=== PATIENT | female | born 1985 | race Caucasian/White ===

== ENCOUNTER 2023-03-18 22:31 | Outpatient (REF) | payer BC, SELFPAY ==
[2023-03-22 05:07] LABS: Age Gdln ACOG Testing Note (.); HPV Aptima Negative (Negative); IGP, Aptima HPV, rfx 16/18,45 Note (.)
== END 2023-03-18 22:32 | disposition home or self-care (01) ==
LOC: LAB 22:31
PROVIDERS: Visit Provider Obstetrics & Gynecology
DX: Z01.419 Encounter for gynecological examination (general) (routine) without abnormal findings (principal)
CPT/HCPCS: 87624; G0145

== ENCOUNTER 2024-09-22 19:37 | Outpatient (REF) | payer BC, SELFPAY ==
--- OUTSIDE RECORDS SUMMARY | 2024-09-22 14:30 | XMS_ITS | Encounter Summary ---
Author Organization [facility] Address [address] [place] [address] Care Team Providers Care Engraver Lettering Name Role Phone Unavailable Primary Care Provider Unavailabl e Reason for Visit * Reason Comments Well Women Visit Encounter Details Date Type Department Care Team (Late st Contact Info) Description 09/22/2024 2:30 PM EDT Office Visit [facility] [address] [place] [address] Mario Orantes [facility] [address] Well woman exam with routine gynecological exam Social History Tobacco Use Types Packs/Day Years Used Date Smoking Tobacco: Never Assessed Comments Unknown Sex and Gender Information Value Date Recorded Sex Assigned at Female 11/07/2022 3:20 PM EDT Legal Sex Female 7:21 PM EDT Gender Identity Female 11/07/2022 3:20 PM EDT Sexual Orientation Not on file documented as of this encounter Last Filed Vital Signs Vital Sign Reading Time Taken Comments Blood Pressure 120/70 09/22/2024 2:33 PM EDT Pulse - - Temperature - - Respiratory Rate - - Oxygen Saturation - - Inhaled Oxygen Concentration - - Weight 98.3 kg (216 lb 12.8 oz) 09/22/2024 2:33 PM EDT Height - - Body Mass Index 34.99 03/07/2022 12:00 PM EST documented in this encounter Plan of Treatment Upcoming Encounters Date Type Department Care Team (Late st Contact Info) Description 09/28/2025 10:00 AM EDT Procedure Visit [facility] [address] [place] [address] Mario Orantes, [address] [place] [address] Scheduled Orders Name Type Priority Associated Diagnoses Orde r Schedule Pap Smear Pathology and Cytology Routine Well woman exam with routine gynecological exam Ordered: 09/22/2024 HPV DNA probe, amplified Microbiology Routine Well woman exam with routine gynecological exam Ordered: 09/22/2024 documented as of this encounter Visit Diagnoses Diagnosis Well woman exam with routine gynecological exam Routine gynecological examination documented in this encounter
--- OUTSIDE RECORDS SUMMARY | 2024-09-22 19:41 | XMS_ITS | Encounter Summary ---
Author Organization [facility] Address [address] [place] [address] Phone Care Team Providers Care System Dispatcher Name Role Phone Michele Carrillo Primary Care Pr ovider Carleen Kennedy Unavailable [phone] [phone] Christen Garner RN Unavailable Unavailable Encounter Details Date Type Department Care Team (Late st Contact Info) Description 04/14/2023 Patient Risk Score ACO Care Management [address] [place] [address] Social History Tobacco Use Types Packs/Day Years Used Date Smoking Tobacco: Never Assessed Comments Unknown Sex and Gender Information Value Date Recorded Sex Assigned at Not on file Legal Sex Female 10:10 AM EST Gender Identity Female 05/28/2023 2:12 PM EDT Sexual Orientation Straight 05/28/2023 2: 12 PM EDT COVID-19 Exposure Response Date Recorded In the last 10 days, have yo u been in contact with someone who was confirmed or suspected to have Coronavirus/COVID-19? No / Unsure 03/25/2023 10:30 AM EST documented as of this encounter Plan of Treatment Not on file documented as of this encounter Visit Diagnoses Not on filedocumented in this encounter Care Teams System Dispatcher Relationship Specialty Start Date End Date Michele Carrillo APRN-CNP [address] [place] [phone] PCP - General 1/1/19 Carleen Kennedy, PUBLIC INFORMATION RELATIONS MANAGER-POLICE OFFICER BOOKING [address] [place] [address] PCP - Jd JOHNSONO PCP 04/11/22 Christen Garner, RN Registered Nurse Reproductive Endocrinology and Infertility 06/04/23 documented as of this encounter
--- OUTSIDE RECORDS SUMMARY | 2024-09-22 19:41 | XMS_ITS | Encounter Summary ---
Author Organization [facility] Address [address] [facility] [place] [address] Care Team Providers Care Vacuum Drum Drier Operator Name Role Phone Unavailable Primary Care Provider Unavailabl e Encounter Details Date Type Department Care Team (Latest Contact Info) Description 09/21/2024 Travel Social History Tobacco Use Types Packs/Day Years Used Date Smoking Tobacco: Never Assessed Comments Unknown Sex and Gender Information Value Date Recorded Sex Assigned at Female 11/07/2022 3:20 PM EDT Legal Sex Female 7:21 PM EDT Gender Identity Female 11/07/2022 3:20 PM EDT Sexual Orientation Not on file documented as of this encounter Plan of Treatment Upcoming Encounters Date Type Department Care Team (Late st Contact Info) Description 09/28/2025 10:00 AM EDT Procedure Visit [facility] [address] [place] [address] Mario Orantes, DO [address] [facility] [address] [place], [place] [id number] documented as of this encounter Visit Diagnoses Not on filedocumented in this encounter
--- OUTSIDE RECORDS SUMMARY | 2024-09-22 19:41 | XMS_ITS | Clinical Summary ---
Author Organization [facility] Address [id number] [address] [place] [address] Care Team Providers Care Search Consultant Name Role Phone GerardoSannagordy Shipman POURED WALL FOREMAN-HIGH SCHOOL SOCIAL STUDIES TEACHER Primary Care Provide r Allergies Active Allergy Reactions Criticality Noted Date Comments Dimethyl Fumarate pain High 11/07/2020 Severe Stomach Pain Medications omeprazole (PriLOSEC) 40 mg capsule Take 1 capsule (40 mg total) by mouth in the morning. 12/01/2021 Active famotidine (PEPCID) 20 mg tablet Take 1 tablet (20 mg total) by mouth in the morning and 1 tablet (20 mg total) before bedtime. 12/01/2021 Active montelukast (SINGULAIR) 10 mg tablet Take 1 tablet (10 mg total) by mouth nightly. 12/01/2021 Active levonorgestreL- ethinyl estrad (SEASONALE) 0.15 mg-30 mcg (91) per tablet Take 1 tablet by mouth in the morning. 12/01/2021 Active VUMERITY 231 mg capsule,delayed release(DR/EC) Take 231 mg by mouth in the morning and 231 mg before bedtime. 01/06/2022 Active cetirizine (ZyrTEC) 10 mg tablet Take 1 tablet (10 mg total) by mouth in the morning and 1 tablet (10 mg total) before bedtime. Active cholecalciferol , vitamin D3, (VITAMIN D3 ORAL) Take by mouth daily. Active fluticasone furoate-vilante roL (BREO ELLIPTA) 200-25 mcg/dose blister with device Inhale 1 puff in the morning. 12/01/2021 Active Active Problems No known active problems Family History Medical History Relation Name Comments Hypertension Father Pancreatic cancer Father 2 014 Breast cancer Maternal Grandmother Hypertension Mother Kidney cancer Mother partial kidney removal Relation Name Status Comments Father Maternal Grandmother Mother Alive Social History Tobacco Use Types Packs/Day Years Used Date Smoking Tobacco: Former Cigarettes 0.3 10 2 008 2017 Smokeless Tobacco: Never Tobacco Cessation:Counseling Given: Not Answered Alcohol Use Standard Drinks/Week Comments Not Currently 0 (1 standard drink = 0.6 oz pur e alcohol) Comments Unknown Sex and Gender Information Value Date Recorded Sex Assigned at Not on file Legal Sex Female 1:54 PM EDT Gender Identity Not on file Sexual Orientation Not on file Last Filed Vital Signs Vital Sign Reading Time Taken Comments Blood Pressure 106/82 01/17/2022 10:41 AM EST Pulse - - Temperature 36.6 C (97.8 F) 01/17/2022 10:41 AM EST Respiratory Rate - - Oxygen Saturation - - Inhaled Oxygen Concentration - - Weight 93.7 kg (206 lb 9.6 oz) 01/17/2022 10:41 AM EST Height 167.6 cm (5' 6 ) 01/17/2022 10:41 AM EST Body Mass Index 33.35 01/17/2022 10:41 AM EST Plan of Treatment Health Maintenance Due Date Last Done Comments Depression Screening 1998 Tobacco Screening 1998 DTaP,Tdap and Td Vaccines (1 - Tdap) 2005 Pap Smear 06/03/2007 Adult BMI Screening 01/17/2023 01/17/2022 Influenza Vaccine 11/09/2024 12/17/2019, , 12/29/2015 Medical Devices Not on file [place] [place] [address] Care Teams Search Consultant Relationship Specialty Start Date End Date Michele Carrillo APRN-HARIKA [address] [place] [address] PCP - General Family Medicine 01/17/22
--- OUTSIDE RECORDS SUMMARY | 2024-09-22 19:41 | XMS_ITS | Encounter Summary ---
Author Organization [facility] Address [address] [place] [address] Phone Care Team Providers Care Ocularist Name Role Phone Michele Carrillo HEAD START TEACHER-DIRECTOR OF RADIOLOGY Primary Care Pr ovider Carleen Kennedy HEAD START TEACHER-DIRECTOR OF RADIOLOGY Unavailable [phone] Christen Garner RN Unavailable Unavailable Encounter Details Date Type Department Care Team (Late st Contact Info) Description 10/13/2023 Patient Risk Score ACO Care Management [address] [place] [address] Social History Tobacco Use Types Packs/Day Years Used Date Smoking Tobacco: Former Cigarettes Passive Smoke Exposure: Past Smokeless Tobacco: Never Alcohol Use Standard Drinks/Week Comments Yes 0 (1 standard drink = 0.6 oz pur e alcohol) once a month PHQ-2 Answer Date Recorded Patient Health Questionnaire-2 Score 0 10/09/2023 Comments No Sex and Gender Information Value Date Recorded Sex Assigned at Not on file Legal Sex Female 10:10 AM EST Gender Identity Female 05/28/2023 2:12 PM EDT Sexual Orientation Straight 05/28/2023 2: 12 PM EDT COVID-19 Exposure Response Date Recorded In the last 10 days, have yo u been in contact with someone who was confirmed or suspected to have Coronavirus/COVID-19? Unable to assess 10/09/2023 6:47 AM EDT documented as of this encounter Plan of Treatment Not on file documented as of this encounter Visit Diagnoses Not on filedocumented in this encounter Additional Health Concerns Assessment Noted Time A fall risk assessment has been complete d for the patient 10/09/2023 8:04 AM EDT documented as of this encounter Care Teams Ocularist Relationship Specialty Start Date End Date Michele Carrillo APRN-CNP [address] [place] [address] PCP - General 03/11/18 Carleen Kennedy APRN-CNP [address] [place] [address] PCP - Jd BERG PCP 04/11/22 Christen Garner, RN Registered Nurse Reproductive Endocrinology and Infertility 06/04/23 documented as of this encounter
--- OUTSIDE RECORDS SUMMARY | 2024-09-22 19:41 | XMS_ITS | Encounter Summary ---
Author Organization [facility] Address [address] [place] [address] Phone Care Team Providers Care Support Technician Name Role Phone Michele Carrillo Primary Care Pr ovider Carleen Kennedy Unavailable [phone] Christen Garner RN Unavailable Unavailable Encounter Details Date Type Department Care Team (Late st Contact Info) Description 08/11/2024 Patient Risk Score ACO Care Management [address] [place] [address] Social History Tobacco Use Types Packs/Day Years Used Date Smoking Tobacco: Former Cigarettes Passive Smoke Exposure: Past Smokeless Tobacco: Never Alcohol Use Standard Drinks/Week Comments Yes 0 (1 standard drink = 0.6 oz pur e alcohol) once a month PHQ-2 Answer Date Recorded Patient Health Questionnaire-2 Score 0 03/24/2024 Comments No Sex and Gender Information Value Date Recorded Sex Assigned at Not on file Legal Sex Female 10:10 AM EST Gender Identity Female 05/28/2023 2:12 PM EDT Sexual Orientation Straight 05/28/2023 2: 12 PM EDT documented as of this encounter Plan of Treatment Not on file documented as of this encounter Visit Diagnoses Not on filedocumented in this encounter Additional Health Concerns Assessment Noted Time A fall risk assessment has been complete d for the patient 03/24/2024 8:46 AM EST documented as of this encounter Care Teams Support Technician Relationship Specialty Start Date End Date Michele Carrillo APRN-CNP [address] [place] [address] PCP - General 03/11/18 Carleen Kennedy APRN-STREET ENGINEER [address] [place] [address] PCP - Jd JOHNSONO PCP 04/11/22 Christen Garner, RN Registered Nurse Reproductive Endocrinology and Infertility 06/04/23 documented as of this encounter
--- OUTSIDE RECORDS SUMMARY | 2024-09-22 19:41 | XMS_ITS | Encounter Summary ---
Author Organization [facility] Address [address] [place] [address] Phone Care Team Providers Care Char Conveyor Tender Cellar Name Role Phone Michele Carrillo Primary Care Pr ovider Carleen Kennedy Unavailable [phone] Christen Garner RN Unavailable Unavailable Encounter Details Date Type Department Care Team (Late st Contact Info) Description 03/13/2023 Patient Risk Score AC Care Management [address] [place] [address] Social History Tobacco Use Types [...] on filedocumented in this encounter Care Teams Char Conveyor Tender Cellar Relationship Specialty Start Date End Date Michele Carrillo APRN-CNP [address] [place] [address] PCP - General 03/11/18 Carleen Kennedy APRN-CNP [address] Department of Neurology [place], [place] [id number] PCP - Jd JOHNSONO PCP 04/11/22 Christen Garner, RN Registered Nurse Reproductive Endocrinology and Infertility 06/04/23 documented as of this encounter
--- OUTSIDE RECORDS SUMMARY | 2024-09-22 19:41 | XMS_ITS | Encounter Summary ---
Author Organization [facility] Address [address] [place] [address] Phone Care Team Providers Care Grain Elevator Worker Name Role Phone Michele Carrillo Primary Care Pr ovider Carleen Kennedy Unavailable [phone] [phone] Christen Garner RN Unavailable Unavailable Encounter Details Date Type Department Care Team (Late st Contact Info) Description 05/13/2023 Patient Risk Score AC Care Management [address] [place] [address] Social History Tobacco Use Types [...] on filedocumented in this encounter Care Teams Grain Elevator Worker Relationship Specialty Start Date End Date Michele Carrillo APRN-CNP [address] [place] [address] PCP - General 03/11/18 Carleen Kennedy APRN-CNP [address] Department of Neurology [place], [place] [id number] PCP - Jd JOHNSONO PCP 04/11/22 Christen Garner, RN Registered Nurse Reproductive Endocrinology and Infertility 06/04/23 documented as of this encounter
--- OUTSIDE RECORDS SUMMARY | 2024-09-22 19:41 | XMS_ITS | Clinical Summary ---
Author Organization [facility] Address [address] [place] [address] Phone Care Team Providers Care Oxygen Therapy Teacher Name Role Phone Gerardo Michele Arambula WEB GRAPHIC DESIGNER-METALLURGICAL TECHNICIAN Primary Care Pr ovider Carleen Kennedy WEB GRAPHIC DESIGNER-METALLURGICAL TECHNICIAN Unavailable [phone] Christen Garner RN Unavailable Unavailable Allergies No known active allergies Medications Vumerity 231 mg capsule,delayed release(DR/EC)In dications:Multip le sclerosis (Multi) TAKE 2 CAPSULES BY MOUTH 2 TIMES A DAY. 120 capsule 5 4 Active Additional Information Patient not taking.Reported on 03/24/2024 cetirizine (ZyrTEC) 5 mg chewable tablet Chew 1 tablet (5 mg) once daily. Active omeprazole (PriLOSEC) [address] capsule Take 1 capsule (20 mg) by mouth. Do not crush or chew. Active famotidine (Pepcid) 10 mg tablet Take 1 tablet (10 mg) by mouth once daily at bedtime. Active montelukast (Singulair) 10 mg tablet Take 1 tablet (10 mg) by mouth once daily at bedtime. Active chorionic gonadotropin (Pregnyl) 10,000 unit injectionIndicat ions:Female infertility Reconstitute according to instructions and inject 10,000 units (1 mL) under the skin as a one time dose, as directed per provider for trigger. 1 each 4 Active choriogonadotrop in odalys (Ovidrel) 250 mcg/0.5 mL injectionIndicat ions:Female infertility Inject 250 mcg (1 syringe) under the skin as a one time dose, as directed per provider for trigger. 1 each 08/30/2023 5:28 PM EDT Active progesterone (Prometrium) 100 mg capsuleIndicatio ns:Female infertility Insert 1 capsule (100 mg) into the vagina 2 times a day. Starting 3 days after IUI 60 capsule 4 025 Active Additional Information Patient not taking.Reported on 03/24/2024 choriogonadotrop in odalys (Ovidrel) 250 mcg/0.5 mL injectionIndicat ions:Female infertility Inject 250 mcg (1 syringe) under the skin as a one time dose, as directed per provider for trigger. 1 each Active medroxyPROGESTER one (Provera) 10 mg tabletIndication s:Female infertility Take 1 tablet (10 mg) by mouth once daily. 10 tablet 4 025 Active Additional Information Patient not taking.Reported on 03/24/2024 Active Problems No known active problems Encounters Date Type Department Care Team Description 09/11/2024 Patient Risk Score ACO Care Management [address] [facility] [address] [place] [address] 08/11/2024 Patient Risk Score ACO Care Management [address] [facility] [address] [place] [address] 07/12/2024 Patient Risk Score ACO Care Management [address] [facility] [address] [place] [address] from Last 3 Months Family History Medical History Relation Name Comments Pancreatic cancer Father Colon cancer Maternal Grandmother Kidney cancer Mother non hodgkins Paternal Grandfather Colon cancer Paternal Grandmother Relation Name Status Comments Father Maternal Grandmother Mother Paternal Grandfather Paternal Grandmother Social History Tobacco Use Types Packs/Day Years Used Date Smoking Tobacco: Former Cigarettes Passive Smoke Exposure: Past Smokeless Tobacco: Never Tobacco Cessation:Counseling Given: Not Answered Alcohol Use Standard Drinks/Week Comments Yes 0 [...] Orientation Straight 05/28/2023 2: 12 PM EDT Last Filed Vital Signs Vital Sign Reading Time Taken Comments Blood Pressure 112/78 08/15/2023 3:18 PM EDT Pulse 85 08/15/2023 3:18 PM EDT Temperature 36.8 C (98.3 F) 06/04/2023 1:56 PM EDT Respiratory Rate 18 08/15/2023 3:18 PM EDT Oxygen Saturation - - Inhaled Oxygen Concentration - - Weight 95.3 kg (210 lb) 03/24/2024 8:44 AM EST Height 167.6 cm (5' 6 ) 03/24/2024 8:44 AM EST Body Mass Index 33.89 03/24/2024 8:44 AM EST Plan of Treatment Health Maintenance Due Date Last Done Comments Lipid Panel 1986 MMR Vaccines (1 of 1 - Standard series) 06/03/1987 Varicella Vaccines (1 of 2 - 13+ 2-dose series) 06/03/1999 Hepatitis B Vaccines (1 of 3 - 19+ 3-dose series) 2005 HPV/Cotest 06/03/2007 DTaP/Tdap/Td Vaccines (1 - Tdap) 2008 Pneumococcal Vaccine: Pediatrics and At-Risk Adult Patients (2 of 2 - PCV) 01/20/2020 01/19/2019 COVID-19 Vaccine (1 - season) 2023 Yearly Adult Physical 03/19/2024 03/18/2023 , 03/07/2022, 11/06/2021, Additional history exists Influenza Vaccine (#1) 2024 , 01/19/2019, 12/29/2015 Cervical Cancer Screening 03/18/2026 Pap Smear 03/18/2026 03/18/2023, 02/09, 03/02/2021 Zoster Vaccines (1 of 2) 2036 HIV Screening Completed 06/04/2023 Hepatitis C Screening Completed 06/04/2023 HIB Vaccines Aged Out No longer eligi ble based on patient's age to complete this topic HPV Vaccines (No Doses Required) Completed Hepatitis A Vaccines Aged Out No long er eligible based on patient's age to complete this topic IPV Vaccines Aged Out No longer eligi ble based on patient's age to complete this topic Meningococcal Vaccine Aged Out No mark kita eligible based on patient's age to complete this topic Rotavirus Vaccines Aged Out No longer eligible based on patient's age to complete this topic Procedures Procedure Name Priority Date/Time Associated Diagnosis Comments HEPATITIS C ANTIBODY Routine 06/04/2023 2:47 PM EDT Screening for STDs (sexually transmitted diseases) HIV 1/2 ANTIGEN/ANTIBODY SCREEN WI REFLEX TO CONFIRMATION Routine 06/04/2023 2:47 PM EDT Screening for STDs (sexually transmitted diseases) from Last 3 Months or Most Recently Relevant to Health Maintenance Results * Hepatitis C Antibody (06/04/2023 2:47 PM EDT) Hepatitis C AB Nonreactive Nonreactive LAB IMMUNOASSAY METHOD 06/04/2023 9:22 PM EDT [facility] Comment:Results from patient s taking biotin supplements or receiving high-dose biotin therapy should be interpreted with caution due to possible interference with this test. Providers may contact their local laboratory for further information. Blood Venous blood specimen / Unknown Venipuncture / Unknown 06/04/2023 2:47 PM EDT 06/04/2023 2:47 PM EDT Lashawn Drummond WEB GRAPHIC DESIGNER-METALLURGICAL TECHNICIAN LAB BLOOD ORDERABLES Micheline aguayo Result [facility] [id number] [place], [place] [id number] * HIV 1/2 Antigen/Antibody Screen with Reflex to Confirmation (06/04/2023 2:47 PM EDT) HIV 1/2 Antigen/Antibo dy Screen with Reflex to Confirmation Nonreactive Nonreactive LAB IMMUNOASSAY METHOD 06/04/2023 9:35 PM EDT [facility] Blood Venous blood specimen / Unknown Venipuncture / Unknown 06/04/2023 2:47 PM EDT 06/04/2023 2:47 PM EDT Narrative [facility] - 06/04/2023 9:35 PM EDT HIV Ag/Ab screen is performed using the Siemens Curate.Usllica HIV Ag/Ab Combo assay which detects the presence of HIV p24 antigen as well as antibodies to HIV-1 (Group M and O) and HIV-2. No laboratory evidence of HIV infection. If acute HIV infection is suspected, consider testing for HIV RNA by PCR (viral load). us Lashawn Drummond WEB GRAPHIC DESIGNER-METALLURGICAL TECHNICIAN LAB BLOOD ORDERABLES Micheline aguayo Result [facility] [address] [place] [address] from Last 3 Months or Most Recently Relevant to Health Maintenance Insurance [facility] [employer]ENTAL on file [facility] Member Subscriber Plan / Payer (Ef fective 2023-Present) Name:Amy Garcia Relation to Subscriber:Self Name:Amy Garcia Payer ID:[id number] (NAIC) Type:Not on file Address: [facility] [id number] [phone] PROGYNY Care Teams Oxygen Therapy Teacher Relationship Specialty Start Date End Date Michele Carrillo APRN-METALLURGICAL TECHNICIAN [address] [place] [phone] PCP - General 03/11/18 Carleen Kennedy APRN-METALLURGICAL TECHNICIAN [address] [place] [address] PCP - [place] ACO PCP 04/11/22 Christen Garner, RN Registered Nurse Reproductive Endocrinology and Infertility 06/04/23
--- OUTSIDE RECORDS SUMMARY | 2024-09-22 19:41 | XMS_ITS | Encounter Summary ---
Author Organization [facility] Address [address] [place] [address] Phone Care Team Providers Care Dairy Bar Manager Name Role Phone Michele Carrillo Primary Care Pr ovider Carleen Kennedy Unavailable [phone] Christen Garner RN Unavailable Unavailable Encounter Details Date Type Department Care Team (Late st Contact Info) Description 09/10/2022 Patient Risk Score AC Care Management [address] [place] [address] Social History Tobacco Use Types [...] on filedocumented in this encounter Care Teams Dairy Bar Manager Relationship Specialty Start Date End Date Michele Carrillo APRN-CNP [address] [place] [phone] PCP - General 03/11/18 Carleen Kennedy APRN-CNP [address] Department of Neurology [place], [place] [phone] PCP - Jd JOHNSONO PCP 04/11/22 Christen Garner, RN Registered Nurse Reproductive Endocrinology and Infertility 06/04/23 documented as of this encounter
--- OUTSIDE RECORDS SUMMARY | 2024-09-22 19:41 | XMS_ITS | Encounter Summary ---
Author Organization [facility] Address [address] [place] [address] Phone Care Team Providers Care Newspaper Library Manager Name Role Phone Michele Carrillo Primary Care Pr ovider Carleen Kennedy Unavailable [phone] [phone] Christen Garner RN Unavailable Unavailable Encounter Details Date Type Department Care Team (Late st Contact Info) Description 10/11/2022 Patient Risk Score AC Care Management [address] [place] [address] Social History Tobacco Use Types [...] on filedocumented in this encounter Care Teams Newspaper Library Manager Relationship Specialty Start Date End Date Michele Carrillo APRN-CNP [address] [place] [address] PCP - General 03/11/18 Carleen Kennedy APRN-CNP [address] Department of Neurology [place], [place] [phone] PCP - Jd JOHNSONO PCP 04/11/22 Christen Garner, RN Registered Nurse Reproductive Endocrinology and Infertility 06/04/23 documented as of this encounter
--- OUTSIDE RECORDS SUMMARY | 2024-09-22 19:41 | XMS_ITS | Encounter Summary ---
Author Organization [facility] Address [address] [place] [address] Care Team Providers Care Driver/Guide Name Role Phone Unavailable Primary Care Provider Unavailabl e Encounter Details Date Type Department Care Team (Late st Contact Info) Description 09/22/2024 Bamboo flowsheet [facility] [address] [place] [address] Mairo Orantes DO [facility] [address] [place], [place] [address] Social History Tobacco Use Types Packs/Day Years [...] 09/28/2025 10:00 AM EDT Procedure Visit [facility] [address] [place] [address] Mario Orantes DO [address] [place], [place] [id number] documented as of this encounter Visit Diagnoses Not on filedocumented in this encounter
--- OUTSIDE RECORDS SUMMARY | 2024-09-22 19:41 | XMS_ITS | Encounter Summary ---
Author Organization [facility] Address [address] [place] [address] Phone Care Team Providers Care Director Of Industrial Relations Name Role Phone Michele Carrillo Primary Care Pr ovider Carleen Kennedy Unavailable +1- [phone] Christen Garner RN Unavailable Unavailable Encounter Details Date Type Department Care Team (Late st Contact Info) Description 03/14/2024 Patient Risk Score ACO Care Management [address] [place] [address] Social History Tobacco Use Types [...] documented as of this encounter Care Teams Director Of Industrial Relations Relationship Specialty Start Date End Date Michele Carrillo APRN-CNP [address] [place] [address] PCP - General 03/11/18 Carleen Kennedy APRN-GROUND WATER PUMP INSTALLER [address] [place] [address] PCP - Jd JOHNSONO PCP 04/11/22 Christen Garner, RN Registered Nurse Reproductive Endocrinology and Infertility 06/04/23 documented as of this encounter
--- OUTSIDE RECORDS SUMMARY | 2024-09-22 19:41 | XMS_ITS | Encounter Summary ---
Author Organization [facility] Address [address] [place] [address] Phone Care Team Providers Care Loom Control Chain Builder Name Role Phone Michele Carrillo Primary Care Pr ovider Carleen Kennedy Unavailable +1 [phone] Christen Garner RN Unavailable Unavailable Encounter Details Date Type Department Care Team (Late st Contact Info) Description 01/11/2023 Patient Risk Score AC Care Management [address] [place] [address] Social History Tobacco Use Types [...] on filedocumented in this encounter Care Teams Loom Control Chain Builder Relationship Specialty Start Date End Date Michele Carrillo APRN-CNP [address] [place] [address] PCP - General 03/11/18 Carleen Kennedy APRN-CNP [address] Department of Neurology [place], [place] [address] PCP - Jd JOHNSONO PCP 04/11/22 Christen Garner, RN Registered Nurse Reproductive Endocrinology and Infertility 06/04/23 documented as of this encounter
--- OUTSIDE RECORDS SUMMARY | 2024-09-22 19:41 | XMS_ITS | Encounter Summary ---
Author Organization [facility] Address [address] [place] [address] Phone Care Team Providers Care Tractor Operator Name Role Phone Michele Carrillo Primary Care Pr ovider Carleen Kennedy Unavailable +1- [phone] Christen Garner RN Unavailable Unavailable Encounter Details Date Type Department Care Team (Late st Contact Info) Description 06/12/2024 Patient Risk Score ACO Care Management [address] [place] [address] Social History Tobacco Use Types [...] documented as of this encounter Care Teams Tractor Operator Relationship Specialty Start Date End Date Michele Carrillo APRN-CNP [address] [place] [address] PCP - General 03/11/18 Carleen Kennedy APRN-DOCUMENT COORDINATOR [address] Department [place] [address] PCP - Jd JOHNSONO PCP 04/11/22 Christen Garner, RN Registered Nurse Reproductive Endocrinology and Infertility 06/04/23 documented as of this encounter
--- OUTSIDE RECORDS SUMMARY | 2024-09-22 19:41 | XMS_ITS | Encounter Summary ---
Author Organization [facility] Address [address] [place] [address] Phone Care Team Providers Care Race Car Driver Name Role Phone Michele Carrillo COMMUNICATIONS MAINTAINER-EQUAL OPPORTUNITY SPECIALIST Primary Care Pr ovider Carleen Kennedy COMMUNICATIONS MAINTAINER-EQUAL OPPORTUNITY SPECIALIST Unavailable +1- [phone] Christen Garner RN Unavailable Unavailable Encounter Details Date Type Department Care Team (Late st Contact Info) Description 04/14/2024 Patient Risk Score ACO Care Management [address] [place] [address] Social History Tobacco Use Types [...] suspected to have Coronavirus/COVID-19? Unable to assess 03/24/2024 7:00 AM EST documented as of this encounter Plan of Treatment Not on file documented as of this encounter Visit Diagnoses Not on filedocumented in this encounter Additional Health Concerns Assessment Noted Time A fall risk assessment has been complete d for the patient 03/24/2024 8:46 AM EST documented as of this encounter Care Teams Race Car Driver Relationship Specialty Start Date End Date Michele Carrillo APRN-CNP [address] [place] [address] PCP - General 03/11/18 Carleen Kennedy APRN-CNP [address] Department of Neurology [place] [id number] PCP - Jd JOHNSONO PCP 04/11/22 Christen Garner, RN Registered Nurse Reproductive Endocrinology and Infertility 06/04/23 documented as of this encounter
--- OUTSIDE RECORDS SUMMARY | 2024-09-22 19:41 | XMS_ITS | Encounter Summary ---
Author Organization [facility] Address [address] [place] [address] Phone Care Team Providers Care Cherry Dipper Name Role Phone Michele Carrillo DIRECTOR SALES TRAINING-PLATFORM MILL SUPERVISOR Primary Care Pr ovider Carleen Kennedy DIRECTOR SALES TRAINING-PLATFORM MILL SUPERVISOR Unavailable [phone]- [phone] Christen Garner RN Unavailable Unavailable Encounter Details Date Type Department Care Team (Late st Contact Info) Description 11/12/2023 Patient Risk Score ACO Care Management [address] [place] [address] Social History Tobacco Use Types [...] suspected to have Coronavirus/COVID-19? No / Unsure 11/06/2023 6:34 AM EDT documented as of this encounter Plan of Treatment Not on file documented as of this encounter Visit Diagnoses Not on filedocumented in this encounter Additional Health Concerns Assessment Noted Time A fall risk assessment has been complete d for the patient 10/09/2023 8:04 AM EDT documented as of this encounter Care Teams Cherry Dipper Relationship Specialty Start Date End Date Michele Carrillo APRN-CNP [address] [place] [address] PCP - General 03/11/18 Carleen Kennedy APRN-CNP [address] [place] [address] PCP - Jd BERG PCP 04/11/22 Christen Garner, RN Registered Nurse Reproductive Endocrinology and Infertility 06/04/23 documented as of this encounter
--- OUTSIDE RECORDS SUMMARY | 2024-09-22 19:41 | XMS_ITS | Encounter Summary ---
Author Organization [facility] Address [address] [place] [address] Phone Care Team Providers Care Sheet Rock Finisher Name Role Phone Michele Carrillo Primary Care Pr ovider Carleen Kennedy Unavailable [phone]- [phone] Christen Garner RN Unavailable Unavailable Encounter Details Date Type Department Care Team (Late st Contact Info) Description 12/13/2023 Patient Risk Score ACO Care Management [address] [place] [address] Social History Tobacco Use Types [...] documented as of this encounter Care Teams Sheet Rock Finisher Relationship Specialty Start Date End Date Michele Carrillo APRN-CNP [address] [place] [address] PCP - General 03/11/18 Carleen Kennedy APRN-SILVER MINER [address] [place] [address] PCP - Jd JOHNSONO PCP 04/11/22 Christen Garner, RN Registered Nurse Reproductive Endocrinology and Infertility 06/04/23 documented as of this encounter
--- OUTSIDE RECORDS SUMMARY | 2024-09-22 19:41 | XMS_ITS | Encounter Summary ---
Author Organization [facility] Address [address] [place] [address] Phone Care Team Providers Care Windows And Doors Installer Name Role Phone Michele Carrillo LABORATORY PHLEBOTOMIST-DISTRICT TRAFFIC CHIEF Primary Care Pr ovider Carleen Kennedy LABORATORY PHLEBOTOMIST-DISTRICT TRAFFIC CHIEF Unavailable +1- [phone] Christen Garner RN Unavailable Unavailable Encounter Details Date Type Department Care Team (Late st Contact Info) Description 08/13/2023 Patient Risk Score ACO Care Management [address] [place] [address] Social History Tobacco Use Types Packs/Day Years Used Date Smoking Tobacco: Former Cigarettes Passive Smoke Exposure: Past Smokeless Tobacco: Never Alcohol Use Standard Drinks/Week Comments Yes 0 (1 standard drink = 0.6 oz pur e alcohol) once a month PHQ-2 Answer Date Recorded Patient Health Questionnaire-2 Score 0 06/04/2023 Comments No Sex and Gender Information Value [...] suspected to have Coronavirus/COVID-19? No / Unsure 08/06/2023 6:51 AM EDT documented as of this encounter Plan of Treatment Not on file documented as of this encounter Visit Diagnoses Not on filedocumented in this encounter Additional Health Concerns Assessment Noted Time A fall risk assessment has been complete d for the patient 06/04/2023 1:56 PM EDT documented as of this encounter Care Teams Windows And Doors Installer Relationship Specialty Start Date End Date Michele Carrillo APRN-CNP [address] [place] [address] PCP - General 03/11/18 Carleen Kennedy APRN-CNP [address] [place] [address] PCP - Jd BERG PCP 04/11/22 Christen Garner, RN Registered Nurse Reproductive Endocrinology and Infertility 06/04/23 documented as of this encounter
--- OUTSIDE RECORDS SUMMARY | 2024-09-22 19:41 | XMS_ITS | Encounter Summary ---
Author Organization [facility] Address [address] [place] [address] Phone Care Team Providers Care Area Relief Pilot Name Role Phone Michele Carrillo Primary Care Pr ovider Carleen Kennedy Unavailable [phone]- [phone] Christen Garner RN Unavailable Unavailable Encounter Details Date Type Department Care Team (Late st Contact Info) Description 09/11/2024 Patient Risk Score ACO Care Management [address] [place] [address] Social History Tobacco Use Types [...] documented as of this encounter Care Teams Area Relief Pilot Relationship Specialty Start Date End Date Michele Carrillo APRN-CNP [address] [place] [address] PCP - General 03/11/18 Carleen Kennedy APRN-STEWARD RACETRACK [address] [place] [address] PCP - Jd JOHNSONO PCP 04/11/22 Christen Garner, RN Registered Nurse Reproductive Endocrinology and Infertility 06/04/23 documented as of this encounter
--- OUTSIDE RECORDS SUMMARY | 2024-09-22 19:41 | XMS_ITS | Encounter Summary ---
Author Organization [facility] Address [address] [place] [address] Phone Care Team Providers Care Rn Immunology Name Role Phone Michele Carrillo Primary Care Pr ovider Carleen Kennedy Unavailable [phone]- [phone] Christen Garner RN Unavailable Unavailable Encounter Details Date Type Department Care Team (Late st Contact Info) Description 02/12/2024 Patient Risk Score ACO Care Management [address] [place] [address] Social History Tobacco Use Types [...] documented as of this encounter Care Teams Rn Immunology Relationship Specialty Start Date End Date Michele Carrillo APRN-CNP [address] [place] [address] PCP - General 03/11/18 Carleen Kennedy APRN-MFT [address] Department [place] [address] PCP - Jd JOHNSONO PCP 04/11/22 Christen Garner, RN Registered Nurse Reproductive Endocrinology and Infertility 06/04/23 documented as of this encounter
--- OUTSIDE RECORDS SUMMARY | 2024-09-22 19:41 | XMS_ITS | Clinical Summary ---
Author Organization [facility] Address [address] [place] [address] Care Team Providers Care Die Mounter Name Role Phone Unavailable Primary Care Provider Unavailabl e Allergies Active Allergy Reactions Criticality Noted Date Comments Dimethyl Fumarate Other High 11/07/2020 Severe Stomach Pain Medications Vumerity 231 MG capsule delayed-release 4 Active famotidine (Pepcid) 20 MG tablet Take 1 tablet by mouth in the morning and 1 tablet before bedtime. 3 Active omeprazole (PriLOSEC) [address] capsule TAKE 1 CAPSULE BY MOUTH EVERY DAY IN THE MORNING BEFORE BREAKFAST 3 Active montelukast (Singulair) 10 MG tablet Take 1 tablet by mouth at bedtime 4 Active Cholecalciferol (Vitamin D) 125 MCG (5000 UT) capsule Active LEVONORG-ETH ESTRAD TRIPHASIC PO Take 1 tablet by mouth in the morning. Active levonorgestrel-eth inyl estradiol (Seasonale) 0.15-0.03 MG tabletIndications: Encounter for other general counseling and advice on contraception TAKE 1 TABLET BY MOUTH EVERY DAY IN THE MORNING 91 tablet 5 Active Active Problems Problem Noted Date Diagnosed Date Mass on back 03/18/2023 Well woman exam with routine gynecological exam 03/18/2023 Encounters Date Type Department Care Team Description 09/22/2024 2:30 PM EDT Office Visit [facility] [address] [facility] [place] [address] Mario Orantes, DO Well woman exam with routine gynecological exam 09/22/2024 Bamboo flowsheet [facility] [address] [place] [address] Mario Orantes DO 09/21/2024 Travel 07/09/2024 Refill [facility] [address] [place], [place] [address] [address] Mario Orantes DO Encounter for other general counseling and advice on contraception from Last 3 Months Family History Medical History Relation Name Comments Cancer Father Diabetes Maternal Grandmother Cancer Mother Heart disease Paternal Grandmother Relation Name Status Comments Father Maternal Grandmother Mother Paternal Grandmother Social History Tobacco Use Types Packs/Day Years Used Date Smoking Tobacco: Never Assessed Comments Unknown Sex and Gender Information Value Date Recorded Sex Assigned at Female 11/07/2022 3:20 PM EDT Legal Sex Female 7:21 PM EDT Gender Identity Female 11/07/2022 3:20 PM EDT Sexual Orientation Not on file Last Filed Vital Signs Vital Sign Reading Time Taken Comments Blood Pressure 120/70 09/22/2024 2:33 PM EDT Pulse - - Temperature - - Respiratory Rate - - Oxygen Saturation - - Inhaled Oxygen Concentration - - Weight 98.3 kg (216 lb 12.8 oz) 09/22/2024 2:33 PM EDT Height 167.6 cm (5' 6 ) 03/07/2022 12:0 0 PM EST Body Mass Index 34.99 03/07/2022 12:00 PM EST Plan of Treatment Upcoming Encounters Date Type Department Care Team (Late st Contact Info) Description 09/28/2025 10:00 AM EDT Procedure Visit [facility] [place] [phone] Mario Orantes, [address] [place], [place] [id number] Insurance [facility]
--- OUTSIDE RECORDS SUMMARY | 2024-09-22 19:41 | XMS_ITS | Encounter Summary ---
Author Organization [facility] Address [address] [place] [address] Phone Care Team Providers Care Infrastructure Software Engineer Name Role Phone Michele Carrillo Primary Care Pr ovider Carleen Kennedy Unavailable [phone] [phone] Christen Garner RN Unavailable Unavailable Encounter Details Date Type Department Care Team (Late st Contact Info) Description 11/11/2022 Patient Risk Score AC Care Management [address] [place] [address] Social History Tobacco Use Types [...] on filedocumented in this encounter Care Teams Infrastructure Software Engineer Relationship Specialty Start Date End Date Michele Carrillo APRN-CNP [address] [place] [address] PCP - General 03/11/18 Carleen Kennedy APRN-CNP [address] Department of Neurology [place], [place] [address] PCP - Jd JOHNSONO PCP 04/11/22 Christen Garner, RN Registered Nurse Reproductive Endocrinology and Infertility 06/04/23 documented as of this encounter
--- OUTSIDE RECORDS SUMMARY | 2024-09-22 19:41 | XMS_ITS | Encounter Summary ---
Author Organization [facility] Address [address] [place] [address] Phone Care Team Providers Care Belly Packer Name Role Phone Michele Carrillo LUNCHROOM MOTHER-SALESPERSON TERRAZZO TILES Primary Care Pr ovider Carleen Kennedy LUNCHROOM MOTHER-SALESPERSON TERRAZZO TILES Unavailable [phone]- [phone] Christen Garner RN Unavailable Unavailable Encounter Details Date Type Department Care Team (Late st Contact Info) Description 06/13/2023 Patient Risk Score ACO Care Management [address] [place] [address] Social History Tobacco Use Types [...] suspected to have Coronavirus/COVID-19? No / Unsure 06/04/2023 1:20 PM EDT documented as of this encounter Plan of Treatment Not on file documented as of this encounter Visit Diagnoses Not on filedocumented in this encounter Additional Health Concerns Assessment Noted Time A fall risk assessment has been complete d for the patient 06/04/2023 1:56 PM EDT documented as of this encounter Care Teams Belly Packer Relationship Specialty Start Date End Date Michele Carrillo APRN-CNP [address] [place] [address] PCP - General 03/11/18 Carleen Kennedy APRN-CNP [address] [place] [address] PCP - Jd BERG PCP 04/11/22 Christen Garner, RN Registered Nurse Reproductive Endocrinology and Infertility 06/04/23 documented as of this encounter
--- OUTSIDE RECORDS SUMMARY | 2024-09-22 19:41 | XMS_ITS | Encounter Summary ---
Author Organization [facility] Address [address] [place] [address] Phone Care Team Providers Care Wind Field Service Manager Name Role Phone Michele Carrillo Primary Care Pr ovider Carleen Kennedy Unavailable +1 [phone] Christen Garner RN Unavailable Unavailable Encounter Details Date Type Department Care Team (Late st Contact Info) Description 07/12/2024 Patient Risk Score ACO Care Management [address] [place] [address] Social History Tobacco Use Types [...] documented as of this encounter Care Teams Wind Field Service Manager Relationship Specialty Start Date End Date Michele Carrillo APRN-CNP [address] [place] [address] PCP - General 03/11/18 Carleen Kennedy APRN-CAPACITY PLANNING ANALYST [address] Department [place] [address] PCP - Jd JOHNSONO PCP 04/11/22 Christen Garner, RN Registered Nurse Reproductive Endocrinology and Infertility 06/04/23 documented as of this encounter
--- OUTSIDE RECORDS SUMMARY | 2024-09-22 19:41 | XMS_ITS | Encounter Summary ---
Author Organization [facility] Address [address] [place] [address] Phone Care Team Providers Care Reference Data Expert Name Role Phone Michele Carrillo Primary Care Pr ovider Carleen Kennedy Unavailable [phone]- [phone] Christen Garner RN Unavailable Unavailable Encounter Details Date Type Department Care Team (Late st Contact Info) Description 02/10/2023 Patient Risk Score ACO Care Management [address] [place] [address] Social History Tobacco Use Types [...] suspected to have Coronavirus/COVID-19? No / Unsure 02/07/2023 10:06 AM EST documented as of this encounter Plan of Treatment Not on file documented as of this encounter Visit Diagnoses Not on filedocumented in this encounter Care Teams Reference Data Expert Relationship Specialty Start Date End Date Michele Carrillo APRN-CNP [address] [place] [address] PCP - General 1/1/19 Carleen Kennedy, FISHING ROD ASSEMBLER-SEGMENTAL PAVING SUPERVISOR [address] Department [place] [address] PCP - Jd JOHNSONO PCP 04/11/22 Christen Garner, RN Registered Nurse Reproductive Endocrinology and Infertility 06/04/23 documented as of this encounter
--- OUTSIDE RECORDS SUMMARY | 2024-09-22 19:41 | XMS_ITS | Encounter Summary ---
Author Organization [facility] Address [address] [place] [address] Phone Care Team Providers Care Material Handling Warehouse Supervisor Name Role Phone Michele Carrillo Primary Care Pr ovider Carleen Kennedy Unavailable [phone] [phone] Christen Garner RN Unavailable Unavailable Encounter Details Date Type Department Care Team (Late st Contact Info) Description 05/12/2024 Patient Risk Score ACO Care Management [address] [place] [address] Social History Tobacco Use Types [...] documented as of this encounter Care Teams Material Handling Warehouse Supervisor Relationship Specialty Start Date End Date Michele Carrillo APRN-CNP [address] [place] [address] PCP - General 03/11/18 Carleen Kennedy APRN-FORGE HELPER [address] [place] [address] PCP - Jd JOHNSONO PCP 04/11/22 Christen Garner, RN Registered Nurse Reproductive Endocrinology and Infertility 06/04/23 documented as of this encounter
--- OUTSIDE RECORDS SUMMARY | 2024-09-22 19:41 | XMS_ITS | Encounter Summary ---
Author Organization [facility] Address [address] [place] [address] Phone Care Team Providers Care School Program Director Name Role Phone ChristianobennysatishMichele Ralf LINE DANCER-RN ONCOLOGY CLINICAL Primary Care Pr ovider Carleen Kennedy LINE DANCER-RN ONCOLOGY CLINICAL Unavailable [phone]- [phone] Christen Garner RN Unavailable Unavailable Encounter Details Date Type Department Care Team (Late st Contact Info) Description 09/24/2023 Scanned Document Servin [facility] [address] [place] [address] [phone] Alesia Hernandez [place] Social History Tobacco Use Types Packs/Day Years [...] suspected to have Coronavirus/COVID-19? No / Unsure 09/05/2023 7:46 AM EDT documented as of this encounter Plan of Treatment Not on file documented as of this encounter Visit Diagnoses Not on filedocumented in this encounter Additional Health Concerns Assessment Noted Time A fall risk assessment has been complete d for the patient 08/15/2023 3:22 PM EDT documented as of this encounter Care Teams School Program Director Relationship Specialty Start Date End Date Michele Carrillo APRN-CNP [address] [place] [address] PCP - General 03/11/18 Carleen Kennedy APRN-CNP [address] Department [place] [address] PCP - Jd BERG PCP 04/11/22 Christen Garner, RN Registered Nurse Reproductive Endocrinology and Infertility 06/04/23 documented as of this encounter
--- OUTSIDE RECORDS SUMMARY | 2024-09-22 19:41 | XMS_ITS | Encounter Summary ---
Author Organization [facility] Address [address] [place] [address] Care Team Providers Care Wave Guide Assembler Name Role Phone Michele Carrillo DNP Primary Care Provider [phone] [phone] Reason for Visit * Reason Comments Medication Refill Encounter Details Date Type Department Care Team (Late st Contact Info) Description 10/15/2019 Refill [facility] [address] [place] [address] Michele Carrillo DNP [address] [place] [address] Medication Refill Social History Tobacco Use Types Packs/Day Years Used Date Smoking Tobacco: Former Cigarettes 0.3 6 2 - 2016 Smokeless Tobacco: Never Alcohol Use Standard Drinks/Week Comments Never 0 (1 standard drink = 0.6 oz pur e alcohol) AUDIT-C Answer Date Recorded Frequency of Alcohol Consumption Never 07/04/2018 Average Number of Drinks Not on file 019 Frequency of Binge Drinking Not on file 06/10 PHQ-2 Answer Date Recorded PHQ-2 Score 0 07/04/2018 Comments No Sex and Gender Information Value Date Recorded Sex Assigned at Female 05/08/2024 12:07 PM EST Legal Sex Female 7:42 PM EST Gender Identity Not on file Sexual Orientation Not on file documented as of this encounter Plan of Treatment Not on file documented as of this encounter Visit Diagnoses Not on filedocumented in this encounter Additional Health Concerns Infection Onset Date Last Indicated Resolved Time COVID-19 (Rule Out) 11/07/2020 11/07/2020 11/08/19 21 4:31 PM EDT documented as of this encounter Care Teams Wave Guide Assembler Relationship Specialty Start Date End Date Michele Carrillo DNP [address] [place] [address] PCP - General Family Nurse Practitioner 07/04/18 documented as of this encounter
--- OUTSIDE RECORDS SUMMARY | 2024-09-22 19:41 | XMS_ITS | Encounter Summary ---
Author Organization [facility] Address [address] [place] [address] Care Team Providers Care Casket Trimmer Name Role Phone Michele Carrillo DNP Primary Care Provider [phone] Reason for Visit * Reason Comments Medication Refill Encounter Details Date Type Department Care Team (Late st Contact Info) Description 12/09/2019 [place] [facility] [address] [place] [address] Michele Carrillo DNP [address] [place] [address] Medication Refill Social History Tobacco [...] documented as of this encounter Care Teams Casket Trimmer Relationship Specialty Start Date End Date Michele Carrillo DNP [address] [place] [address] PCP - General Family Nurse Practitioner 07/04/18 documented as of this encounter
--- OUTSIDE RECORDS SUMMARY | 2024-09-22 19:42 | XMS_ITS | Encounter Summary ---
Author Organization [facility] Address [address] [place] [address] Phone Care Team Providers Care Security Rover Name Role Phone ChristianoMichele osman WOODYARD CRANE OPERATOR-BUNDLE HELPER Primary Care Pr ovider Carleen Kennedy WOODYARD CRANE OPERATOR-BUNDLE HELPER Unavailable [phone] Christen Garner RN Unavailable Unavailable Encounter Details Date Type Department Care Team (Late st Contact Info) Description 06/18/2023 Scanned Document [facility] [address] [place] [address] Lashawn Drummond, WOODYARD CRANE OPERATOR-BUNDLE HELPER [address] [facility], Simran Mora Marlon, [address] [address] Social History Tobacco Use Types Packs/Day Years [...] on file documented as of this encounter Procedures Procedure Name Priority Date/Time Associated Diagnosis Comments MYRIAD - FORESIGHT CARRIER S CREEN - 2BP RESULTED 06/18/2023 documented in this encounter Results * MYRIAD - FORESIGHT CARRIER SCREEN - 2BP RESULTED (06/18/2023) Lashawn Ros Bhanu ALANIS-BUNDLE HELPER LAB CYTOGENETICS ORDERABL ES Final Result documented in this encounter Visit Diagnoses Not on filedocumented in this encounter Additional Health Concerns Assessment Noted Time A fall risk assessment has been complete d for the patient 06/04/2023 1:56 PM EDT documented as of this encounter Care Teams Security Rover Relationship Specialty Start Date End Date Michele Carrillo APRN-BUNDLE HELPER [address] [place] [address] PCP - General 03/11/18 Carleen Kennedy APRN-BUNDLE HELPER [address] Department [place] [address] PCP - Jd JOHNSONO PCP 04/11/22 Christen Garner, RN Registered Nurse Reproductive Endocrinology and Infertility 06/04/23 documented as of this encounter
--- OUTSIDE RECORDS SUMMARY | 2024-09-22 19:42 | XMS_ITS | Encounter Summary ---
Author Organization [facility] Address [address] [place] [address] Phone Care Team Providers Care Shelter Monitor Name Role Phone Michele Carrilol TRUST CLERK-FARMWORKER [employer] Primary Care Pr ovider Carleen Kennedy TRUST CLERK-FARMWORKER [employer] Unavailable [phone] Christen Garner RN Unavailable Unavailable Encounter Details Date Type Department Care Team (Late st Contact Info) Description 07/12/2023 Patient Risk Score ACO Care Management [address] [place] [address] Social History Tobacco Use Types [...] suspected to have Coronavirus/COVID-19? No / Unsure 07/10/2023 12:41 PM EDT documented as of this encounter Plan of Treatment Not on file documented as of this encounter Visit Diagnoses Not on filedocumented in this encounter Additional Health Concerns Assessment Noted Time A fall risk assessment has been complete d for the patient 06/04/2023 1:56 PM EDT documented as of this encounter Care Teams Shelter Monitor Relationship Specialty Start Date End Date Michele Carrillo APRN-CNP [address] [place] [address] PCP - General 03/11/18 Carleen Kennedy APRN-CNP [address] Department [place] [address] PCP - Jd BERG PCP 04/11/22 Christen Garner, RN Registered Nurse Reproductive Endocrinology and Infertility 06/04/23 documented as of this encounter
--- OUTSIDE RECORDS SUMMARY | 2024-09-22 19:42 | XMS_ITS | Encounter Summary ---
Author Organization [facility] Address [address] [place] [address] Phone Care Team Providers Care Labeling Specialist Name Role Phone ChristianobennysatishMichele Ralf MOBILE HEAVY EQUIPMENT OPERATOR-LOADING SUPERVISOR Primary Care Pr ovider Carleen Kennedy MOBILE HEAVY EQUIPMENT OPERATOR-LOADING SUPERVISOR Unavailable [phone] Christen Garner RN Unavailable Unavailable Encounter Details Date Type Department Care Team (Late st Contact Info) Description 08/30/2023 Scanned Document [facility] [address] [place] [address] [id number] Alesia Hernandez [place] Social History Tobacco Use [...] documented as of this encounter Care Teams Labeling Specialist Relationship Specialty Start Date End Date Michele Carrillo APRN-CNP [address] [place] [address] PCP - General 03/11/18 Carleen Kennedy APRN-CNP [address] [place] [address] PCP - Jd BERG PCP 04/11/22 Christen Garner, RN Registered Nurse Reproductive Endocrinology and Infertility 06/04/23 documented as of this encounter
--- OUTSIDE RECORDS SUMMARY | 2024-09-22 19:42 | XMS_ITS | Clinical Summary ---
Author Organization [facility] Address [address] [place] [address] Care Team Providers Care Trade Manager Name Role Phone Michele Carrillo DNP Primary Care Provider [phone] Allergies Active Allergy Reactions Criticality Noted Date Comments Dimethyl Fumarate 11/07/2020 Medications levonorgestrel- ethinyl estradiol (SEASONALE) 0.15-0.03 MG per tablet Take 1 tablet by mouth 04/25/19 19 Active cetirizine (ZYRTEC) 10 MG tablet Take 1 tablet by mouth daily Active VUMERITY 231 MG CPDR 2 capsules every am and 2 pills every pm 11/04/19 21 Active albuterol sulfate HFA (PROVENTIL;VENT MERA;PROAIR) 108 (90 Base) MCG/ACT inhalerIndicati ons:Moderate persistent asthma, unspecified whether complicated Inhale 2 puffs into the lungs 4 times daily 18 each 1 10/22/19 24 Active famotidine (PEPCID) 20 MG tablet TAKE 1 TABLET BY MOUTH TWICE A DAY 180 tablet 1 04/06/19 25 Active omeprazole (PRILOSEC) 40 MG delayed release capsule TAKE 1 CAPSULE BY MOUTH EVERY DAY IN THE MORNING BEFORE BREAKFAST 90 capsule 1 04/06/19 25 Active BREO ELLIPTA 200-25 MCG/ACT AEPB inhaler TAKE 1 PUFF BY MOUTH EVERY DAY 60 each 5 06/17/19 25 Active montelukast (SINGULAIR) 10 MG tablet TAKE 1 TABLET BY MOUTH EVERY DAY AT NIGHT 90 tablet 1 06/23/20 25 Active montelukast (SINGULAIR) 10 MG tablet TAKE 1 TABLET BY MOUTH EVERY DAY AT NIGHT 90 tablet 1 02/19/20 24 025 Discontinued Active Problems Problem Noted Date Diagnosed Date Gastroesophageal reflux disease 11/06/2021 Vitamin D deficiency 11/06/2021 Multiple sclerosis 11/24/2020 Overview (11/06/2021): Comment on above: Areas of abnormal signal in R and L hemispheric WM in brain and C-spine as well as Gd-enhancing lesions in brain by MRI 05/17/2017.; 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 Family history of malignant neoplasm of breast 1 Family history of malignant neoplasm of digestiv e organs 03/09/2020 Family history of other henrique gnant neoplasms of lymphoid, hematopoietic and related tissues 03/09/2020 Family history of malignant neoplasm of kidney 1 Atypical squamous cells of u ndetermined significance on cytologic smear of cervix (ASC-US) 03/01/2020 Encounters Date Type Department Care Team Description 08/30/2024 Refill [facility] [address] [place] [address] Michele Carrillo DNP Medication Refill from Last 3 Months Immunizations Immunization Administration Dates Next Due Influenza, FLUARIX, FLULAVAL , FLUZONE (age 6 mo+) and AFLURIA, (age 3 y+), Quadv PF, 0.5mL 12/17/2019,01/19/2019 Pneumococcal, PPSV23, PNEUMO VAX 23, (age 2y+), SC/IM, 0.5mL 01/19/2019 Family History Medical History Relation Name Comments Cancer Father Magnus pancreatic Cancer Mother Sruthi kidney Relation Name Status Comments Father Magnus Mother Sruthi Alive Social History Tobacco Use Types Packs/Day Years Used Date Smoking Tobacco: Former Cigarettes 0.3 6 0 03/11/2010 - 2016 Smokeless Tobacco: Never Alcohol Use Standard Drinks/Week Comments Never 0 (1 standard drink = 0.6 oz pur e alcohol) AUDIT-C Answer Date Recorded Frequency of Alcohol Consumption Never 07/04/2018 Average Number of Drinks Not on file 019 Frequency of Binge Drinking Not on file 06/10 Overall Financial Resource Strain (CARDIA) Answe r Date Recorded How hard is it for you to pa y for the very basics like food, housing, medical care, and heating? Not hard at all 11/06/2021 PHQ-2 Answer Date Recorded PHQ-9 Total Score 0 10/21/2023 Hunger Vital Sign Answer Date Recorded Within the past 12 months, y ou worried that your food would run out before you got the money to buy more. Never true 11/07/19 22 Within the past 12 months, t he food you bought just didn't last and you didn't have money to get more. Never true 11/06/2021 PRAPARE - Transportation Answer Date Re corded In the past 12 months, has l ack of transportation kept you from medical appointments or from getting medications? No 10/2019 In the past 12 months, has l ack of transportation kept you from meetings, work, or from getting things needed for daily living? No 12/17/2019 Housing Stability Vital Sign Answer Mateus e Recorded Unable to Pay for Housing in the Last Year Not o n file 10/21/2023 Number of Times Moved in the Last Year Not on fi le 10/21/2023 At any time in the past 12 m [facility] were you homeless or living in a assisted (including now)? No 10/21/2023 Food Insecurity Answer Date Recorded Within the past 12 months, y ou worried that your food would run out before you got the money to buy more. 1 10/21/2023 Within the past 12 months, t he food you bought just didn't last and you didn't have money to get more. 1 10/21/2023 Comments No Sex and Gender Information Value Date Recorded Sex Assigned at Female 05/08/2024 12:07 PM EST Legal Sex Female 7:42 PM EST Gender Identity Not on file Sexual Orientation Not on file Last Filed Vital Signs Vital Sign Reading Time Taken Comments Blood Pressure 128/88 10/22/2023 10:22 AM EDT Pulse 96 10/22/2023 10:22 AM EDT Temperature 36.7 C (98 F) 11/06/2021 3:37 PM EDT Respiratory Rate 16 08/16/2018 8:30 AM EDT Oxygen Saturation 97% 10/22/2023 10:22 AM EDT Inhaled Oxygen Concentration - - Weight 98.4 kg (217 lb) 10/22/2023 10:22 AM EDT Height 167.6 cm (5' 6 ) 10/22/2023 10:22 AM EDT Body Mass Index 35.02 10/22/2023 10:22 AM EDT Plan of Treatment Health Maintenance Due Date Last Done Comments Varicella vaccine (1 of 2 - 13+ 2-dose series) 06/03/1999 HIV screen 2001 Hepatitis C screen 2004 DTaP/Tdap/Td vaccine (1 - Tdap) 2005 Hepatitis B vaccine (1 of 3 - 19+ 3-dose series) 2005 Pap smear 06/03/2007 Cervical cancer screen 2016 HPV (without or with Pap) 2016 Pneumococcal 0-49 years Vaccine (2 of 2 - PCV) 01/20/2020 01/19/2019 COVID-19 Vaccine (1 - 2023-2 5 season) 2023 Flu vaccine (#1) 10/09/2024 12/17/2019, 01/19/2019 Depression Screen 10/20/2024 10/21/2023, 10/21/2023 Diabetes screen 11/06/2024 11/06/2021, 11/06/2021 HPV vaccine Aged Out No longer eligi ble based on patient's age to complete this topic Hepatitis A vaccine Aged Out No longe r eligible based on patient's age to complete this topic Hib vaccine Aged Out No longer eligi ble based on patient's age to complete this topic Meningococcal (ACWY) vaccine Aged Out No longer eligible based on patient's age to complete this topic Meningococcal B vaccine Aged Out No l onger eligible based on patient's age to complete this topic Polio vaccine Aged Out No longer elig ible based on patient's age to complete this topic Procedures Procedure Name Priority Date/Time Associated Diagnosis Comments GLUCOSE, FASTING Routine 11/06/2021 4:44 PM EDT Annual physical exam from Last 3 Months or Most Recently Relevant to Health Maintenance Results * Glucose, Fasting (11/06/2021 4:44 PM EDT) Glucose, Fasting 79 70 - 99 mg/dL 11/06/2021 4:[address] [facility] BLOOD SPECIMEN / Unknown 11/06/2021 4:44 PM EDT 11/06/2021 4:45 PM EDT us Michele Carrlilo DNP CHEMISTRY ORDERABLES Micheline l Result [facility] [address] [place] [address], [facility] [phone] from Last 3 Months or Most Recently Relevant to Health Maintenance Insurance BCBS OUT OF STATE Care Teams Trade Manager Relationship Specialty Start Date End Date Michele Carrillo DNP [address] [place] [address] PCP - General Family Nurse Practitioner 07/04/18
--- OUTSIDE RECORDS SUMMARY | 2024-09-22 19:42 | XMS_ITS | Clinical Summary ---
Author Organization [facility] Address [address] [place] [address] Care Team Providers Care Core Winding Operator Name Role Phone Unavailable Primary Care Provider Unavailabl e Medications TECFIDERA 240 mg cpDR 9 Active ergocalciferol, vitamin D2, (DRISDOL) 50,000 unit capsule Take 1 capsule by mouth once each week. 0 9 Active levonorgestrel- ethinyl estradiol 0.15 mg-30 mcg (91) per tab, 3 month pack Take 1 tablet by mouth once daily. 11 9 Active fluticasone (FLONASE) 50 mcg/actuation nasal spray USE 2SPRAYS IN EACH NOSTRIL DAILY X1WEEK.THEN,1-2S PRAYS DAILY USING LOWEST DOSE NEEDED AFTER WEEK 1. 0 9 Active montelukast (SINGULAIR) 10 mg tablet TAKE 1 TABLET BY MOUTH EVERY DAY AT NIGHT 0 9 Active albuterol HFA (PROVENTIL HFA, VENTOLIN HFA) 90 mcg/actuation inhaler USE 1 TO 2 INHALATIONS EVERY 4 TO 6 HOURS NEEDED FOR WHEEZING 0 9 Active azithromycin (ZITHROMAX Z-FATUMA) 250 mg tablet 2 tablets by mouth first day then 1 tablet the next 4 days 1 Package 9 Active Active Problems No known active problems Social History Tobacco Use Types Packs/Day Years Used Date Smoking Tobacco: Never Smokeless Tobacco: Never Area Deprivation Index Answer Date Alphonse rded National Score (1-100), lower number is lower ri sk Not on file 02/18/2020 State Score (1-10), lower number is lower risk N ot on file 02/18/2020 Data from: https://www.neighborhoodatlas.medicine.[facility]/. Last address used for calculation Not on file 02/18/2020 Comments No Sex and Gender Information Value Date Recorded Sex Assigned at Not on file Legal Sex Female 9:14 AM EDT Gender Identity Not on file Sexual Orientation Not on file Last Filed Vital Signs Vital Sign Reading Time Taken Comments Blood Pressure 118/80 07/02/2018 9:40 AM EDT Pulse 104 07/02/2018 9:40 AM EDT Temperature 36.3 C (97.3 F) 07/02/2018 9:40 AM EDT Respiratory Rate - - Oxygen Saturation 97% 07/02/2018 9:40 AM EDT Inhaled Oxygen Concentration - - Weight 81.6 kg (180 lb) 07/02/2018 9:40 AM EDT Height 167.6 cm (5' 6 ) 07/02/2018 9:40 AM EDT Body Mass Index 29.05 07/02/2018 9:40 AM EDT Plan of Treatment Not on file [place] [address] [place] [address] CARD PPO OOS
--- OUTSIDE RECORDS SUMMARY | 2024-09-22 19:42 | XMS_ITS ---
Author Organization [facility] Address [address] [place] [address] Phone Care Team Providers Care Biostatistics Director Name Role Phone Michele Carrillo CHEMISTRY LABORATORY TECHNICIAN-MINE GEOLOGIST Primary Care Pr ovider Carleen Kennedy CHEMISTRY LABORATORY TECHNICIAN-MINE GEOLOGIST Unavailable Christen Garner RN Unavailable Unavailable Multiple Sclerosis Core Status:Enrolled (Active) Start date:06/11/2023 Enrollment date:06/11/2023 Enrollment reason:Referred by provider Current support & services provided:Benefits and PA Management Linked medications:diroximel fumarate (Active) Case Team Name Relationship Phone Gregory Patton PharmD(Responsible Staff) Diego leyva [phone] Continued Care and Services Coordination
--- OUTSIDE RECORDS SUMMARY | 2024-09-22 19:42 | XMS_ITS ---
Author Organization [facility] Address [address] [place] [address] Phone Care Team Providers Care Warehouse Operator Name Role Phone Michele Carrillo MANAGER FAMILY-PROCUREMENT CLERK Primary Care Pr ovider Carleen Kennedy MANAGER FAMILY-PROCUREMENT CLERK Unavailable Christen Garner RN Unavailable Unavailable Fertility Core Status:Enrolled (Active) Start date:08/28/2023 Enrollment date:08/28/2023 Enrollment reason:Identified from a specialty prescription Current support & services provided:Refill Management, Benefits and PA Management Linked medications:chorionic gonadotropin, human (Active) Case Team Name Relationship Phone Nancy Leal(Responsible Staff) Career Technical Education Instructor Continued Care and Services Coordination
--- OUTSIDE RECORDS SUMMARY | 2024-09-22 19:42 | XMS_ITS | Encounter Summary ---
Author Organization [facility] Address [address] [place] [address] Phone Care Team Providers Care Bass Guitar Teacher Name Role Phone Michele Carrillo PRINTING MACHINIST-NITROGLYCERIN SEPARATOR OPERATOR Primary Care Pr ovider Carleen Kennedy PRINTING MACHINIST-NITROGLYCERIN SEPARATOR OPERATOR Unavailable [phone] Christen Garner RN Unavailable Unavailable Encounter Details Date Type Department Care Team (Late st Contact Info) Description 09/12/2023 Patient Risk Score ACO Care Management [address] [place] [address] Social History Tobacco Use Types [...] documented as of this encounter Care Teams Bass Guitar Teacher Relationship Specialty Start Date End Date Michele Carrillo APRN-CNP [address] [place] [address] PCP - General 03/11/18 Carleen Kennedy APRN-CNP [address] [place] [address] PCP - Jd BERG PCP 04/11/22 Christen Garner, RN Registered Nurse Reproductive Endocrinology and Infertility 06/04/23 documented as of this encounter
--- OUTSIDE RECORDS SUMMARY | 2024-09-22 20:00 | XMS_ITS | CCD ---
Author Organization [facility] Care Team Providers Care Assistant Sales Director Name Role Phone ADRIÁN GUERRA Unavailable Unavailable ADRIÁN GUERRA Unavailable Unavailable Sita iSngh Primary Care Provider Georges Sam Unavailable Unavailable Michael Chaney Unavailable Unavailable Sita Singh Unavailable Unavailable None, No PCP Unavailable Unavailable Sita Singh Unavailable Unavailable Unavailable Unavailable Unavailable Unavailable Unavailable Clinjacqui SOD FARMER - CONSTRUCTION SUPERINTENDENTSita Primary Care Prov ider SITA SINGH Primary Care Unavailable Clingman, Mr. Sita Arambula Primary Care Unav ailable Shiv, Michael Attending Unavailable LAMBERTO, DR IRWIN Admitting Unavailable LAMBERTO, DR IRWIN Attending Unavailable LAMBERTO, DR IRWIN Consulting Unavailable LAMBERTO, DR IRWIN Admitting Unavailable LAMBERTO, DR IRWIN Attending Unavailable LAMBERTO, DR IWRIN Consulting Unavailable ZIEBER, DR BONNIE Stovall Consulting Unavailable LAMBERTO, DR IRWIN Admitting Unavailable LAMBERTO, DR IRWIN Attending Unavailable LAMBERTO, DR IRWIN Consulting Unavailable DEMARIO, DR BONNIE Stovall Consulting Unavailable LAMBEROT, DR IRWIN Admitting Unavailable LAMBERTO, DR IRWIN Attending Unavailable LAMBERTO, DR IRWIN Consulting Unavailable ZIEBER, DR BONNIE Stovall Consulting Unavailable Trujillo AltoMichael hudson Attending Unavaila ble Clingman, Mr. Sita Arambula Primary Care Unav ailable Clingman, Mr. Sita Arambula Primary Care Unav ailable Trujillo AltoMichael hudson Attending Unavaila ble Clingman, Mr. Sita Arambula Primary Care Unav ailable Shiv, Michael Weaver Referring Unavaila ble Shiv, Michael Meg Attending Unavaila ble Clingman SOD FARMER-CONSTRUCTION SUPERINTENDENT, Sita Arambula Primary Care Pr ovider Shiv SOD FARMER-CONSTRUCTION SUPERINTENDENT, Michael Salvador Unavailable MARIO ORANTES Attending Unavailable Patsy MOORE, Christen Unavailable Unavailable LASHAWN DRUMMOND Referring Unavailable CLINGMAN, SITA ARAMBULA Primary Care Unavaila ble CLINGMAN, SITA Shipman Referring Unavailable CLINGMAN, SITA Shipman Primary Care Unavailable SHIV, MICHAEL D Referring Unavailable CLINGMAN, SITA ARAMBULA Primary Care Unavaila ble LASHAWN DRUMMOND Attending Unavailable CLINGMASatish, SITA ARAMBULA Primary Care Unavaila ble LASHAWN DRUMMOND Referring Unavailable CLINGMAN, SITA ARAMBULA Primary Care Unavaila ble CLINGMAN, SITA ARAMBULA Primary Care Unavaila ble KATJA GARCÍA Attending Unavailable CLINGMAN, SITA ARAMBULA Primary Care Unavaila ble HILARY ZENDEJAS Attending Unavailable LASHAWN DRUMMOND Referring Unavailable CLINGMAN, SITA ARAMBULA Primary Care Unavaila ble LASHAWN DRUMMOND Attending Unavailable CLINGMAN, SITA ARAMBULA Primary Care Unavaila ble SHIV, MICHAEL Franco Attending Unavailable CLINGMAN, SITA ARAMBULA Primary Care Unavaila ble CLINGMAN, SITA ARAMBULA Primary Care Unavaila ble LASHAWN DRUMMOND Referring Unavailable CLINGMAN, SITA ARAMBULA Primary Care Unavaila ble LASHAWN DRUMMOND Referring Unavailable CLINGMAN, SITA ARAMBULA Primary Care Unavaila ble CLINGMAN, SITA ARAMBULA Primary Care Unavaila ble LANA DALTON Attending Unavailable LASHAWN DRUMMOND Referring Unavailable CLINGMAN, SITA ARAMBULA Primary Care Unavaila ble LASHAWN DRUMMOND Referring Unavailable CLINGMAN, SITA ARAMBULA Primary Care Unavaila ble LASHAWN DRUMMOND Referring Unavailable CLINGMAN, SITA ARAMBULA Primary Care Unavaila ble LASHAWN DRUMMOND Referring Unavailable CLINGMAN, SITA ARAMBULA Primary Care Unavaila ble LASHAWN DRUMMOND Attending Unavailable CLINGMAN, SITA ARAMBULA Primary Care Unavaila ble LASHAWN DRUMMOND Referring Unavailable CLINGMAN, SITA ARAMBULA Primary Care Unavaila ble LASHAWN DRUMMOND Referring Unavailable CLINGMAN, SITA ARAMBULA Primary Care Unavaila ble LASHAWN DRUMMOND L Referring Unavailable CLINGMAN, SITA ARAMBULA Primary Care Unavaila ble CLINGMAN, SITA ARAMBULA Primary Care Unavaila ble HILARY ZENDEJAS Attending Unavailable MARIZA MORALES Referring Unavailable CLINGMAN, SITA ARAMBULA Primary Care Unavaila ble CLINGMAN, SITA ARAMBULA Primary Care Unavaila ble CLINGMAN, SITA ARAMBULA Primary Care Unavaila ble CLINGMAN, SITA ARAMBULA Primary Care Unavaila ble CLINGMAN, SITA ARAMBULA Primary Care Unavaila ble CLINGMAN, SITA ARAMBULA Primary Care Unavaila ble CLINGMAN, SITA ARAMBULA Primary Care Unavaila ble CLINGMAN, SITA ARAMBULA Primary Care Unavaila ble CLINGMAN, SITA ARAMBULA Primary Care Unavaila ble CLINGMAN, SITA ARAMBULA Primary Care Unavaila ble CLINGMAN, SITA ARAMBULA Primary Care Unavaila ble HILARY ZENDEJAS Referring Unavailable CLINGMAN, SITA ARAMBULA Primary Care Unavaila LASHAWN Narvaez Attending Unavailable CLINGMAN, SITA ARAMBULA Primary Care Unavaila ble Clingman Sita PAREKH Primary Care Provider 1( [phone] Unavailable Primary Care Provider Unavailabl e Allergies Allergy Classification Reported Allergen(s) Allergy Type Date of Onset Reaction(s) Facility dimethyl fumarate (1 source) dimethyl fumarate; Translations: [Tecfidera CPDR] Drug Allergy [facility] [address] Work Phone: (20 sources) dimethyl fumarate; Translations: [Tecfidera CPDR] Drug Allergy 1 [facility] (1 source) No Known Medication Allergies; Translations: [No Known Medication Allergies] Propensity to adverse reactions (disorder) [facility] Repository (1 source) dimethyl fumarate Drug Allergy 1 Other [facility] Healthcare Medications Current Medications Medication Drug Class(es) Dates Sig (Normalized) Sig (Original) [id number] 200 actuat albuterol 0.09 mg/actuat metered dose inhaler (20 sources) beta2-Adrenergic Agonist Start: 10-22-2023 take 2 puff(s) by inhalation four times daily albuterol sulfate HFA (PROVENTIL;VENTOLI N;PROAIR) 108 (90 Base) MCG/ACT inhaler Indications: Moderate persistent asthma, unspecified whether complicated Inhale 2 puffs into the lungs 4 times daily 18 each 1 10/22/2023 Active Start: 11-07-2020 take 2 puff(s) by in halation four times daily albuterol sulfate HFA 108 (90 Base) MCG/ACT inhaler Indications: Moderate persistent asthma, unspecified whether complicated Inhale 2 puffs into the lungs 4 times daily 18 Inhaler 1 11/07/2020 Active Start: 09-22-2020 Albuterol Sulf ate HFA 108 (90 Base) MCG/ACT Inhalation Aerosol Solution Quantity: 18 Refills: 0 Ordered: 22-Sep-2020 DO Start : 22-Sep-2020 Active Start: 09-22-2020 Albuterol Sulf ate HFA 108 (90 Base) MCG/ACT Inhalation Aerosol Solution Quantity: 18 Refills: 0 Ordered: 22-Sep-2020 DO Start : 22-Sep-2020 Active Start: 09-16-2018 take 1-2 puff(s) by inhalation every four to six hours as needed for wheezing albuterol sulfate HFA (PROVENTIL HFA) 108 (90 Base) MCG/ACT inhaler Indications: Moderate persistent asthma, unspecified whether complicated Take 1 to 2 puffs every 4 to 6 hours as needed for wheezing and shortness of breath. 1 Inhaler 3 09/16/2018 Active cetirizine hydrochloride 5 m g chewable tablet (19 sources) Histamine-1 Receptor Antagonist cetirizine (ZyrTEC) 5 mg chewable tablet Chew 1 tablet (5 mg) once daily. Active take 1 tablet by mouth once danita y cetirizine (ZYRTEC) 10 MG tablet Take 1 tablet by mouth daily Active cholecalciferol 0.125 mg ora l capsule (1 source) Vitamin D Cholecalciferol (Vitamin D) 125 MCG (5000 UT) capsule Active 0.5 ml choriogonadotropin al fa 0.5 mg/ml prefilled syringe (20 sources) Gonadotropin Start: 08-29-2023 choriogonadotropin odalys (Ovidrel) 250 mcg/0.5 mL injection Indications: Female infertility Inject 250 mcg (1 syringe) under the skin as a one time dose, as directed per provider for trigger. 1 each 12/31/2023 Active Start: 08-28-2023 inject [id number] [IU] by subcutaneous injection once chorionic gonadotropin (Pregnyl) 10,000 unit injection Indications: Female infertility Reconstitute according to instructions and inject 10,000 units (1 mL) under the skin as a one time dose, as directed per provider for trigger. 1 each 08/28/2023 Active dicyclomine hydrochloride 10 mg oral capsule (1 source) Anticholinergic Start: 11-18-2019 dicyclomine (BENTYL) 10 MG capsule One tablet daily as needed. 0 11/18/2019 Active diroximel fumarate 231 mg delayed release oral capsule (20 sources) Start: 05-21-2023 take 2 capsules by mouth twice daily Vumerity 231 mg capsule,delayed release(DR/EC) Indications: Multiple sclerosis (Multi) TAKE 2 CAPSULES BY MOUTH 2 TIMES A DAY. 120 capsule 5 05/21/2023 Active Start: 03-12-2023 Vumerity 231 M G capsule delayed-release 03/12/2023 Active Start: 11-03-2020 VUMERITY 231 M G CPDR 2 capsules every am and 2 pills every pm 11/03/2020 Active Start: 04-13-2020 take 2 capsules by m outh twice daily Vumerity 231 MG Oral Capsule Delayed Release TAKE TWO (2) CAPSULES BY MOUTH TWICE DAILY. Quantity: 120 Refills: 5 Ordered: 30-Nov-2022 Shiv Capellan CNP, Sophia Start : 13-Apr-2020 Active Ethinyl Estradiol / Levonorgestrel (9 sources) Progestin, Estrogen, Progestin-containing Intrauterine Device Start: 07-09-2024 levonorgestrel-ethinyl estradiol (Seasonale) 0.15-0.03 MG tablet Indications: Encounter for other general counseling and advice on contraception TAKE 1 TABLET BY MOUTH EVERY DAY IN THE MORNING 91 tablet 07/09/2024 Active Start: 04-25-2018 levonorgestrel -ethinyl estradiol (SEASONALE) 0.15-0.03 MG per tablet Take 1 tablet by mouth 04/25/2018 Active Start: 04-25-2018 levonorgestrel -ethinyl estradiol (SEASONALE) 0.15-0.03 MG per tablet Take 1 tablet by mouth 0 04/25/2018 Active Start: 02-10-2017 Levonorgest-Et h Estrad 91-Day 0.15-0.03 MG Oral Tablet Quantity: 91 Refills: 0 Start : 10-Feb-2017 Active famotidine 20 mg oral tablet (20 sources) Histamine-2 Receptor Antagonist Start: 12-13-2022 take 1 tablet by mouth twice daily famotidine (PEPCID) 20 MG tablet TAKE 1 TABLET BY MOUTH TWICE A DAY 180 tablet 1 10/22/2023 Active Start: 05-22-2021 take 1 tablet by cliff th twice daily Famotidine 20 MG Oral Tablet TAKE 1 TABLET BY MOUTH TWICE A DAY Quantity: 180 Refills: 0 Ordered: 05-Sep-2021 DO Start : 22-May-2021 Active take 1 tablet by cliff th once daily at bedtime famotidine (Pepcid) 10 mg tablet Take 1 tablet (10 mg) by mouth once daily at bedtime. Active fluticasone propionate 0.05 mg/actuat metered dose nasal spray (3 sources) Corticosteroid Start: 09-16-2018 take 2 spray(s) nasal route once daily fluticasone (FLONASE) 50 MCG/ACT nasal spray USE 2SPRAYS IN EACH NOSTRIL DAILY X1WEEK.THEN,1-2SPRAYS DAILY USING LOWEST DOSE NEEDED AFTER WEEK 1. 1 Bottle 5 09/16/2018 Active 30 actuat fluticasone furoate 0.2 mg/actuat / vilanterol 0.025 mg/actuat dry powder inhaler (20 sources) Corticosteroid, beta2-Adrenergic Agonist Start: 10-22-2023 take 1 puff(s) by inhalation once daily fluticasone furoate-vilanterol (BREO ELLIPTA) 200-25 MCG/ACT AEPB inhaler Inhale 1 puff into the lungs daily 1 each 5 10/22/2023 Active Start: 09-22-2020 take 1 dose by mouth once danita y BREO ELLIPTA 200-25 MCG/INH AEPB inhaler USE 1 INHALATION ORALLY DAILY 1 each 5 09/22/2020 Active Start: 12-17-2019 Breo Ellipta 2 00-25 MCG/INH AEPB Quantity: 60 Refills: 0 Ordered: 17-Dec-2019 DO Start : 17-Dec-2019 Active Start: 12-30-2018 take 1 puff(s) by in halation once daily Fluticasone furoate-vilanterol (BREO ELLIPTA) 200-25 MCG/INH AEPB inhaler Inhale 1 puff into the lungs daily 3 each 1 12/30/2018 Active letrozole 2.5 mg oral tablet (3 sources) Aromatase Inhibitor Start: 10-23-2023 End: 01-21-2024 take 1 tablet by mouth once daily, then take 1 tablet by mouth once daily, then take 3-7 tablets by mouth once letrozole (Femara) 2.5 mg tablet Indications: Female infertility Take 1 tablet (2.5 mg total) by mouth once daily. Take 1 tablet by mouth cycle days 3-7 after negative urine test every cycle before starting letrozole. 5 tablet 10/23/2023 01/21/2024 Active LEVONORG-ETH ESTRAD TRIPHASIC PO (1 source) take 1 tablet by mouth in the morning LEVONORG-ETH ESTRAD TRIPHASIC PO Take 1 tablet by mouth in the morning. Active medroxyPROGESTERone acetate 10 mg oral tablet (1 source) Progestin Start: 02-24-2024 End: 02-23-2025 take 1 tablet by mouth once daily medroxyPROGESTERone (Provera) 10 mg tablet Indications: Female infertility Take 1 tablet (10 mg) by mouth once daily. 10 tablet 02/24/2024 02/23/2025 Active montelukast 10 mg oral tablet (20 sources) Leukotriene Receptor Antagonist Start: 12-30-2018 take 1 tablet by mouth at bedtime montelukast (Singulair) 10 MG tablet Take 1 tablet by mouth at bedtime 03/18/2023 Active omeprazole 40 mg delayed release oral capsule (20 sources) Proton Pump Inhibitor Start: 12-13-2022 take 1 capsule by mouth once daily before breakfast omeprazole (PRILOSEC) 40 MG delayed release capsule TAKE 1 CAPSULE BY MOUTH EVERY DAY IN THE MORNING BEFORE BREAKFAST 90 capsule 1 10/22/2023 Active Start: 09-05-2021 Omeprazole 40 MG Oral Capsule Delayed Release Quantity: 90 Refills: 0 Ordered: 05-Sep-2021 DO Start : 05-Sep-2021 Active Start: 05-22-2021 take 1 capsule by mo [facility] once daily before breakfast omeprazole (PRILOSEC) 40 MG delayed release capsule TAKE 1 CAPSULE BY MOUTH EVERY DAY IN THE MORNING BEFORE BREAKFAST 90 capsule 1 05/22/2021 Active Start: 09-16-2018 take 1 capsule by va ut once daily before breakfast omeprazole (PRILOSEC) 40 MG delayed release capsule Take 1 capsule by mouth every morning (before breakfast) 90 capsule 1 09/16/2018 Active omeprazole (PriL OSEC) [address] capsule Take 1 capsule (20 mg) by mouth. Do not crush or chew. Active progesterone 100 mg oral capsule (5 sources) Progesterone Start: 09-20-2023 End: 12-30-2024 progesterone (Prometrium) 100 mg capsule Indications: Female infertility Insert 1 capsule (100 mg) into the vagina 2 times a day. Starting 3 days after IUI 60 capsule 12/31/2023 12/30/2024 Active Completed/Discontinued Medications Medication Drug Class(es) Dates Sig (Normalized) Sig (Original) amantadine hydrochloride 100 mg oral tablet (10 sources) Influenza A M2 Protein Inhibitor Start: 11-02-2021 take 1 tablet by mouth twice daily Amantadine HCl - 100 MG Oral Tablet TAKE 1 TABLET Twice daily for MS fatigue Quantity: 60 Refills: 5 Ordered: 02-Nov-2021 Shiv Capellan CNP, Sophia Start : 02-Nov-2021 Active barium sulfate 60 % cream 4.8 g (1 source) Start: 01-29-2019 End: 01-29-2019 barium sulfate 60 % cream 4.8 g barium sulfate 60 % suspension 355 mL (1 source) Start: 01-29-2019 End: 01-29-2019 barium sulfate 60 % suspension 355 mL dimethyl fumarate 240 mg delayed release oral capsule (6 sources) Start: 06-12-2018 take 1 capsule by mouth twice daily Tecfidera 240 MG Oral Capsule Delayed Release TAKE ONE CAPSULE BY MOUTH TWICE DAILY. STORE IN ORIGINAL CONTAINER AT ROOM TEMPERATURE. Quantity: 60 Refills: 11 Shiv Capellan CNP, Sophia Start : 29-Jan-2019 Active ergocalciferol 1.25 mg oral capsule (20 sources) Provitamin D2 Compound Start: 06-14-2017 take 1 capsule by mouth every week Vitamin D (Ergocalciferol) 1.25 MG (56415 UT) Oral Capsule TAKE ONE CAPSULE BY MOUTH ONE TIME PER WEEK Quantity: 4 Refills: 5 Ordered: 14-Aug-2019 Shiv Capellan CNP, Sophia Start : 14-Jun-2017 Active gadoterate meglumine (Dotarem) 0.5 mmol/mL contrast injection 18 mL (2 sources) Start: 03-25-2023 End: 03-25-2023 gadoterate meglumine (Dotarem) 0.5 mmol/mL contrast injection 18 mL iohexol (OMNIPaque) 240 mg iodine/mL solution 20 mL (1 source) Start: 08-06-2023 End: 08-06-2023 20 mL, vaginal, Once in imaging, Starting on Sat08/06/23 at 0757, For 1 dose Levonorgest-Eth Estrad 91-Day 0.15-0.03 MG Oral Tablet (19 sources) Start: 02-10-2017 Levonorgest-Eth Estrad 91-Day 0.15-0.03 MG Oral Tablet Quantity: 91 Refills: 0 Ordered: 10-Feb-2017 DO Start : 10-Feb-2017 Active Problems Active Problems Problem Classification Problem Date Documented Date Episodic/Chronic Asthma (2 sources) Moderate persistent asthma, uncomplicated; Translations: [Moderate persistent asthma] Onset: 10-22-2023 10-22-2023 Chronic Blindness and vision defects (20 sources) Transient visual loss, left eye; Translations: [Transient visual loss] Onset: 05-17-2017 Episodic Comment on above: Most likely due to m igraine with aura but need to evaluate for stroke. Need to consider optic neuritis in view of abnormal MRI brain.; Esophageal disorders (5 sources) Gastroesophageal reflux disease without esophagitis; Translations: [Gastro-esophageal reflux disease without esophagitis] Onset: 11-06-2021 Chronic Female infertility (8 sources) Female infertility; Translations: [Female infertility, unspecified] Onset: 09-03-2023 09-03-2023 Chronic Headache; including migraine (20 sources) Migraine with aura; Translations: [Migraine with aura, without mention of intractable migraine without mention of status migrainosus] Chronic Comment on above: Episodic visual dist urbance OS and episodic moderate headaches. Increased risk of stroke. At visit 05/02/2017, no significant headaches.; Multiple sclerosis (20 sources) Multiple sclerosis; Translations: [Multiple sclerosis] Onset: 11-24-2020 11-06-2021 Chronic Comment on above: Areas of abnormal si gnal in R and L hemispheric WM in brain and C-spine as well as Gd-enhancing lesions in brain by MRI 05/17/2017.; Nonmalignant breast conditions (3 sources) Unspecified lump in the right breast, upper inner quadrant; Translations: [UNS LUMP IN RT BREAST UPR INR QUAD] Onset: 01-01-2022 Episodic Nutritional deficiencies (20 sources) Vitamin D deficiency; Translations: [Unspecified vitamin D deficiency] Onset: 11-06-2021 Chronic Other and unspecified benign neoplasm (1 source) Benign neoplasm of right breast; Translations: [BENIGN NEOPLASM OF RIGHT BREAST] Onset: 01-04-2022 Episodic Other infections; including parasitic (20 sources) Lyme disease; Translations: [Lyme Disease] Episodic Other infections; including parasitic (19 sources) Lyme enzyme-linked immunosorbent assay positive; Translations: [Lyme Disease] Episodic Other nervous system disorders (20 sources) Paresthesia; Translations: [Disturbance of skin sensation] Episodic Comment on above: 2-3 day episode of R UE and RLE numbness and RUE weakness.; Other upper respiratory infections (1 source) Pharyngitis; Translations: [Pharyngitis, unspecified etiology] Episodic Residual codes; unclassified (19 sources) No current problems or disability; Translations: [Other specified conditions influencing health status] Episodic Unclassified (1 source) Unknown / UNK(Unknown) Onset: 05-17-2017 Unclassified (4 sources) Unspecified lump in the right breast, overlapping quadrants; Translations: [UNS LUMP RT BREAST OVRLPNG QUADRNTS] Onset: 11-01-2021 Past or Other Problems Problem Classification Problem Date Documented Da te Episodic/Chronic Cancer of cervix (2 sources) Cervical atypism; Translations: [Atypical squamous cells of undetermined significance on cytologic smear of cervix (ASC-US)] Onset: 03-01-2020 11-06-2021 Episodic Contraceptive and procreative management (14 sources) Patient encounter status; Translations: [Encounter for fertility testing] Onset: 06-04-2023 06-04-2023 Episodic Immunizations and screening for infectious disease (20 sources) Bacterial antibody present; Translations: [Other and unspecified nonspecific immunological findings] Onset: 03-09-2022 06-04-2023 Episodic Other and unspecified benign neoplasm (2 sources) Benign neoplasm of right breast; Translations: [Benign neoplasm of right breast] Onset: 03-16-2020 11-06-2021 Episodic Other complications of (2 sources) Inappropriate change in quantitative human chorionic gonadotropin (hCG) in early ; Translations: [Inappropriate change in quantitative human chorionic gonadotropin (hCG) in early ([facility])] Onset: 11-25-2023 Episodic Other gastrointestinal disorders (2 sources) Dysphagia; Translations: [Dysphagia, unspecified type] Episodic Other nervous system disorders (1 source) Anesthesia of skin; Translations: [ANESTHESIA OF SKIN] Onset: 05-17-2017 Episodic Other and delivery including normal (2 sources) Encounter for test, result positive; Translations: [Encounter for test, result positive ([facility])] Onset: 11-21-2023 Episodic Other screening for suspected conditions (not mental disorders or infectious disease) (3 sources) No current problems or disability; Translations: [History of No known health problems] Other skin disorders (1 source) Mass of back; Translations: [Localized swelling, mass and lump, trunk] Onset: 03-18-2023 03-18-2023 Episodic Residual codes; unclassified (2 sources) Family history of breast cancer; Translations: [Family history of malignant neoplasm of breast] Onset: 03-09-2020 11-06-2021 Episodic Residual codes; unclassified (2 sources) Family history of malignant neoplasm of digestive organ; Translations: [Family history of malignant neoplasm of digestive organs] Onset: 03-09-2020 11-06-2021 Episodic Residual codes; unclassified (2 sources) Family history of cancer; Translations: [Family history of other malignant neoplasms of lymphoid, hematopoietic and related tissues] Onset: 03-09-2020 11-06-2021 Episodic Residual codes; unclassified (2 sources) Family history of malignant neoplasm of kidney; Translations: [Family history of malignant neoplasm of kidney] Onset: 03-09-2020 11-06-2021 Episodic Residual codes; unclassified (1 source) Family history of malignant neoplasm of breast; Translations: [FAMILY HX MALIG NEOPLASM OF BREAST] Onset: 03-19-2021 Episodic Residual codes; unclassified (1 source) Family history of malignant neoplasm of kidney; Translations: [FAM HX MALIGNANT NEOPLASM KIDNEY] Onset: 03-19-2021 Episodic Residual codes; unclassified (1 source) Family history of malignant neoplasm of digestive organs; Translations: [FAM HX MALIG NEOPLASM DIGESTIV ORGN] Onset: 03-19-2021 Episodic Residual codes; unclassified (1 source) Family history of other malignant neoplasms of lymphoid, hematopoietic and related tissues; Translations: [FAM HX OTH MAL ARIANNA LYMPH HEMATPOETC] Onset: 03-19-2021 Episodic Unclassified (20 sources) Other abnormal findings on diagnostic imaging of central nervous system; Translations: [Lyme enzyme-linked immunosorbent assay positive] Onset: 05-17-2017 Episodic Unclassified (1 source) H53.122 VISUAL LOSS OF L EYE R20.0 NUMBNESS TINGLING IN R ARM /LEG Onset: 05-17-2017 Unclassified (14 sources) Onset: 06-04-2023 Resolved: 03-24-2024 06-04-2023 Unclassified (1 source) Patient encounter status 03-24-2024 NEGATED: Highlighted row has not occurred!Residual codes; unclassified (20 sources) Disease Episodic Results Test Name Value Interpretation Reference Range Facility US PELVIS TRANSVAGINALon US PELVIS TRANSVAGINAL Interpreted by: Chaz Romo Indication ======== Fertility Testing Impression ========= Anteverted uterus with a trilaminar endometrial lining that measures as below. There is a trace amount of fluid in the endometrial cavity, and the uterus contains fibroids as seen below. The ovaries are normal in appearance bilaterally. Uterus ====== Uterus: Visualized Uterus position: anteverted Description of uterine malformations: arcuate uterus Myometrium: normal Endometrium: intracavitary fluid: anechogenic Cervix details: normal Uterus length 73.4 mm Uterus width 43.9 mm Uterus height 30.7 mm Endometrial thickness, total 6.1 mm Fibroids: Fibroids identified Uterine fibroid D1 8 mm Uterine fibroid D2 5 mm Uterine fibroid D3 7 mm Uterine fibroid mean 6.7 mm Uterine fibroid vol 0.147 cm??? Uterine fibroids findings: Subserous. Right lateral posterior wall Uterine fibroid D1 10 mm Uterine fibroid D2 7 mm Uterine fibroid D3 9 mm Uterine fibroid mean 8.7 mm Uterine fibroid vol 0.330 cm??? Uterine fibroids findings: Pedunculated. Fundal Right Ovary ========= Rt ovary: Visualized Rt ovary morphology: normal Rt ovary D1 17.2 mm Rt ovary D2 33.1 mm Rt ovary D3 19.1 mm Rt ovary Vol 5.7 cm??? Rt ovarian follicle(s): Follicles identified Rt ovarian follicles other findings: Antral Follicles 10+ < 10mm Left Ovary ======== Lt ovary: Visualized Lt ovary morphology: normal Lt ovary D1 21.5 mm Lt ovary D2 32.9 mm Lt ovary D3 20.1 mm Lt ovary Vol 7.4 cm??? Lt ovarian follicle(s): Follicles identified Lt ovarian follicle D1 10.9 mm Lt ovarian follicle D2 8.2 mm Lt ovarian follicle D3 9.5 mm Lt ovarian follicle mean 9.5 mm Lt ovarian follicles other findings: Antral Follicles 10+ < 10mm Cul de Sac ========= Visualized. No free fluid visualized Method ====== Transabdominal and transvaginal ultrasound examination. View: Sufficient Normal [facility] Choriogonadotropin.beta subu niton 02-18-2024 HCG.beta subunit Qn m[IU]/mL Normal <5 [facility] Comment on above: Order Comment: Total HCG measurement is performed using the [employer] Access Immunoassay which detects intact HCG and free beta HCG subunit. This test is not indicated for use as a tumor marker. HCG testing is performed using a different test methodology at [facility] than other [facility]. Direct result comparison should only be made within the same method. Performed By: #### 1 6128-1 #### RAYNE Sommer ([id number]) [facility] ([facility]) [address] [place] [address] Estradiolon 02-18-2024 E2 [Mass/Vol] 53 pg/mL [facility] Comment on above: Order Comment: REF V ALUESFOLLICULAR PHASE 20-144MID CYCLE 64-357LUTEAL PHASE 56-214POSTMENOPAUSE < 32PREPUBERTY < 20FEMALE 10-18Y 8-110MALE 10-18Y < 20ADULT MALE < 40 Performed By: #### 1 6128-1 #### RAYNE Sommer ([id number]) [facility] ([facility]) [address] [place], [place] [id number] Progesteroneon 02-18-2024 Progesterone [Mass/Vol] 0.6 ng/mL Normal [facility] Comment on above: Result Comment: Ref Values Male <0.3- 1.2 Follicular Phase <0.3- 1.4 Luteal Phase 3.3-25.6 Mid-Luteal Phase 4.4-28.0 Postmenopausal <0.3- 0.7 Females: 1st Trimester 11.2- 90.0 2nd Trimester 25.6- 89.4 3RD Trimester 48.4-422.5 Patients receiving DHEA-S supplements may show false elevation of progesterone for results near 1.0 ng/mL. Contact laboratory at [phone] if alternative testing is needed. Performed By: #### 4 7236-5 #### RAYNE Sommer ([id number]) [facility] ([facility]) [id number] [place] [address] Choriogonadotropin.beta subu niton 12-23-2023 HCG.beta subunit Qn m[IU]/mL Normal <5 [facility] Comment on above: Order Comment: Total HCG measurement is performed using the [employer] Access Immunoassay which detects intact HCG and free beta HCG subunit. This test is not indicated for use as a tumor marker. HCG testing is performed using a different test methodology at [facility] than [facility]. Direct result comparison should only be made within the same method. Performed By: #### 1 6128-1 #### RAYNE Sommer ([id number]) [facility] ([facility]) [id number] [place] [address] Choriogonadotropin.beta subu niton 11-25-2023 HCG.beta subunit Qn 6 m[IU]/mL High <5 [facility] Comment on above: Order Comment: Total HCG measurement is performed using the [employer] Access Immunoassay which detects intact HCG and free beta HCG subunit. This test is not indicated for use as a tumor marker. HCG testing is performed using a different test methodology at [facility] than [facility]. Direct result comparison should only be made within the same method. Result Comment: Low- level positive HCG results can be seen in early , in kelli- or post-menopausal females due to normal pituitary HCG production, or with analytic interference. Repeat testing in 48-72 hours can aid in assessing for as results should double in this time period. FSH measurement is recommended in kelli- or post-menopausal females as concurrent elevation of FSH can support pituitary production as the source of the HCG elevation. Performed By: #### 1 6128-1 #### RAYNE Sommer ([id number]) [facility] ([facility]) [address] [place], [place] [id number] Choriogonadotropin.beta subu niton 11-21-2023 HCG.beta subunit Qn 39 m[IU]/mL High <5 [facility] Comment on above: Order Comment: Total HCG measurement is performed using the [employer] Access Immunoassay which detects intact HCG and free beta HCG subunit. This test is not indicated for use as a tumor marker. HCG testing is performed using a different test methodology at [facility] than other [facility]. Direct result comparison should only be made within the same method. Result Comment: Low- level positive HCG results can be seen in early , in kelli- or post-menopausal females due to normal pituitary HCG production, or with analytic interference. Repeat testing in 48-72 hours can aid in assessing for as results should double in this time period. FSH measurement is recommended in kelli- or post-menopausal females as concurrent elevation of FSH can support pituitary production as the source of the HCG elevation. Performed By: #### 1 6128-1 #### RAYNE Sommer ([id number]) [facility] ([facility]) [address] [place] [address] Intrauterine Insemination (I UI)on 11-07-2023 RIOS Haywood NP 11/07/2023 9:45 AM Intrauterine Insemination (IUI) Date/Time: 11/07/2023 9:18 AM Performed by: JANETTE Haywood Authorized by: Mariza Morales MD Consent: Consent obtained: Verbal and written Consent given by: Patient Procedure risks and benefits discussed: yes Patient questions answered: yes Patient agrees, verbalizes understanding, and wants to proceed: yes Educational handouts given: yes Instructions and paperwork completed: yes Procedure: Specimen source: donor Specimen condition: frozen Pelvic exam performed: yes Speculum placed in vagina: yes Tenaculum applied to cervix: no Type of insemination: intrauterine insemination Ultrasound guidance: No Speculum type: Jennifer Catheter type: curved Curvature: mild Difficulty: easy Estimated Blood Loss: None Specimen Return: none Post-procedure: Patient tolerated procedure well: yes Post-procedure plan: patient counseled on signs and symptoms for which to call and/or return to clinic Comments: Procedure comments: IUI Procedure note: The patient presented today for IUI. Consent signed by patient, IUI sample identified by patient, and Final Verification performed with patient via electronic system PACKING MACHINE FEEDER prior to insemination. All patient's questions were discussed and answered. Tool Machine Shop Supervisor offered to patient for intimate exam: Patient declined box finisher Name of box finisher: N/A Specimen Source: Donor Specimen Condition: Frozen TMS 8.53 million, motility 60% Additional notes: Patient was advised to call office if she develops fever, chills, pelvic pain, or heavy bleeding. Progesterone and post-IUI teaching completed. Will start Progesterone three days after IUI and continue twice daily. Pt will do a home test two weeks from IUI date. If home test positive, patient will continue Progesterone and call office to schedule BHCG. If home test negative, patient will discontinue Progesterone, and was advised to call office with start of menses; will proceed with another cycle if appropriate. Patient verbalized understanding of plan. Hilary Zendejas CNP 11/07/23 9:44 AM [facility] Work Phone: Estradiolon 11-06-2023 E2 [Mass/Vol] 210 pg/mL Normal [facility] Comment on above: Order Comment: REF V ALUESFOLLICULAR PHASE 20-144MID CYCLE 64-357LUTEAL PHASE 56-214POSTMENOPAUSE < 32PREPUBERTY < 20FEMALE 10-18Y 8-110MALE 10-18Y < 20ADULT MALE < 40Estradiol measurement is performed using the [employer] Access Estradiol Immunoassay. Estradiol testing is performed using a different test methodology at [facility] than other [facility]. Direct resultcomparison should only be made within the same method. Performed By: #### 1 6128-1 #### RAYNE Sommer ([id number]) [facility] ([facility]) [address] [place] [address] Lutropinon 11-06-2023 Lutropin Qn 23.7 IU/L [facility] Comment on above: Result Comment: LH R eference Values Follicular Phase 1.5-10.0 Mid-Cycle 13.0-72.0 Luteal Phase 0.5-13.0 Menopause 15.0-65.0 Pre-puberty 0- 3.0 Children 0- 6.0 Adult Male 1.0- 9.0 Luteinizing Hormone is performed using the [employer] Access Immunoassay. LH testing is performed using a different test methodology at [facility] than other [facility]. Direct result comparison should only be made within the same method. Performed By: #### 1 6128-1 #### RAYNE Sommer ([id number]) [facility] ([facility]) [address] [place] [address] Progesteroneon 11-06-2023 Progesterone [Mass/Vol] 0.4 ng/mL [facility] Comment on above: Order Comment: REF V ALUESMale <0.2-0.8Follicular Phase <0.2-1.5Luteal Phase 7.4-15.4Post Menopausal <0.2-0.21ST Trimester 12.0-84.02ND Trimester 10.2-58.83RD Trimester 46.5-160Progesterone is performed using the [employer] Access Immunoassay.Progesterone testing is performed using a different test methodology at [facility] than other [facility]. Direct result comparison should only be made within the same method. Performed By: #### 1 6128-1 #### RAYNE Sommer ([id number]) [facility] ([facility]) [id number] [place] [address] PAUL US PELVIS LIMITED FOLLIC LES-FOLLICLE STUDIES PERFORMEDon 11-06-2023 PAUL US PELVIS LIMITED FOLLICLES-FOLLICLE STUDIES PERFORMED Follicle scan performed with follicle measurements in report., Trilaminar appearance to the endometrium is noted. Normal [facility] E2 [Mass/Vol]on 11-04-2023 REF VALUES FOLLICULAR PHASE 20-144 MID CYCLE 64-357 LUTEAL PHASE 56-214 POSTMENOPAUSE < 32 PREPUBERTY < 20 FEMALE 10-18Y 8-110 MALE 10-18Y < 20 ADULT MALE < 40 Estradiol measurement is performed using the [employer] Access Estradiol Immunoassay. Estradiol testing is performed using a different test methodology at [facility] than other [facility]. Direct result comparison should only be made within the same method. [facility] Estradiolon 11-04-2023 E2 [Mass/Vol] 65 pg/mL [facility] E2 [Mass/Vol] 65 pg/mL Normal [facility] Comment on above: Order Comment: REF V ALUESFOLLICULAR PHASE 20-144MID CYCLE 64-357LUTEAL PHASE 56-214POSTMENOPAUSE < 32PREPUBERTY < 20FEMALE 10-18Y 8-110MALE 10-18Y < 20ADULT MALE < 40Estradiol measurement is performed using the [employer] Access Estradiol Immunoassay. Estradiol testing is performed using a different test methodology at [facility] than other [facility]. Direct resultcomparison should only be made within the same method. Performed By: #### 1 6128-1 #### RAYNE Sommer ([id number]) [facility] ([facility]) [address] [place] [address] Follicle Diameter USon 11-03 Follicle scan perfor [facility] with follicle measurements in report., Trilaminar appearance to the endometrium is noted., and Transabdominal evaluation done in addition transvaginal due to position of left ovary and was consistent with transvaginal measurement. MFM Radiology Study observation (narrative) [facility] Work Phone: Follicle Diameter USOrdered By: Mariza Morales on 11-04-2023 [facility] Work Phone: Luteinizing Hormone (LH)on 0 11-04-2023 Lutropin Qn 5.6 m[IU]/mL IU/L [facility] Comment on above: LH Reference Values Follicular Phase 1.5-10.0 Mid-Cycle 13.0-72.0 Luteal Phase 0.5-13.0 Menopause 15.0-65.0 Pre-puberty 0- 3.0 Children 0- 6.0 Adult Male 1.0- 9.0 Luteinizing Hormone is performed using the [employer] Access Immunoassay. LH testing is performed using a different test methodology at [facility] than other [facility]. Direct result comparison should only be made within the same method. Lutropinon 11-04-2023 Lutropin Qn 5.6 IU/L Normal [facility] Comment on above: Result Comment: LH R eference Values Follicular Phase 1.5-10.0 Mid-Cycle 13.0-72.0 Luteal Phase 0.5-13.0 Menopause 15.0-65.0 Pre-puberty 0- 3.0 Children 0- 6.0 Adult Male 1.0- 9.0 Luteinizing Hormone is performed using the [employer] Access Immunoassay. LH testing is performed using a different test methodology at [facility] than other [facility]. Direct result comparison should only be made within the same method. Performed By: #### 5 2984-2 #### RAYNE Sommer ([id number]) [facility] ([facility]) [address] [place] [address] Lutropin Qnon 11-04-2023 [facility] Progesteroneon 11-04-2023 Progesterone [Mass/Vol] 0.3 ng/mL [facility] Progesterone [Mass/Vol] 0.3 ng/mL Normal [facility] Comment on above: Order Comment: REF V ALUESMale <0.2-0.8Follicular Phase <0.2-1.5Luteal Phase 7.4-15.4Post Menopausal <0.2-0.21ST Trimester 12.0-84.02ND Trimester 10.2-58.83RD Trimester 46.5-160Progesterone is performed using the [employer] Access Immunoassay.Progesterone testing is performed using a different test methodology at [facility] than other [facility]. Direct result comparison should only be made within the same method. Performed By: #### 5 2984-2 #### RAYNE Sommer ([id number]) [facility] ([facility]) [address] [place] [address] Progesterone [Mass/Vol]on REF VALUES Male <0.2-0.8 Follicular Phase <0.2-1.5 Luteal Phase 7.4-15.4 Post Menopausal <0.2-0.2 1ST Trimester 12.0-84.0 2ND Trimester 10.2-58.8 3RD Trimester 46.5-160 Progesterone is performed using the [employer] Access Immunoassay. Progesterone testing is performed using a different test methodology at [facility] than other [facility]. Direct result comparison should only be made within the same method. [facility] E2 [Mass/Vol]on 11-01-2023 REF VALUES FOLLICULAR PHASE 20-144 MID CYCLE 64-357 LUTEAL PHASE 56-214 POSTMENOPAUSE < 32 PREPUBERTY < 20 FEMALE 10-18Y 8-110 MALE 10-18Y < 20 ADULT MALE < 40 Estradiol measurement is performed using the [employer] Access Estradiol Immunoassay. Estradiol testing is performed using a different test methodology at [facility] than other [facility]. Direct result comparison should only be made within the same method. [facility] Estradiolon 11-01-2023 E2 [Mass/Vol] 34 pg/mL [facility] E2 [Mass/Vol] 34 pg/mL Normal [facility] Comment on above: Order Comment: REF V ALUESFOLLICULAR PHASE 20-144MID CYCLE 64-357LUTEAL PHASE 56-214POSTMENOPAUSE < 32PREPUBERTY < 20FEMALE 10-18Y 8-110MALE 10-18Y < 20ADULT MALE < 40Estradiol measurement is performed using the [employer] Access Estradiol Immunoassay. Estradiol testing is performed using a different test methodology at [facility] than other [facility]. Direct resultcomparison should only be made within the same method. Performed By: #### 5 2984-2 #### RAYNE Sommer ([id number]) [facility] ([facility]) [address] [place] [address] Luteinizing Hormone (LH)on 11-01-2023 Lutropin Qn 6.6 m[IU]/mL IU/L [facility] Comment on above: LH Reference Values Follicular Phase 1.5-10.0 Mid-Cycle 13.0-72.0 Luteal Phase 0.5-13.0 Menopause 15.0-65.0 Pre-puberty 0- 3.0 Children 0- 6.0 Adult Male 1.0- 9.0 Luteinizing Hormone is performed using the [employer] Access Immunoassay. LH testing is performed using a different test methodology at [facility] than other [facility]. Direct result comparison should only be made within the same method. Lutropinon 11-01-2023 Lutropin Qn 6.6 IU/L Normal [facility] Comment on above: Result Comment: LH R eference Values Follicular Phase 1.5-10.0 Mid-Cycle 13.0-72.0 Luteal Phase 0.5-13.0 Menopause 15.0-65.0 Pre-puberty 0- 3.0 Children 0- 6.0 Adult Male 1.0- 9.0 Luteinizing Hormone is performed using the [employer] Access Immunoassay. LH testing is performed using a different test methodology at [facility] than [facility]. Direct result comparison should only be made within the same method. Performed By: #### 5 2984-2 #### RAYNE Sommer ([id number]) [facility] ([facility]) [address] [place] [address] Lutropin Qnon 11-01-2023 [facility] Progesteroneon 11-01-2023 Progesterone [Mass/Vol] 0.4 ng/mL [facility] Progesterone [Mass/Vol] 0.4 ng/mL Normal [facility] Comment on above: Order Comment: REF V ALUESMale <0.2-0.8Follicular Phase <0.2-1.5Luteal Phase 7.4-15.4Post Menopausal <0.2-0.21ST Trimester 12.0-84.02ND Trimester 10.2-58.83RD Trimester 46.5-160Progesterone is performed using the [employer] Access Immunoassay.Progesterone testing is performed using a different test methodology at [facility] than [facility]. Direct result comparison should only be made within the same method. Performed By: #### 5 2984-2 #### RAYNE Sommer ([id number]) [facility] ([facility]) [address] [place] [address]208 Progesterone [Mass/Vol]on REF VALUES Male <0.2-0.8 Follicular Phase <0.2-1.5 Luteal Phase 7.4-15.4 Post Menopausal <0.2-0.2 1ST Trimester 12.0-84.0 2ND Trimester 10.2-58.8 3RD Trimester 46.5-160 Progesterone is performed using the [employer] Access Immunoassay. Progesterone testing is performed using a different test methodology at [facility] than other [facility]. Direct result comparison should only be made within the same method. [facility] PAUL US PELVIS LIMITED FOLLIC LES-FOLLICLE STUDIES PERFORMEDon 11-01-2023 PAUL US PELVIS LIMITED FOLLICLES-FOLLICLE STUDIES PERFORMED Follicle scan performed with follicle measurements in report. Normal [facility] CBC with Auto Differentialon 10-22-2023 Basophils (Bld) [#/Vol] 0.03 10*3/uL [facility] Basophils/100 WBC (Bld) 1 % 0 - 2 % [facility] Eosinophils (Bld) [#/Vol] 0.09 10*3/uL [facility] Eosinophils/100 WBC (Bld) 2 % 0 - 5 % [facility] Erythrocyte distribution width (RBC) [Ratio] 14.0 % 12.1 - 15.2 % [facility] Hematocrit (Bld) [Volume fraction] 36.1 % 36.0 - 46.0 % [facility] Hemoglobin (Bld) [Mass/Vol] 11.9 g/dL Low 12.0 - 16.0 g/dL [facility] Immature granulocytes (Bld) [#/Vol] 0.01 10*3/uL [facility] Immature granulocytes/100 WBC (Bld) 0 % 0 - 5 % [facility] Interpretation and review of laboratory results Abnormal [facility] Lymphocytes/100 WBC (Bld) 17 % 15 - 40 % [facility] Lymphocytes/100 WBC (Bld) 0.98 % Low [facility] MCH (RBC) [Entitic mass] 27.2 pg 26.0 - 34.0 pg [facility] MCHC (RBC) [Mass/Vol] 33.0 g/dL 31.0 - 37.0 g/dL [facility] MCV (RBC) [Entitic vol] 82.4 fL 80.0 - 100.0 fL [facility] Monocytes/100 WBC (Bld) 8 % 4 - 8 % [facility] Monocytes/100 WBC (Bld) 0.46 % [facility] Neutrophils/100 WBC (Bld) 72 % 47 - 75 % [facility] Platelet mean volume (Bld) [Entitic vol] 9.8 fL 6.0 - 12.0 fL [facility] Platelets (Bld) [#/Vol] 266 10*3/uL [facility] RBC (Bld) [#/Vol] 4.38 10*6/uL 4.00 - 5.2 0 m/uL [facility] Segmented neutrophils/100 WBC (Bld) 4.30 % [facility] WBC other (Bld) [#/Vol] 5.9 [facility] CBC with Diffon 10-22-2023 Abs. Basophil 0.03 k/uL Normal 0.00-0.20 [facility] Comment on above: Performed By: #### V D25, LIPR #### [facility] [employer] [facility] [place] [id number] Supervisor Cured Meats: Vernon Blake MD #### CDP, CP #### [facility] [address] [place] [address] Supervisor Cured Meats: Butch Pacheco MD Abs.Imm.Granulocyte 0.01 k/uL Normal 0.00-0.30 [facility] Comment on above: Performed By: #### V D25, LIPR #### [facility] [employer] [address] [place], [place] [address] Supervisor Cured Meats: Vernon Blake MD #### CDP, CP #### [facility] [address] [place] [phone] Supervisor Cured Meats: Butch Pacheco MD Abs.Neutrophil (Seg) 4.30 k/uL Normal 2.5-7.0 [facility] Comment on above: Performed By: #### V D25, LIPR #### [address] [phone] Supervisor Cured Meats: Vernon Blake MD #### CDP, CP #### [facility] [address] [place], [place] [phone] Supervisor Cured Meats: Butch Pacheco MD Basophils/100 WBC (Bld) 1 % Normal 0-2 [facility] Comment on above: Performed By: #### V D25, LIPR #### [address] [address] Supervisor Cured Meats: Vernon Blake MD #### CDP, CP #### [facility] [address] [place], [place] [phone] Supervisor Cured Meats: Butch Pacheco MD Eosinophils (Bld) [#/Vol] 0.09 10*3/uL Normal 0.00-0.40 [facility] Comment on above: Performed By: #### Cordelia D25, LIPR #### [address] [phone] Supervisor Cured Meats: Vernon Blake MD #### CDP, CP #### [facility] [address] [place], [place] [phone] Supervisor Cured Meats: Butch Pacheco MD Eosinophils/100 WBC (Bld) 2 % Normal 0-5 [facility] Comment on above: Performed By: #### V D25, LIPR #### [address] [phone] Supervisor Cured Meats: Vernon Blake MD #### CDP, CP #### [facility] [address] [place], [place] [phone] Supervisor Cured Meats: Butch Pacheco MD Erythrocyte distribution width (RBC) [Ratio] 14.0 % Normal 12.1-15.2 [facility] Comment on above: Performed By: #### V D25, LIPR #### [address] [place] [address] Supervisor Cured Meats: Vernon Blake MD #### CDP, CP #### [facility] [address] [place] [address] Supervisor Cured Meats: Butch Pacheco MD Hematocrit (Bld) [Volume fraction] 36.1 % Normal 36.0-46.0 [facility] Comment on above: Performed By: #### V D25, LIPR #### [address] [phone] Supervisor Cured Meats: Vernon Blake MD #### CDP, CP #### [facility] [address] [place] [address] Supervisor Cured Meats: Butch Pacheco MD Hemoglobin (Bld) [Mass/Vol] 11.9 g/dL Low 12.0-16.0 [facility] Comment on above: Performed By: #### Cordelia Owen5, LIPR #### [address] [phone] Supervisor Cured Meats: Vernon Blake MD #### CDP, CP #### [facility] [address] [place] [phone] Supervisor Cured Meats: Butch Pacheco MD Immature granulocytes/100 WBC (Bld) 0 % Normal 0-5 [facility] Comment on above: Performed By: #### V D25, LIPR #### [address] [phone] Supervisor Cured Meats: Vernon Blake MD #### CDP, CP #### [facility] [address] [place] [address] Supervisor Cured Meats: Butch Pacheco MD Lymphocytes (Bld) [#/Vol] 0.98 10*3/uL Low 1.00-4.80 [facility] Comment on above: Performed By: #### V D25, LIPR #### [address] [phone] Supervisor Cured Meats: Vernon Blake MD #### CDP, CP #### [facility] [address] [place], [place] [phone] Supervisor Cured Meats: Butch Pacheco MD Lymphocytes/100 WBC (Bld) 17 % Normal 15-40 [facility] Comment on above: Performed By: #### V D25, LIPR #### [address] [id number] Supervisor [employer] Meats: Vernon Blake MD #### CDP, CP #### [facility] [address] [place] [address] Supervisor Cured Meats: Butch Pacheco MD MCH (RBC) [Entitic mass] 27.2 pg Normal 26.0-34.0 [facility] Comment on above: Performed By: #### Cordelia D25, LIPR #### [address] [phone] Supervisor Cured Meats: Vernon Blake MD #### CDP, CP #### [facility] [address] [place] [address] Supervisor Cured Meats: Butch Pacheco MD MCHC (RBC) [Mass/Vol] 33.0 g/dL Normal 31.0-37.0 [facility] Comment on above: Performed By: #### V D25, LIPR #### [address] [phone] Supervisor C[employer] Meats: Vernon Blake MD #### CDP, CP #### [facility] [address] [place] [address] Supervisor Cured Meats: Butch Pacheco MD MCV (RBC) [Entitic vol] 82.4 fL Normal 80.0-100.0 [facility] Comment on above: Performed By: #### V D25, LIPR #### [address] [phone] Supervisor Cured Meats: Vernon Blake MD #### CDP, CP #### [facility] [address] [place], [place] [phone] Supervisor C[employer] Meats: Butch Pacheco MD Monocytes (Bld) [#/Vol] 0.46 10*3/uL Normal 0.00-1.00 [facility] Comment on above: Performed By: #### V D25, LIPR #### [address] [phone] Supervisor [employer] Meats: Vernon Blake MD #### CDP, CP #### [facility] [address] [place], [place] [phone] Supervisor Cured Meats: Butch Pacheco MD Monocytes/100 WBC (Bld) 8 % Normal 4-8 [facility] Comment on above: Performed By: #### V D25, LIPR #### [address] [address] Supervisor C[employer] Meats: Vernon Blake MD #### CDP, CP #### [facility] [address] [place] [address] Supervisor Cured Meats: Butch Pacheco MD Neutrophil (Seg) 72 % Normal 47-75 [facility] Comment on above: Performed By: #### V D25, LIPR #### [address] [phone] Supervisor C[employer] Meats: Vernon Blake MD #### CDP, CP #### [facility] [address] [place], [place] [phone] Supervisor Cured Meats: Butch Pacheco MD Platelet mean volume (Bld) [Entitic vol] 9.8 fL Normal 6.0-12.0 [facility] Comment on above: Performed By: #### V D25, LIPR #### [address] [phone] Supervisor C[employer] Meats: Vernon Blake MD #### CDP, CP #### [facility] [address] [place] [address] Supervisor Cured Meats: Butch Pacheco MD Platelets (Bld) [#/Vol] 266 10*3/uL Normal 140-450 [facility] Comment on above: Performed By: #### V D25, LIPR #### [address] [phone] Supervisor Cured Meats: Vernon Blake MD #### CDP, CP #### [facility] [address] [place], [place] [phone] Supervisor Cured Meats: Butch Pacheco MD RBC (Bld) [#/Vol] 4.38 10*6/uL Normal 4.00-5.20 [facility] Comment on above: Performed By: #### Cordelia D25, LIPR #### [address] [phone] Supervisor [employer] Meats: Vernon Blake MD #### CDP, CP #### [facility] [address] [place] [address] Supervisor Cured Meats: Butch Pacheco MD WBC (Bld) [#/Vol] 5.9 10*3/uL Normal 3.5-11.0 [facility] Comment on above: Performed By: #### V D25, LIPR #### [address] [phone] Supervisor C[employer] Meats: Vernon Blake MD #### CDP, CP #### [facility] [address] [place] [address] Supervisor Cured Meats: Butch Pacheco MD Comp Metabolic Profon 2023 Albumin [Mass/Vol] 4.7 g/dL Normal 3.5-5.2 [facility] Comment on above: Performed By: #### V D25, LIPR #### [address] [place] [place], [place] [phone] Supervisor C[employer] Meats: Vernon Blake MD #### CDP, CP #### [facility] [address] [place], [place] [phone] Supervisor Cured Meats: Butch Pacheco MD Alkaline Phos 101 U/L Normal 35-104 [facility] Comment on above: Performed By: #### V D25, LIPR #### [address] [address] Supervisor Cured Meats: Vernon Blake MD #### CDP, CP #### [facility] [address] [place], [place] [phone] Supervisor Cured Meats: Butch Pacheco MD ALT [Catalytic activity/Vol] 18 U/L Normal 5-33 [facility] Comment on above: Performed By: #### V Brayden5, LIPR #### [address] [address] Supervisor C[employer] Meats: Vernon Blake MD #### CDP, CP #### [facility] [address] [place], [place] [phone] Supervisor Cured Meats: Butch Pacheco MD Anion gap [Moles/Vol] 9 mmol/L Normal 9-17 [facility] Comment on above: Performed By: #### V Brayden5, LIPR #### [address] [address] Supervisor Cured Meats: Vernon Blake MD #### CDP, CP #### [facility] [address] [place], [place] [phone] Supervisor Cured Meats: Butch Pacheco MD AST [Catalytic activity/Vol] 16 U/L Normal <32 [facility] Comment on above: Performed By: #### V D25, LIPR #### [address] [address] Supervisor Cured Meats: Vernon Blake MD #### CDP, CP #### [facility] [address] [place], [place] [phone] Supervisor Cured Meats: Butch Pacheco MD Bilirubin [Mass/Vol] 0.4 mg/dL Normal 0.3-1.2 [facility] Comment on above: Performed By: #### V D25, LIPR #### [id number] [place], [place] [phone] Supervisor C[employer] Meats: Vernon Blake MD #### CDP, CP #### [facility] [address] [place], [place] [phone] Supervisor Cured Meats: Butch Pacheco MD BUN/CRE Ratio 20 Normal 9-20 [facility] Comment on above: Performed By: #### V D25, LIPR #### [address] [phone] Supervisor Cured Meats: Vernon Blake MD #### CDP, CP #### [facility] [address] [place], [place] [phone] Supervisor Cured Meats: Butch Pacheco MD Calcium [Mass/Vol] 9.5 mg/dL Normal 8.6-10.4 [facility] Comment on above: Performed By: #### V D25, LIPR #### [address] [phone] Supervisor Cured Meats: Vernon Blake MD #### CDP, CP #### [facility] [address] [place] [address] Supervisor Cured Meats: Butch Pacheco MD Chloride [Moles/Vol] 102 mmol/L Normal 98-107 [facility] Comment on above: Performed By: #### V D25, LIPR #### [address] [phone] Supervisor Cured Meats: Vernon Blake MD #### CDP, CP #### [facility] [address] [place], [place] 2132190 Supervisor Cured Meats: Butch Pacheco MD CO2 [Moles/Vol] 25 mmol/L Normal 20-31 [facility] Comment on above: Performed By: #### V D25, LIPR #### [facility] [address] [place], [place] [phone] Supervisor Cured Meats: Vernon Blake MD #### CDP, CP #### [facility] [address] [place], [place] [phone] Supervisor Cured Meats: Butch Pacheco MD Creatinine [Mass/Vol] 0.5 mg/dL Normal 0.5-0.9 [facility] Comment on above: Performed By: #### V D25, LIPR #### [address] [phone] Supervisor C[employer] Meats: Vernon Blake MD #### CDP, CP #### [facility] [address] [place], [place] [phone] Supervisor Cured Meats: Butch Pacheco MD GFR/1.73 sq M.predicted among non-blacks MDRD (S/P/Bld) [Vol rate/Area] mL/min/{1.73_m2} Normal >60 [facility] Comment on above: Result Comment: These results are not intended for use in patients <18 years of age. eGFR results are calculated without a race factor using the 2020 CKD-EPI equation. Careful clinical correlation is recommended, particularly when comparing to results calculated using previous equations. The CKD-EPI equation is less accurate in patients with extremes of muscle mass, extra-renal metabolism of creatine, excessive creatine ingestion, or following therapy that affects renal tubular secretion. Performed By: #### V D25, LIPR #### [facility] [address] [place], [place] [phone] Supervisor Cured Meats: Vernon Blake MD #### CDP, CP #### [facility] [address] [place], [place] [phone] Supervisor Cured Meats: Butch Pacheco MD Glucose [Mass/Vol] 101 mg/dL High 70-99 [facility] Comment on above: Performed By: #### V D25, LIPR #### [id number] [place], [place] [phone] Supervisor Cured Meats: Vernon Blake MD #### CDP, CP #### [facility] [address] [place], [place] [phone] Supervisor Cured Meats: Butch Pacheco MD Potassium [Moles/Vol] 4.6 mmol/L Normal 3.7-5.3 [facility] Comment on above: Performed By: #### V D25, LIPR #### [address] [phone] Supervisor Cured Meats: Vernon Blake MD #### CDP, CP #### [facility] [address] [place], [place] [phone] Supervisor Cured Meats: Butch Pacheco MD Protein [Mass/Vol] 7.9 g/dL Normal 6.4-8.3 [facility] Comment on above: Performed By: #### Cordelia Owen5, LIPR #### [address] [address] Supervisor C[employer] Meats: Vernon Blake MD #### CDP, CP #### [facility] [address] [place], [place] [phone] Supervisor Cured Meats: Butch Pacheco MD Sodium [Moles/Vol] 136 mmol/L Normal 135-144 [facility] Comment on above: Performed By: #### V D25, LIPR #### [address] [address] Supervisor Cured Meats: Vernon Blake MD #### CDP, CP #### [facility] [address] [place], [place] [phone] Supervisor Cured Meats: Butch Pacheco MD Urea nitrogen [Mass/Vol] 10 mg/dL Normal 6-20 [facility] Comment on above: Performed By: #### V D25, LIPR #### [facility] [address] [place] [address] Supervisor Cured Meats: Vernon Blake MD #### CDP, CP #### [facility] [address] [place] [address] Supervisor Cured Meats: Butch Pacheco MD Comprehensive Metabolic Pane [facility] 10-22-2023 Albumin [Mass/Vol] 4.7 g/dL 3.5 - 5.2 g/dL [facility] ALP [Catalytic activity/Vol] 101 U/L 35 - 104 U/L [facility] ALT [Catalytic activity/Vol] 18 U/L 5 - 33 U/L [facility] Anion gap [Moles/Vol] 9 mmol/L 9 - 17 mmol/L [facility] AST [Catalytic activity/Vol] 16 U/L NINF - 32 U/L [facility] Bilirubin [Mass/Vol] 0.4 mg/dL 0.3 - 1 .2 mg/dL [facility] Calcium [Mass/Vol] 9.5 mg/dL 8.6 - 10. 4 mg/dL [facility] Chloride [Moles/Vol] 102 mmol/L 98 - 10 7 mmol/L [facility] CO2 [Moles/Vol] 25 mmol/L 20 - 31 mmol/L [facility] Creatinine [Mass/Vol] 0.5 mg/dL 0.5 - 0.9 mg/dL [facility] Est, Glom Filt Rate - PINF [facility] Comment on above: These results are not intended for use in patients <18 years of age. eGFR results are calculated without a race factor using the 2020 CKD-EPI equation. Careful clinical correlation is recommended, particularly when comparing to results calculated using previous equations. The CKD-EPI equation is less accurate in patients with extremes of muscle mass, extra-renal metabolism of creatine, excessive creatine ingestion, or following therapy that affects renal tubular secretion. Glucose [Mass/Vol] 101 mg/dL High 70 - 99 mg/dL [facility] Interpretation and review of laboratory results Abnormal [facility] Potassium [Moles/Vol] 4.6 mmol/L 3.7 - 5.3 mmol/L [facility] Protein [Mass/Vol] 7.9 g/dL 6.4 - 8.3 g/dL [facility] Sodium [Moles/Vol] 136 mmol/L 135 - 144 mmol/L [facility] Urea nitrogen [Mass/Vol] 10 mg/dL 6 - 20 mg/dL [facility] Urea nitrogen/Creatinine [Mass ratio] 20 mg/mg 9 - 20 [facility] Lipid Panelon 10-22-2023 Cholesterol [Mass/Vol] 148 mg/dL 0 - 1 99 mg/dL [facility] Comment on above: Cholesterol Guidelines: <200 Desirable 200-240 Borderline >240 Undesirable Cholesterol in HDL [Mass/Vol] 45 mg/dL 40 - PINF mg/dL [facility] Comment on above: HDL Guidelines: <40 Undesirable 40-59 Borderline >59 Desirable Cholesterol in LDL [Mass/Vol] 88 mg/dL 0 - 100 mg/dL [facility] Comment on above: LDL Guidelines: <100 Desirable 100-129 Near to/above Desirable 130-159 Borderline >159 Undesirable Direct (measured) LDL and calculated LDL are not interchangeable tests. Cholesterol in VLDL [Mass/Vol] 16 mg/dL [facility] Cholesterol.total/Chol esterol in HDL [Mass ratio] 3.0 {ratio} [facility] Triglyceride [Mass/Vol] 80 mg/dL NINF - 150 mg/dL [facility] Comment on above: Triglyceride Guidelines: <150 Desirable 150-199 Borderline 200-499 High >499 Very high Based on AHA Guidelines for fasting triglyceride, December 2011. Lipid Profileon 10-22-2023 Cholesterol [Mass/Vol] 148 mg/dL Normal 0-199 [facility] Comment on above: Result Comment: Cholesterol Guidelines: <200 Desirable 200-240 Borderline >240 Undesirable Performed By: #### V D25, LIPR #### [employer] [facility] [place] [phone] Supervisor Cured Meats: Vernon Blake MD #### CDP, CP #### [facility] [address] [place] [address] Supervisor Cured Meats: Butch Pacheco MD Cholesterol in HDL [Mass/Vol] 45 mg/dL Normal >40 [facility] Comment on above: Result Comment: HDL Guidelines: <40 Undesirable 40-59 Borderline >59 Desirable Performed By: #### V D25, LIPR #### [facility] [address] [place] [address] Supervisor Cured Meats: Vernon Blake MD #### CDP, CP #### [facility] [address] [place], [place] [phone] Supervisor Cured Meats: Butch Pacheco MD Cholesterol in LDL [Mass/Vol] 88 mg/dL Normal 0-100 [facility] Comment on above: Result Comment: LDL Guidelines: <100 Desirable 100-129 Near to/above Desirable 130-159 Borderline >159 Undesirable Direct (measured) LDL and calculated LDL are not interchangeable tests. Performed By: #### V D25, LIPR #### [facility] [address] [place] [address] Supervisor C[employer] Meats: Vernon Blake MD #### CDP, CP #### [facility] [address] [place] [address] Supervisor Cured Meats: Butch Pacheco MD Cholesterol in VLDL [Mass/Vol] 16 mg/dL Normal [facility] Comment on above: Performed By: #### V D25, LIPR #### [facility] [address] [place] [address] Supervisor Cured Meats: Vernon Blake MD #### CDP, CP #### [facility] [address] [place] [address] Supervisor Cured Meats: Butch Pachceo MD Cholesterol.total/Chol esterol in HDL [Mass ratio] 3.0 {ratio} Normal [facility] Comment on above: Performed By: #### V D25, LIPR #### [address] [place] [address] Supervisor C[employer] Meats: Vernon Blake MD #### CHAUNCEY, CP #### [facility] [address] [place], [place] [phone] Supervisor Cured Meats: Butch Pacheco MD Triglyceride [Mass/Vol] 80 mg/dL Normal <150 [facility] Comment on above: Result Comment: Triglyceride Guidelines: <150 Desirable 150-199 Borderline 200-499 High >499 Very high Based on AHA Guidelines for fasting triglyceride, December 2011. Performed By: #### Cordelia D25, LIPR #### [facility] [address] [place] [address] Supervisor Cured Meats: Vernon Blake MD #### CHAUNCEY, CP #### [facility] [address] [place], [place] [phone] Supervisor Cured Meats: Butch Pacheco MD No Panel Informationon 10-21 [facility] Vitamin D 25 Hydroxyon 10-21 25-hydroxyvitamin D3 [Mass/Vol] 48.9 ng/mL 30.0 - 100.0 ng/mL [facility] Comment on above: Reference Range: Vitamin D status Range Deficiency <20 ng/mL Mild Deficiency 20-30 ng/mL Sufficiency 30-100 ng/mL Toxicity >100 ng/mL Vitamin D 25 OHon 10-22-2023 Vitamin D 25 OH 48.9 ng/mL Normal 30.0-100.0 [facility] Comment on above: Result Comment: Reference Range: Vitamin D status Range Deficiency <20 ng/mL Mild Deficiency 20-30 ng/mL Sufficiency 30-100 ng/mL Toxicity >100 ng/mL Performed By: #### V D25, LIPR #### [facility] [address] [place] [address] Supervisor Cured Meats: Vernon Blake MD #### CHAUNCEY, CP #### [facility] [address] [facility] [place], [place] [phone] Supervisor Cured Meats: Butch Pacheco MD Estradiolon 10-07-2023 E2 [Mass/Vol] 97 pg/mL Normal [facility] Comment on above: Order Comment: REF V ALUESFOLLICULAR PHASE 20-144MID CYCLE 64-357LUTEAL PHASE 56-214POSTMENOPAUSE < 32PREPUBERTY < 20FEMALE 10-18Y 8-110MALE 10-18Y < 20ADULT MALE < 40Estradiol measurement is performed using the [employer] Access Estradiol Immunoassay. Estradiol testing is performed using a different test methodology at [facility] than [facility]. Direct resultcomparison should only be made within the same method. Performed By: #### 5 2984-2 #### RAYNE Sommer ([id number]) [facility] ([facility]) [address] [place], [place] [id number] Lutropinon 10-07-2023 Lutropin Qn 9.9 IU/L [facility] Comment on above: Result Comment: LH R eference Values Follicular Phase 1.5-10.0 Mid-Cycle 13.0-72.0 Luteal Phase 0.5-13.0 Menopause 15.0-65.0 Pre-puberty 0- 3.0 Children 0- 6.0 Adult Male 1.0- 9.0 Luteinizing Hormone is performed using the [employer] Access Immunoassay. LH testing is performed using a different test methodology at [facility] than [facility]. Direct result comparison should only be made within the same method. Performed By: #### 5 2984-2 #### RAYNE Sommer ([id number]) [facility] ([facility]) [address] [place], [place] [address] Progesteroneon 10-07-2023 Progesterone [Mass/Vol] 0.7 ng/mL [facility] Comment on above: Order Comment: REF V ALUESMale <0.2-0.8Follicular Phase <0.2-1.5Luteal Phase 7.4-15.4Post Menopausal <0.2-0.21ST Trimester 12.0-84.02ND Trimester 10.2-58.83RD Trimester 46.5-160Progesterone is performed using the [employer] Access Immunoassay.Progesterone testing is performed using a different test methodology at [facility] than [facility]. Direct result comparison should only be made within the same method. Performed By: #### 5 196-1 #### RAYNE Sommer ([id number]) [facility] ([facility]) [address] [place] [address] Estradiolon 10-03-2023 E2 [Mass/Vol] 48 pg/mL Normal [facility] Comment on above: Order Comment: REF V ALUESFOLLICULAR PHASE 20-144MID CYCLE 64-357LUTEAL PHASE 56-214POSTMENOPAUSE < 32PREPUBERTY < 20FEMALE 10-18Y 8-110MALE 10-18Y < 20ADULT MALE < 40Estradiol measurement is performed using the [employer] Access Estradiol Immunoassay. Estradiol testing is performed using a different test methodology at [facility] than [facility]. Direct resultcomparison should only be made within the same method. Performed By: #### 5 196-1 #### RAYNE Sommer ([id number]) [facility] ([facility]) [address] [place] [address] Lutropinon 10-03-2023 Lutropin Qn 8.7 IU/L [facility] Comment on above: Result Comment: LH R eference Values Follicular Phase 1.5-10.0 Mid-Cycle 13.0-72.0 Luteal Phase 0.5-13.0 Menopause 15.0-65.0 Pre-puberty 0- 3.0 Children 0- 6.0 Adult Male 1.0- 9.0 Luteinizing Hormone is performed using the [employer] Access Immunoassay. LH testing is performed using a different test methodology at [facility] than [facility]. Direct result comparison should only be made within the same method. Performed By: #### 5 196-1 #### RAYNE Sommer ([id number]) [facility] ([facility]) [address] [place] [address] Progesteroneon 10-03-2023 Progesterone [Mass/Vol] 0.6 ng/mL Normal [facility] Comment on above: Order Comment: REF V ALUESMale <0.2-0.8Follicular Phase <0.2-1.5Luteal Phase 7.4-15.4Post Menopausal <0.2-0.21ST Trimester 12.0-84.02ND Trimester 10.2-58.83RD Trimester 46.5-160Progesterone is performed using the [employer] Access Immunoassay.Progesterone testing is performed using a different test methodology at [facility] than other [facility]. Direct result comparison should only be made within the same method. Performed By: #### 5 196-1 #### RAYNE Sommer ([id number]) [facility] ([facility]) [id number] [place] [address] E2 [Mass/Vol]on 09-30-2023 REF VALUES FOLLICULAR PHASE 20-144 MID CYCLE 64-357 LUTEAL PHASE 56-214 POSTMENOPAUSE < 32 PREPUBERTY < 20 FEMALE 10-18Y 8-110 MALE 10-18Y < 20 ADULT MALE < 40 Estradiol measurement is performed using the [employer] Access Estradiol Immunoassay. Estradiol testing is performed using a different test methodology at [facility] than other [facility]. Direct result comparison should only be made within the same method. [facility] Estradiolon 09-30-2023 E2 [Mass/Vol] 28 pg/mL [facility] E2 [Mass/Vol] 28 pg/mL Normal [facility] Comment on above: Order Comment: REF V ALUESFOLLICULAR PHASE 20-144MID CYCLE 64-357LUTEAL PHASE 56-214POSTMENOPAUSE < 32PREPUBERTY < 20FEMALE 10-18Y 8-110MALE 10-18Y < 20ADULT MALE < 40Estradiol measurement is performed using the [employer] Access Estradiol Immunoassay. Estradiol testing is performed using a different test methodology at [facility] than other [facility]. Direct resultcomparison should only be made within the same method. Performed By: #### 5 196-1 #### RAYNE Sommer ([id number]) [facility] ([facility]) [id number] [place] [address] Luteinizing Hormone (LH)on 0 09-30-2023 Lutropin Qn 7.2 m[IU]/mL IU/L [facility] Comment on above: LH Reference Values Follicular Phase 1.5-10.0 Mid-Cycle 13.0-72.0 Luteal Phase 0.5-13.0 Menopause 15.0-65.0 Pre-puberty 0- 3.0 Children 0- 6.0 Adult Male 1.0- 9.0 Luteinizing Hormone is performed using the [employer] Access Immunoassay. LH testing is performed using a different test methodology at [facility] than other [facility]. Direct result comparison should only be made within the same method. Lutropinon 09-30-2023 Lutropin Qn 7.2 IU/L Normal [facility] Comment on above: Result Comment: LH R eference Values Follicular Phase 1.5-10.0 Mid-Cycle 13.0-72.0 Luteal Phase 0.5-13.0 Menopause 15.0-65.0 Pre-puberty 0- 3.0 Children 0- 6.0 Adult Male 1.0- 9.0 Luteinizing Hormone is performed using the [employer] Access Immunoassay. LH testing is performed using a different test methodology at [facility] than [facility]. Direct result comparison should only be made within the same method. Performed By: #### 5 196-1 #### RAYNE Sommer ([id number]) [facility] ([facility]) [address] [place] [address] Lutropin Qnon 09-30-2023 [facility] Progesteroneon 09-30-2023 Progesterone [Mass/Vol] 0.6 ng/mL [facility] Progesterone [Mass/Vol] 0.6 ng/mL Normal [facility] Comment on above: Order Comment: REF V ALUESMale <0.2-0.8Follicular Phase <0.2-1.5Luteal Phase 7.4-15.4Post Menopausal <0.2-0.21ST Trimester 12.0-84.02ND Trimester 10.2-58.83RD Trimester 46.5-160Progesterone is performed using the [employer] Access Immunoassay.Progesterone testing is performed using a different test methodology at [facility] than other [facility]. Direct result comparison should only be made within the same method. Performed By: #### 5 196-1 #### RAYNE Sommer ([id number]) [facility] ([facility]) [address] [place] [address] [place] [address] Progesterone [Mass/Vol]on REF VALUES Male <0.2-0.8 Follicular Phase <0.2-1.5 Luteal Phase 7.4-15.4 Post Menopausal <0.2-0.2 1ST Trimester 12.0-84.0 2ND Trimester 10.2-58.8 3RD Trimester 46.5-160 Progesterone is performed using the [employer] Access Immunoassay. Progesterone testing is performed using a different test methodology at [facility] than other st. [facility]. Direct result comparison should only be made within the same method. [facility] PAUL US PELVIS LIMITED FOLLIC LES-FOLLICLE STUDIES PERFORMEDon 09-30-2023 PAUL US PELVIS LIMITED FOLLICLES-FOLLICLE STUDIES PERFORMED Follicle scan performed with follicle measurements in report. Fluid noted in the endometrial cavity. Normal [facility] Intrauterine Insemination (I UI)on 09-08-2023 Chaz Pickett MD 09/25/2023 4:43 PM Intrauterine Insemination (IUI) Date/Time: 09/08/2023 9:10 AM Performed by: Lana Dalton MD Authorized by: Lashawn Drummond APRN-CONSTRUCTION SUPERINTENDENT Consent: Consent obtained: Verbal and written Consent given by: Patient Procedure risks and benefits discussed: yes Patient questions answered: yes Patient agrees, verbalizes understanding, and wants to proceed: yes Educational handouts given: yes Instructions and paperwork completed: yes Procedure: Pelvic exam performed: yes Speculum placed in vagina: yes Tenaculum applied to cervix: no Type of insemination: intrauterine insemination Ultrasound guidance: No Speculum type: Jennifer Catheter type: curved Curvature: mild Difficulty: easy Estimated Blood Loss: None Specimen Return: none Post-procedure: Patient tolerated procedure well: yes Post-procedure plan: patient counseled on signs and symptoms for which to call and/or return to clinic Comments: Procedure comments: IUI Procedure note: The patient presented today for IUI. Consent signed by patient, IUI sample identified by patient, and Final Verification performed with patient via electronic system PACKING MACHINE FEEDER prior to insemination. All patient's questions were discussed and answered. Tool Machine Shop Supervisor offered to patient for intimate exam: Patient declined box finisher Name of box finisher: N/A Specimen Source: Donor Specimen Condition: Frozen TMS 4.87 Additional notes: Patient was advised to call office if she develops fever, chills, pelvic pain, or heavy bleeding. Progesterone and post-IUI teaching completed. Will start Progesterone three days after IUI and continue twice daily. Pt will do a home test two weeks from IUI date. If home test positive, patient will continue Progesterone and call office to schedule BHCG. If home test negative, patient will discontinue Progesterone, and was advised to call office with start of menses; will proceed with another cycle if appropriate. Patient verbalized understanding of plan. Lana Dalton 09/08/23 10:42 AM Attending Attestation: I was physically present for varghese and critical portions performed by the fellow. I reviewed the fellow's documentation and discussed the patient with the fellow. I agree with the fellow's medical decision making as documented in the fellow's note. [facility] Intrauterine Insemination (I UI)Ordered By: Chaz Pickett on 09-08-2023 [facility] Work Phone: E2 [Mass/Vol]on 09-05-2023 REF VALUES FOLLICULAR PHASE 20-144 MID CYCLE 64-357 LUTEAL PHASE 56-214 POSTMENOPAUSE < 32 PREPUBERTY < 20 FEMALE 10-18Y 8-110 MALE 10-18Y < 20 ADULT MALE < 40 Estradiol measurement is performed using the [employer] Access Estradiol Immunoassay. Estradiol testing is performed using a different test methodology at [facility] than other [facility]. Direct result comparison should only be made within the same method. [facility] Estradiolon 09-05-2023 E2 [Mass/Vol] 97 pg/mL [facility] E2 [Mass/Vol] 97 pg/mL Normal [facility] Comment on above: Order Comment: REF V ALUESFOLLICULAR PHASE 20-144MID CYCLE 64-357LUTEAL PHASE 56-214POSTMENOPAUSE < 32PREPUBERTY < 20FEMALE 10-18Y 8-110MALE 10-18Y < 20ADULT MALE < 40Estradiol measurement is performed using the [employer] Access Estradiol Immunoassay. Estradiol testing is performed using a different test methodology at [facility] than other [facility]. Direct resultcomparison should only be made within the same method. Performed By: #### 3 4532-2 #### JIM KARINA ([id number]) [facility] ([facility]) [address] [id number] Luteinizing Hormone (LH)on 0 09-05-2023 Lutropin Qn 13.4 m[IU]/mL IU/L [facility] Comment on above: LH Reference Values Follicular Phase 1.5-10.0 Mid-Cycle 13.0-72.0 Luteal Phase 0.5-13.0 Menopause 15.0-65.0 Pre-puberty 0- 3.0 Children 0- 6.0 Adult Male 1.0- 9.0 Luteinizing Hormone is performed using the [employer] Access Immunoassay. LH testing is performed using a different test methodology at [facility] than other [facility]. Direct result comparison should only be made within the same method. Lutropinon 09-05-2023 Lutropin Qn 13.4 IU/L Normal [facility] Comment on above: Result Comment: LH R eference Values Follicular Phase 1.5-10.0 Mid-Cycle 13.0-72.0 Luteal Phase 0.5-13.0 Menopause 15.0-65.0 Pre-puberty 0- 3.0 Children 0- 6.0 Adult Male 1.0- 9.0 Luteinizing Hormone is performed using the [employer] Access Immunoassay. LH testing is performed using a different test methodology at [facility] than other [facility]. Direct result comparison should only be made within the same method. Performed By: #### 5 196-1 #### RAYNE Sommer ([id number]) [facility] ([facility]) [address] [place] [address] Lutropin Qnon 09-05-2023 [facility] PAUL US PELVIS LIMITED FOLLIC LES-FOLLICLE STUDIES PERFORMEDon 09-05-2023 PAUL US PELVIS LIMITED FOLLICLES-FOLLICLE STUDIES PERFORMED Trilaminar appearance to the endometrium is noted. Normal [facility] E2 [Mass/Vol]on 09-03-2023 REF VALUES FOLLICULAR PHASE 20-144 MID CYCLE 64-357 LUTEAL PHASE 56-214 POSTMENOPAUSE < 32 PREPUBERTY < 20 FEMALE 10-18Y 8-110 MALE 10-18Y < 20 ADULT MALE < 40 Estradiol measurement is performed using the [employer] Access Estradiol Immunoassay. Estradiol testing is performed using a different test methodology at [facility] than other [facility]. Direct result comparison should only be made within the same method. [facility] Estradiolon 09-03-2023 E2 [Mass/Vol] 53 pg/mL [facility] E2 [Mass/Vol] 53 pg/mL Normal [facility] Comment on above: Order Comment: REF V ALUESFOLLICULAR PHASE 20-144MID CYCLE 64-357LUTEAL PHASE 56-214POSTMENOPAUSE < 32PREPUBERTY < 20FEMALE 10-18Y 8-110MALE 10-18Y < 20ADULT MALE < 40Estradiol measurement is performed using the [employer] Access Estradiol Immunoassay. Estradiol testing is performed using a different test methodology at [facility] than other [facility]. Direct resultcomparison should only be made within the same method. Performed By: #### 3 4532-2 #### JIM KARINA ([id number]) [facility] ([facility]) [address] [place] [address] [place] Follicle Diameter USon 09-02 Follicle scan perfor [facility] with follicle measurements in report. and Trilaminar appearance to the endometrium is noted. Difficult scan, ovaries best visualized transabdominally. MFM Radiology Study observation (narrative) [facility] Work Phone: Follicle Diameter USOrdered By: Melanie Rich on 09-03-2023 [facility] Work Phone: Luteinizing Hormone (LH)on 0 09-03-2023 Lutropin Qn 7.2 m[IU]/mL IU/L [facility] Comment on above: LH Reference Values Follicular Phase 1.5-10.0 Mid-Cycle 13.0-72.0 Luteal Phase 0.5-13.0 Menopause 15.0-65.0 Pre-puberty 0- 3.0 Children 0- 6.0 Adult Male 1.0- 9.0 Luteinizing Hormone is performed using the [employer] Access Immunoassay. LH testing is performed using a different test methodology at [facility] than other [facility]. Direct result comparison should only be made within the same method. Lutropinon 09-03-2023 Lutropin Qn 7.2 IU/L Normal [facility] Comment on above: Result Comment: LH R eference Values Follicular Phase 1.5-10.0 Mid-Cycle 13.0-72.0 Luteal Phase 0.5-13.0 Menopause 15.0-65.0 Pre-puberty 0- 3.0 Children 0- 6.0 Adult Male 1.0- 9.0 Luteinizing Hormone is performed using the [employer] Access Immunoassay. LH testing is performed using a different test methodology at [facility] than other [facility]. Direct result comparison should only be made within the same method. Performed By: #### 3 4532-2 #### JIM COLLINS ([id number]) [facility] ([facility]) [address] [place] [address] [place] Lutropin Qnon 09-03-2023 [facility] Progesteroneon 09-03-2023 Progesterone [Mass/Vol] 0.7 ng/mL [facility] Progesterone [Mass/Vol] 0.7 ng/mL Normal [facility] Comment on above: Order Comment: REF V ALUESMale <0.2-0.8Follicular Phase <0.2-1.5Luteal Phase 7.4-15.4Post Menopausal <0.2-0.21ST Trimester 12.0-84.02ND Trimester 10.2-58.83RD Trimester 46.5-160Progesterone is performed using the [employer] Access Immunoassay.Progesterone testing is performed using a different test methodology at [facility] than other [facility]. Direct result comparison should only be made within the same method. Performed By: #### 3 4532-2 #### JIM COLLINS ([id number]) [facility] ([facility]) [address] [place] [address] [place] Progesterone [Mass/Vol]on REF VALUES Male <0.2-0.8 Follicular Phase <0.2-1.5 Luteal Phase 7.4-15.4 Post Menopausal <0.2-0.2 1ST Trimester 12.0-84.0 2ND Trimester 10.2-58.8 3RD Trimester 46.5-160 Progesterone is performed using the Maria [employer] Access Immunoassay. Progesterone testing is performed using a different test methodology at [facility] than other [facility]. Direct result comparison should only be made within the same method. [facility] PAUL US PELVIS LIMITED FOLLIC LES-FOLLICLE STUDIES PERFORMEDon 09-03-2023 PAUL US PELVIS LIMITED FOLLICLES-FOLLICLE STUDIES PERFORMED Follicle scan performed with follicle measurements in report. and Trilaminar appearance to the endometrium is noted. Difficult scan, ovaries best visualized transabdominally. Normal [facility] CBC W Auto Differential pane l (Bld)on 08-26-2023 Basophils (Bld) [#/Vol] 0.05 x10*3/uL Normal 0.00-0.10 [facility] Comment on above: Performed By: #### 3 4531-2 #### JIM COLLINS ([id number]) [facility] [address] [place] [address] [place] Basophils/100 WBC (Bld) 0.9 % Normal 0.0-2.0 [facility] Comment on above: Performed By: #### 3 4531-2 #### JIM COLLINS ([id number]) [facility] ([facility]) [address] [place] [address] [place] Eosinophils (Bld) [#/Vol] 0.10 x10*3/uL Normal 0.00-0.70 [facility] Comment on above: Performed By: #### 3 4531-2 #### JIM COLLINS ([id number]) [facility] ([facility]) [address] [place] [address] US Eosinophils/100 WBC (Bld) 1.9 % Normal 0.0-6.0 [facility] Comment on above: Performed By: #### 3 4531-2 #### JIM COLLINS ([id number]) [facility] ([facility]) [address] [place] [address] [place] Erythrocyte distribution width (RBC) [Ratio] 14.0 % Normal 11.5-14.5 [facility] Comment on above: Performed By: #### 3 4531-2 #### JIM COLLINS ([id number]) [facility] ([facility]) [address] [place] [address] [place] Hematocrit (Bld) [Volume fraction] 36.7 % Normal 36.0-46.0 [facility] Comment on above: Performed By: #### 3 4531-2 #### JIM COLLINS ([id number]) [facility] [address] [place] [address] Hemoglobin (Bld) [Mass/Vol] 11.9 g/dL Low 12.0-16.0 [facility] Comment on above: Performed By: #### 3 4531-2 #### JIM COLLINS ([id number]) [facility] [address] [place] [address] US Immature granulocytes (Bld) [#/Vol] 0.02 x10*3/uL Normal 0.00-0.70 [facility] Comment on above: Performed By: #### 3 4531-2 #### JIM COLLINS ([id number]) [facility] [address] [place] [address] US Immature granulocytes/100 WBC (Bld) 0.4 % Normal 0.0-0.9 [facility] Comment on above: Result Comment: Sharon ture Granulocyte Count (IG) includes promyelocytes, myelocytes and metamyelocytes but does not include bands. Percent differential counts (%) should be interpreted in the context of the absolute cell counts (cells/UL). Performed By: #### 3 4531-2 #### JIM COLLINS ([id number]) [facility] [address] [place] [address] [place] Lymphocytes (Bld) [#/Vol] 1.16 x10*3/uL Low 1.20-4.80 [facility] Comment on above: Performed By: #### 3 4531-2 #### JIM COLLINS ([id number]) [facility] [address] [place] [address] US Lymphocytes/100 WBC (Bld) 21.6 % Normal 13.0-44.0 [facility] Comment on above: Performed By: #### 3 4531-2 #### JIM COLLINS ([id number]) [facility] ([facility]) [address] [place] [address] US MCH (RBC) [Entitic mass] 27.1 pg Normal 26.0-34.0 [facility] Comment on above: Performed By: #### 3 4531-2 #### JIM COLLINS ([id number]) [facility] ([facility]) [address] [place] [address] US MCHC (RBC) [Mass/Vol] 32.4 g/dL Normal 32.0-36.0 [facility] Comment on above: Performed By: #### 3 4531-2 #### JIM COLLINS ([id number]) [facility] ([facility]) [address] [place] [address] US MCV (RBC) [Entitic vol] 84 fL Normal 80-100 [facility] Comment on above: Performed By: #### 3 4531-2 #### JIM COLLINS ([id number]) [facility] ([facility]) [address] [place] [address] US Monocytes (Bld) [#/Vol] 0.54 x10*3/uL Normal 0.10-1.00 [facility] Comment on above: Performed By: #### 3 4531-2 #### JIM COLLINS ([id number]) [facility] [address] [place] [address] US Monocytes/100 WBC (Bld) 10.0 % Normal 2.0-10.0 [facility] Comment on above: Performed By: #### 3 4531-2 #### JIM COLLINS ([id number]) [facility] ([facility]) [address] [place] [address] US Neutrophils (Bld) [#/Vol] 3.51 x10*3/uL Normal 1.20-7.70 [facility] Comment on above: Result Comment: Perc ent differential counts (%) should be interpreted in the context of the absolute cell counts (cells/uL). Performed By: #### 3 4531-2 #### JIM COLLINS ([id number]) [facility] ([facility]) [address] [place] [address] US Neutrophils/100 WBC (Bld) 65.2 % Normal 40.0-80.0 [facility] Comment on above: Performed By: #### 3 4531-2 #### JIM COLLINS ([id number]) [facility] ([facility]) [address] [place] [address] US Nucleated RBC/100 WBC (Bld) [Ratio] 0.0 /100 WBCs Normal 0.0-0.0 [facility] Comment on above: Performed By: #### 3 4531-2 #### JIM COLLINS ([id number]) [facility] ([facility]) [address] [place] [address] [place] Platelets (Bld) [#/Vol] 305 x10*3/uL Normal 150-450 [facility] Comment on above: Performed By: #### 3 4531-2 #### JIM COLLINS ([id number]) [facility] ([facility]) [address] [place] [address] US RBC (Bld) [#/Vol] 4.39 x10*6/uL Normal 4.00-5.20 [facility] Comment on above: Performed By: #### 3 4531-2 #### JIM COLLINS ([id number]) [facility] ([facility]) [address] [place] [address] US WBC (Bld) [#/Vol] 5.4 x10*3/uL Normal 4.4-11.3 [facility] Comment on above: Performed By: #### 3 4531-2 #### JIM COLLINS ([id number]) [facility] ([facility]) [address] [place] [address] US Hepatic function 2000 panelo n 08-26-2023 Albumin BCP dye [Mass/Vol] 4.7 g/dL Normal 3.4-5.0 [facility] Comment on above: Performed By: #### 3 4531-2 #### JIM COLLINS ([id number]) [facility] ([facility]) [address] [place] [address] US ALP [Catalytic activity/Vol] 78 U/L Normal 33-110 [facility] Comment on above: Performed By: #### 3 4532-2 #### JIM COLLINS ([id number]) [facility] ([facility]) [address] [place] [address] US ALT With P-5'-P [Catalytic activity/Vol] 26 U/L Normal 7-45 [facility] Comment on above: Result Comment: Donna ents treated with Sulfasalazine may generate falsely decreased results for ALT. Performed By: #### 3 4531-2 #### JIM COLLINS ([id number]) [facility] ([facility]) [address] [place] [address] US AST With P-5'-P [Catalytic activity/Vol] 19 U/L Normal 9-39 [facility] Comment on above: Performed By: #### 3 4531-2 #### JIM COLLINS ([id number]) [facility] ([facility]) [address] [place] [address] US Bilirubin [Mass/Vol] 0.5 mg/dL Normal 0.0-1.2 [facility] Comment on above: Performed By: #### 3 4531-2 #### JIM COLLINS ([id number]) [facility] [address] [place] [address] US Bilirubin.direct [Mass/Vol] 0.1 mg/dL Normal 0.0-0.3 [facility] Comment on above: Performed By: #### 3 2-2 #### JIM COLLINS ([id number]) [facility] ([facility]) [address] [place] [address] US Protein [Mass/Vol] 7.1 g/dL Normal 6.4-8.2 [facility] Comment on above: Performed By: #### 3 4532-2 #### JIM COLLINS ([id number]) [facility] ([facility]) [address] [place] [address] [place] FL HYSTEROSALPINGOGRAMon FL HYSTEROSALPINGOGRAM Interpreted By: Melanie Rich, STUDY: [place] HYSTEROSALPINGOGRAM; 08/06/2023 7:53 am INDICATION: Signs/Symptoms:Fertility testing. COMPARISON: None. ACCESSION NUMBER(S): [id number] ORDERING CLINICIAN: LASHAWN DRUMMOND TECHNIQUE: An HSG was performed by the radiology practitioner assistant in conjunction with the provider examination. 30 ML of water soluble contrast was infused under fluoroscopic guidance and spot views of the uterus and bilateral fallopian tubes were obtained. The patient tolerated the procedure well. Fluoroscopic time was recorded by the landscape technician separately. FINDINGS: Smooth uterine cavity with no demonstrated changes in endometrial contour or filling defects noted. The fallopian tubes fill with contrast and free peritoneal spill is noted bilaterally. Right tube has normal tubal architecture, left tube is overall normal however it does course behind the uterus. IMPRESSION: 1. Correlate with real time fluoroscopic findings at the time of procedure. 2. Overall normal study tubal findings as above. Based on these findings, my recommendation is: Follow up with ordering provider MACRO: None Signed by: Melanie Rich 08/06/2023 9:43 AM Dictation workstation: [id number] [facility] HCG ( test) Ql (U)o n 08-06-2023 Preg Test, Ur Negative Negative [facility] Work Phone: HSGon 08-06-2023 RIOS Haywood NP 08/06/2023 7:55 AM HSG Date/Time: 08/06/2023 7:17 AM Performed by: JANETTE Haywood Authorized by: JANETTE Haywood Consent: Consent obtained: Verbal and written Consent given by: Patient Risks, benefits, and alternatives were discussed: yes Risks discussed: Bleeding, infection and pain [place] protocol: Procedure explained and questions answered to patient or proxy's satisfaction: yes Relevant documents present and verified: yes Test results available: yes Imaging studies available: yes Required blood products, implants, devices, and special equipment available: yes Immediately prior to procedure, a time out was called: yes Patient identity confirmed: Verbally with patient, arm band and hospital-assigned identification number Indications: Indications: Fertility testing Pre-procedure details: Skin preparation: Povidone-iodine Sedation: Sedation type: None Anesthesia: Anesthesia method: None Procedure specific details: Leader Assembler: Oliver Zendejas CNP performed this procedure Hysterosalpingogram (HSG) risks, benefits, alternatives, and personnel discussed with patient who agreed to proceed. Procedural time out Done in room where procedure done: Yes Done just before starting procedure: Yes All members of procedural team involved in time-out: Yes Active communication used: Yes All team members agreed on procedure: Yes Patient correctly identified by two identifiers: Yes Correct side and site identified: Yes All needed special equipment/instruments available: Yes Prior to the start of the procedure a time out was taken and the following were verified: The identity of the patient using two patient identifiers. Urine test was performed and was negative. Risks, benefits, and alternatives of the procedure were explained to the patient. Informed consent was obtained. The patient was placed in the dorsal lithotomy position and a sterile speculum was placed in the vagina. The cervix was sterilized with Betadine x 3. The anterior lip of the cervix was grasped with a single-tooth tenaculum. The acorn cannula was then placed in the cervix. The patient was positioned and images were taken with fluoroscopy as dye was inserted through the cannula. All instruments were then removed. The patient tolerated the procedure well and was discharged home the same day without complications. PRELIMINARY NURSE PRACTITIONER ASSESSMENT - FOR A FINAL REPORT, PLEASE REFER TO THE FINALIZED DOCUMENTATION IN THE IMAGING TAB Uterus: normal contour without filling defects Tubes: bilateral patency with free spill of dye, normal tubal architecture noted, and no loculations present. Based on these findings, my recommendation is: No further follow up required. DR. Rich to review HSG images and if any additional testing is needed I will reach back to the patient. The patient was counseled regarding the above preliminary findings and understands these will be reviewed by the reading physician. Hilary Zendejas CNP 08/06/23 7:17 AM Post-procedure details: Procedure completion: Tolerated well, no immediate complications [facility] No Panel Informationon 08-05 [facility] Work Phone: XR Pelvis Viewson 08-06-2023 Interpreted By: Melanie Rich, STUDY: [place] HYSTEROSALPINGOGRAM; 08/06/2023 7:53 am INDICATION: Signs/Symptoms:Fertility testing. COMPARISON: None. ACCESSION NUMBER(S): [id number] ORDERING CLINICIAN: LASHAWN DRUMMOND TECHNIQUE: An HSG was performed by the radiology practitioner assistant in conjunction with the provider examination. 30 ML of water soluble contrast was infused under fluoroscopic guidance and spot views of the uterus and bilateral fallopian tubes were obtained. The patient tolerated the procedure well. Fluoroscopic time was recorded by the landscape technician separately. FINDINGS: Smooth uterine cavity with no demonstrated changes in endometrial contour or filling defects noted. The fallopian tubes fill with contrast and free peritoneal spill is noted bilaterally. Right tube has normal tubal architecture, left tube is overall normal however it does course behind the uterus. [facility] MM[facility]AL Melanie Rich MD - 08/06/2023 Interpreted By: Melanie Rich, STUDY: [place] HYSTEROSALPINGOGRAM; 08/06/2023 7:53 am INDICATION: Signs/Symptoms:Fertility testing. COMPARISON: None. ACCESSION NUMBER(S): [id number] ORDERING CLINICIAN: LASHAWN DRUMMOND TECHNIQUE: An HSG was performed by the radiology practitioner assistant in conjunction with the provider examination. 30 ML of water soluble contrast was infused under fluoroscopic guidance and spot views of the uterus and bilateral fallopian tubes were obtained. The patient tolerated the procedure well. Fluoroscopic time was recorded by the landscape technician separately. FINDINGS: Smooth uterine cavity with no demonstrated changes in endometrial contour or filling defects noted. The fallopian tubes fill with contrast and free peritoneal spill is noted bilaterally. Right tube has normal tubal architecture, left tube is overall normal however it does course behind the uterus. IMPRESSION: 1. Correlate with real time fluoroscopic findings at the time of procedure. 2. Overall normal study tubal findings as above. Based on these findings, my recommendation is: Follow up with ordering provider MACRO: None Signed by: Melanie Rich 08/06/2023 9:43 AM Dictation workstation: [id number] [facility] Work Phone: Radiology Study observation (narrative) [facility] Work Phone: XR Pelvis ViewsOrdered By: Sia Rich on 08-06-2023 [facility] Work Phone: US PELVIS TRANSVAGINALon US PELVIS TRANSVAGINAL Interpreted by: Chaz Romo Indication ======== Fertility Testing Impression ========= Anteverted uterus with a trilaminar endometrial lining that measures as below. The ovaries are normal in appearance bilaterally. Uterus ====== Uterus: Visualized Uterus position: anteflexed Description of uterine malformations: none Myometrium: normal Endometrium: trilaminar Cervix details: normal Uterus length 78.7 mm Uterus width 37.8 mm Uterus height 30.0 mm Endometrial thickness, total 8.0 mm Right Ovary ========= Rt ovary: Visualized Rt ovary morphology: normal, normal Rt ovary D1 29.4 mm Rt ovary D2 22.9 mm Rt ovary D3 19.4 mm Rt ovary Vol 6.8 cm??? Rt ovarian follicle(s): Follicles identified Rt ovarian follicle D1 17.1 mm Rt ovarian follicle D2 15.3 mm Rt ovarian follicle mean 16.2 mm Rt ovarian follicle vol 2.092 cm??? Rt ovarian follicles other findings: Antral Follicles 7 < 10 mm Left Ovary ======== Lt ovary: Visualized Lt ovary morphology: normal, normal Lt ovary D1 19.4 mm Lt ovary D2 14.0 mm Lt ovary D3 17.3 mm Lt ovary Vol 2.5 cm??? Lt ovarian follicle(s): Follicles identified Lt ovarian follicles other findings: Antral Follicles 6 < 10 mm Cul de Sac ========= Visualized. No free fluid visualized Method ====== Transabdominal and transvaginal ultrasound examination. View: Sufficient Normal [facility] Blood type and Indirect anti body screen panel (Bld)on 06-04-2023 ABO group Nom (Bld) A Normal [facility] Comment on above: Performed By: #### 3 4532-2 #### JIM COLLINS ([id number]) [facility] [employer] ([facility]) [address] [place] [address] [place] Blood group antibody screen Ql Negative Normal [facility] Comment on above: Performed By: #### 3 4532-2 #### JIM COLLINS ([id number]) [facility] [employer] [facility] [address] [place] [address] [place] D Ag Ql (Bld) Positive Normal [facility] Comment on above: Performed By: #### 3 4532-2 #### JIM COLLINS ([id number]) [facility] ([facility]) [address] [place] [address] C. trachomatis and N. gonorr hoeae DNA JONO+probe Nom (Unsp spec)on 06-04-2023 C. trachomatis rRNA JONO+probe Ql (Unsp spec) Negative Normal Negative [facility] Comment on above: Order Comment: The A PTIMA Combo 2 assay is FDA-approved NAAT using target capture for the in vitro qualitative detection and differentiation of ribosomal RNA (rRNA) for Chlamydia trachomatis and Neisseria gonorrhoeae testing on clinician-collected endocervical, PreservCyt solution liquid Pap specimens, vaginal, throat, rectal, and male urethral swab specimens; patient-collected vaginal swab specimens, and female and male urine specimens from symptomatic and asymptomatic individuals. Samples from all other sites are not validated for this method. Performed By: #### 3 6903-3 #### RAYNE Sommer ([id number]) [facility] ([facility]) [address] [place] [address] N. gonorrhoeae DNA Probe+sig amp Ql (Unsp spec) Negative Normal Negative [facility] Comment on above: Order Comment: The A PTIMA Combo 2 assay is FDA-approved NAAT using target capture for the in vitro qualitative detection and differentiation of ribosomal RNA (rRNA) for Chlamydia trachomatis and Neisseria gonorrhoeae testing on clinician-collected endocervical, PreservCyt solution liquid Pap specimens, vaginal, throat, rectal, and male urethral swab specimens; patient-collected vaginal swab specimens, and female and male urine specimens from symptomatic and asymptomatic individuals. Samples from all other sites are not validated for this method. Performed By: #### 3 6903-3 #### RAYNE Sommer ([id number]) [facility] ([facility]) [address] [place] [address] Cytomegalovirus Ab.IgG avidi tyon 06-04-2023 CMV IgG avidity IA [Ratio] Non-Reactive Normal Nonreactive [facility] Comment on above: Performed By: #### 5 2984-2 #### RAYNE Sommer ([id number]) [facility] ([facility]) [address] [place] [address] Cytomegalovirus Ab.IgMon CMV IgM Qn <8.0 Normal <=29.9 [facility] Comment on above: Result Comment: INTE RPRETIVE INFORMATION: Cytomegalovirus Antibody, IgM 29.9 AU/mL or Less ....... Not Detected 30.0-34.9 AU/mL........... Indeterminate-Repeat testing in 10-14 days may be helpful. 35.0 AU/mL or Greater .... Detected-IgM antibody to CMV detected which may indicate a current or recent infection. However, low levels of IgM antibodies may occasionally persist for more than 12 months post-infection. A negative result does not rule out primary infection, please correlate clinically. CMV serology is not useful for the evaluation of active or reactivated infection in immunocompromised patients. Molecular diagnostic tests (i.e. PCR)are preferred in these cases. This test should not be used for blood donor screening, associated re-entry protocols, or for screening Human Cell, Tissues and Cellular and Tissue-Based Products (HCT/P). Performed By: [facility] [address] [place] [address] [employer] Teacher: Ethan Cruz MD, PhD CLIA Number: [id number] Performed By: #### 3 4532-2 #### JIM COLLINS ([id number]) [facility] BLOOD [facility] ([facility]) [address] [place] [address] HIV 1+2 Ab+HIV1 p24 Agon HIV 1+2 Ab+HIV1 p24 Ag IA Ql Non-Reactive Normal Nonreactive [facility] Comment on above: Order Comment: HIV A g/Ab screen is performed using the Siemens OmnyPay HIV Ag/Ab Combo assay which detects the presence of HIV p24 antigen as well as antibodies to HIV-1 (Group M and O) and HIV-2. No laboratory evidence of HIV infection. If acute HIV infection is suspected, consider testing for HIV RNA by PCR (viral load). Performed By: #### 5 6888-1 #### RAYNE Sommer ([id number]) [facility] ([facility]) [id number] [place] [address] Hepatitis B virus surface Ag on 06-04-2023 HBV surface Ag IA Ql Non-Reactive Normal Nonreactive [facility] Comment on above: Result Comment: Biot in interference may cause falsely decreased results. Patients taking a Biotin dose of up to 5 mg/day should refrain from taking Biotin for 24 hours before sample collection. Providers may contact their local laboratory for further information. Performed By: #### 5 196-1 #### RAYNE Sommer ([id number]) [facility] ([facility]) [address] [place], [place] [id number] Hepatitis C virus Abon 06-03 HCV Ab Ql (S) Non-Reactive Normal Nonreactive [facility] Comment on above: Result Comment: Resu lts from patients taking biotin supplements or receiving high-dose biotin therapy should be interpreted with caution due to possible interference with this test. Providers may contact their local laboratory for further information. Performed By: #### 1 6128-1 #### RAYNE Sommer ([id number]) [facility] ([facility]) [address] [place] [address] Mullerian inhibiting substan ceon 06-04-2023 Mullerian inhibiting substance [Mass/Vol] 1.594 ng/mL Normal 0.176-11.705 [facility] Comment on above: Result Comment: INTE RPRETIVE INFORMATION: Anti-Mullerian Hormone FEMALE: 6 months - 14 years: 0.256 - 6.345 ng/mL 15-17 years: 0.861 - 10.451 ng/mL 18-29 years: 0.401 - 16.015 ng/mL 30-39 years: 0.176 - 11.705 ng/mL 40-45 years: 6.282 ng/mL or less 46-50 years: 0.064 ng/mL or less Post-menopausal: 0.003 ng/mL or less MALE: 6-11 months: 56.677 - 495.299 ng/mL 1-6 years: 33.442 - 342.450 ng/mL 7-9 years: 20.245 - 189.781 ng/mL 10-12 years: 2.903 - 178.243 ng/mL 13 years and older: 2.079 - 30.656 ng/mL This test was developed and its performance characteristics determined by [facility]. It has not been cleared or approved by the US Food and Drug Administration. This test was performed in a CLIA certified laboratory and is intended for clinical purposes. Performed By: [facility] [address] [place] [address] [employer] Teacher: Ethan Cruz MD, PhD CLIA Number: [id number] Performed By: #### 3 4532-2 #### JIM LI ([id number]) [facility] ([facility]) [address] [place] [address] Rubella virus IgG IA Qnon Rubella virus IgG IA Ql Positive Normal Negative [facility] Comment on above: Order Comment: NEGAT ALEXANDREA: No IgG antibodies specific to Rubella detected. It is likely that the patient has not had a previous exposure to Rubella through infection or vaccination. Alternatively, the patient may have been exposed to Rubella but a failure to respond may indicate immunodeficiency. EQUIVOCAL: Equivocal results; obtain an additional sample for re-testing POSITIVE: IgG antibody to Rubella detected. This may indicate that the patient was exposed to Rubella through infection or vaccination. Performed By: #### 5 334-8 #### RAYNE Sommer ([id number]) [facility] ([facility]) [address] [place] [address] Rubella virus IgG Qn (S) 2.6 IA Normal <=0.7 IA [facility] Comment on above: Order Comment: NEGAT ALEXANDREA: No IgG antibodies specific to Rubella detected. It is likely that the patient has not had a previous exposure to Rubella through infection or vaccination. Alternatively, the patient may have been exposed to Rubella but a failure to respond may indicate immunodeficiency. EQUIVOCAL: Equivocal results; obtain an additional sample for re-testing POSITIVE: IgG antibody to Rubella detected. This may indicate that the patient was exposed to Rubella through infection or vaccination. Performed By: #### 5 334-8 #### RAYNE Sommer ([id number]) [facility] ([facility]) [address] [place] [address] TSH WITH REFLEX TO FREE T4 I F ABNORMALon 06-04-2023 TSH Qn 1.33 m[IU]/L Normal 0.44-3.98 [facility] Comment on above: Order Comment: TSH t esting is performed using different testing methodology at [facility] than at other [facility]. Direct result comparisons should only be made within the same method. Performed By: #### T MARYS #### JIM COLLINS ([id number]) [facility] ([facility]) [address] [place], [place] [id number] Treponema pallidum Ab.IgG+Ig Mon 06-04-2023 T. pallidum IgG+IgM IA Ql (S) Non-Reactive Normal Nonreactive [facility] Comment on above: Result Comment: No s ignificant level of Treponema pallidum antibody detected. Repeat testing in 2 to 4 weeks may be considered if early infection or incubating syphilis infection is suspected. Performed By: #### 4 7236-5 #### RAYNE Sommer ([id number]) [facility] ([facility]) [address] [place] [address] VZV IgG IA Ql (S)on 06-04-19 VARICELLA ZOSTER IGG INDEX 1.9 IA High <=0.8 [facility] Comment on above: Order Comment: NEGAT ALEXANDREA: No IgG antibodies specific to VZV detected. It is likely that the patient has not had a previous exposure to VZV through infection or vaccination. Alternatively, the patient may have been exposed to VZV but a failure to respond may indicate immunodeficiency. EQUIVOCAL:Equivocal results; obtain additional sample for retesting. POSITIVE: IgG antibody to VZV detected. This may indicate that the patient was exposed to VZV through infection or vaccination. The interpretation of serological tests should take into account the immunological status of the patient. Test results for patients, including immunocompromised patients, neonates, and pediatric patients, reflect their capacity to respond immunologically to the virus as well as their exposure to the pathogen. Patients treated with IVIG may demonstrate altered results in serological assays. Performed By: #### 1 5410-4 #### RAYNE Sommer ([id number]) [facility] ([facility]) [address] [place] [address] Varicella zoster virus Ab.Ig Dewayne 03-26-2024 VZV IgG IA Ql (S) Positive Abnormal Negative [facility] Comment on above: Order Comment: NEGAT ALEXANDREA: No IgG antibodies specific to VZV detected. It is likely that the patient has not had a previous exposure to VZV through infection or vaccination. Alternatively, the patient may have been exposed to VZV but a failure to respond may indicate immunodeficiency. EQUIVOCAL:Equivocal results; obtain additional sample for retesting. POSITIVE: IgG antibody to VZV detected. This may indicate that the patient was exposed to VZV through infection or vaccination. The interpretation of serological tests should take into account the immunological status of the patient. Test results for patients, including immunocompromised patients, neonates, and pediatric patients, reflect their capacity to respond immunologically to the virus as well as their exposure to the pathogen. Patients treated with IVIG may demonstrate altered results in serological assays. Performed By: #### 1 5410-4 #### RAYNE Sommer ([id number]) [facility] ([facility]) [address] [place] [address] MR BRAIN W AND WO IV CONTRAS Ton 03-25-2023 MR BRAIN W AND WO IV CONTRAST Interpreted By: Nicole Mirza, STUDY: MR BRAIN W AND WO IV CONTRAST; 03/25/2023 11:55 am INDICATION: Signs/Symptoms:Multiple Sclerosis. COMPARISON: 01/02/2022. ACCESSION NUMBER(S): [id number] ORDERING CLINICIAN: MICHAEL CHANEY TECHNIQUE: Axial T2, FLAIR, DWI, gradient echo T2 and sagittal and coronal T1 weighted images of brain were acquired. Post contrast T1 weighted images were acquired after administration of gadolinium based intravenous contrast. FINDINGS: CSF Spaces: The ventricles, sulci and basal cisterns are within normal limits. There is no extra-axial fluid collection. Parenchyma: There is no diffusion restriction abnormality to suggest acute infarct. Redemonstrated is a mild degree of predominantly supratentorial white matter lesions some of which are oriented perpendicular to the lateral ventricles compatible with the patient's history of multiple sclerosis. No new hyperintense lesion is noted. No diffusion restricting or enhancing lesions on the current exam. Multiple lesions demonstrate T1 hypointensity on the pre contrast images. There is no mass effect or midline shift. No abnormal parenchymal enhancement. No abnormal susceptibility artifact. Cerebellar tonsils are above the foramen magnum. Pituitary and sella are not enlarged. Mild patchy signal at the callososeptal interface. Paranasal Sinuses and Mastoids: Major intracranial flow voids at the skull base are unremarkable. Paranasal sinuses and mastoid air cells are clear. IMPRESSION: No significant interval change from the prior exam 01/02/2022. Redemonstrated is a mild degree of predominantly supratentorial white matter lesions compatible with the patient's history of multiple sclerosis. No new hyperintense lesion. No diffusion restricting or enhancing lesions on the current exam. MACRO: None Signed by: Nicole Mirza 03/25/2023 4:15 PM Dictation workstation: [id number] [facility] MR Brain WO and W contrast I Von 03-25-2023 No significant inter jarred change from the prior exam 01/02/2022. Redemonstrated is a mild degree of predominantly supratentorial white matter lesions compatible with the patient's history of multiple sclerosis. No new hyperintense lesion. No diffusion restricting or enhancing lesions on the current exam. MACRO: None Signed by: Nicole Mirza 03/25/2023 4:15 PM Dictation workstation: [id number] MMODAL Interpreted By: Nicole Ford, STUDY: MR BRAIN W AND WO IV CONTRAST; 03/25/2023 11:55 am INDICATION: Signs/Symptoms:Multiple Sclerosis. COMPARISON: 01/02/2022. ACCESSION NUMBER(S): [id number] ORDERING CLINICIAN: MICHAEL CHANEY TECHNIQUE: Axial T2, FLAIR, DWI, gradient echo T2 and sagittal and coronal T1 weighted images of brain were acquired. Post contrast T1 weighted images were acquired after administration of gadolinium based intravenous contrast. FINDINGS: CSF Spaces: The ventricles, sulci and basal cisterns are within normal limits. There is no extra-axial fluid collection. Parenchyma: There is no diffusion restriction abnormality to suggest acute infarct. Redemonstrated is a mild degree of predominantly supratentorial white matter lesions some of which are oriented perpendicular to the lateral ventricles compatible with the patient's history of multiple sclerosis. No new hyperintense lesion is noted. No diffusion restricting or enhancing lesions on the current exam. Multiple lesions demonstrate T1 hypointensity on the pre contrast images. There is no mass effect or midline shift. No abnormal parenchymal enhancement. No abnormal susceptibility artifact. Cerebellar tonsils are above the foramen magnum. Pituitary and sella are not enlarged. Mild patchy signal at the callososeptal interface. Paranasal Sinuses and Mastoids: Major intracranial flow voids at the skull base are unremarkable. Paranasal sinuses and mastoid air cells are clear. MMODAL Nicole Mirza MD - 03/25/2023 Interpreted By: Nicole Mirza, STUDY: MR BRAIN W AND WO IV CONTRAST; 03/25/2023 11:55 am INDICATION: Signs/Symptoms:Multiple Sclerosis. COMPARISON: 01/02/2022. ACCESSION NUMBER(S): [id number] ORDERING CLINICIAN: MICHAEL CHANEY TECHNIQUE: Axial T2, FLAIR, DWI, gradient echo T2 and sagittal and coronal T1 weighted images of brain were acquired. Post contrast T1 weighted images were acquired after administration of gadolinium based intravenous contrast. FINDINGS: CSF Spaces: The ventricles, sulci and basal cisterns are within normal limits. There is no extra-axial fluid collection. Parenchyma: There is no diffusion restriction abnormality to suggest acute infarct. Redemonstrated is a mild degree of predominantly supratentorial white matter lesions some of which are oriented perpendicular to the lateral ventricles compatible with the patient's history of multiple sclerosis. No new hyperintense lesion is noted. No diffusion restricting or enhancing lesions on the current exam. Multiple lesions demonstrate T1 hypointensity on the pre contrast images. There is no mass effect or midline shift. No abnormal parenchymal enhancement. No abnormal susceptibility artifact. Cerebellar tonsils are above the foramen magnum. Pituitary and sella are not enlarged. Mild patchy signal at the callososeptal interface. Paranasal Sinuses and Mastoids: Major intracranial flow voids at the skull base are unremarkable. Paranasal sinuses and mastoid air cells are clear. IMPRESSION: No significant interval change from the prior exam 01/02/2022. Redemonstrated is a mild degree of predominantly supratentorial white matter lesions compatible with the patient's history of multiple sclerosis. No new hyperintense lesion. No diffusion restricting or enhancing lesions on the current exam. MACRO: None Signed by: Nicole Mirza 03/25/2023 4:15 PM Dictation workstation: [id number] [facility] Work Phone: Radiology Study observation (narrative) [facility] Work Phone: MR Brain WO and W contrast I VOrdered By: Nicole Mirza on 03-25-2023 [facility] Work Phone: Office Visiton 04-12-2022 Follow-up visit Diagnoses/Problems Multiple sclerosis (340) (G35) Areas of abnormal signal in R and L hemispheric WM in brain and C-spine as well as Gd-enhancing lesions in brain by MRI 05/17/2017. Orders MS (multiple sclerosis) Renew: Vumerity 231 MG Oral Capsule Delayed Release; TAKE TWO (2) CAPSULES BY MOUTH TWICE DAILY Patient Discussion/Summary Thanks for the virtual visit. - Continue with Vumerity. - Labs every 3 months while on Vumerity. - MRI 12/2022. - Try Amantadine for MS Fatigue. - Follow up 6 months Provider Impressions 36 yo LH female agreed to a virtual visit for a follow up of her MS, takes Vumerity and tolerating well. Last MRI of the brain 01/02/22 and was stable. She reports no new MS symptoms. Plan - Continue with Vumerity. - Labs every 3 months while on Vumerity. - MRI 12/2022. - Try Amantadine for MS Fatigue. - Follow up 6 months The total virtual visit was 25 minutes and more than 50% of the visit was spent counseling and coordination of care. History of Present Illness [facility] F/U EVALUATION PRINCIPAL NEUROLOGIC DIAGNOSIS: RRMS DISEASE SUMMARY/DIAGNOSTICS: Onset: ? summer 2016 Diagnosis of MS: 05/26 Disease course at onset: RR Current disease course: RR Previous disease therapies: none Current disease therapies: Vumerity Most recent MRI brain: 01/02/23 stable Most recent MRI cervical spine: 05/26 Most recent MRI thoracic spine: none CSF: none NMO, HIV, HTLV, ARABELLA neg Lyme positive The patient was informed about the telehealth clinical encounter including benefits to avoiding travel, limitations of the assessment, and billing for the service. In office care may be recommended if needed. Telehealth sessions are not being recorded and personal health information is protected. All questions were answered and verbal consent from the patient was obtained. HPI: 36 yo LH female agreed to a virtual visit for a follow up of her MS, she started Vumerity 2020, and tolerating well. Last MRI of the brain 01/02/22 and was stable. She reports no new MS symptoms. Review of Systems No bowel or bladder issues, stable gait, no recent infections, and no trouble swallowing. Active Problems Lyme disease, unspecified (088.81) (A69.20) Migraine with aura and without status migrainosus, not intractable (346.00) (G43.109) Episodic visual disturbance OS and episodic moderate headaches. Increased risk of stroke. At visit 05/02/2017, no significant headaches. Migraine with visual aura (346.00) (G43.109) MS (multiple sclerosis) (340) (G35) Multiple sclerosis (340) (G35) Areas of abnormal signal in R and L hemispheric WM in brain and C-spine as well as Gd-enhancing lesions in brain by MRI 05/17/2017. Numbness and tingling of right arm and leg (782.0) (R20.0,R20.2) 2-3 day episode of RUE and RLE numbness and RUE weakness. Positive SANDRA for Lyme disease (088.81) (A69.20) Positive Lyme disease serology (795.79) (R76.8) Transient visual loss, left eye (368.12) (H53.122) Most likely due to migraine with aura but need to evaluate for stroke. Need to consider optic neuritis in view of abnormal MRI brain. Vitamin D deficiency (268.9) (E55.9) Past Medical History History of No known health problems (V49.89) (Z78.9) Surgical History History of Oral Surgery Social History Consumes alcohol occasionally (V49.89) (Z78.9) 4-5 drinks every other weekend. Daily caffeinated coffee consumption 16 oz coffee per day; no other caffeinated beverages. Ex-cigarette smoker (V15.82) (Z87.891) 1 pack/3-4 days, past 7 years. Quit 03/22/2017. Has no children May plan to have children in future ( 5 years) Single Allergies Tecfidera CPDR Recorded By: Ollie Yancey; 03/08/2020 1:33:27 PM Current Meds Medication NameInstruction Albuterol Sulfate HFA 108 (90 Base) MCG/ACT Inhalation Aerosol Solution Amantadine HCl - 100 MG Oral TabletTAKE 1 TABLET Twice daily for MS fatigue Breo Ellipta 200-25 MCG/INH AEPB Famotidine 20 MG Oral TabletTAKE 1 TABLET BY MOUTH TWICE A DAY Levonorgest-Eth Estrad 91-Day 0.15-0.03 MG Oral Tablet Montelukast Sodium 10 MG Oral Tablet Omeprazole 40 MG Oral Capsule Delayed Release Vitamin D (Ergocalciferol) 1.25 MG (48187 UT) Oral CapsuleTAKE ONE CAPSULE BY MOUTH ONE TIME PER WEEK Vumerity 231 MG Oral Capsule Delayed ReleaseTAKE TWO (2) CAPSULES BY MOUTH TWICE DAILY. Physical Exam Neurological Exam: Alert, oriented x 3, speech clear, short and group home memory intact, follows commands, able to recall current events Gait: Reports no trouble walking 25 ft walk: 5.2 sec. 9 hole peg test: Right hand 22 sec. and left hand 22.7 sec. Signatures Electronically signed by : Michael Chaney R.N. CONSTRUCTION SUPERINTENDENT; Apr 13 2022 11:53AM EST (Author) Normal [employer] CBC AND DIFFERENTIALon 03-09 % AUTOMATED IMMATURE GRAN 0.4 % Normal 0.0 - 0.9 [facility] Comment on above: Result Comment: Sharon ture Granulocyte Count (IG) includes promyelocytes, myelocytes and metamyelocytes but does not include bands. Percent differential counts (%) should be interpreted in the context of the absolute cell counts (cells/L). Performed By: #### C BCDF #### [address] [address] Basophils (Bld) [#/Vol] 0.04 10*3/uL Normal 0.00 - 0.10 [facility] Comment on above: Performed By: #### C BCDF #### [address] [address] Basophils/100 WBC (Bld) 0.7 % Normal 0.0 - 2.0 [facility] Comment on above: Performed By: #### C BCDF #### [address] [address] Eosinophils (Bld) [#/Vol] 0.07 10*3/uL Normal 0.00 - 0.70 [facility] Comment on above: Performed By: #### C BCDF #### [address] [address] Eosinophils/100 WBC (Bld) 1.3 % Normal 0.0 - 6.0 [facility] Comment on above: Performed By: #### C BCDF #### [address] [address] Erythrocyte distribution width (RBC) [Ratio] 13.5 % Normal 11.5 - 14.5 [facility] Comment on above: Performed By: #### C BCDF #### [address] [address] Hematocrit (Bld) [Volume fraction] 42.0 % Normal 36.0 - 46.0 [facility] Comment on above: Performed By: #### C BCDF #### [address] [address] Hemoglobin (Bld) [Mass/Vol] 13.5 g/dL Normal 12.0 - 16.0 [facility] Comment on above: Performed By: #### C BCDF #### [address] [address] Lymphocytes (Bld) [#/Vol] 0.96 10*3/uL Low 1.20 - 4.80 [facility] Comment on above: Performed By: #### C BCDF #### [address] [address] Lymphocytes/100 WBC (Bld) 17.5 % Normal 13.0 - 44.0 [facility] Comment on above: Performed By: #### C BCDF #### [address] [address] MCHC (RBC) [Mass/Vol] 32.1 g/dL Normal 32.0 - 36.0 [facility] Comment on above: Performed By: #### C BCDF #### [address] [address] MCV (RBC) [Entitic vol] 84 fL Normal 80 - 100 [facility] Comment on above: Performed By: #### C BCDF #### [address] [address] Monocytes (Bld) [#/Vol] 0.62 10*3/uL Normal 0.10 - 1.00 [facility] Comment on above: Performed By: #### C BCDF #### [address] [address] Monocytes/100 WBC (Bld) 11.3 % Normal 2.0 - 10.0 [facility] Comment on above: Performed By: #### C BCDF #### [address] [address] Neutrophils (Bld) [#/Vol] 3.77 10*3/uL Normal 1.20 - 7.70 [facility] Comment on above: Result Comment: Perc ent differential counts (%) should be interpreted in the context of the absolute cell counts (cells/L). Performed By: #### C BCDF #### [address] [address] Neutrophils/100 WBC (Bld) 68.8 % Normal 40.0 - 80.0 [facility] Comment on above: Performed By: #### C BCDF #### [address] [address] Platelets (Bld) [#/Vol] 334 10*3/uL Normal 150 - 450 [facility] Comment on above: Performed By: #### C BCDF #### [address] [address] RBC 5.02 x10E12/L Normal 4.00 - 5.20 [facility] Comment on above: Performed By: #### C BCDF #### [address] [address] WBC (Bld) [#/Vol] 5.5 10*3/uL Normal 4.4 - 11.3 [facility] Comment on above: Performed By: #### C BCDF #### [address] [address] Complete Blood Count + Diffe rentialon 03-09-2022 Basophils/100 WBC (Bld) 0.7 % 0.0 - 2.0 [facility] -[facility] Work Phone: Erythrocyte distribution width (RBC) [Ratio] 13.5 % See Below [facility] [place] [facility] Work Phone: Comment on above: Reference Range: 11. 5 - 14.5 Hematocrit (Bld) [Volume fraction] 42.0 % See Below [facility] [place] [facility] Work Phone: Comment on above: Reference Range: 36. 0 - 46.0 Hemoglobin (Bld) [Mass/Vol] 13.5 g/dL See Below [facility] [place] [facility] Work Phone: Comment on above: Reference Range: 12. 0 - 16.0 Lymphocytes/100 WBC (Bld) 17.5 % See Below [facility] [place] [facility] Work Phone: Comment on above: Reference Range: 13. 0 - 44.0 MCHC (RBC) [Mass/Vol] 32.1 g/dL See Below [facility] [place] [facility] Work Phone: Comment on above: Reference Range: 32. 0 - 36.0 MCV (RBC) [Entitic vol] 84 fL 80 - 100 [facility] Work Phone: Monocytes/100 WBC (Bld) 11.3 % 2.0 - 10.0 [facility] [place] [facility] Work Phone: Neutrophils/100 WBC (Bld) 68.8 % See Below [facility] [place] [facility] Work Phone: Comment on above: Reference Range: 40. 0 - 80.0 Platelets (Bld) [#/Vol] 334 10*3/uL 150 - 450 [facility] [place] [facility] Work Phone: RBC (Bld) [#/Vol] 5.02 {x10E12/L} See Below [facility] [place] [facility] Work Phone: Comment on above: Reference Range: 4.0 0 - 5.20 WBC (Bld) [#/Vol] 5.5 10*3/uL 4.4 - 11.3 MG-Nicolas rolog y-[facility] 5 Work Phone: Complete Blood Count + Differential 0.04 {x10E9/L} See Below [facility]Neurolog y-[facility] 5 Work Phone: Comment on above: Reference Range: 0.0 0 - 0.10 Complete Blood Count + Differential 0.07 {x10E9/L} See Below [facility] 5 Work Phone: Comment on above: Reference Range: 0.0 0 - 0.70 Complete Blood Count + Differential 0.62 {x10E9/L} See Below [facility]-Neurolog y-[facility] 5 Work Phone: Comment on above: Reference Range: 0.1 0 - 1.00 Complete Blood Count + Differential 0.96 {x10E9/L} below low threshold See Below [facility]Neurolog y-[facility] 5 Work Phone: Comment on above: Reference Range: 1.2 0 - 4.80 Complete Blood Count + Differential 3.77 {x10E9/L} See Below [facility]Neurolog y-[facility] 5 Work Phone: Comment on above: Reference Range: 1.2 0 - 7.70 Percent differential counts (%) should be interpreted in the context of the absolute cell counts (cells/L). Complete Blood Count + Differential 1.3 % 0.0 - 6.0 [facility]urolog y-[facility] 5 Work Phone: Complete Blood Count + Differential 0.4 % 0.0 - 0.9 [facility]rolog y-[facility] 5 Work Phone: Comment on above: Immature Granulocyte Count (IG) includes promyelocytes, myelocytes and metamyelocytes but does not include bands. Percent differential counts (%) should be interpreted in the context of the absolute cell counts (cells/L). US VAC ASST BX BREAST RT W C LIPon 01-19-2022 US VAC ASST BX BREAST RT W CLIP Begin Addendum #1 COLLECTED DATE/TIME: 01/01/2022 13:12 EDT Final Diagnosis Report for the [facility], [place], [place] RIGHT BREAST MASS AT 2 O'CLOCK, ULTRASOUND-GUIDED CORE BIOPSY: 01/05/[address] Orantes. 01/[address] Orantes. Multiple messages left at office for confirmation. 01/10/22 Verified with Rajwinder that report was present in office. Original Report EXAM: US VAC ASST BX BREAST RT W CLIP HISTORY: Lump in right breast COMPARISON: Diagnostic mammography 03/14/2021, ultrasound breast right Limited 03/14/2021, 02/25/2020 TECHNIQUE: After obtaining informed consent a vacuum-assisted ultrasound-guided biopsy was performed in the usual sterile manner. FINDINGS: Specimen number/location: 3 core samples; upper inner quadrant right breast. Biopsy needle: 13-gauge vacuum core biopsy needle. Marker placed: A metallic marker had previously been placed within the mass for identification. No marker was placed during today's biopsy. Medication: Buffered 1% lidocaine with epinephrine administered locally. Complications: None. Pathology: Pending. IMPRESSION: 1. Uneventful ultrasound-guided breast biopsy. 2. Pathology results are pending. An addendum to this report will be provided after pathology results are available. Normal [facility] Pathology Noteon 01-05-2022 Pathology Note [id number]:12 7 Normal [facility] MRI Brain w/wo Contraston MR Brain WO and W contrast IV Normal MG-Neurolog [facility] [address] Work Phone: NR MRI BRAIN W/WO CONTRASTon 01-02-2022 NR MRI BRAIN W/WO CONTRAST Patient Name: AMY BESS STUDY: MRI BRAIN W/WO CONTRAST; 01/02/2022 4:33 pm INDICATION: Multiple Sclerosis G35: Multiple sclerosis. COMPARISON: February 23, 2021 ACCESSION NUMBER(S): [id number] ORDERING CLINICIAN: MICHAEL CHANEY TECHNIQUE: Axial T2, FLAIR, DWI, gradient echo T2 and T1 weighted images of brain were acquired. Post contrast T1 weighted images were acquired after administration of 19 milliliter DOTAREM GADOTERATE MEGLUMINE INJECTION gadolinium based intravenous contrast. Volumetric FLAIR images with multiplanar reformats were also provided for review. FINDINGS: CSF Spaces: The ventricles, sulci and basal cisterns are within normal limits. Parenchyma: There is no diffusion restriction abnormality to suggest acute infarct. There are again several hyperintensities on FLAIR and T2 weighted imaging in the subcortical and periventricular white matter. Many of the periventricular foci demonstrate a perpendicular orientation with the lateral ventricles. There is again involvement of the body of the corpus callosum. There may be a few punctate foci within the kenney. Overall, the pattern and distribution are very similar from the previous examination. Some of the lesions demonstrate hypointensity on T1 weighted imaging. The axial fat-suppressed postcontrast weighted images demonstrate potential enhancement of several of the periventricular lesions. However, much of this is not confirmed on the volumetric MP rage post-contrast T1 weighted series and therefore it is uncertain to what extent this may be technical in nature. There is a punctate focus of potential enhancement along the anterior margin of 1 of the lesions in the left centrum semiovale best appreciated on sagittal image 23 of 60 and axial image 114 of 176. There is no mass effect or midline shift. Paranasal Sinuses and Mastoids: Visualized paranasal sinuses and mastoid air cells are unremarkable. IMPRESSION: Redemonstration of numerous white matter signal abnormalities compatible with the patient's given history of demyelinating disease. The pattern and distribution are very similar from the previous examination. The axial fat-suppressed post-contrast T1 weighted images suggest enhancement of several of the periventricular lesions, however, this is not confirmed on the volumetric MP rage post-contrast T1 weighted series and therefore it is uncertain to what extent the potential enhancement is technical in nature. There is punctate enhancement along the anterior margin of 1 of the lesions in the left centrum semiovale which could be due to artifact, vessel, or active focus of demyelination. Electronically signed by: YOLANDA TOMAS DO [facility] MAMMO POST BIOPSY RIGHTon MAMMO POST BIOPSY RIGHT Patient: AMY BESS Exam Date: 01/01/2022 : 1985 Gender:F Ordering : DR MARIO ORANTES . Admission #: [id number] Family : Order #: [id number] CLICK HERE TO VIEW EXAM RADIOLOGY REPORT PROCEDURE: MAMMOGRAM POST BIOPSY IMAGES COMPARISON: MG MAMM ELOISA DIAG W CAD, 02/25/2020. MG MAMM DX 3D RT CAD, 03/14/2021. US BREAST RIGHT LIMITED, 03/14/2021. MG MAMM DX 3D RT CAD, 11/01/2021. US BREAST RIGHT LIMITED, 11/01/2021. INDICATIONS: Lump in right breast BREAST COMPOSITION: FINDINGS: BIOPSY MARKER: A metallic marker is present within the targeted lesion within the upper inner quadrant of the right breast. BREAST FINDINGS: Expected post biopsy findings. RECOMMENDATIONS: Dictated by: Bonnie Weinstein M.D. on 01/01/2022 at 12:26 Approved by: Bonnie Weinstein M.D. on 01/01/2022 at 12:29 Normal [facility] CBC with Auto Differentialon 11-06-2021 Absolute Eos # 0.10 [facility] Absolute Lymph # 0.80 Low [facility] Absolute [place] # 0.30 [facility] Basophils (Bld) [#/Vol] 0.00 10*3/uL [facility] Basophils/100 WBC (Bld) 1 % 0 - 2 % [facility] Differential Type YES [facility] Eosinophils/100 WBC (Bld) 1 % 0 - 5 % [facility] Hematocrit (Bld) [Volume fraction] 36.9 % 36 - 46 % [facility] Hemoglobin (Bld) [Mass/Vol] 12.1 g/dL 12 - 16 g/dL [facility] Interpretation and review of laboratory results Abnormal [facility] Lymphocytes/100 WBC (Bld) 20 % 15 - 40 % [facility] MCH (RBC) [Entitic mass] 26.6 pg 26 - 34 pg [facility] MCHC (RBC) [Mass/Vol] 32.9 g/dL 31 - 37 g/dL [facility] MCV (RBC) [Entitic vol] 81.1 fL 80 - 100 fL [facility] Monocytes/100 WBC (Bld) 8 % 4 - 8 % [facility] Platelet distribution width (Bld) [Ratio] 14.4 % 12.1 - 15.2 % [facility] Platelets (Bld) [#/Vol] 302 10*3/uL [facility] RBC (Bld) [#/Vol] 4.55 10*6/uL 4 - 5.2 m/uL [facility] Segmented neutrophils/100 WBC (Bld) 70 % 47 - 75 % [facility] Segs Absolute 2.80 [facility] WBC (Bld) [#/Vol] 4.0 10*3/uL [facility] Comprehensive Metabolic Pane mark 11-06-2021 Albumin [Mass/Vol] 4.9 g/dL 3.5 - 5.2 g/dL [facility] ALP (Bld) [Catalytic activity/Vol] 69 U/L 35 - 104 U/L [facility] ALT [Catalytic activity/Vol] 16 U/L 5 - 33 U/L [facility] Anion gap [Moles/Vol] 14 mmol/L 9 - 17 mmol/L [facility] AST [Catalytic activity/Vol] 17 U/L NINF - 32 U/L [facility] Bilirubin [Mass/Vol] 0.42 mg/dL 0.3 - 1 .2 mg/dL [facility] Calcium [Mass/Vol] 9.6 mg/dL 8.6 - 10. 4 mg/dL [facility] Chloride [Moles/Vol] 103 mmol/L 98 - 10 7 mmol/L [facility] CO2 [Moles/Vol] 22 mmol/L 20 - 31 mmol/L [facility] Creatinine [Mass/Vol] 0.61 mg/dL 0.5 - 0.9 mg/dL [facility] Free PSA/Total PSA [Mass fraction] 7.9 g/dL 6.4 - 8.3 g/dL [facility] GFR >60 60 - PI NF mL/min [facility] GFR Non- >60 60 - PINF mL/min [facility] GFR/1.73 sq M.predicted MDRD (S/P/Bld) [Vol rate/Area] [facility] [employer] Comment on above: Average GFR for 30-3 9 years old: 107 mL/min/1.73sq m Chronic Kidney Disease: <60 mL/min/1.73sq m Kidney failure: <15 mL/min/1.73sq m eGFR calculated using average adult body mass. Additional eGFR calculator available at: http://www.kapturem/hopscout_crcl_2011.htm Potassium [Moles/Vol] 3.8 mmol/L 3.7 - 5.3 mmol/L [facility] Sodium [Moles/Vol] 139 mmol/L 135 - 144 mmol/L [facility] Urea nitrogen (BldV) [Mass/Vol] 7 mg/dL 6 - 20 mg/dL [facility] Urea nitrogen/Creatinine (Bld) [Mass ratio] 11 9 - 20 [facility] Laboratory - Chemistry and C hemistry - challengeon 11-06-2021 Glucose [Mass/Vol] 79 mg/dL 70 - 99 mg/dL [facility] Lipid Panelon 11-06-2021 Cholesterol [Mass/Vol] 199 mg/dL NINF - 200 mg/dL [facility] [employer] Comment on above: Cholesterol Guidelines: <200 Desirable 200-240 Borderline >240 Undesirable Cholesterol in HDL [Mass/Vol] 42 mg/dL 40 - PINF mg/dL [facility] Comment on above: HDL Guidelines: <40 Undesirable 40-59 Borderline >59 Desirable Cholesterol in LDL [Mass/Vol] 131 mg/dL High 0 - 130 mg/dL [facility] [employer] Comment on above: LDL Guidelines: <100 Desirable 100-129 Near to/above Desirable 130-159 Borderline >159 Undesirable Direct (measured) LDL and calculated LDL are not interchangeable tests. Cholesterol.total/Chol esterol in HDL [Mass ratio] 4.7 {ratio} NINF - 5 [facility] Interpretation and review of laboratory results Abnormal [facility] Triglyceride [Mass/Vol] 130 mg/dL NINF - 150 mg/dL [facility] Comment on above: Triglyceride Guidelines: <150 Desirable 150-199 Borderline 200-499 High >499 Very high Based on AHA Guidelines for fasting triglyceride, December 2011. [facility] No Panel Informationon 11-06 [facility] Patient Fasting?on 2 Patient Fasting? YES [facility] Vitamin D 25 Hydroxyon 11-06 Vit D, 25-Hydroxy 52.6 ng/mL 29.9 - PIN F ng/mL [facility] Comment on above: Reference Range: Vitamin D status Range Deficiency <20 ng/mL Mild Deficiency 20-30 ng/mL Sufficiency 30-100 ng/mL Toxicity >100 ng/mL [facility] Office Visiton 11-02-2021 Follow-up visit Diagnoses/Problems Multiple sclerosis (340) (G35) Areas of abnormal signal in R and L hemispheric WM in brain and C-spine as well as Gd-enhancing lesions in brain by MRI 05/17/2017. Orders Multiple sclerosis Start: Amantadine HCl - 100 MG Oral Tablet; TAKE 1 TABLET Twice daily for MS fatigue MRI Brain w/wo Contrast; Status:Hold For - Scheduling; Requested for:[id number]; Radiologist to Determine Optimal Study : Y Does the patient have a Cochlear Implant, Pacemaker, Defibrilator, Pacing Wire, Brain Aneurysm Clip, Implanted Nerve or Bone Graft Simulator, Implanted Breast Tissue Catalyst Operator, Glucose Monitor, or Neulasta Device? : No Is the patient or breast feeding? : No What are the patient's signs and symptoms? : Multiple Sclerosis Patient Discussion/Summary Your neurological exam is stable. - Continue with Vumerity. - Labs every 3 months while on Vumerity. - MRI 11/30/21. - Try Amantadine for MS Fatigue. - Follow up 6 months Provider Impressions 36 yo LH female here for a follow up of her MS, she started Vumerity 2020, and tolerating well. Last MRI of the brain 11/24/20 and was stable. She reports no new MS symptoms. Plan - Continue with Vumerity. - Labs every 3 months while on Vumerity. - MRI 11/30/21. - Try Amantadine for MS Fatigue. - Follow up 6 months The total face to face appointment was 35 minutes and more than 50% of the visit was spent counseling and coordination of care. History of Present Illness [facility] F/U EVALUATION PRINCIPAL NEUROLOGIC DIAGNOSIS: RRMS DISEASE SUMMARY/DIAGNOSTICS: Onset: ? summer 2016 Diagnosis of MS: 05/26 Disease course at onset: RR Current disease course: RR Previous disease therapies: none Current disease therapies: Tecfidera Most recent MRI brain: 11/24/20 stable Most recent MRI cervical spine: 05/26 Most recent MRI thoracic spine: none CSF: none NMO, HIV, HTLV, ARABELLA neg Lyme positive HPI: 36 yo LH female here for a follow up of her MS, she started Vumerity 2020, and tolerating well. Last MRI of the brain 11/24/20 and was stable. She reports no new MS symptoms. Review of Systems No bowel or bladder issues, stable gait, no recent infections, and no trouble swallowing. Active Problems Lyme disease, unspecified (088.81) (A69.20) Migraine with aura and without status migrainosus, not intractable (346.00) (G43.109) Episodic visual disturbance OS and episodic moderate headaches. Increased risk of stroke. At visit 05/02/2017, no significant headaches. Migraine with visual aura (346.00) (G43.109) MS (multiple sclerosis) (340) (G35) Multiple sclerosis (340) (G35) Areas of abnormal signal in R and L hemispheric WM in brain and C-spine as well as Gd-enhancing lesions in brain by MRI 05/17/2017. Numbness and tingling of right arm and leg (782.0) (R20.0,R20.2) 2-3 day episode of RUE and RLE numbness and RUE weakness. Positive SANDRA for Lyme disease (088.81) (A69.20) Positive Lyme disease serology (795.79) (R76.8) Transient visual loss, left eye (368.12) (H53.122) Most likely due to migraine with aura but need to evaluate for stroke. Need to consider optic neuritis in view of abnormal MRI brain. Vitamin D deficiency (268.9) (E55.9) Past Medical History History of No known health problems (V49.89) (Z78.9) Surgical History History of Oral Surgery Social History Consumes alcohol occasionally (V49.89) (Z78.9) 4-5 drinks every other weekend. Daily caffeinated coffee consumption 16 oz coffee per day; no other caffeinated beverages. Ex-cigarette smoker (V15.82) (Z87.891) 1 pack/3-4 days, past 7 years. Quit 03/22/2017. Has no children May plan to have children in future ( 5 years) Single Allergies Tecfidera CPDR Recorded By: Ollie Yancey; 03/08/2020 1:33:27 PM Current Meds Medication NameInstruction Albuterol Sulfate HFA 108 (90 Base) MCG/ACT Inhalation Aerosol Solution Breo Ellipta 200-25 MCG/INH Inhalation Aerosol Powder Breath Activated Famotidine 20 MG Oral TabletTAKE 1 TABLET BY MOUTH TWICE A DAY Levonorgest-Eth Estrad 91-Day 0.15-0.03 MG Oral Tablet Montelukast Sodium 10 MG Oral Tablet Omeprazole 40 MG Oral Capsule Delayed Release Vitamin D (Ergocalciferol) 1.25 MG (67155 UT) Oral CapsuleTAKE ONE CAPSULE BY MOUTH ONE TIME PER WEEK Vumerity 231 MG Oral Capsule Delayed ReleaseTAKE TWO (2) CAPSULES BY MOUTH TWICE DAILY. Vitals Vital Signs Recorded: [id number] 03:57PM Heart Rate86 Qzzxltoypsx05 [id number], RUE, Sitting Lqteyquyw61, RUE, Sitting Wuickf511 lb BMI Ifqatritwv32.93 kg/m2 BSA Calculated2.02 Tobacco Useb) No Falls Screening (Age 18+)a) No falls within the last year Pain Scale0 Physical Exam Neurological Exam: Alert, oriented x 3, speech clear, short and ocean transportation intermediary memory intact, follows commands, able to recall current events CN: VFF, EOMI, face symmetrical, soft palate elevates symmetrically, tongue midline Motor: strength 5/5 proxima (more content not included)... Normal [facility] Tobacco Screening.on 022 Fall risk assessment a) No falls within the last year [facility] [address] Work Phone: Tobacco use status [facility] b) No [facility] [address] Work Phone: MG MAMM DX 3D RT CADon 11-01 MG MAMM DX 3D RT CAD Patient: AMY BESS Exam Date: 11/01/2021 : 1985 Gender:F Ordering : DR MARIO ORANTES . Admission #: [id number] Family : Order #: [id number] CLICK HERE TO VIEW EXAM RADIOLOGY REPORT PROCEDURE: MAMMOGRAM DIAGNOSTIC 3D RIGHT CAD, 11/01/2021, 07:59 ULTRASOUND BREAST RIGHT LIMITED, 11/01/2021, 08:14 COMPARISON: US BREAST RIGHT LIMITED, 03/14/2021. MG MAMM ELOISA DIAG W CAD, 02/25/2020. MG MAMM DX 3D RT CAD, 03/14/2021. MAMMO POST BIOPSY RIGHT, 03/10/2020. INDICATIONS: Lump in right breast Calculator Name NCI Breast Cancer Risk Assessment Tool 5 Year Breast Cancer Risk 0.60% Lifetime Breast Cancer Risk 15.10% Personal Breast Cancer No Personal Ovarian Cancer No Treatments None Family Cancers Grandmother-maternal with breast cancer at age 86; Mother with kidney cancer at age 62; Father with pancreatic cancer at age 53; Grandfather-paternal with non hodgkins cancer at age 65. LOCATION: [facility] BREAST COMPOSITION: Heterogeneously dense,which may obscure small masses. FINDINGS: DIAGNOSTIC CATEGORY 3--PROBABLY BENIGN FINDING. THE FOLLOWING FINDING(S) HAS A HIGH PROBABILITY OF A BENIGN ETIOLOGY: RIGHT BREAST: Stable mass within the posterior upper inner quadrant and posterior upper-outer quadrant. Mass within the upper inner quadrant contains a biopsy marker clip. No new findings. Ultrasound evaluation demonstrates a stable hypoechoic well-circumscribed mass at the 2 o'clock position 2.7 cm in maximum size with central biopsy marker clip. Adjacent to this is a stable 0.6 cm hypoechoic area, possibly lymph node. At the 1 o'clock position is a new hypoechoic conglomeration of small cysts versus mixed cystic and solid structure with no detectable internal blood flow, 1.7 x 1.2 x 0.6 cm. Stable hypoechoic circumscribed mass at the 10 o'clock position, 1.5 cm in maximum diameter. Stable hypoechoic mass versus cyst at the 9 o'clock position, 1 cm in size. Follow-up diagnostic right mammography and right breast ultrasound in 6 months is recommended to document stability versus progression. RECOMMENDATIONS: SHORT TERM FOLLOW-UP DIAGNOSTIC MAMMOGRAM RIGHT BREAST IN 6 MONTHS. SHORT TERM FOLLOW-UP ULTRASOUND RIGHT BREAST IN 6 MONTHS. PLEASE NOTE: A NORMAL MAMMOGRAM DOES NOT EXCLUDE THE POSSIBILITY OF BREAST CANCER. A CLINICALLY SUSPICIOUS PALPABLE LUMP SHOULD BE BIOPSIED. Dictated by: Bonnie Weinstein M.D. on 11/01/2021 at 09:34 Approved by: Bonnie Weinstein M.D. on 11/01/2021 at 10:10 Normal [facility] US BREAST RIGHT LIMITEDon US BREAST RIGHT LIMITED Patient: AMY BESS Exam Date: 11/01/2021 : 1985 Gender:F Ordering : DR MARIO ORANTES . Admission #: [id number] Family : Order #: [id number] CLICK HERE TO VIEW EXAM RADIOLOGY REPORT PROCEDURE: MAMMOGRAM DIAGNOSTIC 3D RIGHT CAD, 11/01/2021, 07:59 ULTRASOUND BREAST RIGHT LIMITED, 11/01/2021, 08:14 COMPARISON: US BREAST RIGHT LIMITED, 03/14/2021. MG MAMM ELOISA DIAG W CAD, 02/25/2020. MG MAMM DX 3D RT CAD, 03/14/2021. MAMMO POST BIOPSY RIGHT, 03/10/2020. INDICATIONS: Lump in right breast Calculator Name NCI Breast Cancer Risk Assessment Tool 5 Year Breast Cancer Risk 0.60% Lifetime Breast Cancer Risk 15.10% Personal Breast Cancer No Personal Ovarian Cancer No Treatments None Family Cancers Grandmother-maternal with breast cancer at age 86; Mother with kidney cancer at age 62; Father with pancreatic cancer at age 53; Grandfather-paternal with non hodgkins cancer at age 65. LOCATION: [facility] BREAST COMPOSITION: Heterogeneously dense,which may obscure small masses. FINDINGS: DIAGNOSTIC CATEGORY 3--PROBABLY BENIGN FINDING. THE FOLLOWING FINDING(S) HAS A HIGH PROBABILITY OF A BENIGN ETIOLOGY: RIGHT BREAST: Stable mass within the posterior upper inner quadrant and posterior upper-outer quadrant. Mass within the upper inner quadrant contains a biopsy marker clip. No new findings. Ultrasound evaluation demonstrates a stable hypoechoic well-circumscribed mass at the 2 o'clock position 2.7 cm in maximum size with central biopsy marker clip. Adjacent to this is a stable 0.6 cm hypoechoic area, possibly lymph node. At the 1 o'clock position is a new hypoechoic conglomeration of small cysts versus mixed cystic and solid structure with no detectable internal blood flow, 1.7 x 1.2 x 0.6 cm. Stable hypoechoic circumscribed mass at the 10 o'clock position, 1.5 cm in maximum diameter. Stable hypoechoic mass versus cyst at the 9 o'clock position, 1 cm in size. Follow-up diagnostic right mammography and right breast ultrasound in 6 months is recommended to document stability versus progression. RECOMMENDATIONS: SHORT TERM FOLLOW-UP DIAGNOSTIC MAMMOGRAM RIGHT BREAST IN 6 MONTHS. SHORT TERM FOLLOW-UP ULTRASOUND RIGHT BREAST IN 6 MONTHS. PLEASE NOTE: A NORMAL MAMMOGRAM DOES NOT EXCLUDE THE POSSIBILITY OF BREAST CANCER. A CLINICALLY SUSPICIOUS PALPABLE LUMP SHOULD BE BIOPSIED. Dictated by: Bonnie Weinstein M.D. on 11/01/2021 at 09:34 Approved by: Bonnie Weinstein M.D. on 11/01/2021 at 10:10 Normal [facility] CBC AND DIFFERENTIALon 08-11 Basophils (Bld) [#/Vol] 0.00 10*3/uL Normal 0.00 - 0.10 [facility] Comment on above: Performed By: #### C BCDF #### [address] [address] Basophils/100 WBC (Bld) 0.7 % Normal 0.0 - 2.0 [facility] Comment on above: Performed By: #### C BCDF #### [address] [address] Eosinophils (Bld) [#/Vol] 0.10 10*3/uL Normal 0.00 - 0.70 [facility] Comment on above: Performed By: #### C BCDF #### [address] [address] Eosinophils/100 WBC (Bld) 1.3 % Normal 0.0 - 6.0 [facility] Comment on above: Performed By: #### C BCDF #### [address] [address] Erythrocyte distribution width (RBC) [Ratio] 14.3 % Normal 11.5 - 14.5 [facility] Comment on above: Performed By: #### C BCDF #### [address] [address] Hematocrit (Bld) [Volume fraction] 38.0 % Normal 36.0 - 46.0 [facility] Comment on above: Performed By: #### C BCDF #### [address] [address] Hemoglobin (Bld) [Mass/Vol] 12.7 g/dL Normal 12.0 - 16.0 [facility] Comment on above: Performed By: #### C BCDF #### [address] [address] Lymphocytes (Bld) [#/Vol] 1.00 10*3/uL Low 1.20 - 4.80 [facility] Comment on above: Performed By: #### C BCDF #### [address] [address] Lymphocytes/100 WBC (Bld) 19.7 % Normal 13.0 - 44.0 [facility] Comment on above: Performed By: #### C BCDF #### [address] [address] MCHC (RBC) [Mass/Vol] 33.5 g/dL Normal 32.0 - 36.0 [facility] Comment on above: Performed By: #### C BCDF #### [address] [address] MCV (RBC) [Entitic vol] 81 fL Normal 80 - 100 [facility] Comment on above: Performed By: #### C BCDF #### [address] [address] Monocytes (Bld) [#/Vol] 0.40 10*3/uL Normal 0.10 - 1.00 [facility] Comment on above: Performed By: #### C BCDF #### [address] [address] Monocytes/100 WBC (Bld) 9.0 % Normal 2.0 - 10.0 [facility] Comment on above: Performed By: #### C BCDF #### [address] [address] Neutrophils (Bld) [#/Vol] 3.40 10*3/uL Normal 1.20 - 7.70 [facility] Comment on above: Result Comment: Perc ent differential counts (%) should be interpreted in the context of the absolute cell counts (cells/L). Performed By: #### C BCDF #### [address] [address] Neutrophils/100 WBC (Bld) 69.3 % Normal 40.0 - 80.0 [facility] Comment on above: Performed By: #### C BCDF #### [address] [address] NUCLEATED RBC 0.1 /100 WBC Normal [facility] Comment on above: Performed By: #### C BCDF #### [address] [address] Platelets (Bld) [#/Vol] 326 10*3/uL Normal 150 - 450 [facility] Comment on above: Performed By: #### C BCDF #### [address] [address] RBC 4.70 x10E12/L Normal 4.00 - 5.20 [facility] Comment on above: Performed By: #### C BCDF #### [address] [address] WBC (Bld) [#/Vol] 4.8 10*3/uL Normal 4.4 - 11.3 [facility] Comment on above: Performed By: #### C BCDF #### [address] [address] Complete Blood Count + Diffe tamara 08-11-2021 Basophils/100 WBC (Bld) 0.7 % 0.0 - 2.0 [facility] [place] [address] Work Phone: Erythrocyte distribution width (RBC) [Ratio] 14.3 % See Below [facility] [place] [address] Work Phone: Comment on above: Reference Range: 11. 5 - 14.5 Hematocrit (Bld) [Volume fraction] 38.0 % See Below [facility] [place] [address] Work Phone: Comment on above: Reference Range: 36. 0 - 46.0 Hemoglobin (Bld) [Mass/Vol] 12.7 g/dL See Below -Neurolog [place] [address] Work Phone: [phone] Comment on above: Reference Range: 12. 0 - 16.0 Lymphocytes/100 WBC (Bld) 19.7 % See Below -Neurolog [place] [address] Work Phone: [phone] Comment on above: Reference Range: 13. 0 - 44.0 MCHC (RBC) [Mass/Vol] 33.5 g/dL See Below [facility] [place] [address] Work Phone: [phone] Comment on above: Reference Range: 32. 0 - 36.0 MCV (RBC) [Entitic vol] 81 fL 80 - 100 -Neurolog [place] [address] Work Phone: [phone] Monocytes/100 WBC (Bld) 9.0 % 2.0 - 10.0 [place] [address] Work Phone: [phone] Neutrophils/100 WBC (Bld) 69.3 % See Below [facility] [place] [address] Work Phone: [phone] Comment on above: Reference Range: 40. 0 - 80.0 Platelets (Bld) [#/Vol] 326 10*3/uL 150 - 450 [facility] [place] [address] Work Phone: [phone] RBC (Bld) [#/Vol] 4.70 {x10E12/L} See Below [facility] [place] [place] [address] Work Phone: [phone] Comment on above: Reference Range: 4.0 0 - 5.20 WBC (Bld) [#/Vol] 4.8 10*3/uL 4.4 - 11.3 -[place] [address] Work Phone: [phone] Complete Blood Count + Differential 0.00 {x10E9/L} See Below [facility] [place] [address] Work Phone: [phone] Comment on above: Reference Range: 0.0 0 - 0.10 Complete Blood Count + Differential 0.10 {x10E9/L} See Below [facility] [place] [address] Work Phone: Comment on above: Reference Range: 0.0 0 - 0.70 Complete Blood Count + Differential 0.40 {x10E9/L} See Below [place] [address] Work Phone: Comment on above: Reference Range: 0.1 0 - 1.00 Complete Blood Count + Differential 1.00 {x10E9/L} below low threshold See Below [place] [address] Work Phone: Comment on above: Reference Range: 1.2 0 - 4.80 Complete Blood Count + Differential 3.40 {x10E9/L} See Below -[place] [address] Work Phone: Comment on above: Reference Range: 1.2 0 - 7.70 Percent differential counts (%) should be interpreted in the context of the absolute cell counts (cells/L). Complete Blood Count + Differential 1.3 % 0.0 - 6.0 [place] [address] Work Phone: Complete Blood Count + Differential 0.1 {/100_WBC} [place] [address] Work Phone: CBC AND DIFFERENTIALon 04-27 % AUTOMATED IMMATURE GRAN 0.3 % Normal 0.0 - 0.9 [facility] Comment on above: Result Comment: Sharon ture Granulocyte Count (IG) includes promyelocytes, myelocytes and metamyelocytes but does not include bands. Percent differential counts (%) should be interpreted in the context of the absolute cell counts (cells/L). Performed By: #### C BCDF #### [facility] [address] [place] [address] Basophils (Bld) [#/Vol] 0.02 10*3/uL Normal 0.00 - 0.10 [facility] Comment on above: Performed By: #### C BCDF #### [facility] [address] [place] [address] Basophils/100 WBC (Bld) 0.5 % Normal 0.0 - 2.0 [facility] Comment on above: Performed By: #### C BCDF #### [facility] [address] [place] [address] Eosinophils (Bld) [#/Vol] 0.03 10*3/uL Normal 0.00 - 0.70 [facility] Comment on above: Performed By: #### C BCDF #### [facility] [address] [place] [address] Eosinophils/100 WBC (Bld) 0.8 % Normal 0.0 - 6.0 [facility] Comment on above: Performed By: #### C BCDF #### [facility] [address] [place] [address] Erythrocyte distribution width (RBC) [Ratio] 13.8 % Normal 11.5 - 14.5 [facility] Comment on above: Performed By: #### C BCDF #### [facility] [address] [place] [address] Hematocrit (Bld) [Volume fraction] 38.7 % Normal 36.0 - 46.0 [facility] Comment on above: Performed By: #### C BCDF #### [facility] [address] [place] [address] Hemoglobin (Bld) [Mass/Vol] 12.6 g/dL Normal 12.0 - 16.0 [facility] Comment on above: Performed By: #### C BCDF #### [facility] [address] [place] [address] Lymphocytes (Bld) [#/Vol] 0.55 10*3/uL Low 1.20 - 4.80 [facility] Comment on above: Performed By: #### C BCDF #### [facility] [address] [place] [address] Lymphocytes/100 WBC (Bld) 14.9 % Normal 13.0 - 44.0 [facility] Comment on above: Performed By: #### C BCDF #### [facility] [address] [place] [address] MCHC (RBC) [Mass/Vol] 32.6 g/dL Normal 32.0 - 36.0 [facility] Comment on above: Performed By: #### C BCDF #### [facility] [address] [place] [address] MCV (RBC) [Entitic vol] 85 fL Normal 80 - 100 [facility] Comment on above: Performed By: #### C BCDF #### [facility] [address] [place] [address] Monocytes (Bld) [#/Vol] 0.35 10*3/uL Normal 0.10 - 1.00 [facility] Comment on above: Performed By: #### C BCDF #### [facility] [address] [place] [address] Monocytes/100 WBC (Bld) 9.5 % Normal 2.0 - 10.0 [facility] Comment on above: Performed By: #### C BCDF #### [facility] [address] [place] [address] Neutrophils (Bld) [#/Vol] 2.73 10*3/uL Normal 1.20 - 7.70 [facility] Comment on above: Performed By: #### C BCDF #### [facility] [address] [place] [address] Neutrophils/100 WBC (Bld) 74.0 % Normal 40.0 - 80.0 [facility] Comment on above: Performed By: #### C BCDF #### [facility] [address] [place] [address] NUCLEATED RBC 0.0 /100 WBC Normal 0.0-0.0 [facility] Comment on above: Performed By: #### C BCDF #### [facility] [address] [place] [address] Platelets (Bld) [#/Vol] 271 10*3/uL Normal 150 - 450 [facility] Comment on above: Performed By: #### C BCDF #### [facility] [address] [place] [address] RBC 4.55 x10E12/L Normal 4.00 - 5.20 [facility] Comment on above: Performed By: #### C BCDF #### [facility] [address] [place] [address] WBC (Bld) [#/Vol] 3.7 10*3/uL Low 4.4 - 11.3 [facility] Comment on above: Performed By: #### C BCDF #### [facility] [address] [place] [address] Complete Blood Count + Diffe tamara 04-27-2021 Basophils/100 WBC (Bld) 0.5 % 0.0 - 2.0 [facility] 2299 Work Phone: [phone] Erythrocyte distribution width (RBC) [Ratio] 13.8 % See Below [facility] 2299 Work Phone: [phone] Comment on above: Reference Range: 11. 5 - 14.5 Hematocrit (Bld) [Volume fraction] 38.7 % See Below [facility] 2299 Work Phone: [phone] Comment on above: Reference Range: 36. 0 - 46.0 Hemoglobin (Bld) [Mass/Vol] 12.6 g/dL See Below [facility] 2299 Work Phone: [phone] Comment on above: Reference Range: 12. 0 - 16.0 Lymphocytes/100 WBC (Bld) 14.9 % See Below [facility] 2299 Work Phone: [phone] Comment on above: Reference Range: 13. 0 - 44.0 MCHC (RBC) [Mass/Vol] 32.6 g/dL See Below [facility] 2299 Work Phone: [phone] Comment on above: Reference Range: 32. 0 - 36.0 MCV (RBC) [Entitic vol] 85 fL 80 - 100 [facility] 2299 Work Phone: [phone] Monocytes/100 WBC (Bld) 9.5 % 2.0 - 10.0 [facility] 2299 Work Phone: [phone] Neutrophils/100 WBC (Bld) 74.0 % See Below [facility] Work Phone: [phone] Comment on above: Reference Range: 40. 0 - 80.0 Platelets (Bld) [#/Vol] 271 10*3/uL 150 - 450 [facility] Work Phone: [phone] RBC (Bld) [#/Vol] 4.55 {x10E12/L} See Below [place] [address] Work Phone: [phone] Comment on above: Reference Range: 4.0 0 - 5.20 WBC (Bld) [#/Vol] 3.7 10*3/uL below low threshold 4.4 - 11.3 [facility] Work Phone: [phone] Complete Blood Count + Differential 0.02 {x10E9/L} See Below [place] [address] Work Phone: [phone] Comment on above: Reference Range: 0.0 0 - 0.10 Complete Blood Count + Differential 0.03 {x10E9/L} See Below [facility] Work Phone: [phone] Comment on above: Reference Range: 0.0 0 - 0.70 Complete Blood Count + Differential 0.35 {x10E9/L} See Below [facility] Work Phone: [phone] Comment on above: Reference Range: 0.1 0 - 1.00 Complete Blood Count + Differential 0.55 {x10E9/L} below low threshold See Below [place] [address] Work Phone: [phone] Comment on above: Reference Range: 1.2 0 - 4.80 Complete Blood Count + Differential 2.73 {x10E9/L} See Below [facility] Work Phone: [phone] Comment on above: Reference Range: 1.2 0 - 7.70 Complete Blood Count + Differential 0.8 % 0.0 - 6.0 [facility] [employer] Work Phone: Complete Blood Count + Differential 0.3 % 0.0 - 0.9 [facility] [employer] Work Phone: Comment on above: Immature Granulocyte Count (IG) includes promyelocytes, myelocytes and metamyelocytes but does not include bands. Percent differential counts (%) should be interpreted in the context of the absolute cell counts (cells/L). Complete Blood Count + Differential 0.0 {/100_WBC} 0.0-0.0 [facility] [employer] Work Phone: Falls Risk Screeningon 04-27 Fall risk assessment a) No falls within the last year [facility] [employer] Work Phone: Tobacco use status CPHS b) No [facility] [employer] Work Phone: Office Visiton 04-27-2021 Follow-up visit Diagnoses/Problems MS (multiple sclerosis) (340) (G35) Patient Discussion/Summary Your neurological exam is stable. - Continue with Vumerity. - Labs every 3 months while on Vumerity. - MRI 11/30/21. - Follow up 6 months Provider Impressions 35 yo LH female here for a follow up of her MS, she started Vumerity 2020, and tolerating well. Last MRI of the brain 11/24/20 and was stable. She reports no new MS symptoms. Plan - Continue with Vumerity. - Labs every 3 months while on Vumerity. - MRI 11/30/21. - Follow up 6 months The total face to face appointment was 35 minutes and more than 50% of the visit was spent counseling and coordination of care. History of Present Illness [facility] F/U EVALUATION PRINCIPAL NEUROLOGIC DIAGNOSIS: RRMS DISEASE SUMMARY/DIAGNOSTICS: Onset: ? summer 2016 Diagnosis of MS: 05/26 Disease course at onset: RR Current disease course: RR Previous disease therapies: none Current disease therapies: Tecfidera Most recent MRI brain: 11/24/20 stable Most recent MRI cervical spine: 05/26 Most recent MRI thoracic spine: none CSF: none NMO, HIV, HTLV, ARABELLA neg Lyme positive HPI: 35 yo LH female here for a follow up of her MS, she started Vumerity 2020, and tolerating well. Last MRI of the brain 11/24/20 and was stable. She reports no new MS symptoms. Review of Systems No bowel or bladder issues, stable gait, no recent infections, and no trouble swallowing. Active Problems Lyme disease, unspecified (088.81) (A69.20) Migraine with aura and without status migrainosus, not intractable (346.00) (G43.109) Episodic visual disturbance OS and episodic moderate headaches. Increased risk of stroke. At visit 05/02/2017, no significant headaches. Migraine with visual aura (346.00) (G43.109) MS (multiple sclerosis) (340) (G35) Multiple sclerosis (340) (G35) Areas of abnormal signal in R and L hemispheric WM in brain and C-spine as well as Gd-enhancing lesions in brain by MRI 05/17/2017. Numbness and tingling of right arm and leg (782.0) (R20.0,R20.2) 2-3 day episode of RUE and RLE numbness and RUE weakness. Positive SANDRA for Lyme disease (088.81) (A69.20) Positive Lyme disease serology (795.79) (R76.8) Transient visual loss, left eye (368.12) (H53.122) Most likely due to migraine with aura but need to evaluate for stroke. Need to consider optic neuritis in view of abnormal MRI brain. Vitamin D deficiency (268.9) (E55.9) Past Medical History History of No known health problems (V49.89) (Z78.9) Surgical History History of Oral Surgery Social History Consumes alcohol occasionally (V49.89) (Z78.9) 4-5 drinks every other weekend. Daily caffeinated coffee consumption 16 oz coffee per day; no other caffeinated beverages. Ex-cigarette smoker (V15.82) (Z87.891) 1 pack/3-4 days, past 7 years. Quit 03/22/2017. Has no children May plan to have children in future ( 5 years) Single Allergies Tecfidera CPDR Recorded By: Ollie Yancey; 03/08/2020 1:33:27 PM Current Meds Medication NameInstruction Albuterol Sulfate HFA 108 (90 Base) MCG/ACT Inhalation Aerosol Solution Breo Ellipta 200-25 MCG/INH Inhalation Aerosol Powder Breath Activated Levonorgest-Eth Estrad 91-Day 0.15-0.03 MG Oral Tablet Montelukast Sodium 10 MG Oral Tablet Vitamin D (Ergocalciferol) 1.25 MG (66016 UT) Oral CapsuleTAKE ONE CAPSULE BY MOUTH ONE TIME PER WEEK Vumerity 231 MG Oral Capsule Delayed ReleaseTAKE TWO (2) CAPSULES BY MOUTH TWICE DAILY Vitals Vital Signs Recorded: [id number] 01:09PM Heart Rate87 Fjhhydmdsyg77 Gqfvqxim191, LUE, Sitting Aauixixjw16, LUE, Sitting Dwenze179 lb BMI Dzlrnpbnhr99.12 kg/m2 BSA Calculated2 Tobacco Useb) No Fall Screeninga) No falls within the last year Pain Scale0 Physical Exam Neurological Exam: Alert, oriented x 3, speech clear, short and group home memory intact, follows commands, able to recall current events CN: VFF, EOMI, face symmetrical, soft palate elevates symmetrically, tongue midline Motor: strength 5/5 proximal and distal bilaterally x 4, muscle tone normal F-N-F: normal, Sensory: unremarkable to light touch Gait: stable 25 ft walk: 5.2 sec. 9 hole peg test: Right hand 22 sec. and left hand 22.7 sec. Signatures Electronically signed by : Michael Chaney R.N. [facility]; Apr 27 2021 2:22PM EST (Author) Normal [employer] MG MAMM DX 3D RT CADon 03-14 MG MAMM DX 3D RT CAD Patient: AMY BESS Exam Date: 03/14/2021 : 1985 Gender:F Ordering : DR MARIO ORANTES . Admission #: [id number] Family : Order #: [id number] CLICK HERE TO VIEW EXAM RADIOLOGY REPORT PROCEDURE: MAMMOGRAM DIAGNOSTIC 3D RIGHT CAD, 03/14/2021, 13:58 ULTRASOUND BREAST RIGHT LIMITED, 03/14/2021, 14:36 COMPARISON: US BREAST RIGHT LIMITED, 02/25/2020. MG MAMM ELOISA DIAG W CAD, 02/25/2020. MAMMO POST BIOPSY RIGHT, 03/10/2020. INDICATIONS: Lump in right breast Calculator Name NCI Breast Cancer Risk Assessment Tool 5 Year Breast Cancer Risk Not Applicable. Lifetime Breast Cancer Risk Not Applicable. Personal Breast Cancer No Personal Ovarian Cancer No Treatments None Family Cancers Grandmother-maternal with breast cancer at age 86; Mother with kidney cancer at age 62; Father with pancreatic cancer at age 53; Grandfather-paternal with non hodgkins cancer at age 65. LOCATION: [facility] BREAST COMPOSITION: Heterogeneously dense,which may obscure small masses. FINDINGS: DIAGNOSTIC CATEGORY 3--PROBABLY BENIGN FINDING. THE FOLLOWING FINDING(S) HAS A HIGH PROBABILITY OF A BENIGN ETIOLOGY: RIGHT BREAST: Stable well-circumscribed mass within the posterior upper inner quadrant which contains a biopsy marker clip; no appreciable change. Small partially circumscribed mass within the posterior upper-outer quadrant, unchanged. Ultrasound evaluation demonstrates a 2.7 x 1.3 x 2.4 cm mass at the 2 o'clock position 1.5 cm from the nipple; unchanged in size and appearance; previously biopsied and shown consistent with a fibroepithelial lesion. Small adjacent hypoechoic structure suspected to represent a lymph node. Questionable 9 mm hypodensity versus tissue plane artifact at the 9 o'clock position. At the 10 o'clock position 3.9 cm from the nipple is a 1.5 x 1.3 x 0.7 cm circumscribed mass which corresponds to the finding on the mammogram and is very similar in appearance to the biopsied mass, most likely representing another fibroepithelial lesion. This could be biopsied and pathologically proven if there is strong clinical concern. Otherwise continued follow-up is recommended. Follow-up diagnostic mammography and right breast ultrasound in 6 months is recommended. RECOMMENDATIONS: SHORT TERM FOLLOW-UP DIAGNOSTIC MAMMOGRAM RIGHT BREAST IN 6 MONTHS. SHORT TERM FOLLOW-UP ULTRASOUND RIGHT BREAST IN 6 MONTHS. PLEASE NOTE: A NORMAL MAMMOGRAM DOES NOT EXCLUDE THE POSSIBILITY OF BREAST CANCER. A CLINICALLY SUSPICIOUS PALPABLE LUMP SHOULD BE BIOPSIED. Dictated by: Bonnie Weinstein M.D. on 03/14/2021 at 14:48 Approved by: Bonnie Weinstein M.D. on 03/14/2021 at 17:14 Normal [facility] US BREAST RIGHT LIMITEDon US BREAST RIGHT LIMITED Patient: CONSTANCESUPRIYAKatina AMY ElizabethShantel Exam Date: 03/14/2021 : 1985 Gender:F Ordering : DR MARIO ORANTES . Admission #: [id number] Family : Order #: [id number] CLICK HERE TO VIEW EXAM RADIOLOGY REPORT PROCEDURE: MAMMOGRAM DIAGNOSTIC 3D RIGHT CAD, 03/14/2021, 13:58 ULTRASOUND BREAST RIGHT LIMITED, 03/14/2021, 14:36 COMPARISON: US BREAST RIGHT LIMITED, 02/25/2020. MG MAMM ELOISA DIAG W CAD, 02/25/2020. MAMMO POST BIOPSY RIGHT, 03/10/2020. INDICATIONS: Lump in right breast Calculator Name NCI Breast Cancer Risk Assessment Tool 5 Year Breast Cancer Risk Not Applicable. Lifetime Breast Cancer Risk Not Applicable. Personal Breast Cancer No Personal Ovarian Cancer No Treatments None Family Cancers Grandmother-maternal with breast cancer at age 86; Mother with kidney cancer at age 62; Father with pancreatic cancer at age 53; Grandfather-paternal with non hodgkins cancer at age 65. LOCATION: [facility] BREAST COMPOSITION: Heterogeneously dense,which may obscure small masses. FINDINGS: DIAGNOSTIC CATEGORY 3--PROBABLY BENIGN FINDING. THE FOLLOWING FINDING(S) HAS A HIGH PROBABILITY OF A BENIGN ETIOLOGY: RIGHT BREAST: Stable well-circumscribed mass within the posterior upper inner quadrant which contains a biopsy marker clip; no appreciable change. Small partially circumscribed mass within the posterior upper-outer quadrant, unchanged. Ultrasound evaluation demonstrates a 2.7 x 1.3 x 2.4 cm mass at the 2 o'clock position 1.5 cm from the nipple; unchanged in size and appearance; previously biopsied and shown consistent with a fibroepithelial lesion. Small adjacent hypoechoic structure suspected to represent a lymph node. Questionable 9 mm hypodensity versus tissue plane artifact at the 9 o'clock position. At the 10 o'clock position 3.9 cm from the nipple is a 1.5 x 1.3 x 0.7 cm circumscribed mass which corresponds to the finding on the mammogram and is very similar in appearance to the biopsied mass, most likely representing another fibroepithelial lesion. This could be biopsied and pathologically proven if there is strong clinical concern. Otherwise continued follow-up is recommended. Follow-up diagnostic mammography and right breast ultrasound in 6 months is recommended. RECOMMENDATIONS: SHORT TERM FOLLOW-UP DIAGNOSTIC MAMMOGRAM RIGHT BREAST IN 6 MONTHS. SHORT TERM FOLLOW-UP ULTRASOUND RIGHT BREAST IN 6 MONTHS. PLEASE NOTE: A NORMAL MAMMOGRAM DOES NOT EXCLUDE THE POSSIBILITY OF BREAST CANCER. A CLINICALLY SUSPICIOUS PALPABLE LUMP SHOULD BE BIOPSIED. Dictated by: Bonnie Weinstein M.D. on 03/14/2021 at 14:48 Approved by: Bonnie Weinstein M.D. on 03/14/2021 at 17:14 Normal [facility] MRI Brain w/wo Contraston MR Brain WO and W contrast IV Normal [facility] 2299 Work Phone: Complete Blood Count + Diffe rentialon 10-27-2020 Basophils/100 WBC (Bld) 0.8 % 0.0 - 2.0 [facility] 2299 Work Phone: [phone] Erythrocyte distribution width (RBC) [Ratio] 14.1 % See Below [facility] 2299 Work Phone: [phone] Comment on above: Reference Range: 11. 5 - 14.5 Hematocrit (Bld) [Volume fraction] 37.2 % See Below [facility] 2299 Work Phone: [phone] Comment on above: Reference Range: 36. 0 - 46.0 Hemoglobin (Bld) [Mass/Vol] 12.2 g/dL See Below [facility] 2299 Work Phone: [phone] Comment on above: Reference Range: 12. 0 - 16.0 Lymphocytes/100 WBC (Bld) 20.1 % See Below [facility] 2299 Work Phone: [phone] Comment on above: Reference Range: 13. 0 - 44.0 MCHC (RBC) [Mass/Vol] 32.8 g/dL See Below [facility] 2299 Work Phone: Comment on above: Reference Range: 32. 0 - 36.0 MCV (RBC) [Entitic vol] 87 fL 80 - 100 [facility] 2299 Work Phone: [phone] Monocytes/100 WBC (Bld) 11.5 % 2.0 - 10.0 [facility] Work Phone: [phone] Neutrophils/100 WBC (Bld) 65.7 % See Below [facility] Work Phone: [phone] Comment on above: Reference Range: 40. 0 - 80.0 Platelets (Bld) [#/Vol] 282 10*3/uL 150 - 450 [facility] Work Phone: [phone] RBC (Bld) [#/Vol] 4.29 {x10E12/L} See Below [facility] Work Phone: [phone] Comment on above: Reference Range: 4.0 0 - 5.20 WBC (Bld) [#/Vol] 3.6 10*3/uL below low threshold 4.4 - 11.3 [facility] Work Phone: [phone] Complete Blood Count + Differential 0.03 {x10E9/L} See Below [facility] Work Phone: [phone] Comment on above: Reference Range: 0.0 0 - 0.10 Complete Blood Count + Differential 0.05 {x10E9/L} See Below [facility] Work Phone: [phone] Comment on above: Reference Range: 0.0 0 - 0.70 Complete Blood Count + Differential 0.42 {x10E9/L} See Below [facility] Work Phone: [phone] Comment on above: Reference Range: 0.1 0 - 1.00 Complete Blood Count + Differential 0.73 {x10E9/L} below low threshold See Below [facility] Work Phone: [phone] Comment on above: Reference Range: 1.2 0 - 4.80 Complete Blood Count + Differential 2.39 {x10E9/L} See Below [place] [address] Work Phone: Comment on above: Reference Range: 1.2 0 - 7.70 Complete Blood Count + Differential 1.4 % 0.0 - 6.0 [facility] Work Phone: [phone] Complete Blood Count + Differential 0.5 % 0.0 - 0.9 [place] [address] Work Phone: [phone] Comment on above: Immature Granulocyte Count (IG) includes promyelocytes, myelocytes and metamyelocytes but does not include bands. Percent differential counts (%) should be interpreted in the context of the absolute cell counts (cells/L). Complete Blood Count + Differential 0.0 {/100_WBC} 0.0-0.0 [facility] Work Phone: [phone] Hepatic Function Panelon Albumin BCP dye [Mass/Vol] 4.7 g/dL 3.4 - 5.0 [facility] 2299 Work Phone: [phone] ALP [Catalytic activity/Vol] 62 U/L 33 - 110 [facility] Work Phone: ALT With P-5'-P [Catalytic activity/Vol] 16 U/L 7 - 45 [facility] Work Phone: [phone] Comment on above: Patients treated wit h Sulfasalazine may generate falsely decreased results for ALT. AST With P-5'-P [Catalytic activity/Vol] 16 U/L 9 - 39 [facility] 2299 Work Phone: Bilirubin [Mass/Vol] 0.5 mg/dL 0.0 - 1.2 [facility] 2299 Work Phone: [phone] Bilirubin.direct [Mass/Vol] 0.1 mg/dL 0.0 - 0.3 MG-Neurolog [facility] Mike [address]00 Work Phone: Protein [Mass/Vol] 7.4 g/dL 6.4 - 8.2 MG-Nicolas rolog [facility] [address] Work Phone: CBC AND DIFFERENTIALon 02-01 % AUTOMATED IMMATURE GRAN 0.7 % Normal 0.0 - 0.9 [facility] Comment on above: Result Comment: Sharon ture Granulocyte Count (IG) includes promyelocytes, myelocytes and metamyelocytes but does not include bands. Percent differential counts (%) should be interpreted in the context of the absolute cell counts (cells/L). Performed By: #### C BCDF #### [address] [address] Basophils (Bld) [#/Vol] 0.06 10*3/uL Normal 0.00 - 0.10 [facility] Comment on above: Performed By: #### C BCDF #### [address] [address] Basophils/100 WBC (Bld) 0.9 % Normal 0.0 - 2.0 [facility] Comment on above: Performed By: #### C BCDF #### [address] [address] Eosinophils (Bld) [#/Vol] 0.08 10*3/uL Normal 0.00 - 0.70 [facility] Comment on above: Performed By: #### C BCDF #### [address] [address] Eosinophils/100 WBC (Bld) 1.1 % Normal 0.0 - 6.0 [facility] Comment on above: Performed By: #### C BCDF #### [address] [address] Erythrocyte distribution width (RBC) [Ratio] 13.6 % Normal 11.5 - 14.5 [facility] Comment on above: Performed By: #### C BCDF #### [address] [address] Hematocrit (Bld) [Volume fraction] 39.5 % Normal 36.0 - 46.0 [facility] Comment on above: Performed By: #### C BCDF #### [facility] [address] [place] [address] Hemoglobin (Bld) [Mass/Vol] 13.1 g/dL Normal 12.0 - 16.0 [facility] Comment on above: Performed By: #### C BCDF #### [address] [address] Lymphocytes (Bld) [#/Vol] 1.31 10*3/uL Normal 1.20 - 4.80 [facility] Comment on above: Performed By: #### C BCDF #### [address] [address] Lymphocytes/100 WBC (Bld) 18.6 % Normal 13.0 - 44.0 [facility] Comment on above: Performed By: #### C BCDF #### [address] [address] MCHC (RBC) [Mass/Vol] 33.2 g/dL Normal 32.0 - 36.0 [facility] Comment on above: Performed By: #### C BCDF #### [address] [address] MCV (RBC) [Entitic vol] 82 fL Normal 80 - 100 [facility] Comment on above: Performed By: #### C BCDF #### [address] [address] Monocytes (Bld) [#/Vol] 0.62 10*3/uL Normal 0.10 - 1.00 [facility] Comment on above: Performed By: #### C BCDF #### [address] [address] Monocytes/100 WBC (Bld) 8.8 % Normal 2.0 - 10.0 [facility] Comment on above: Performed By: #### C BCDF #### [address] [address] Neutrophils (Bld) [#/Vol] 4.92 10*3/uL Normal 1.20 - 7.70 [facility] Comment on above: Performed By: #### C BCDF #### [facility] [address] [place] [address] Neutrophils/100 WBC (Bld) 69.9 % Normal 40.0 - 80.0 [facility] Comment on above: Performed By: #### C BCDF #### [address] [address] Platelets (Bld) [#/Vol] 334 10*3/uL Normal 150 - 450 [facility] Comment on above: Performed By: #### C BCDF #### [address] [address] RBC (Bld) [#/Vol] 4.81 x10E12/L Normal 4.00 - 5.20 [facility] Comment on above: Performed By: #### C BCDF #### [address] [address] WBC (Bld) [#/Vol] 7.0 10*3/uL Normal 4.4 - 11.3 [facility] Comment on above: Performed By: #### C BCDF #### [address] [address] HEPATIC FUNCTION PANELon Albumin [Mass/Vol] 4.7 g/dL Normal 3.4 - 5.0 [facility] Comment on above: Performed By: #### H EPFP #### [address] [address] ALP [Catalytic activity/Vol] 97 U/L Normal 33 - 110 [facility] Comment on above: Performed By: #### H EPFP #### [address] [address] ALT [Catalytic activity/Vol] 39 U/L Normal 7 - 45 [facility] Comment on above: Result Comment: Donna ents treated with Sulfasalazine may generate falsely decreased results for ALT. Performed By: #### H EPFP #### [address] [address] AST [Catalytic activity/Vol] 30 U/L Normal 9 - 39 [facility] Comment on above: Performed By: #### H EPFP #### [facility] [address] [place] [address] Bilirubin [Mass/Vol] 0.5 mg/dL Normal 0.0 - 1.2 [facility] Comment on above: Performed By: #### H EPFP #### [facility] [address] [place] [address] Bilirubin.direct [Mass/Vol] 0.1 mg/dL Normal 0.0 - 0.3 [facility] Comment on above: Performed By: #### H EPFP #### [facility] [address] [place] [address] Protein [Mass/Vol] 7.6 g/dL Normal 6.4 - 8.2 [facility] Comment on above: Performed By: #### H EPFP #### [facility] [address] [place] [address] NR MRI BRAIN W/WO CONTRASTon 02-02-2020 NR MRI BRAIN W/WO CONTRAST Patient Name: AMY BESS STUDY: MRI BRAIN W/WO CONTRAST; 02/02/2020 11:16 am INDICATION: Multiple Sclerosis. COMPARISON: May 2018. ACCESSION NUMBER(S): [id number] ORDERING CLINICIAN: MICHAEL CHANEY TECHNIQUE: The brain was studied in the sagittal, axial and coronal planes utilizing FLAIR, T1, T2 and multiplanar STIR imaging. FINDINGS: * There is a normal sized ventricular system. There are patchy and confluent regions of abnormal signal in the subcortical and periventricular white matter bilaterally with a distribution and orientation suggestive of a primary demyelinating process such as multiple sclerosis. There is no associated diffusion restriction. These have increased in size and number in the interval since previous exam. There is no evidence of intracranial mass or extra-axial collection. The skull base, paranasal sinuses and orbital structures are unremarkable. *Following intravenous contrast injection 18 cc MultiHance; there is incomplete peripheral enhancement associated with a 5 mm lesion adjacent to the left ventricular atrium on axial 72/192. There is also persistent enhancement adjacent to the right lateral ventricle on axial postcontrast enhanced image 78/192. IMPRESSION: * Increase in the size and number of demyelinating foci with associated incomplete peripheral enhancement consistent with active multiple sclerosis. Interpretation was performed at [facility] Electronically signed by: PADMAJA HALL MD [facility] [place] MODIFIED BARIUM SWALLOW W VIDEOon 01-29-2019 1. Normal swallowing function. 2. Please refer to speech pathologist's report for additional findings and recommendations. [place], [place] EXAMINATION: [place] LAURO FIED BARIUM SWALLOW W VIDEO HISTORY: Reason for exam:->sudden onset difficulty swallowing COMPARISON: Chest x-ray 08/06/2018. FLUOROSCOPY TIME: Fluoro time measures 1.8 minutes fluoroscopy time and one image was obtained. TECHNIQUE: Cine fluoroscopic evaluation of swallowing function with speech pathology. FINDINGS: Speech pathologist administered varying consistencies of barium and I provided fluoroscopic assistance and interpretation. The patient tolerated all phases well from solids through liquids with no aspiration or cough. [place], [place], Juan Incoming Radiant Results From [email or web address] Kid[employer] - 01/29/2019 11:43 AM EST EXAMINATION: [place] MODIFIED BARIUM SWALLOW W VIDEO HISTORY: Reason for exam:->sudden onset difficulty swallowing COMPARISON: Chest x-ray 08/06/2018. FLUOROSCOPY TIME: Fluoro time measures 1.8 minutes fluoroscopy time and one image was obtained. TECHNIQUE: Cine fluoroscopic evaluation of swallowing function with speech pathology. FINDINGS: Speech pathologist administered varying consistencies of barium and I provided fluoroscopic assistance and interpretation. The patient tolerated all phases well from solids through liquids with no aspiration or cough. IMPRESSION: 1. Normal swallowing function. 2. Please refer to speech pathologist's report for additional findings and recommendations. [place], [place] CBC Auto Differentialon 01-09 Basophils (Bld) [#/Vol] 0.00 10*3/uL [place] Basophils/100 WBC (Bld) 1 % 0 - 2 % [place] Differential Type YES [place] Eosinophils (Bld) [#/Vol] 0.10 10*3/uL [place] Eosinophils/100 WBC (Bld) 3 % 0 - 5 % [place] Erythrocyte distribution width (RBC) [Ratio] 13.3 % 12.1 - 15.2 % [place] Hematocrit (Bld) [Volume fraction] 39.4 % 36 - 46 % [place] Hemoglobin (Bld) [Mass/Vol] 13.4 g/dL 12 - 16 g/dL [place] Interpretation and review of laboratory results Abnormal [place] Lymphocytes (Bld) [#/Vol] 0.80 10*3/uL [place] Lymphocytes/100 WBC (Bld) 22 % 15 - 40 % [place] MCH (RBC) [Entitic mass] 28.1 pg 26 - 34 pg [place] MCHC (RBC) [Mass/Vol] 34.2 g/dL 31 - 37 g/dL [place] MCV (RBC) [Entitic vol] 82.4 fL 80 - 100 fL [place] Monocytes (Bld) [#/Vol] 0.30 10*3/uL [place] Monocytes/100 WBC (Bld) 8 % 4 - 8 % [place] Platelet mean volume (Bld) [Entitic vol] NOT REPORTED 6 - 12 fL [place] Platelets (Bld) [#/Vol] NOT REPORTED [place] Platelets (Bld) [#/Vol] 321 10*3/uL [place] RBC (Bld) [#/Vol] 4.78 10*6/uL 4 - 5.2 m/uL [place] RBC morphology finding Nom (Bld) NOT REPORTED [place] Segmented neutrophils/100 WBC (Bld) 66 % 47 - 75 % [place] Segs Absolute 2.50 [place] WBC (Bld) [#/Vol] 3.8 10*3/uL [place] WBC (Bld) [#/Vol] NOT REPORTED per 100 WBC [place] WBC Morphology NOT REPORTED [place] Comprehensive Metabolic Pane mark 01-19-2019 Albumin [Mass/Vol] 5 g/dL 3.5 - 5.2 g/dL [place] Albumin/Globulin [Mass ratio] NOT REPORTED [place] ALP [Catalytic activity/Vol] 83 U/L 35 - 104 U/L [place] ALT [Catalytic activity/Vol] 36 U/L High 5 - 33 U/L [place] Anion gap [Moles/Vol] 15 mmol/L 9 - 17 mmol/L [place] AST [Catalytic activity/Vol] 27 U/L <32 [place] Bilirubin Ql (U) 0.48 mg/dL 0.3 - 1.2 mg/dL [place] Bun/Cre Ratio 11 [place] Calcium [Mass/Vol] 10.6 mg/dL High 8.6 - 10. 4 mg/dL [place] Chloride [Moles/Vol] 102 mmol/L 98 - 10 7 mmol/L [place] CO2 [Moles/Vol] 24 mmol/L 20 - 31 mmol/L [place] Creatinine [Mass/Vol] 0.57 mg/dL 0.5 - 0.9 mg/dL [place] GFR >60 >60 mL/min [place] GFR Non- >60 >60 mL/min [place] GFR/1.73 sq M predicted among non-blacks MDRD (S/P/Bld) [Vol rate/Area] NOT REPORTED [place] GFR/1.73 sq M predicted among non-blacks MDRD (S/P/Bld) [Vol rate/Area] [place] Comment on above: Average GFR for 30-3 9 years old: 107 mL/min/1.73sq m Chronic Kidney Disease: <60 mL/min/1.73sq m Kidney failure: <15 mL/min/1.73sq m eGFR calculated using average adult body mass. Additional eGFR calculator available at: http://www.[employer]/multiple_crcl_2011.htm Glucose [Mass/Vol] 109 mg/dL High 70 - 99 mg/dL [place] Interpretation and review of laboratory results Abnormal [place] Potassium [Moles/Vol] 4.6 mmol/L 3.7 - 5.3 mmol/L [place] Protein [Mass/Vol] 8.4 g/dL High 6.4 - 8.3 g/dL [place] Sodium [Moles/Vol] 141 mmol/L 135 - 144 mmol/L [place] Urea nitrogen [Mass/Vol] 6 mg/dL 6 - 20 mg/dL [place] Otheron 01-19-2019 Immature granulocytes (Bld) [#/Vol] NOT REPORTED [place] TSH With Reflex Ft4on 2018 TSH Qn 1.01 m[IU]/L [place] Complete Blood Count + Diffe rentialon 11-20-2018 Basophils (Bld) [#/Vol] 0.05 {x10E9/L} See Below [facility] Work Phone: Comment on above: Reference Range: 0.0 0 - 0.10 Basophils/100 WBC (Bld) 0.9 % 0.0 - 2.0 [facility] 2299 Work Phone: Eosinophils (Bld) [#/Vol] 0.10 {x10E9/L} See Below [facility] 2299 Work Phone: Comment on above: Reference Range: 0.0 0 - 0.70 Eosinophils/100 WBC (Bld) 1.9 % 0.0 - 6.0 [facility] 2299 Work Phone: [phone] Erythrocyte distribution width (RBC) [Ratio] 13.0 % See Below [facility] 2299 Work Phone: [phone] Comment on above: Reference Range: 11. 5 - 14.5 Hematocrit (Bld) [Volume fraction] 41.3 % See Below [facility] 2299 Work Phone: Comment on above: Reference Range: 36. 0 - 46.0 Hemoglobin (Bld) [Mass/Vol] 13.0 g/dL See Below [facility] 2299 Work Phone: Comment on above: Reference Range: 12. 0 - 16.0 Lymphocytes (Bld) [#/Vol] 1.00 {x10E9/L} below low threshold See Below [facility] Work Phone: [phone] Comment on above: Reference Range: 1.2 0 - 4.80 Lymphocytes/100 WBC (Bld) 18.9 % See Below [place] [address] Work Phone: [phone] Comment on above: Reference Range: 13. 0 - 44.0 MCHC (RBC) [Mass/Vol] 31.5 g/dL below low threshold See Below [facility] Work Phone: [phone] Comment on above: Reference Range: 32. 0 - 36.0 MCV (RBC) [Entitic vol] 88 fL 80 - 100 [facility] Work Phone: [phone] Monocytes (Bld) [#/Vol] 0.57 {x10E9/L} See Below [place] [address] Work Phone: [phone] Comment on above: Reference Range: 0.1 0 - 1.00 Monocytes/100 WBC (Bld) 10.8 % 2.0 - 10.0 [facility] Work Phone: [phone] Neutrophils (Bld) [#/Vol] 3.55 {x10E9/L} See Below [place] [address] Work Phone: [phone] Comment on above: Reference Range: 1.2 0 - 7.70 Neutrophils/100 WBC (Bld) 67.3 % See Below [facility] Work Phone: [phone] Comment on above: Reference Range: 40. 0 - 80.0 Platelets (Bld) [#/Vol] 329 {x10E9/L} 150 - 450 [place] [address] Work Phone: [phone] RBC (Bld) [#/Vol] 4.71 {x10E12/L} See Below [facility] 2299 Work Phone: [phone] Comment on above: Reference Range: 4.0 0 - 5.20 WBC (Bld) [#/Vol] 0.0 {/100_WBC} 0.0-0.0 [facility] Work Phone: [phone] WBC (Bld) [#/Vol] 5.3 {x10E9/L} 4.4 - 11.3 MG-N [facility] 2299 Work Phone: [phone] Complete Blood Count + Differential 0.2 % 0.0 - 0.9 [facility] 2299 Work Phone: [phone] Comment on above: Percent differential counts (%) should be interpreted in the context of the absolute cell counts (cells/L). Hepatic Function Panelon Albumin BCP dye [Mass/Vol] 4.7 g/dL 3.4 - 5.0 [facility] 2299 Work Phone: [phone] ALP [Catalytic activity/Vol] 61 U/L 33 - 110 [facility] 2299 Work Phone: [phone] ALT With P-5'-P [Catalytic activity/Vol] 15 U/L 7 - 45 [facility] 2299 Work Phone: [phone] Comment on above: Patients treated wit h Sulfasalazine may generate falsely decreased results for ALT. AST With P-5'-P [Catalytic activity/Vol] 12 U/L 9 - 39 [facility] 2299 Work Phone: [phone] Bilirubin [Mass/Vol] 0.4 mg/dL 0.0 - 1.2 MG-N [facility] 2299 Work Phone: [phone] Bilirubin.direct [Mass/Vol] 0.1 mg/dL 0.0 - 0.3 MG-Neurolog [facility] [address] Work Phone: Protein [Mass/Vol] 7.3 g/dL 6.4 - 8.2 MG-Nicolas rolog [facility] [address] Work Phone: Vitamin D 25-Hydroxyon 11-20 Calcidiol [Mass/Vol] 26 ng/mL Abnormal MG-N eurolog [facility] [address] Work Phone: Comment on above: .DEFICIENCY: < 20 NG /MLINSUFFICIENCY: 20-29 NG/MLOPTIMUM LEVEL: 30-80 NG/MLPOSSIBLE TOXICITY: > 80 NG/MLTHIS ASSAY ACCURATELY QUANTIFIES THE SUM OFVITAMIN D3, 25-HYDROXY AND VIT D2,25-HYDROXY. CNOVon 07-02-2018 CNOV Office Visit (EXPHUD ) ----- AMY BESS ([id number]) 1985 F Date Time Provider Department 07/02/18 9:55 AM ARIAN MCCULLOUGH) EXPHUD During your visit today, we recorded the following information about you: Temperature Pulse Blood pressure Weight 97.3 degrees 104/minute 118/80 81.6 kg Height 1.676 m Arian Mccullough PA-C 07/02/2018 10:15 AM Signed ASSESSMENT: 1) Asthmatic bronchitis DISPOSITION: Discharged home with verbal and written instructions. PLAN: 1) Increase fluids. 2) Continue Singulair and albuterol. Consider zyrtec or satinder. 3) Take prescriptions as directed. 4) Go to emergency department immediately if your symptoms worsen. Please follow up with Family medicine if symptoms persist. CC: asthma symptoms worsening, seasonal allergies HPI: This is a 33 year old y/o female who presents to the express care for evaluation of cough, intermittent wheezing, congestion. Onset ~2-3 weeks, which is characterized by: [facility] and prescribed Singulair and albuterol which help temporarily. She has been using rescue inhaler every 4-6 hours. Denies CP, SOB , fever, vomiting, dizziness . Medications [employer] : as above. PMHX: Asthma. SURGICALHX: No past surgical history on file. ALLERGY: Patient has no allergy information on record. MEDS: Current Outpatient Medications on File Prior to Visit: TECFIDERA 240 mg cpDR ergocalciferol, vitamin D2, (DRISDOL) 50,000 unit capsule Take 1 capsule by mouth once each week. levonorgestrel-ethinyl estradiol 0.15 mg-30 mcg (91) per tab, 3 month pack Take 1 tablet by mouth once daily. fluticasone (FLONASE) 50 mcg/actuation nasal spray USE 2SPRAYS IN EACH NOSTRIL DAILY X1WEEK.THEN,1-2SPRAYS DAILY USING LOWEST DOSE NEEDED AFTER WEEK 1. montelukast (SINGULAIR) 10 mg tablet TAKE 1 TABLET BY MOUTH EVERY DAY AT NIGHT albuterol HFA (PROVENTIL HFA, VENTOLIN HFA) 90 mcg/actuation inhaler USE 1 TO 2 INHALATIONS EVERY 4 TO 6 HOURS NEEDED FOR WHEEZING No current facility-administered medications on file prior to visit. SOCIAL: Social History Socioeconomic History Marital status: Single Spouse name: Not on file Number of children: Not on file Years of education: Not on file Highest education level: Not on file Social Needs Financial resource strain: Not on file Food insecurity - worry: Not on file Food insecurity - inability: Not on file Transportation needs - medical: Not on file Transportation needs - non-medical: Not on file Occupational History Not on file Tobacco Use Smoking status: Never Smoker Smokeless tobacco: Never Used Substance and Sexual Activity Alcohol use: Not on file Drug use: Not on file Sexual activity: Not on file Other Topics Concerns: Not on file Social History Narrative Not on file PHYSICAL FINDINGS: BP 118/80 Pulse 104 Temp 36.3 ?C (97.3 ?F) (Temporal Artery) Ht 167.6 cm (5' 6 ) Wt 81.6 kg (180 lb) SpO2 97% BMI 29.05 kg/m? General appearance: Pleasant, no distress, cooperative. Psychiatric: Answered questions appropriately and directly. Makes eye contact. Eyes:No periorbital edema, no conjunctival injection, no mucopurulent discharge noted. Neck:Supple. No adenopathy. ENT: Lips, tongue and uvula appear normal, Oropharynx clear, No tragal/pinna/mastoid tenderness Right TM nl, Left TM nl, canals nl, nasal mucosa/turbinates congested, no debris within nasal nares, clear drainage. negative for maxillary sinus tenderness and fullness. Posterior oropharynx symmetric, tonsils grade 1 , no exudates, pink mucosa, mucous membranes moist. Respiratory: No retracting. No respiratory distress. non productive cough, + end expiratory wheeze, no rales, no rhonchi . Cardiovascular: Mildly tachycardic rate. No M/G/R's Musculoskeletal:No pedal edema Skin: Intact. Warm and dry. EXPRESS CARE COURSE: The nursing notes and triage notes are reviewed and incorporated. MDM:This is a 33 year old y/o female whose symptoms and findings are consistent with asthmatic bronchitis. RX prednisone x five days. Azithromycin. . Diagnosis and treatment plan were discussed and questions were answered to the patient's satisfaction. Specific signs and symptoms that would indicate the need for higher level of care were discussed in detail warranting prompt ER evaluation. Pt acknowledged understanding of concepts and follow up plan. FOLLOWUP: Primary Care Physician/Family medicine within 5-7 days or PRN. Arian Mccullough Physician Leader Assembler Arian Mccullough PA-C 07/02/2018 10:07 AM Signed PLAN: 1) Increase fluids. 2) Continue singulair and albuterol. Consider zyrtec or satinder. 3) Take prescriptions as directed. 4) Go to emergency department immediately if your symptoms worsen. Please follow up with Family medicine if symptoms persist. Referring Provider: SELF [[id number]] Allergies As of Date: 07/02/2018 (Not on File) Date Reviewed: 07/02/2018 Reviewed by: Arian Mccullough (Pa) - Fully Assessed Reason for Visit: Wheezing [181] Cmt: Allergies, cough, wheezing and also a sore throat. started 2-3 weeks ago Reason For Visit History Recorded Primary Visit Diagnosis:Mild intermittent asthmatic bronchitis with acute exacerbation [J45.21] Order(s):predniSONE (DELTASONE) 20 mg tabletTake 2 tablets by mouth once daily for 5 days.Disp: 10 tabletRfl: 0 azithromycin (ZITHROMAX Z-FATUMA) 250 mg tablet2 tablets by mouth first day then 1 tablet the next 4 daysDisp: 1 PackageRfl: 0 Prescriptions as of 07/02/2018 Sig: TECFIDERA 240 MG CAPSULE,CYNDIE* ERGOCALCIFEROL (VITAMIN D2) 5* Take 1 capsule by mouth once * LEVONORGESTREL 0.15 MG-ETHINY* Take 1 tablet by mouth once d* FLUTICASONE PROPIONATE 50 MCG* USE 2SPRAYS IN EACH NOSTRIL D* MONTELUKAST 10 MG TABLET TAKE 1 TABLET BY MOUTH EVERY * ALBUTEROL SULFATE HFA 90 MCG/* USE 1 TO 2 INHALATIONS EVERY * PREDNISONE 20 MG TABLET Take 2 tablets by mouth once * AZITHROMYCIN 250 MG TABLET 2 tablets by mouth first day * Problem List As Of Date: 07/02/2018 (None) Other instructions from your clinician: PLAN: 1) Increase fluids. 2) Continue singulair and albuterol. Consider zyrtec or satinder. 3) Take prescriptions as directed. 4) Go to emergency department immediately if your symptoms worsen. Please follow up with Family medicine if symptoms persist. Prescriptions ordered this encounter Disp Refills Start End PREDNISONE 20 MG TABLET 10 t* 0 07/02/2018 07/07/2018 Route: ORAL Sig: Take 2 tablets by mouth once daily for 5 days. AZITHROMYCIN 250 MG TABLET 1 Pa* 0 07/02/2018 Si tablets by mouth first day then 1 tablet the next 4 days Encounter Status:Closed by ARIAN MCCULLOUGH PA-C on 07/02/18 [facility] PROGRESSon 07-02-2018 Protein mass conc HNO ID: [id number] Author: Arian Mccullough (Pa) Service: ? Author Type: Physician Leader Assembler Type: Progress Notes Filed: 07/02/2018 10:15 AM Note Text: ASSESSMENT: 1) Asthmatic bronchitis DISPOSITION: Discharged home with verbal and written instructions. PLAN: 1) Increase fluids. 2) Continue Singulair and albuterol. Consider zyrtec or satinder. 3) Take prescriptions as directed. 4) Go to emergency department immediately if your symptoms worsen. Please follow up with Family medicine if symptoms persist. CC: asthma symptoms worsening, seasonal allergies HPI: This is a 33 year old y/o female who presents to the [facility] for evaluation of cough, intermittent wheezing, congestion. Onset ~2-3 weeks, which is characterized by: [facility] and prescribed Singulair and albuterol which help temporarily. She has been using rescue inhaler every 4-6 hours. Denies CP, SOB , fever, vomiting, dizziness . Medications [employer] : as above. PMHX: Asthma. SURGICALHX: No past surgical history on file. ALLERGY: Patient has no allergy information on record. MEDS: Current Outpatient Medications on File Prior to Visit: TECFIDERA 240 mg cpDR ergocalciferol, vitamin D2, (DRISDOL) 50,000 unit capsule Take 1 capsule by mouth once each week. levonorgestrel-ethinyl estradiol 0.15 mg-30 mcg (91) per tab, 3 month pack Take 1 tablet by mouth once daily. fluticasone (FLONASE) 50 mcg/actuation nasal spray USE 2SPRAYS IN EACH NOSTRIL DAILY X1WEEK.THEN,1-2SPRAYS DAILY USING LOWEST DOSE NEEDED AFTER WEEK 1. montelukast (SINGULAIR) 10 mg tablet TAKE 1 TABLET BY MOUTH EVERY DAY AT NIGHT albuterol HFA (PROVENTIL HFA, VENTOLIN HFA) 90 mcg/actuation inhaler USE 1 TO 2 INHALATIONS EVERY 4 TO 6 HOURS NEEDED FOR WHEEZING No current facility-administered medications on file prior to visit. SOCIAL: Social History Socioeconomic History Marital status: Single Spouse name: Not on file Number of children: Not on file Years of education: Not on file Highest education level: Not on file Social Needs Financial resource strain: Not on file Food insecurity - worry: Not on file Food insecurity - inability: Not on file Transportation needs - medical: Not on file Transportation needs - non-medical: Not on file Occupational History Not on file Tobacco Use Smoking status: Never Smoker Smokeless tobacco: Never Used Substance and Sexual Activity Alcohol use: Not on file Drug use: Not on file Sexual activity: Not on file Other Topics Concerns: Not on file Social History Narrative Not on file PHYSICAL FINDINGS: BP 118/80 Pulse 104 Temp 36.3 ?C (97.3 ?F) (Temporal Artery) Ht 167.6 cm (5' 6 ) Wt 81.6 kg (180 lb) SpO2 97% BMI 29.05 kg/m? General appearance: Pleasant, no distress, cooperative. Psychiatric: Answered questions appropriately and directly. Makes eye contact. Eyes:No periorbital edema, no conjunctival injection, no mucopurulent discharge noted. Neck:Supple. No adenopathy. ENT: Lips, tongue and uvula appear normal, Oropharynx clear, No tragal/pinna/mastoid tenderness Right TM nl, Left TM nl, canals nl, nasal mucosa/turbinates congested, no debris within nasal nares, clear drainage. negative for maxillary sinus tenderness and fullness. Posterior oropharynx symmetric, tonsils grade 1 , no exudates, pink mucosa, mucous membranes moist. Respiratory: No retracting. No respiratory distress. non productive cough, + end expiratory wheeze, no rales, no rhonchi . Cardiovascular: Mildly tachycardic rate. No M/G/R's Musculoskeletal:No pedal edema Skin: Intact. Warm and dry. EXPRESS CARE COURSE: The nursing notes and triage notes are reviewed and incorporated. MDM:This is a 33 year old y/o female whose symptoms and findings are consistent with asthmatic bronchitis. RX prednisone x five days. Azithromycin. . Diagnosis and treatment plan were discussed and questions were answered to the patient's satisfaction. Specific signs and symptoms that would indicate the need for higher level of care were discussed in detail warranting prompt ER evaluation. Pt acknowledged understanding of concepts and follow up plan. FOLLOWUP: Primary Care Physician/Family medicine within 5-7 days or PRN. Arian Mccullough Physician Leader Assembler Normal [facility] ROSHAN/MRI/BRAIN W&W/O CONTRon 05-17-2017 ROSHAN/MRI/BRAIN W&W/O CONTR Name: LOIS BESSGALIUDY:ROSHAN/MRI/BR AIN W; 05/17/2017 4:17 pmINDICATION:VISUAL LOSS OF LT.EYE,NUMBNESS/TINGLING IN RT. ARM/LEG.COMPARISON:None.A CCESSION NUMBER(S):[id number] G CLINICIAN:ADRIÁN GUERRATECHNIQUE:Axial T2, FLAIR, DWI and T1 weighted images of brain were acquired. Postcontrast T1 weighted images were acquired after administration of 13 ccMultiHance gadolinium based intravenous contrast.FINDINGS:CSF Spaces: The ventricles, sulci and basal cisterns are within normal limits.Parenchyma: There is no diffusion restriction abnormality to suggest acuteischemia.There are several scattered foci of FLAIR hyperintense signal within bilateralperiventricular and subcortical white matter. The most prominent focus isidentified within the left occipitotemporal region. Few of the lesionsdemonstrate enhancement on post-contrast imaging for example within rightcorona radiata region, bilateral centrum semiovale region, left parietalperiventricular region, right occipital region and left temporalperiventricular region. Few of the lesions are oriented perpendicular to theventricular margins. There is no mass effect or midline shift.Paranasal Sinuses and Mastoids: Visualized paranasal sinuses and mastoid aircells are unremarkable.IMPRESSION:S everal white matter hyperintensities in bilateral cerebral hemispheres withfew of the lesions demonstrating postcontrast enhancement. The imagingappearance is suggestive of, although not specific for a demyelinating processsuch as multiple sclerosis. The areas with postcontrast enhancement likelyrepresent active demyelinating plaques.The study was interpreted at [facility].Dictated by:Electronically Signed by: Chrystal RosasElectronically Signed on: 05/17/2017 5:30 PM Normal [facility] ROSHAN/MRI/CERV W&W/O CONTRon 0 05-17-2017 ROSHAN/MRI/CERV W&W/O CONTR Name: LOIS BESSGALIUDY:ROSHAN/MRI/CE RV W; 05/17/2017 4:17 pmINDICATION:VISUAL LOSS OF LT.EYE,NUMBNESS/TINGLING IN RT. ARM/LEG.COMPARISON:None.A CCESSION NUMBER(S):[id number] G CLINICIAN:ADRIÁN GUERRATECHNIQUE:Sagittal T1, T2, axial T1 and axial T2 weighted images were acquired throughthe cervical spine. Sagittal STIR imaging was performed. After administrationof 13 cc MultiHance intravenous contrast agent, sagittal and axial T1 weightedimaging was performedFINDINGS:Evaluat ion is limited due to motion artifact on several sequences.Alignment: The vertebral alignment is within normal limits.Vertebrae/Interver tebral Discs: The vertebral bodies demonstrate expectedheight.The marrow signal is within normal limits. The intervertebral discsdemonstrate expected signal and morphology.Cord: The cervical cord demonstrates normal caliber. There are few ill-definedfoci of hyperintense T2 signal within the cord, for example within the leftposterior cord on slice 1/24, within the right posterior cord at slice 8/24,within the right cord at 10/24, within bilateral posterior cord at slice14/24. There is no definite postcontrast enhancement associated with thesefoci although evaluation is limited due to motion artifact. There is punctateprominence of central canal extending from C6 level superiorly to C7-T1 levelinferiorly without associated enhancement.There is no evidence of significant central canal stenosis or neural foraminanarrowing. Upper thoracic region appears grossly unremarkable on sagittalimaging.The prevertebral and posterior paraspinous soft tissues are within normallimits.IMPRESSION:E valuation is limited due to motion artifact. Few tiny ill-defined foci of [id number] signal are seen within the cord as discussed. These findings aresuspicious for foci of demyelination or gliosis. There is no associatedpostcontrast enhancement.The study was interpreted at [facility]..Dictated by:Electronically Signed by: Chrystal RosasElectronically Signed on: 05/17/2017 5:34 PM Normal [facility] Vital Signs Date Time Vital Sign Value Performing Clinician Facility 03-24-2024 08:44-0500 Body height 167.6 cm Lashawn Drummond APRN-MARCELLUS Work Phone: [facility] 03-24-2024 08:44-0500 Body mass index (BMI) [Ratio] 33.89 kg/m2 Lashawn Drummond APRN-CONSTRUCTION SUPERINTENDENT Work Phone: [facility] 03-24-2024 08:44-0500 Body weight 95.25 kg Lashawn Drummond APRN-CONSTRUCTION SUPERINTENDENT Work Phone: [facility] 08-15-2023 15:18-0400 Body mass index (BMI) [Ratio] 34.54 kg/m2 Michael Chaney SOD FARMER-CONSTRUCTION SUPERINTENDENT Work Phone: [facility] 08-15-2023 15:18-0400 Body weight 97.07 kg Michael Chaney SOD FARMER-CONSTRUCTION SUPERINTENDENT Work Phone: [facility] 08-15-2023 15:18-0400 Diastolic blood pressure 78 mm[Hg] Michael Chaney SOD FARMER-CONSTRUCTION SUPERINTENDENT Work Phone: [facility] 08-15-2023 15:18-0400 Heart rate 85 /min Michael Chaney SOD FARMER-CONSTRUCTION SUPERINTENDENT Work Phone: [facility] 08-15-2023 15:18-0400 Respiratory rate 18 /min Michael Chaney SOD FARMER-CONSTRUCTION SUPERINTENDENT Work Phone: [facility] 08-15-2023 15:18-0400 Systolic blood pressure 112 mm[Hg] Michael Chaney SOD FARMER-CONSTRUCTION SUPERINTENDENT Work Phone: [facility] 06-04-2023 13:56-0400 Body height 167.6 cm Lashawn Drummond SOD FARMER-CONSTRUCTION SUPERINTENDENT Work Phone: [facility] 06-04-2023 13:56-0400 Body mass index (BMI) [Ratio] 34.7 kg/m2 Lashawn Drummond SOD FARMER-CONSTRUCTION SUPERINTENDENT Work Phone: [facility] 06-04-2023 13:56-0400 Body temperature 98.29 [degF] Lashawn Drummond SOD FARMER-CONSTRUCTION SUPERINTENDENT Work Phone: [facility] 06-04-2023 13:56-0400 Body weight 97.52 kg Lashawn Drummond SOD FARMER-CONSTRUCTION SUPERINTENDENT Work Phone: [facility] 06-04-2023 13:56-0400 Diastolic blood pressure 83 mm[Hg] Lashawn Drummond SOD FARMER-CONSTRUCTION SUPERINTENDENT Work Phone: [facility] 06-04-2023 13:56-0400 Heart rate 105 /min Lashawn Drummond SOD FARMER-CONSTRUCTION SUPERINTENDENT Work Phone: [facility] 06-04-2023 13:56-0400 Systolic blood pressure 135 mm[Hg] Lashawn Drummond SOD FARMER-CONSTRUCTION SUPERINTENDENT Work Phone: [facility] 11-02-2021 15:57-0400 Body mass index (BMI) [Ratio] 32.93 kg/m2 Sita Singh Work Phone: SB-Ancpiobpy-Pjzkn in [facility] [address] Work Phone: 11-02-2021 15:57-0400 Body surface area Derived from formula 2.02 m2 Sita Ramonita Singh Work Phone: IK-Puszhhidk-Zhwvl in [facility] 2300 Work Phone: 11-02-2021 15:57-0400 Body weight 92.53 kg Sita A Gerardo Work Phone: CV-Jailgohrl-Ytjbn in [facility] 2300 Work Phone: 11-02-2021 15:57-0400 Diastolic blood pressure 73 mm[Hg] Sita Ramonita Singh Work Phone: QP-Tmjkperhu-Phojw in [facility] 0 Work Phone: 11-02-2021 15:57-0400 Heart rate 86 /min Sita Singh Work Phone: OC-Dcqwwfjtn-Ochiz in [facility] 0 Work Phone: 11-02-2021 15:57-0400 Respiratory rate 18 /min Sita Ramonita Singh Work Phone: HI-Rupctevlo-Cdrnl in [facility] 0 Work Phone: 11-02-2021 15:57-0400 Systolic blood pressure 112 mm[Hg] Sita Singh Work Phone: VY-Vsshgwmew-Orlte in [facility] [address] Work Phone: 11-02-2021 15:57-0400 0 1 Sita Shipman Magann Work Phone: CO-Pwmjsfxuj-Hbrur in [facility] [address] Work Phone: Comment on above: [employer] 04-27-2021 13:09-0500 Body mass index (BMI) [Ratio] 32.12 kg/m2 Sita Singh Work Phone: FK-Vaiezztdt-Nmruo in [facility] 2300 Work Phone: 04-27-2021 13:09-0500 Body surface area Derived from formula 2 m2 Sita Shipman Gerardo Work Phone: TW-Lhbxjtdmo-Rvkzk in [facility] [address] Work Phone: 04-27-2021 13:09-0500 Body weight 90.27 kg Sita Shipman Gerardo Work Phone: XY-Wcaynjplt-Gutrs in [facility] [address] Work Phone: 04-27-2021 13:09-0500 Diastolic blood pressure 71 mm[Hg] Sita Ramonita Singh Work Phone: IN-Rngwwexsd-Tpmco in [facility] [address] Work Phone: 04-27-2021 13:09-0500 Heart rate 87 /min Sita Ramonita Singh Work Phone: CX-Vgdygoqzj-Nyvug in [facility] [address] Work Phone: 04-27-2021 13:09-0500 Respiratory rate 18 /min Sita Shipman Gerardo Work Phone: LI-Igbezgrwg-Oiajh in [facility] [address] Work Phone: 04-27-2021 13:09-0500 Systolic blood pressure 113 mm[Hg] Sita Ramonita Singh Work Phone: QZ-Nciulkuhk-Csfgu in [facility] [address] Work Phone: 04-27-2021 13:09-0500 0 1 Sita Ramonita Singh Work Phone: VD-Vqackrnzn-Gaida in [facility] [address] Work Phone: Comment on above: [employer] 10-27-2020 13:20-0400 Body mass index (BMI) [Ratio] 31.15 kg/m2 Sita Singh Work Phone: NW-Kwyzzwrix-Wltlk in [facility] [address] Work Phone: 10-27-2020 13:20-0400 Body surface area Derived from formula 1.97 m2 Sita Singh Work Phone: XB-Agrbxnftr-Ijpeq in [facility] [address] Work Phone: 10-27-2020 13:20-0400 Body weight 87.54 kg Sita Singh Work Phone: NY-Tnyoqsplo-Mehtv in [facility] [address] Work Phone: 10-27-2020 13:20-0400 Diastolic blood pressure 70 mm[Hg] Sita Singh Work Phone: KQ-Rejubkjyo-Myukd in [facility] [address] Work Phone: 10-27-2020 13:20-0400 Heart rate 87 /min Sita Singh Work Phone: FC-Fxrgjghxr-Tlpyw in [facility] [address] Work Phone: 10-27-2020 13:20-0400 Respiratory rate 16 /min Sita Singh Work Phone: GA-Ykcktfwfi-Vykry in [facility] [address] Work Phone: 10-27-2020 13:20-0400 Systolic blood pressure 110 mm[Hg] Sita Singh Work Phone: TG-Zwtiulojg-Xjfqb in [facility] [address] Work Phone: Encounters Encounter Date Encounter Type Care Provider Facility Start: 09-22-2024 End: 09-22-2024 Bamboo flowsheet Mario Lamberto DO Work Phone: [facility] Start: 09-22-2024 End: 09-22-2024 Bamboo flowsheet Mario Lamberto DO Work Phone: [facility] Start: 03-24-2024 End: 03-24-2024 Patient encounter status Lashawn Drummond SOD FARMER-CONSTRUCTION SUPERINTENDENT Work Phone: [facility] Work Phone: Start: 03-24-2024 End: 03-24-2024 Telemedicine consultation with patient Lashawn Drummond SOD FARMER-CONSTRUCTION SUPERINTENDENT Work Phone: [facility] Comment on above: Screening for thyroi d disorder (Primary Dx); Fertility testing; Encounter for Rh blood typing; Screening for STDs (sexually transmitted diseases); Encounter for screening for other viral diseases; Encounter for preprocedural laboratory examination; Female infertility [N97.9] Start: 03-24-2024 End: 03-24-2024 ambulatory LASHAWN DRUMMOND [facility] Start: 02-24-2024 End: 02-24-2024 ambulatory HILARY ZENDEJAS [facility] Start: 02-24-2024 End: 02-24-2024 [facility] Start: 02-21-2024 End: 02-21-2024 [facility] Start: 02-19-2024 End: 02-19-2024 ambulatory SITA ASHELY [facility] Start: 02-18-2024 End: 02-18-2024 ambulatory SITA ASHELY [facility] Start: 12-23-2023 End: 12-23-2023 [facility] Start: 11-25-2023 End: 11-25-2023 [facility] Start: 11-22-2023 End: 11-22-2023 [facility] Start: 11-21-2023 End: 11-21-2023 [facility] Start: 11-21-2023 End: 11-21-2023 ambulatory [facility] Start: 11-07-2023 End: 11-07-2023 ambulatory HILARY ZENDEJAS [facility] Start: 11-07-2023 End: 11-07-2023 Patient encounter procedure Hilary Zendejas SOD FARMER-CONSTRUCTION SUPERINTENDENT Work Phone: [facility] Comment on above: Encounter for artifi cial insemination (Primary Dx) Start: 11-07-2023 End: 11-07-2023 ambulatory SITA SINGH [facility] Start: 11-06-2023 End: 11-06-2023 ambulatory [facility] Start: 11-04-2023 End: 11-04-2023 Professional / ancillary services management Hung [facility] Comment on above: Female infertility Start: 11-04-2023 End: 11-04-2023 [facility] Start: 11-01-2023 End: 11-01-2023 Professional / ancillary services management Hung [facility] Comment on above: Female infertility Start: 11-01-2023 End: 11-01-2023 [facility] Start: 10-22-2023 End: 10-22-2023 [facility] Ramonita [facility] Start: 10-22-2023 End: 10-22-2023 Subsequent hospital visit by physician Sita Singh DNP Work Phone: [facility] Comment on above: Moderate persistent asthma, unspecified whether complicated; Screening for hyperlipidemia; Encounter for screening examination for impaired glucose regulation and diabetes mellitus; Gastroesophageal reflux disease without esophagitis; Multiple sclerosis (HCC); Screening for deficiency anemia Start: 10-09-2023 End: 10-09-2023 [facility] Start: 10-07-2023 End: 10-07-2023 [facility] Start: 10-03-2023 End: 10-03-2023 [facility] Start: 09-30-2023 End: 09-30-2023 Professional / ancillary services management [facility] Comment on above: Female infertility Start: 09-30-2023 End: 09-30-2023 ambulatory LASHAWN DRUMMOND [facility] Start: 09-08-2023 End: 09-08-2023 Patient encounter procedure Lana Dalton MD Work Phone: Gareth Mason Comment on above: Encounter for artifi cial insemination Start: 09-08-2023 End: 09-08-2023 ambulatory LANA DALTON [facility] Start: 09-08-2023 End: 09-08-2023 ambulatory SITA ARAMBULA [facility] Start: 09-05-2023 End: 09-05-2023 Professional / ancillary services management Hung Hays Paul [facility] Comment on above: Female infertility Start: 09-05-2023 End: 09-05-2023 ambulatory LASHAWN DRUMMOND [facility] Start: 09-03-2023 End: 09-03-2023 Professional / ancillary services management Hung Hays Paul Ultrasound [facility] Comment on above: Female infertility Start: 09-03-2023 End: 09-03-2023 ambulatory LASHAWN Sommer [facility] Start: 08-26-2023 End: 08-26-2023 ambulatory SITA ARAMBULA [facility] Start: 08-15-2023 End: 08-15-2023 Office outpatient visit 25 minutes Michael Salvador Shiv ALANIS-CONSTRUCTION SUPERINTENDENT Work Phone: [facility] Comment on above: Multiple sclerosis ( Multi) (Primary Dx) Start: 08-15-2023 End: 08-15-2023 ambulatory MICHAEL Franco [facility] Start: 08-13-2023 End: 08-13-2023 Telemedicine consultation with patient Lashawn Drummond ANNABELLE-CONSTRUCTION SUPERINTENDENT Work Phone: Gareth Mason Comment on above: Encounter for fertil ity planning (Primary Dx) Start: 08-13-2023 End: 08-13-2023 ambulatory LASHAWN DRUMMOND [facility] Start: 08-06-2023 End: 08-06-2023 Subsequent hospital visit by physician Deshaun Gaytan [facility] Comment on above: Fertility testing Start: 08-06-2023 End: 08-06-2023 Patient encounter status Hilary Stovall Siva MEETCONSTRUCTION SUPERINTENDENT Work Phone: [facility] Start: 08-06-2023 End: 08-06-2023 Professional / ancillary services management Hilary Sia Siva ALANIS-CONSTRUCTION SUPERINTENDENT Work Phone: Gareth Mason Comment on above: Fertility testing (P rimary Dx); Encounter for preprocedural laboratory examination Start: 08-06-2023 End: 08-06-2023 ambulatory [facility] Start: 07-25-2023 End: 07-25-2023 Telemedicine consultation with patient Katja Swansonterrie PhD Work Phone: Gareth Mason Comment on above: Infertility counseli ng (Primary Dx) Start: 07-25-2023 End: 07-25-2023 ambulatory KATJA Shipman JOVANY [facility] Start: 07-24-2023 End: 07-24-2023 ambulatory SITA ARAMBULA [facility] Start: 07-10-2023 End: 07-10-2023 ambulatory [facility] Start: 06-04-2023 End: 06-04-2023 Patient encounter procedure Lashawn Drummond MEETCONSTRUCTION SUPERINTENDENT Work Phone: Gareth Mason Comment on above: Encounter for screen ing for other viral diseases (Primary Dx); Screening for thyroid disorder; Fertility testing; Encounter for Rh blood typing; Screening for STDs (sexually transmitted diseases); Encounter for preprocedural laboratory examination; Screening for genetic disease carrier status Start: 06-04-2023 End: 06-04-2023 Patient encounter status Lashawn Drummond MEETCONSTRUCTION SUPERINTENDENT Work Phone: [facility] Work Phone: Start: 06-04-2023 End: 06-04-2023 ambulatory [facility] Start: 06-04-2023 End: 06-04-2023 Encounter for blood typing LASHAWN Sommer [facility] Start: 06-04-2023 End: 06-04-2023 Encounter for preprocedural laboratory examination LASHAWN Sommer [facility] Start: 03-25-2023 End: 03-25-2023 ambulatory MICHAEL Franco SHIV [facility] Start: 03-25-2023 End: 03-25-2023 Subsequent hospital visit by physician [facility] Comment on above: Multiple sclerosis ( CMS/HCC) Start: 03-18-2023 End: 03-18-2023 ambulatory MARIO ORANTES Not Available Start: 03-18-2023 Patient encounter procedure Mario Lamberto DO Work Phone: [facility] Start: 02-07-2023 End: 02-07-2023 Office outpatient visit 25 minutes Michael Salvador Chaney SOD FARMER-CONSTRUCTION SUPERINTENDENT Work Phone: [facility] Comment on above: Multiple sclerosis ( CMS/HCC) (Primary Dx) Start: 11-30-2022 AUDIT Sita Ship[facility] jacqui Work Phone: Pharmacists-[facility] [address] [place] Work Phone: Start: 11-29-2022 AUDIT Sita Ship[facility] jacqui Work Phone: [facility] [address] Work Phone: Start: 04-16-2022 AUDIT Sita [facility] jacqui Work Phone: RG-Ejjaqhafj-YLMTI [place] [address] Work Phone: Start: 04-12-2022 Patient encounter procedure Sita Shipman Clingman Work Phone: NJ-Aaojybovn[facility]djpwbt[facility] [address] Work Phone: Start: 04-12-2022 Phys/qhp telephone evaluation 21-30 min Sita Shipman [place] Work Phone: [facility] [address] Work Phone: Start: 04-12-2022 ambulatory Mr. Sita real Gerardo Facility:[id number] Start: 03-13-2022 Chart Update Sita Alvarado jacqui Work Phone: SZ-Iausqlchr-LDWZK [place] [address] Work Phone: Start: 03-07-2022 End: 03-07-[address] MARIO ORANTES Facility:H1 Start: 01-05-2022 ambulatory SITA Crawfordi ty:[facility] [place] Start: 01-04-2022 Chart Update Sita Alvarado jacqui Work Phone: [facility] [address] Work Phone: Start: 01-02-2022 ambulatory Mr. Sita real Gerardo Facility:[id number] Start: 01-01-2022 End: 01-01-[address] MARIO ORANTES Facility:H1 Start: 11-06-2021 End: 11-06-2021 Patient encounter procedure Sita Owens CNP Work Phone: [facility] Start: 11-06-2021 End: 11-06-2021 Subsequent hospital visit by physician Sita Owens CNP Work Phone: [facility] Comment on above: Annual physical exam ; Vitamin D deficiency; Gastroesophageal reflux disease without esophagitis Start: 11-02-2021 Office outpatient vi sit 25 minutes Sita Singh Work Phone: [facility] [address] Work Phone: Start: 11-02-2021 Patient encounter procedure Sita Singh Work Phone: [facility] [address] Work Phone: Start: 11-02-2021 ambulatory Mr. Sita real Gerardo Facility:[id number] Start: 11-01-2021 End: 11-02-[address] MARIO ORANTES Facility:H1 Start: 08-14-2021 Chart Update Sita [facility] jacqui Work Phone: PD-Vlxbpmxji-Dnyj [address] Work Phone: Start: 04-28-2021 Chart Update Sita [facility] jacqui Work Phone: DR-Ezxmrrmzg[facility] [address] Work Phone: Start: 04-27-2021 Office outpatient vi sit 25 minutes Sita Alvaradogman Work Phone: JW-Alwhhbpbh-SiufpfeSan[facility] [address] Work Phone: Start: 04-27-2021 ambulatory Michael Chaney Facility:[id number] Start: 03-22-2021 Telephone encounter Sita Carrerosatish Work Phone: BB-Dwsgewzpc-IVCNA [place] [address] Work Phone: Start: 03-14-2021 End: 03-15-[address] MARIO ORANTES Facility:H1 Start: 11-25-2020 Chart Update Sita [facility] jacqui Work Phone: HG-Yvkljnsap-WqpycngSan[facility] [address] Work Phone: Start: 11-02-2020 AUDIT Sita Shipman [facility] jacqui Work Phone: LY-Yyumqlevt-ZctupezSan[facility] [address] Work Phone: Start: 10-31-2020 Chart Update Sita [facility] jacqui Work Phone: UM-Sticbmado-VepkhnwSan[facility] [address] Work Phone: Start: 10-27-2020 Office outpatient vi sit 25 minutes Sita Alvaradogman Work Phone: TS-Dqqktmgim-TvkyvnoSan[facility] [address] Work Phone: Start: 10-27-2020 Patient encounter procedure Sita Alvaradogman Work Phone: MD-Nyaouorhz-VfjegeaSan[facility] [address] Work Phone: Start: 10-11-2020 AUDIT Sita Ramonita osman Work Phone: JL-Rpdzuatwm-Qndxfqz[facility] [address] Work Phone: Start: 02-07-2019 End: 02-07-2019 Subsequent hospital visit by physician [facility] [place] [facility] Comment on above: Pharyngitis, unspeci fied etiology Start: 01-29-2019 End: 01-31-2019 Subsequent hospital visit by physician Pardeep Bal Radiologist [facility] Comment on above: Dysphagia, unspecifi ed type Start: 01-19-2019 End: 01-19-2019 Subsequent hospital visit by physician Sita [place] [facility] Comment on above: Dysphagia, unspecifi ed type Start: 11-20-2018 Patient encounter procedure Georgesneelima Addisona EP-Xtpgfhrgf-HdyhnoyWest [facility] [address] Work Phone: Start: 11-14-2018 Patient encounter procedure Georges Cecy UC-Dzaepgvfp-MgyllgrWest [facility] [address] Work Phone: Start: 07-02-2018 End: 07-03-2018 Patient encounter procedure [facility] Start: 12-12-2017 Patient encounter procedure Georges Cecy FC-Mspfvtfgp-EuktqsxWest [facility] [address] Work Phone: Start: 10-02-2017 Patient encounter procedure Georges Cecy ZV-Ldckcqglc-DsdndozWest [facility] Services [address] Work Phone: Start: 09-05-2017 Patient encounter procedure Georges Cecy QX-Clchlrumz-IohwaekWest River Health Services [address] Work Phone: Start: 07-03-2017 Patient encounter procedure Georges Cecy SE-Xqurcjbas-AbvjkulWest River Health Services [address] Work Phone: Start: 06-13-2017 Patient encounter procedure Georges Cecy WV-Ltlfboovy-LqyuqpzWest [facility] [address] Work Phone: Start: 05-20-2017 Patient encounter procedure Georges Cecy WG-Rdxwcdznl-IeqihhmWest River [facility] Services [address] Work Phone: Start: 05-17-2017 End: 05-17-2017 Ambulatory ADRIÁN GUERRA [facility] Start: 05-06-2017 Patient encounter procedure Georges Sam [facility] [address] Work Phone: Start: 05-02-2017 Patient encounter procedure Georges Sam [facility] [address] Work Phone: Start: 02-25-2017 Patient encounter procedure Georges Sma [facility] [address] Work Phone: Procedures Date Procedure Procedure Detail Performing Clinician Start: 11-07-2023 Artificial insemination intra-uterine Loretta Peralta MD Work Phone: Start: 11-04-2023 Us pelvic nonobstetric image dcmtn limited/f/u Lashawn Ros Bhanu SOD FARMER-CONSTRUCTION SUPERINTENDENT Work Phone: Start: 11-04-2023 End: 11-04-2023 Gonadotropin luteinizing hormone Yanet Jean-Baptiste MD Work Phone: Start: 11-01-2023 Gonadotropin luteinizing hormone Lashawn Sommer Bhanu SOD FARMER-CONSTRUCTION SUPERINTENDENT Work Phone: Start: 10-22-2023 Comprehensive metabolic panel Sita Singh DNP Work Phone: Start: 10-22-2023 Lipid panel Sita Singh DNP Work Phone: Start: 09-30-2023 Gonadotropin luteinizing hormone Lashawn Sommer Bhanu SOD FARMER-CONSTRUCTION SUPERINTENDENT Work Phone: Start: 09-08-2023 Intrauterine artificial insemination Lashawn Ros Bhanu SOD FARMER-CONSTRUCTION SUPERINTENDENT Work Phone: Start: 09-05-2023 Gonadotropin luteinizing hormone Lashawn Sommer Bhanu SOD FARMER-CONSTRUCTION SUPERINTENDENT Work Phone: Start: 09-03-2023 Us pelvic nonobstetric image dcmtn limited/f/u Lashawn Sommer Bhanu SOD FARMER-CONSTRUCTION SUPERINTENDENT Work Phone: Start: 09-03-2023 Gonadotropin luteinizing hormone Lashawn Drummond SOD FARMER-CONSTRUCTION SUPERINTENDENT Work Phone: Start: 08-13-2023 Follow-up visit Follow-up LASHAWN DRUMMOND Start: 08-06-2023 Hysterosalpingography rs&i Lashawn Drummond SOD FARMER-CONSTRUCTION SUPERINTENDENT Work Phone: Start: 08-06-2023 Cath & saline/contrast sonohyster/hysterosalpi Hilary Zendejas SOD FARMER-CONSTRUCTION SUPERINTENDENT Work Phone: Start: 08-06-2023 Urine test visual color cmprsn meths Lashawn Drummond SOD FARMER-CONSTRUCTION SUPERINTENDENT Work Phone: Start: 07-10-2023 US PELVIS TRANSVAGINAL LASHAWN DRUMMOND Start: 06-04-2023 ANTI-MULLERIAN HORMONE (AMH) LASHAWN DRUMMOND Start: 06-04-2023 C. TRACHOMATIS + N. GONORRHOEAE, AMPLIFIED LASHAWN DRUMMOND Start: 06-04-2023 CYTOMEGALOVIRUS ANTIBODY, IGM LASHAWN CONTRERAS Salvador Start: 06-04-2023 CYTOMEGALOVIRUS IGG LASHAWN DRUMMOND Start: 06-04-2023 HEPATITIS B SURFACE ANTIGEN LASHAWN DRUMMOND Start: 06-04-2023 HEPATITIS C ANTIBODY LASHAWN DRUMMOND Start: 06-04-2023 HIV 1/2 ANTIGEN/ANTIBODY SCREEN WIH REFLEX TO CONFIRMATION LASHAWN DRUMMOND Start: 06-04-2023 MYRIAD FORESIGHT CARRIER SCREEN LASHAWN CANTOR DYLAN Start: 06-04-2023 RUBELLA ANTIBODY, IGG LASHAWN DRUMMOND Start: 06-04-2023 SYPHILIS SCREENING WITH REFLEX LASHAWN GRIFFIN BLANCA Start: 06-04-2023 TSH WITH REFLEX TO FREE T4 IF ABNORMAL LASHAWN DRUMMOND Start: 06-04-2023 TYPE AND SCREEN LASHAWN DRUMMOND Start: 06-04-2023 VARICELLA ZOSTER ANTIBODY, IGG LASHAWN GRIFFIN RD Start: 03-25-2023 MR BRAIN W AND WO IV CONTRAST MICHAEL PACE Start: 03-25-2023 Mri brain brain stem w/o w/contrast material Michael Chaney SOD FARMER-CONSTRUCTION SUPERINTENDENT Work Phone: Start: 03-18-2023 Microscopic observation [Identifier] in Cervix by Cyto stain Lashawn Drummond SOD FARMER-CONSTRUCTION SUPERINTENDENT Work Phone: Start: 11-06-2021 Comprehensive metabolic panel Sita Singh SOD FARMER - CONSTRUCTION SUPERINTENDENT Work Phone: Start: 11-06-2021 Lipid panel Sita Singh SOD FARMER - CONSTRUCTION SUPERINTENDENT Work Phone: Start: 11-06-2021 PATIENT FASTING? Sita Singh SOD FARMER - CONSTRUCTION SUPERINTENDENT Work Phone: Start: 01-29-2019 Swallowing funcj w/cineradiograpy/vidradiog Sita Carreron Work Phone: Start: 01-19-2019 Assay of thyroid stimulating hormone tsh Sita Carreron Work Phone: Start: 01-19-2019 Blood count complete auto&auto difrntl wbc Sita Carreron Work Phone: Start: 01-19-2019 Comprehensive metabolic panel Sita Singh Work Phone: Start: 11-20-2018 Blood count complete auto&auto difrntl wbc Georges Sam History of Oral Surgery Damian Sam Plan of Treatment Date Care Activity Detail Author Start: 2036 Zoster Vaccines (1 of 2) Zoster Vacc scooter (1 of 2) [facility] Start: 03-18-2026 Screening for malign ant neoplasm of cervix [facility] Start: 10-20-2024 Depression Screen Depression Screen [facility] Start: 09-22-2024 End: 09-22-2024 Patient encounter procedure 09/22/2024 2:30 PM EDT Office Visit [facility] [address] [place] [id number] Mario Orantes DO [address] [place] [address] Arrived [facility] Comment on above: Arrived Start: 04-24-2024 End: 06-22-2024 Choriogonadotropin ( test) [Presence] in Urine POCT , urine manually resulted Point of Care Testing Routine Encounter for preprocedural laboratory examination Expected: 04/24/2024 (Approximate), Expires: 06/22/2024 [facility] Work Phone: Comment on above: Expected: 04/24/2024 (Approximate), Expires: 06/22/2024 Start: 04-24-2024 End: 03-24-2025 Hysteroscopy diagnostic Hysteroscopy diagnostic Procedures Routine Fertility testing Expected: 04/24/2024 (Approximate), Expires: 03/24/2025 [facility] Work Phone: Comment on above: Expected: 04/24/2024 (Approximate), Expires: 03/24/2025 Start: 03-24-2024 End: 03-24-2025 Blood type and Indirect antibody screen panel - Blood Type And Screen Lab Routine Encounter for Rh blood typing Expected: 03/24/2024 (Approximate), Expires: 03/24/2025 [facility] Work Phone: Comment on above: Expected: 03/24/2024 (Approximate), Expires: 03/24/2025 Start: 03-24-2024 End: 03-24-2025 Chlamydia trachomatis and Neisseria gonorrhoeae DNA [Identifier] in Unspecified specimen by JONO with probe detection C. trachomatis / N. gonorrhoeae, Amplified Lab Routine Screening for STDs (sexually transmitted diseases) Expected: 03/24/2024 (Approximate), Expires: 03/24/2025 [facility] Work Phone: Comment on above: Expected: 03/24/2024 (Approximate), Expires: 03/24/2025 Start: 03-24-2024 End: 03-24-2025 Cytomegalovirus IgG Ab avidity [Ratio] in Serum or Plasma by Immunoassay Cytomegalovirus Antibody, Igg Lab Routine Encounter for screening for other viral diseases Expected: 03/24/2024 (Approximate), Expires: 03/24/2025 [facility] Work Phone: Comment on above: Expected: 03/24/2024 (Approximate), Expires: 03/24/2025 Start: 03-24-2024 End: 03-24-2025 Cytomegalovirus IgM Ab [Units/volume] in Serum or Plasma Cytomegalovirus Antibody, IgM Lab Routine Encounter for screening for other viral diseases Expected: 03/24/2024 (Approximate), Expires: 03/24/2025 [facility] Work Phone: Comment on above: Expected: 03/24/2024 (Approximate), Expires: 03/24/2025 Start: 03-24-2024 End: 03-24-2025 Hepatitis B virus surface Ag [Presence] in Serum or Plasma by Immunoassay Hepatitis B surface antigen Lab Routine Screening for STDs (sexually transmitted diseases) Expected: 03/24/2024 (Approximate), Expires: 03/24/2025 [facility] Work Phone: Comment on above: Expected: 03/24/2024 (Approximate), Expires: 03/24/2025 Start: 03-24-2024 End: 03-24-2025 Hepatitis C virus Ab [Presence] in Serum Hepatitis C Antibody Lab Routine Screening for STDs (sexually transmitted diseases) Expected: 03/24/2024 (Approximate), Expires: 03/24/2025 [facility] Work Phone: Comment on above: Expected: 03/24/2024 (Approximate), Expires: 03/24/2025 Start: 03-24-2024 End: 03-24-2025 HIV 1+2 Ab+HIV1 p24 Ag [Presence] in Serum or Plasma by Immunoassay HIV 1/2 Antigen/Antibody Screen with Reflex to Confirmation Lab Routine Screening for STDs (sexually transmitted diseases) Expected: 03/24/2024 (Approximate), Expires: 03/24/2025 [facility] Work Phone: Comment on above: Expected: 03/24/2024 (Approximate), Expires: 03/24/2025 Start: 03-24-2024 End: 03-24-2025 Mullerian inhibiting substance [Mass/volume] in Serum or Plasma Antimullerian Hormone (Amh) Lab Routine Fertility testing Expected: 03/24/2024 (Approximate), Expires: 03/24/2025 [facility] Work Phone: Comment on above: Expected: 03/24/2024 (Approximate), Expires: 03/24/2025 Start: 03-24-2024 End: 03-24-2025 Treponema pallidum IgG+IgM Ab [Presence] in Serum by Immunoassay Syphilis Screen with Reflex Lab Routine Screening for STDs (sexually transmitted diseases) Expected: 03/24/2024 (Approximate), Expires: 03/24/2025 [facility] Work Phone: Comment on above: Expected: 03/24/2024 (Approximate), Expires: 03/24/2025 Start: 03-24-2024 End: 03-24-2025 TSH with reflex to Free T4 if abnormal TSH with reflex to Free T4 if abnormal Lab Routine Screening for thyroid disorder Expected: 03/24/2024 (Approximate), Expires: 03/24/2025 [facility] Service Area Work Phone: Comment on above: Expected: 03/24/2024 (Approximate), Expires: 03/24/2025 Start: 11-10-2023 COVID-19 Vaccine ( season) COVID-19 Vaccine () [facility] Start: 11-10-2023 [facility] Start: 11-06-2023 End: 11-06-2023 Professional / ancillary services management 11/06/2023 6:45 AM EDT Ancillary Procedure [facility] [address] [place] [address] [facility] Start: 10-10-2023 Influenza vaccination Flu vaccine (# 1) [facility] Start: 09-30-2023 End: 09-30-2023 Professional / ancillary services management 09/30/2023 6:45 AM EDT Ancillary Procedure [facility] [address] [place] [address] [facility] Start: 08-15-2023 End: 08-15-2023 Patient encounter procedure 08/15/2023 2:45 PM EDT Office Visit [facility] [address] [place] [phone] Michael Chaney, SOD FARMER-CONSTRUCTION SUPERINTENDENT [address] [address] [place] [address] [facility] Start: 08-15-2023 End: 08-14-2024 CBC W Auto Differential panel - Blood CBC and Auto Differential Lab Routine Multiple sclerosis (Multi) Expected: 08/15/2023 (Approximate), Expires: 08/14/2024 [facility] Service Area Work Phone: Comment on above: Expected: 08/15/2023 (Approximate), Expires: 08/14/2024 Start: 08-15-2023 End: 08-14-2024 Hepatic function 2000 panel - Serum or Plasma Hepatic Function Panel Lab Routine Multiple sclerosis (Multi) Expected: 08/15/2023 (Approximate), Expires: 08/14/2024 [facility] Work Phone: Comment on above: Expected: 08/15/2023 (Approximate), Expires: 08/14/2024 Start: 08-13-2023 End: 08-13-2023 Telemedicine consultation with patient 08/13/2023 9:45 AM EDT Telemedicine Gareth Mason [address] [facility] [[email or web address] [address] [place] [phone] Lashawn Drummond, SOD FARMER-CONSTRUCTION SUPERINTENDENT [address] [facility], Simran Mason, [address] [place] [address] Gareth Mason Start: 08-08-2023 End: 08-08-2023 Patient encounter procedure 08/08/2023 10:45 AM EDT Office Visit [facility] [address] [place] [phone] Michael Chaney, SOD FARMER-CONSTRUCTION SUPERINTENDENT [address] [address] [place] [address] [facility] Start: 08-06-2023 End: 08-06-2023 Patient encounter procedure 08/06/2023 7:30 AM EDT Appointment [facility] [address] [place] [phone] [facility] Start: 08-06-2023 End: 08-06-2023 Professional / ancillary services management 08/06/2023 7:00 AM EDT Ancillary Procedure Gareth Mccrayon [address] [place] [address] Hilary Zendejas, SOD FARMER-CONSTRUCTION SUPERINTENDENT [address] [place] [address] Gareth Mason Start: 07-05-2023 End: 09-04-2023 Choriogonadotropin ( test) [Presence] in Urine POCT , urine manually resulted Point of Care Testing Routine Encounter for preprocedural laboratory examination Expected: 07/05/2023 (Approximate), Expires: 09/04/2023 [facility] Work Phone: Comment on above: Expected: 07/05/2023 (Approximate), Expires: 09/04/2023 Start: 06-04-2023 End: 06-03-2024 Blood type and Indirect antibody screen panel - Blood [facility] Work Phone: Comment on above: Expected: 06/04/2023 (Approximate), Expires: 06/03/2024 Start: 06-04-2023 End: 06-03-2024 Chlamydia trachomatis and Neisseria gonorrhoeae DNA [Identifier] in Unspecified specimen by JONO with probe detection [facility] Work Phone: Comment on above: Expected: 06/04/2023 (Approximate), Expires: 06/03/2024 Start: 06-04-2023 End: 06-03-2024 Cytomegalovirus IgG Ab avidity [Ratio] in Serum or Plasma by Immunoassay [facility] Work Phone: Comment on above: Expected: 06/04/2023 (Approximate), Expires: 06/03/2024 Start: 06-04-2023 End: 06-03-2024 Cytomegalovirus IgM Ab [Units/volume] in Serum or Plasma [facility] Service Area Work Phone: Comment on above: Expected: 06/04/2023 (Approximate), Expires: 06/03/2024 Start: 06-04-2023 End: 06-03-2024 Hepatitis B virus surface Ag [Presence] in Serum or Plasma by Immunoassay [facility] Work Phone: Comment on above: Expected: 06/04/2023 (Approximate), Expires: 06/03/2024 Start: 06-04-2023 End: 06-03-2024 Hepatitis C virus Ab [Presence] in Serum [facility] Work Phone: Comment on above: Expected: 06/04/2023 (Approximate), Expires: 06/03/2024 Start: 06-04-2023 End: 06-03-2024 HIV 1+2 Ab+HIV1 p24 Ag [Presence] in Serum or Plasma by Immunoassay [facility] Work Phone: Comment on above: Expected: 06/04/2023 (Approximate), Expires: 06/03/2024 Start: 06-04-2023 End: 06-03-2024 Hysterosalpingogram (HSG) Hysterosalpingogram (HSG) Procedures Routine Fertility testing Expected: 06/04/2023 (Approximate), Expires: 06/03/2024 [facility] Work Phone: Comment on above: Expected: 06/04/2023 (Approximate), Expires: 06/03/2024 Start: 06-04-2023 End: 06-03-2024 Mullerian inhibiting substance [Mass/volume] in Serum or Plasma [facility] Work Phone: Comment on above: Expected: 06/04/2023 (Approximate), Expires: 06/03/2024 Start: 06-04-2023 End: 06-03-2024 My[facility] Carrier Screen [facility] [facility] Work Phone: Comment on above: Expected: 06/04/2023 (Approximate), Expires: 06/03/2024 Start: 06-04-2023 End: 06-03-2024 Rubella virus IgG Ab [Units/volume] in Serum [facility] Work Phone: Comment on above: Expected: 06/04/2023 (Approximate), Expires: 06/03/2024 Start: 06-04-2023 End: 06-03-2024 Treponema pallidum IgG+IgM Ab [Presence] in Serum by Immunoassay [facility] Work Phone: Comment on above: Expected: 06/04/2023 (Approximate), Expires: 06/03/2024 Start: 06-04-2023 End: 06-03-2024 TSH with reflex to Free T4 if abnormal [facility] Work Phone: Comment on above: Expected: 06/04/2023 (Approximate), Expires: 06/03/2024 Start: 06-04-2023 End: 06-03-2024 US Pelvis transvaginal US pelvis transvaginal Imaging Routine Fertility testing Expected: 06/04/2023, Expires: 06/03/2024 [facility] Work Phone: Comment on above: Expected: 06/04/2023 , Expires: 06/03/2024 Start: 06-04-2023 End: 06-03-2024 Varicella zoster virus IgG Ab [Presence] in Serum by Immunoassay [facility] Work Phone: Comment on above: Expected: 06/04/2023 (Approximate), Expires: 06/03/2024 Start: 06-04-2023 End: 06-03-2024 XR Pelvis Views [place] hysterosalpingogram Imaging Routine Fertility testing Expected: 06/04/2023, Expires: 06/03/2024 [facility] Work Phone: Comment on above: Expected: 06/04/2023 , Expires: 06/03/2024 Start: 02-07-2023 End: 02-08-2024 CBC W Auto Differential panel - Blood CBC and Auto Differential Lab Routine Multiple sclerosis (CMS/HCC) Expected: 02/07/2023 (Approximate), Expires: 02/08/2024 [facility] Work Phone: Comment on above: Expected: 02/07/2023 (Approximate), Expires: 02/08/2024 Start: 02-07-2023 End: 02-08-2024 Hepatic function 2000 panel - Serum or Plasma Hepatic Function Panel Lab Routine Multiple sclerosis (CMS/HCC) Expected: 02/07/2023 (Approximate), Expires: 02/08/2024 [facility] Work Phone: Comment on above: Expected: 02/07/2023 (Approximate), Expires: 02/08/2024 Start: 02-07-2023 End: 02-08-2024 MR Brain WO and W contrast IV MR brain w and wo IV contrast Imaging Routine Multiple sclerosis (CMS/HCC) Expected: 02/07/2023, Expires: 02/08/2024 [facility] Service Area Work Phone: Comment on above: Expected: 02/07/2023 , Expires: 02/08/2024 Start: 11-09-2022 COVID-19 Vaccine ( season) COVID-19 Vaccine ( season) [facility] Start: 11-09-2022 Influenza vaccination Influenza Vacc ine (#1) [facility] Start: 05-03-2022 ED, Provider : iMchael Chaney, Status: Pen, Time: 4:00 PM ED, Provider: Michael Chaney, Status: Pen, Time: 4:00 PM [facility] [address] Work Phone: Start: 04-12-2022 ED, Provider : Michael Chaney, Status: Pen, Time: 3:15 PM ED, Provider: Michael Chaney, Status: Pen, Time: 3:15 PM E[facility]vmju[facility] [place] [facility] Work Phone: Start: 11-09-2021 Influenza vaccination Flu vaccine (# 1) [facility] Start: 11-07-2021 Depression Screen Depression Screen [facility] Start: 10-26-2021 FUV, Provider: Michael Chaney, Status: Pen, Time: 10:00 AM FUV, Provider: Michael Chaney, Status: Pen, Time: 10:00 AM [facility] [address] Work Phone: Start: 10-19-2021 FUV, Provider: Michael Chaney, Status: Pen, Time: 4:00 PM FUV, Provider: Michael Chaney, Status: Pen, Time: 4:00 PM [facility] [address] Work Phone: Start: 04-27-2021 FUV, Provider: Michael Chaney, Status: Pen, Time: 1:45 PM FUV, Provider: Michael Chaney, Status: Pen, Time: 1:45 PM [facility] [address] Work Phone: Start: 10-27-2020 FUVGENERAL, Provider : Michael Chaney, Status: Pen, Time: 1:00 PM FUVGENERAL, Provider: Michael Chaney, Status: Pen, Time: 1:00 PM [facility] [address] Work Phone: Start: 01-20-2020 Pneumococcal 0-64 ye ars Vaccine (2 - PCV) Pneumococcal 0-64 years Vaccine (2 - PCV) [facility] Start: 01-20-2020 Pneumococcal Vaccine : Pediatrics (0 to 5 Years) and At-Risk Patients (6 to 64 Years) (2 of 2 - PCV) Pneumococcal Vaccine: Pediatrics (0 to 5 Years) and At-Risk Patients (6 to 64 Years) (2 of 2 - PCV) [facility] Start: 01-20-2020 Pneumococcal Vaccine : Pediatrics and At-Risk Adult Patients (2 of 2 - PCV) Pneumococcal Vaccine: Pediatrics and At-Risk Adult Patients (2 of 2 - PCV) [facility] Start: 11-20-2018 Blood count complete auto&auto difrntl wbc Complete Blood Count + Differential [facility] [address] Work Phone: Comment on above: To be Done: Recurrin g Schedule: 02/19/2019, 05/21/2019 ... Start: 2016 Screening for malign ant neoplasm of cervix [facility] Start: 2008 DTaP/Tdap/Td Vaccine s (1 - Tdap) DTaP/Tdap/Td Vaccines (1 - Tdap) [facility] Start: 06-03-2007 Cervical cancer screen Cervical canc er screen [place], [place] Start: 06-03-2007 Screening for malign ant neoplasm of cervix [facility] Start: 2005 DTaP/Tdap/Td vaccine (1 - Tdap) DTaP/Tdap/Td vaccine (1 - Tdap) [facility] Start: 2005 Hepatitis B vaccine (1 of 3 - 19+ 3-dose series) Hepatitis B vaccine (1 of 3 - 19+ 3-dose series) [facility] Start: 2005 Hepatitis B Vaccines (1 of 3 - 19+ 3-dose series) Hepatitis B Vaccines (1 of 3 - 19+ 3-dose series) [facility] Start: 2004 Hepatitis C screening [facility] Start: 2001 HIV screen HIV screen [place], [place] Start: 2001 HIV screening HIV screen [facility] Start: 06-03-1999 Varicella vaccination Varicell a Vaccines (1 of 2 - 13+ 2-dose series) [facility] Start: 06-03-1999 Varicella vaccine (1 of 2 - 13+ 2-dose series) Varicella vaccine (1 of 2 - 13+ 2-dose series) [facility] Start: 1997 DTaP/Tdap/Td vaccine (1 - Tdap) DTaP/Tdap/Td vaccine (1 - Tdap) [place], [place] Start: 06-03-1987 MMR Vaccines (1 of 1 - Standard series) MMR Vaccines (1 of 1 - Standard series) [facility] Start: 06-03-1987 Varicella vaccination Varicell a Vaccines (1 of 2 - 2-dose childhood series) [facility] Start: 06-03-1987 Varicella Vaccine (1 of 2 - 2-dose childhood series) [facility] Start: 1986 COVID-19 Vaccine (#1) COVID-19 Vacci ne (#1) [facility] Start: 1986 Hepatitis B Vaccines (1 of 3 - 3-dose series) Hepatitis B Vaccines (1 of 3 - 3-dose series) [facility] Start: 1986 HIV screening HIV Screening [facility] Start: 1986 Lipid panel Lipid Panel [facility] Start: 1986 Yearly Adult Physical Yearly Adult P hysical [facility] End: 11-06-2021 Hemoglobin A1c/Hemoglobin.total in Blood [facility] Work Phone: Comment on above: 1 Occurrences starti ng 11/06/2021 until 11/06/2021 PAUL US Pelvis Limite d Follicles - Follicle Studies Performed PAUL US Pelvis Limited Follicles - Follicle Studies Performed Imaging Routine Female infertility 09/05/2023 8:28 AM [facility] Service Area Work Phone: PAUL US Pelvis Limite d Follicles - Follicle Studies Performed PAUL US Pelvis Limited Follicles - Follicle Studies Performed Imaging Routine Female infertility 09/30/2023 7:06 AM [facility] Service Area Work Phone: PAUL US Pelvis Limite d Follicles - Follicle Studies Performed PAUL US Pelvis Limited Follicles - Follicle Studies Performed Imaging Routine Female infertility 11/01/2023 7:06 AM [facility] Service Area Work Phone: End: 02-07-2019 Strep A DNA probe, amplification Strep A DNA probe, amplification Lab STAT Pharyngitis, unspecified etiology 1 Occurrences starting 02/07/2019 until 02/07/2019 [facility] Comment on above: 1 Occurrences starti ng 02/07/2019 until 02/07/2019 Strep A DNA probe, amplification Strep A DNA probe, amplification Lab STAT Pharyngitis, unspecified etiology 02/07/2019 10:31 AM EST [facility] RIGOBERTO RUBIO NEGATED: Highlighted row has been ruled out! Planned Goals not documented [facility] [address] Work Phone: Immunizations Immunization Date Immunization Notes Care Provider Billy boucherdaniella 12-17-2019 influenza, injectabl e, quadrivalent, preservative free [facility] [employer]PER[employer]END[employer] Work Phone: [facility] Work Phone: 12-17-2019 influenza virus vacc ine, unspecified formulation Michael Chaney [employer]STRUCTION SUPERINTENDENT Work Phone: [facility] Work Phone: 01-19-2019 influenza, injectabl e, quadrivalent, preservative free [facility], [place] 01-19-2019 pneumococcal polysaccharide vaccine, 23 valent [facility], [place] Payers Date Payer Category Payer [facility] Subscriber Plan / Payer (Effective 2024-Present) Name: Amy Bess Relation to Subscriber: Self Name: Amy Bess Payer ID: Not on file Type: Not on file Address: [id number] 2023 [facility] Care [facility] [id number] 2019 Unknown 2018 Unknown BCBS BCBS OUT OF STATE xxxxxxxxxxxx 2018-Present [address] [place] [address] xxxxxxxxxxxx [id number]. [id number] 1986 Unknown [id number] 2.16.840.1.558850.3.579.2. 1069 1986 Unknown [id number] 2.16.840.1.702218.3.579.2. 593 1986 Unknown [id number] 2.16.840.1.594608.3.579.2. 593 1986 Unknown [id number] 2.16.840.1.501459.3.579.2. 593 1986 Unknown [id number] 2.16.840.1.699631.3.579.2. 593 1986 Unknown [id number] 2.16.840.1.240830.3.579.2. 356 1986 Unknown [id number] 2.16.840.1.575466.3.579.2. 356 1986 Unknown [id number] 2.16.840.1.087185.3.579.2. 356 1986 Unknown [id number] 2.16.840.1.147604.3.579.2. 1259 1986 Unknown [id number] 2.16.840.1.585129.3.579.2. 1242 1986 Unknown [id number] 2.16.840.1.006135.3.579.2. 174 1986 Unknown [id number] 2.16.840.1.715512.3.579.2. 1243 1986 Unknown [id number] 2.16.840.1.633019.3.579.2. 1245 1986 Unknown [id number] 2.16.840.1.544533.3.579.2. 124 1986 Unknown [id number] 2.16840.1.324962.3.579.2. 1244 1986 Unknown [id number] 2.16.840.1.195551.3.579.2. 1244 1986 Unknown [id number] 2.16840.1.499422.3.579.2. 1244 1986 Unknown [id number] 2.840.1.722445.3.579.2. 1244 1986 Unknown [id number] 2.840.1.684257.3.579.2. 1244 1986 Unknown [id number] 2.840.1.914161.3.579.2. 1244 1986 Unknown [id number] 2..1.428221.3.579.2. 1244 1986 Unknown [id number] 2.0.1.698223.3.579.2. 1244 1986 Unknown [id number] 2.0.1.813317.3.579.2. 1244 1986 Unknown [id number] 2.840.1.676840.3.579.2. 1244 1986 Unknown [id number] 2.840.1.080465.3.579.2. 1244 1986 Unknown [id number] 2.840.1.721917.3.579.2. 1244 1986 Unknown [id number] 2.840.1.923467.3.579.2. 1244 1986 Unknown [id number] 2.840.1.487728.3.579.2. 1244 1986 Unknown [id number] 2.840.1.273195.3.579.2. 1244 1986 Unknown [id number] 2.16.840.1.445845.3.579.2. 1244 1986 Unknown [id number] 2.16.840.1.775412.3.579.2. 1244 1986 Unknown [id number] 2.16.840.1.314938.3.579.2. 1244 1986 Unknown [id number] 2.16.840.1.124146.3.579.2. 1244 1986 Unknown [id number] 2.16.840.1.142909.3.579.2. 1244 1986 Unknown [id number] 2.16.840.1.334535.3.579.2. 1244 1986 Unknown [id number] 2.16.840.1.873626.3.579.2. 1244 1986 Unknown [id number] 2.16.840.1.877564.3.579.2. 1244 1986 Unknown [id number] 2.16.840.1.355231.3.579.2. 1244 1959 Unknown [id number] 1.2.840.195302.1.13.239.2. 7.3.737388.315 Self-pay [id number] Unknown [id number] Social History Date Type Detail Facility Start: 01-19-2019 End: 10-22-2023 Tobacco smoking status [facility] [address] Work Phone: Start: 03-11-2010 End: 03-11-2016 History of tobacco use Current smoker [place], [place] Start: 03-11-2010 End: 03-11-2016 History of tobacco use Cigarette Smoker [place] Start: 01-19-2019 End: 10-21-2023 Cigarettes smoked current (pack per day) - Reported [place], [place] Comment on above: May plan to have chi ldren in future (~ 5 years); 4-5 drinks every oth er weekend.; 16 oz coffee per day ; no other caffeinated beverages.; 1 pack/3-4 days, pas t 7 years. Quit 03/22/2017.; Start: 01-19-2019 End: 10-22-2023 Alcohol intake Lifetime non-drinker (finding) [facility] Start: 07-04-2018 End: 11-06-2021 History SDOH Alcohol Frequency 1 [facility] Start: 1985 Sex Assigned At Not on file M rebeka [facility] [place] Start: 11-06-2021 End: 10-22-2023 Tobacco use and exposure Smokeless tobacco non-user [employer] Secretary Phone: Start: 11-06-2021 History SDOH Financial 5 [employer] Secretary Phone: Start: 12-17-2019 History SDOH Transpo rt Med 2 [employer] Secretary Phone: Tobacco smoking stat [facility] Tobacco smoking consumption unknown [facility] Start: 06-04-2023 End: 10-21-2023 Gender identity Not on file [facility] Work Phone: Start: 01-28-2023 End: 11-06-2023 Exposure to SARS-CoV-2 (event) Not sure [facility] History of tobacco use Passive smoker [facility] Work Phone: Start: 06-04-2023 End: 03-24-2024 Alcohol intake Current drinker of alcohol (finding) [facility] Work Phone: Start: 06-04-2023 Alcohol Comment once a month [facility] Work Phone: Start: 11-07-2022 Gender identity Identifies as female gender (finding) [facility] Start: 05-28-2023 Sexual orientation Heterosexual (fin ding) [facility] Work Phone: Start: 03-14-2024 End: 03-24-2024 Exposure to SARS-CoV-2 (event) Unable to assess [facility] Frequency of Alcohol Consumption Never REQQI (I/We) worried wheolinda er (my/our) food would run out before (I/we) got money to buy more. Never true [facility] [employer] At any time in the p ast 12 months, were you homeless or living in [place] [facility] [including now]? No [facility] Start: 1986 Sex assigned at Female [facility] Functional Status Date Assessment Result Facility NEGATED: Highlighted row Functional performance Functional status health issues are not documented Disease [facility] [address] Work Phone: Mental Status Date Assessment Result Facility NEGATED: Highlighted row Cognitive function [Interpretation] Cognitive status health issues are not documented [facility] [address] Work Phone: Clinical Notes 05-26-2020 to 03-24-2024 JANETTE White - 03/24/2024 9:45 AM JANETTE Carrillo - 11/07/2023 9:00 AM Lucy Garner RN - 11/04/2023 7:15 AM Maritza Wesley RN - 11/01/2023 6:45 AM EDT Note Date & Type Note Facility 03-24-2024 History of Present illness Narrative Virtual or Telephone Consent: An interactive audio and video telecommunication system which permits real time communications between the patient (at the originating site) and provider (at the distant site) was utilized to provide this telehealth service Mostly done over the phone due to poor internet connection with patient. Follow Up Visit HPI Patient is a 38 y.o. 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 Completed 2 IUI's with donor sperm. LMP 03/08/24 Testing to date: Result Date Done TSH: 1.33 (Ref range: 0.44 - 3.98 mIU/L) 06/04/2023 AMH: 1.594 (Ref range: 0.176 - 11.705 ng/mL) 06/04/2023 PRL: No results found for requested labs within last 365 days. No results found for requested labs within last 365 days. Testosterone: No results found for requested labs within last 365 days. No results found for requested labs within last 365 days. DHEAS: No results found for requested labs within last 365 days. No results found for requested labs within last 365 days. Other: Myriad negative Hysterosalpingogram: FL HYSTEROSALPINGOGRAM (08/06/2023): FINDINGS: Smooth uterine cavity with no demonstrated changes in endometrial contour or filling defects noted. The fallopian tubes fill with contrast and free peritoneal spill is noted bilaterally. Right tube has normal tubal architecture, left tube is overall normal however it does course behind the uterus. IMPRESSION: 1. Correlate with real time fluoroscopic findings at the time of procedure. 2. Overall normal study tubal findings as above. Based on these findings, my recommendation is: Follow up with ordering provider MACRO: None Saline Infused Sonography: NA RN OSTOMY Pelvic Ultrasound: US PELVIS TRANSVAGINAL (02/24/2024): Narrative & Impression Interpreted by: Chaz Pickett Indication ======== Fertility Testing Impression ========= Anteverted uterus with a trilaminar endometrial lining that measures as below. There is a trace amount of fluid in the endometrial cavity, and the uterus contains fibroids as seen below. The ovaries are normal in appearance bilaterally. Uterus ====== Uterus:Visualized Uterus position:anteverted Description of uterine malformations:arcuate uterus Myometrium:normal Endometrium:intracavitary fluid: anechogenic Cervix details:normal Uterus anaufu64.4 mm Uterus width43.9 mm Uterus nowepc27.7 mm Endometrial thickness, total6.1 mm Fibroids:Fibroids identified Uterine fibroid D18 mm Uterine fibroid D25 mm Uterine fibroid D37 mm Uterine fibroid mean6.7 mm Uterine fibroid vol0.147 cm Uterine fibroids findings:Subserous. Right lateral posterior wall Uterine fibroid D110 mm Uterine fibroid D27 mm Uterine fibroid D39 mm Uterine fibroid mean8.7 mm Uterine fibroid vol0.330 cm Uterine fibroids findings:Pedunculated. Fundal Right Ovary ========= Rt ovary:Visualized Rt ovary morphology:normal Rt ovary D117.2 mm Rt ovary D233.1 mm Rt ovary D319.1 mm Rt ovary Vol5.7 cm Rt ovarian follicle(s):Follicles identified Rt ovarian follicles other findings:Antral Follicles 10+ < 10mm Left Ovary ======== Lt ovary:Visualized Lt ovary morphology:normal Lt ovary D121.5 mm Lt ovary D232.9 mm Lt ovary D320.1 mm Lt ovary Vol7.4 cm Lt ovarian follicle(s):Follicles identified Lt ovarian follicle D110.9 mm Lt ovarian follicle D28.2 mm Lt ovarian follicle D39.5 mm Lt ovarian follicle mean9.5 mm Lt ovarian follicles other findings:Antral Follicles 10+ < 10mm [place] Partner SA: NA Treatment to date: Fertility Cycles Cycle Name Treatment Start Date Type Outcome Donor IUI #3 (2nd cycle cancelled - this is 1st with OI) 10/21/2023 TDI Active Donor IUI #2 09/19/2023 TDI Canceled DONOR IUI#1 08/23/2023 IUI No Past Medical History: Diagnosis Date Asthma Lyme disease Multiple sclerosis (Multi) Other specified health status No known health problems Past Surgical History: Procedure Laterality Date COLONOSCOPY MR HEAD ANGIO WO IV CONTRAST 03/12/2017 MR HEAD ANGIO WO IV CONTRAST 03/12/2017 BED ANCILLARY LEGACY OTHER SURGICAL HISTORY 05/06/2017 Oral Surgery UPPER GASTROINTESTINAL ENDOSCOPY Current Outpatient Medications on File Prior to Visit Medication Sig Dispense Refill cetirizine (ZyrTEC) 5 mg chewable tablet Chew 1 tablet (5 mg) once daily. famotidine (Pepcid) 10 mg tablet Take 1 tablet (10 mg) by mouth once daily at bedtime. montelukast (Singulair) 10 mg tablet Take 1 tablet (10 mg) by mouth once daily at bedtime. omeprazole (PriLOSEC) [address] capsule Take 1 capsule (20 mg) by mouth. Do not crush or chew. choriogonadotropin odalys (Ovidrel) 250 mcg/0.5 mL injection Inject 250 mcg (1 syringe) under the skin as a one time dose, as directed per provider for trigger. 1 each 0 choriogonadotropin odalys (Ovidrel) 250 mcg/0.5 mL injection Inject 250 mcg (1 syringe) under the skin as a one time dose, as directed per provider for trigger. 1 each 0 chorionic gonadotropin (Pregnyl) 10,000 unit injection Reconstitute according to instructions and inject 10,000 units (1 mL) under the skin as a one time dose, as directed per provider for trigger. 1 each 0 medroxyPROGESTERone (Provera) 10 mg tablet Take 1 tablet (10 mg) by mouth once daily. (Patient not taking: Reported on 03/24/2024) 10 tablet 0 progesterone (Prometrium) 100 mg capsule Insert 1 capsule (100 mg) into the vagina 2 times a day. Starting 3 days after IUI (Patient not taking: Reported on 03/24/2024) 60 capsule 0 Vumerity 231 mg capsule,delayed release(DR/EC) TAKE 2 CAPSULES BY MOUTH 2 TIMES A DAY. (Patient not taking: Reported on 03/24/2024) 120 capsule 5 No current facility-administered medications on file prior to visit. BMI: BMI Readings from Last 1 Encounters: 03/24/24 33.89 kg/m VITALS: Ht 1.676 m (5' 6 ) Wt 95.3 kg (210 lb) LMP 03/10/2024 BMI 33.89 kg/m LMP: Patient's last menstrual period was 03/10/2024. 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 COUNSELING Reviewed process for IVF in detail. Reviewed percentages. Reviewed differences between donor samples. Routine Testing Fertility Center STDs Within 1 year Genetic carrier Waiver/Completed T&S Within 1 year AMH Within 1 year TSH Within 1 year Rubella/Varicella Within 5 years BMI Testing Fertility Center CBC Within 1 year CMP Within 1 year HgbA1c Within 1 year Mag, Phos, Vit D <18 Within 1 year MFM > 40 REQ Wt loss consult > 40 OPT PLAN Orders Placed This Encounter Procedures Hysteroscopy diagnostic TSH with reflex to Free T4 if abnormal Type And Screen Hepatitis B surface antigen Hepatitis C Antibody HIV 1/2 Antigen/Antibody Screen with Reflex to Confirmation Syphilis Screen with Reflex C. trachomatis / N. gonorrhoeae, Amplified Antimullerian Hormone (Amh) Cytomegalovirus Antibody, Igg Cytomegalovirus Antibody, IgM POCT , urine manually resulted FOLLOW UP Consults: IVF consult with MD Engaged MD Take vitamins, vitamin D 2000 IUs daily Discussed that treatment cannot proceed until checklist items are complete. Additional testing for BMI < 18 or > 40: No. Advised patient to arrange this now with the front office attendant. Chart to primary nurse for care coordination and patient check list/education. MD Completion: Ectopic Risk: No Medically Complex: Yes MS Outstanding boarding pass items: IVF consult and hysteroscopy if doing IVF Fertility Plan Update: Ok to do 1 more IUI if she wishes. Will plan on letrozole 2.5mg/monitoring/trigger/donor IUI x 1. Planonluteal phase prometrium 100mg PV starting 3 days after the IUI. Will need to clear a donor. Intimate Exam Performed: No, an intimate exam was not performed at this encounter. Lashawn Drummond 03/24/2024 9:49 AM documented in this encounter [facility] Work Phone: 11-07-2023 History of Present illness Narrative Associated Order(s): Intrauterine Insemination (IUI) Pre-Procedure Diagnose(s): Encounter for artificial insemination Post-Procedure Diagnose(s): Encounter for artificial insemination Patient ID: Amy Bess is a 38 y.o. female. Intrauterine Insemination (IUI) Date/Time: 11/07/2023 9:18 AM Performed by: JANETTE Haywood Authorized by: Mariza Morales MD Consent: Consent obtained: Verbal and written Consent given by: Patient Procedure risks and benefits discussed: yes Patient questions answered: yes Patient agrees, verbalizes understanding, and wants to proceed: yes Educational handouts given: yes Instructions and paperwork completed: yes Procedure: Specimen source: donor Specimen condition: frozen Pelvic exam performed: yes Speculum placed in vagina: yes Tenaculum applied to cervix: no Type of insemination: intrauterine insemination Ultrasound guidance: No Speculum type: Jennifer Catheter type: curved Curvature: mild Difficulty: easy Estimated Blood Loss: None Specimen Return: none Post-procedure: Patient tolerated procedure well: yes Post-procedure plan: patient counseled on signs and symptoms for which to call and/or return to clinic Comments: Procedure comments: IUI Procedure note: The patient presented today for IUI. Consent signed by patient, IUI sample identified by patient, and Final Verification performed with patient via electronic system PACKING MACHINE FEEDER prior to insemination. All patient's questions were discussed and answered. Tool Machine Shop Supervisor offered to patient for intimate exam: Patient declined box finisher Name of box finisher: N/A Specimen Source: Donor Specimen Condition: Frozen TMS 8.53 million, motility 60% Additional notes: Patient was advised to call office if she develops fever, chills, pelvic pain, or heavy bleeding. Progesterone and post-IUI teaching completed. Will start Progesterone three days after IUI and continue twice daily. Pt will do a home test two weeks from IUI date. If home test positive, patient will continue Progesterone and call office to schedule BHCG. If home test negative, patient will discontinue Progesterone, and was advised to call office with start of menses; will proceed with another cycle if appropriate. Patient verbalized understanding of plan. Hilary Zendejas CNP 11/07/23 9:44 AM documented in this encounter [facility] Work Phone: 11-04-2023 History of Present illness Narrative RN CYCLING NOTE: Here for US and labs, CD # 15 of first Letrozole /TDI cycle. Reviewed US with pt; Pt has Ovidrel and Prometrium at home; Prometrium reviewed with pt. RN will call pt this afternoon with plan. Christen Garner 11/04/23 7:59 AM HUDDLE PROVIDER NOTE Ultrasound and/or labs reviewed at huddle. Results for orders placed or performed in visit on 11/04/23 (from the past 96 hour(s)) Luteinizing Hormone (LH) Result Value Ref Range Luteinizing Hormone 5.6 IU/L Progesterone Result Value Ref Range Progesterone 0.3 ng/mL Estradiol Result Value Ref Range Estradiol 65 pg/mL RTC in two days for Follicle scan and Estradiol, Progesterone, and LH. Loretta Peralta 11/04/2023 12:58 PM TC to pt - reviewed plan per Dr Morales to review follicle in 2 days - there is some question if follicle vs cyst. Pt is agreeable to return in 2 days as recommended for US and labs; transferred to front office attendant to schedule appt. No further questions. Christen Garner 11/04/23 2:26 PM documented in this encounter [facility] Work Phone: 11-04-2023 Note Follicle scan perfor med with follicle measurements in report., Trilaminar appearance to the endometrium is noted., and Transabdominal evaluation done in addition transvaginal due to position of left ovary and was consistent with transvaginal measurement. [facility] 11-01-2023 History of Present illness Narrative CYCLING NOTE Here for US and/or lab monitoring; relevant findings reviewed. 38 year old patient of Monae Drummond CNP with AMH 1.594 is here to monitor for D-IUI #3. Today is CD12. Patient took letrozole 2.5mg. (This is patient's first cycle taking letrozole) Patient stayed for nurse visit. Pain is 0/10 Team will contact patient later today with results and plan. VENUS WESLEY 11/01/2023 6:53 AM Placed call to patient -- left detailed voicemail relaying plan to return for monitoring on 11/03 and to call to schedule this appointment. Encouraged patient to call with any additional questions or concerns. VENUS WESLEY RN 11/01/2023 12:17 documented in this encounter [facility] Work Phone: 10-07-2023 Note Follicle scan perfor med with follicle measurements in report., Trilaminar appearance to the endometrium is noted., and Transvaginal evaluation done in addition to transabdominal due to bowel gas and the position of the left ovary. [facility] 09-30-2023 History of Present illness Narrative CYCLING NOTE Cycle #: donor IUI #2 Reason For Treatment: Male factor Protocol: Natural cycle, monitoring, trigger donor IUI Day of stim: 12 Patient Hx: 38 y/o AMH 1.594 Notes: Here for US and/or lab monitoring; relevant findings reviewed. Patient stayed for nurse visit. Pain is 0/10 Team will contact patient later today with results and plan. Zach Fregoso 09/30/2023 7:15 AM Called patient with plan. Patient to return to clinic on for a repeat scan and labs. Message sent to front office attendant to schedule at 8:15 on for an LH, E2, and p4 and follicle scan. Patient agreeable to plan. ZACH FREGOSO on 09/30/23 at 11:57 AM. documented in this encounter [facility] Work Phone: 09-08-2023 History of Present illness Narrative Associated Order(s): Intrauterine Insemination (IUI) Pre-Procedure Diagnose(s): Encounter for artificial insemination Post-Procedure Diagnose(s): Encounter for artificial insemination Patient ID: Amy Bess is a 38 y.o. female. Intrauterine Insemination (IUI) Date/Time: 09/08/2023 9:10 AM Performed by: Lana Dalton MD Authorized by: Lashawn Drummond APRN-CONSTRUCTION SUPERINTENDENT Consent: Consent obtained: Verbal and written Consent given by: Patient Procedure risks and benefits discussed: yes Patient questions answered: yes Patient agrees, verbalizes understanding, and wants to proceed: yes Educational handouts given: yes Instructions and paperwork completed: yes Procedure: Pelvic exam performed: yes Speculum placed in vagina: yes Tenaculum applied to cervix: no Type of insemination: intrauterine insemination Ultrasound guidance: No Speculum type: Jennifer Catheter type: curved Curvature: mild Difficulty: easy Estimated Blood Loss: None Specimen Return: none Post-procedure: Patient tolerated procedure well: yes Post-procedure plan: patient counseled on signs and symptoms for which to call and/or return to clinic Comments: Procedure comments: IUI Procedure note: The patient presented today for IUI. Consent signed by patient, IUI sample identified by patient, and Final Verification performed with patient via electronic system PACKING MACHINE FEEDER prior to insemination. All patient's questions were discussed and answered. Tool Machine Shop Supervisor offered to patient for intimate exam: Patient declined box finisher Name of box finisher: N/A Specimen Source: Donor Specimen Condition: Frozen TMS 4.87 Additional notes: Patient was advised to call office if she develops fever, chills, pelvic pain, or heavy bleeding. Progesterone and post-IUI teaching completed. Will start Progesterone three days after IUI and continue twice daily. Pt will do a home test two weeks from IUI date. If home test positive, patient will continue Progesterone and call office to schedule BHCG. If home test negative, patient will discontinue Progesterone, and was advised to call office with start of menses; will proceed with another cycle if appropriate. Patient verbalized understanding of plan. Lana Dalton 09/08/23 10:42 AM Attending Attestation: I was physically present for varghese and critical portions performed by the fellow. I reviewed the fellow's documentation and discussed the patient with the fellow. I agree with the fellow's medical decision making as documented in the fellow's note. Chaz Pickett MD [facility] documented in this encounter [facility] Work Phone: 09-05-2023 History of Present illness Narrative CYCLING NOTE Cycle #: 1 Reason For Treatment: Male Infertility - donor sperm Protocol: Natural cycle with monitoring/hcg trigger/IUI with donor sperm Day of stim: CD 14 Patient Hx: 38 year old, AMH = 1.59 Notes: Approved donor sperm number: [id number] from [facility] Here for US and/or lab monitoring; relevant findings reviewed. Patient stayed for nurse visit. Pain is 0/10. Patient has Ovidrel trigger at home. Team will contact patient later today with results and plan. Michela Rico 09/05/2023 9:06 AM Monitoring patient: patient is CD 14 today on Natural/Donor IUI cycle: dominant follicle on the left at 17 mm and all others measuring < 10 mm, E2- 97, LH- 13.4, P4- not done. Patient to trigger tomorrow with HCG 10,000 units subcutaneous and for IUI on 09-08-2023. Plan to be communicated by RN. Plan agreed upon by Dr. Morales. Hilary Zendejas CNP 09/05/23 1:28 PM documented in this encounter [facility] Work Phone: 09-03-2023 History of Present illness Narrative LMP 08/23/23 Cycle #: 1 Medication: Natural Ovulation: Trigger - Ovidrel Sperm Source: donor - Confirm # vials: Approved donor sperm number: [id number] from [facility] Additional Medications: n/a Boarding Pass signed off: yes on 08/27 with Lashawn for 3 cycles - if not , pt is to check in with neurologist and may have to go back on her medications. IUI order pended: yes Team will call pt today with results and plan. Christen Garner 09/03/23 8:55 AM [facility] PROVIDER NOTE Ultrasound and/or labs reviewed at [facility]. Results for orders placed or performed in visit on 09/03/23 (from the past 96 hour(s)) Luteinizing Hormone (LH) Result Value Ref Range Luteinizing Hormone 7.2 IU/L Progesterone Result Value Ref Range Progesterone 0.7 ng/mL Estradiol Result Value Ref Range Estradiol 53 pg/mL RTC in two days for Follicle scan and Estradiol and LH. Angela Elizabeth Tate 09/03/2023 12:15 PM TC to pt to let her know plan to return on 09/04 for repeat. E-mail to andrology lab to confirm donor sperm has been received. RN will send MC message to pt once hearing back. Transferred to front office attendant to schedule appt. Christen Garner 09/03/23 1:29 PM documented in this encounter [facility] Work Phone: 08-15-2023 History of Present illness Narrative Diagnosis if known: RRMS Date of onset: 2016 Date of diagnosis: disease course at onset: RR disease course now: RR Current DMT: Vumerity Previous DMTs: Tecfidera Last MRI brain: 12/2021- stable. Last MRI cervical: 05/2017 Last MRI thoracic: none Last OCT: CSF: JCV: VZV: HEP panel: NMO: MOG: Subjective Amy Bess is a 38 y.o. femalehere for a follow up of her MS, and to discuss her plan for getting this year. She is currently on Vumerity and tolerating well. Last MRI of the brain was 03/2023 and stable. MS. Bess has decided to do get artifical insemination and has started the process at an fertility clinic. Spoke with the TEACHER EDUCATION DIRECTOR at the fertility clinic and she will start choosing a donor soon, so we have decided to stop DMT now and give 3 months to get and will reassess if she is not in 3 months. She will call the office if she experiences any new or old MS symptoms that last for more than 24 hours. Will get new MRI in 6 months if she is not . ROS No bowel or bladder issues, stable gait, no recent infections, and no trouble swallowing. Objective Neurological Exam Mental Status Alert. Oriented to person, place, time and situation. Oriented to person, place, and time. Speech is normal. Language is fluent with no aphasia. Attention and concentration are normal. Cranial Nerves CN I: Sense of smell is normal. CN II: Tested with correction. Right visual acuity: Normal. Left visual acuity: Normal. Right normal visual field. Left normal visual field. Right funduscopic exam: disc intact. Left funduscopic exam: disc intact. CN III, IV, : Extraocular movements intact bilaterally. Normal lids and orbits bilaterally. Pupils equal round and reactive to light bilaterally. CN V: Facial sensation is normal. CN VII: Full and symmetric facial movement. CN VIII: Hearing is normal. CN IX, X: Palate elevates symmetrically CN XI: Shoulder shrug strength is normal. CN XII: Tongue midline without atrophy or fasciculations. Motor Normal muscle bulk throughout. Normal muscle tone. Strength is 5/5 throughout all four extremities. Sensory Light touch is normal in upper and lower extremities. Reflexes Right Left Brachioradialis 2+ 2+ Biceps 2+ 2+ Triceps 2+ 2+ Patellar 2+ 2+ Right palmar grasp present. Left palmar grasp present. Coordination Apmhry-jc-ikrm, rapid alternating movements and ifbo-nv-swpx normal bilaterally without dysmetria. 9 hole peg test: Right hand 22.5 sec and Left hand 26.6 sec.. Gait Normal casual, toe, heel and tandem gait. Timed get up and go test: 5 seconds. Physical Exam Constitutional: Appearance: Normal appearance. She is normal weight. HENT: Head: Normocephalic. Right Ear: Tympanic membrane normal. Left Ear: Tympanic membrane normal. Nose: Nose normal. Mouth/Throat: Mouth: Mucous membranes are moist. Eyes: General: Lids are normal. Extraocular Movements: Extraocular movements intact. Pupils: Pupils are equal, round, and reactive to light. Pulmonary: Effort: Pulmonary effort is normal. Musculoskeletal: General: Normal range of motion. Cervical back: Full passive range of motion without pain and normal range of motion. Skin: General: Skin is warm and dry. Neurological: Mental Status: She is alert and oriented to person, place, and time. Motor: Motor strength is normal. Coordination: Coordination is intact. Deep Tendon Reflexes: Reflex Scores: Tricep reflexes are 2+ on the right side and 2+ on the left side. Bicep reflexes are 2+ on the right side and 2+ on the left side. Brachioradialis reflexes are 2+ on the right side and 2+ on the left side. Patellar reflexes are 2+ on the right side and 2+ on the left side. Psychiatric: Attention and Perception: Attention normal. Mood and Affect: Mood normal. Speech: Speech normal. Behavior: Behavior is cooperative. Cognition and Memory: Cognition normal. Provider Impression Amy Bess is a 38 y.o. femalehere for a follow up of her MS, and to discuss her plan for getting this year. She is currently on Vumerity and tolerating well. Last MRI of the brain was 03/2023 and stable. Her neurological exam is stable. We discussed the importance of living healthy life style with diet and exercise and the importance of V-D in patient's with MS. The total face to face appointment was 45 minutes and more than 50% of the visit was spent counseling and coordination of care. I personally reviewed laboratory, radiographic, and medical studies which were pertinent for today's visit. Plan - Stop Vumeity today. - Labs today. - MRI 2024. - Call the office in 3 months with outcome. - Follow up 6 mo. documented in this encounter [facility] Work Phone: 08-13-2023 History of Present illness Narrative Virtual or Telephone Consent: An interactive audio and video telecommunication system which permits real time communications between the patient (at the originating site) and provider (at the distant site) was utilized to provide this telehealth service Follow Up Visit HPI Patient is a 38 y.o. female with plans to do donor IUI presenting today for follow up visit. Currently cycles q 28 days. Testing to date: Result Date Done TSH: 1.33 (Ref range: 0.44 - 3.98 mIU/L) 06/04/2023 AMH: 1.594 (Ref range: 0.176 - 11.705 ng/mL) 06/04/2023 PRL: No results found for requested labs within last 365 days. No results found for requested labs within last 365 days. Testosterone: No results found for requested labs within last 365 days. No results found for requested labs within last 365 days. DHEAS: No results found for requested labs within last 365 days. No results found for requested labs within last 365 days. Other: n/a Component Latest Ref Rng 06/04/2023 ABO TYPE A Rh Type POS ANTIBODY SCREEN NEG Rubella, IgG Negative Positive Rubella, IgG Index <=0.7 IA IA 2.6 Varicella Zoster, IgG Negative Positive ! Varicella Zoster, IgG Index <=0.8 IA 1.9 (H) CMV IgM <=29.9 AU/mL <8.0 Cytomegalovirus IgG Nonreactive Nonreactive Anti-Mullerian Hormone 0.176 - 11.705 ng/mL 1.594 Thyroid Stimulating Hormone 0.44 - 3.98 mIU/L 1.33 Hepatitis B Surface AG Nonreactive Nonreactive Hepatitis C AB Nonreactive Nonreactive HIV 1/2 Antigen/Antibody Screen with Reflex to Confirmation Nonreactive Nonreactive Syphilis Total Ab Nonreactive Nonreactive Legend: ! Abnormal (H) High Genetic carrier testing reviewed [ ] Genetic carrier testing reviewed and POSITIVE result noted, indicating that the patient a carrier of one or more genetic conditions. [ X ] Genetic carrier testing reviewed and NEGATIVE result noted. Additional actions: [ ] Ok to proceed with next steps, no additional genetic testing or counseling recommended [ ] Awaiting partner testing [ ] Partner testing reviewed and no concordance. Ok to proceed with planned treatments. [ X ] Other: need to compare with donor chosen. Hysterosalpingogram: FL HYSTEROSALPINGOGRAM (08/06/2023): FINDINGS: Smooth uterine cavity with no demonstrated changes in endometrial contour or filling defects noted. The fallopian tubes fill with contrast and free peritoneal spill is noted bilaterally. Right tube has normal tubal architecture, left tube is overall normal however it does course behind the uterus. Saline Infused Sonography: n/a RN OSTOMY Pelvic Ultrasound: US PELVIS TRANSVAGINAL (07/10/2023): Anteverted uterus with a trilaminar endometrial lining that measures as below. The ovaries are normal in appearance bilaterally. Uterus Partner SA: NA Treatment to date: Fertility Cycles Cycle Name Treatment Start Date Type Outcome DONOR IUI#1 IUI Active Past Medical History: Diagnosis Date Asthma (HHS-HCC) Lyme disease Multiple sclerosis (Multi) Other specified health status No known health problems Past Surgical History: Procedure Laterality Date COLONOSCOPY MR HEAD ANGIO WO IV CONTRAST 03/12/2017 MR HEAD ANGIO WO IV CONTRAST 03/12/2017 BED ANCILLARY LEGACY OTHER SURGICAL HISTORY 05/06/2017 Oral Surgery UPPER GASTROINTESTINAL ENDOSCOPY Current Outpatient Medications on File Prior to Visit Medication Sig Dispense Refill cetirizine (ZyrTEC) 5 mg chewable tablet Chew 1 tablet (5 mg) once daily. famotidine (Pepcid) 10 mg tablet Take 1 tablet (10 mg) by mouth once daily at bedtime. montelukast (Singulair) 10 mg tablet Take 1 tablet (10 mg) by mouth once daily at bedtime. omeprazole (PriLOSEC) [address] capsule Take 1 capsule (20 mg) by mouth. Do not crush or chew. Vumerity 231 mg capsule,delayed release(DR/EC) TAKE 2 CAPSULES BY MOUTH 2 TIMES A DAY. 120 capsule 5 No current facility-administered medications on file prior to visit. BMI: BMI Readings from Last 1 Encounters: 06/04/23 34.70 kg/m VITALS: There were no vitals taken for this visit. LMP: No LMP recorded. ASSESSMENT 38 y.o. female with plans to do donor IUI and the following pertinent medical issues: MS . COUNSELING Reviewed all results in detail. Aware not to order sperm samples until cleared and we have reviewed genetics and CMV status. MONITORED CYCLE You will take your oral fertility medications as prescribed cycle days 3-7. When you start the medications, you can also call the office to get set up for a follicle scan. Follicle scans are usually done between cycle days 10-12. It is a vaginal ultrasound. We typically do not perform follicle scans on the weekends, so the schedulers will help you find an appropriate appointment time. The follicle scans are done in the morning and will give us information on how your eggs are growing and how thick the lining of the uterus is. Once the follicles (eggs) are big enough (ripe or mature) we will trigger their release with a one time subcutaneous injection- the nurses will order this for you and show you how to do it when you are here for the follicle scan. We cannot trigger small eggs, only ones that have grown to mature size. The IUI is usually done about 36 hours after the trigger. The nurse will also help you schedule that. DONOR SPERM FACILITIES* For your convenience, below is a list of commonly used donor sperm facilities by patients at [facility]. The facilities listed below adhere to CLIA guidelines and are FDA approved for billing and quality technician. [facility] ([facility]) [facility]) [facility] If the facility you wish to use is not listed, you may request a review by the cleaner laboratory equipment and third green party adult basic education manager. Approval is not guaranteed and is granted on a [id number] basis. The donor of your choice will be reviewed by our third green party team. Upon approval, please confirm with your clinical team before shipping. Samples and/or donors that have not been approved may not be accepted. * Please note that [facility] has no affiliation or agency relationship with any of the donor facilities listed above, and it disclaims any and all responsibility for tissue or other property transferred from such storage facilities. Routine Testing [facility] STDs Within 1 year Genetic carrier Waiver/Completed T&S Within 1 year AMH Within 1 year TSH Within 1 year Rubella/Varicella Within 5 years BMI Testing [facility] CBC Within 1 year CMP Within 1 year HgbA1c Within 1 year Mag, Phos, Vit D <18 Within 1 year MFM > 40 REQ Wt loss consult > 40 OPT PLAN No orders of the defined types were placed in this encounter. Natural cycle/monitoring/trigger/donor IUI x 3 FOLLOW UP Consults: NA. Will reach out to neurologist for clearance Engaged MD Take vitamins, vitamin D 2000 IUs daily Discussed that treatment cannot proceed until checklist items are complete. Additional testing for BMI < 18 or > 40: NA. Chart to primary nurse for care coordination and patient check list/education. MD Completion: Ectopic Risk: No Medically Complex: Yes MS Outstanding boarding pass items: clearing of donor sample, clearance from neurology Fertility Plan Update: Natural cycle/monitoring/trigger/donor IUI x 3 Lashawn Drummond 08/13/2023 9:49 AM documented in this encounter [facility] Work Phone: 08-06-2023 Note 1. Correlate with re al time fluoroscopic findings at the time of procedure. 2. Overall normal study tubal findings as above. Based on these findings, my recommendation is: Follow up with ordering provider MACRO: None Signed by: Melanie Rich 08/06/2023 9:43 AM Dictation workstation: [id number] [facility] History of Present illness Narrative Associated Order(s): HSG Patient ID: Amy Bess is a 38 y.o. female. HSG Date/Time: 08/06/2023 7:17 AM Performed by: JANETTE Haywood Authorized by: JANETTE Haywood Consent: Consent obtained: Verbal and written Consent given by: Patient Risks, benefits, and alternatives were discussed: yes Risks discussed: Bleeding, infection and pain [place] protocol: Procedure explained and questions answered to patient or proxy's satisfaction: yes Relevant documents present and verified: yes Test results available: yes Imaging studies available: yes Required blood products, implants, devices, and special equipment available: yes Immediately prior to procedure, a time out was called: yes Patient identity confirmed: Verbally with patient, arm band and hospital-assigned identification number Indications: Indications: Fertility testing Pre-procedure details: Skin preparation: Povidone-iodine Sedation: Sedation type: None Anesthesia: Anesthesia method: None Procedure specific details: Leader Assembler: Oliver Zendejas CNP performed this procedure Hysterosalpingogram (HSG) risks, benefits, alternatives, and personnel discussed with patient who agreed to proceed. Procedural time out Done in room where procedure done: Yes Done just before starting procedure: Yes All members of procedural team involved in time-out: Yes Active communication used: Yes All team members agreed on procedure: Yes Patient correctly identified by two identifiers: Yes Correct side and site identified: Yes All needed special equipment/instruments available: Yes Prior to the start of the procedure a time out was taken and the following were verified: The identity of the patient using two patient identifiers. Urine test was performed and was negative. Risks, benefits, and alternatives of the procedure were explained to the patient. Informed consent was obtained. The patient was placed in the dorsal lithotomy position and a sterile speculum was placed in the vagina. The cervix was sterilized with Betadine x 3. The anterior lip of the cervix was grasped with a single-tooth tenaculum. The acorn cannula was then placed in the cervix. The patient was positioned and images were taken with fluoroscopy as dye was inserted through the cannula. All instruments were then removed. The patient tolerated the procedure well and was discharged home the same day without complications. PRELIMINARY NURSE PRACTITIONER ASSESSMENT - FOR A FINAL REPORT, PLEASE REFER TO THE FINALIZED DOCUMENTATION IN THE IMAGING TAB Uterus: normal contour without filling defects Tubes: bilateral patency with free spill of dye, normal tubal architecture noted, and no loculations present. Based on these findings, my recommendation is: No further follow up required. DR. Rich to review HSG images and if any additional testing is needed I will reach back to the patient. The patient was counseled regarding the above preliminary findings and understands these will be reviewed by the reading physician. Hilary Zendejas CNP 08/06/23 7:17 AM Post-procedure details: Procedure completion: Tolerated well, no immediate complications documented in this encounter [facility] Work Phone: 07-25-2023 History of Present illness Narrative Psychological Consultation for Third Green Party Reproduction Start Time 4 pm End Time 4:30 pm Documentation 10 min No falls, tobacco use, suicidal ideation/history On July 25, 2023, I met virtually with Amy Bess who is requesting IUI using unidentified donor sperm. 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 She lives with her mother. She moved back home with her mother 5 years ago out of convenience. Her father 10 years ago. She also has an older sister who is with 2 children and lives 10 minutes away. Her family is aware of her plan for IUI and single parenting and will be helpful and supportive. Amy has not yet selected a donor and had not even looked at sperm dennis. I shared my screen and showed her some examples of donor searches and websites. She is CMV negative and would like a donor that is phenotypically similar and, if possible, college educated. Her genetic screen was negative. We discussed the lack of anonymity now given the ubiquity of commercial DNA companies and the benefit of an identifiable donor. We also discussed how and at what age to start talking to offspring about sperm donation. Amy reports no psychiatric history, substance abuse or history of physical or sexual abuse. Impression It is my clinical opinion that Luis A Bess is able to give informed consent and has carefully considered the psychosocial issues inherent in this third green party reproductive option. documented in this encounter [facility] Work Phone: 06-04-2023 History of Present illness Narrative Visit Type: In Person NEW FERTILITY PATIENT VISIT Referred by: Referred by:: Dr Mario FOSTER Accompanied today by: Who is accompanying you to your visit:: No one Amy Bess is a 38 y.o. female who presents with Please tell us your reason for this visit today: Other Wanting to conceive with donor sperm from a sperm bank- annonymous PRIOR EVALUATION / TREATMENT N/A Prior Labs Lab Results Date Done AMH: No results found for requested labs within last 1825 days. No results found for requested labs within last 1825 days. TSH: No results found for requested labs within last 1825 days. No results found for requested labs within last 1825 days. PRL: No results found for requested labs within last 1825 days. No results found for requested labs within last 1825 days. Testosterone: No results found for requested labs within last 1825 days. No results found for requested labs within last 1825 days. DHEAS: No results found for requested labs within last 1825 days. No results found for requested labs within last 1825 days. FSH: No results found for requested labs within last 1825 days. No results found for requested labs within last 1825 days. 17 OHP: No results found for requested labs within last 1825 days. No results found for requested labs within last 1825 days. HgbA1c: 4.7 (Ref range: 4.0 - 6.0 %) 11/06/2021 Hepatitis B surface antigen: No results found for requested labs within last 1825 days. No results found for requested labs within last 1825 days. Hepatitis C antibody: No results found for requested labs within last 1825 days. No results found for requested labs within last 1825 days. HIV Antigen Antibody screen with reflex: No results found for requested labs within last 1825 days. No results found for requested labs within last 1825 days. Syphilis screening with reflex: No results found for requested labs within last 1825 days. No results found for requested labs within last 1825 days. GC: No results found for requested labs within last 1825 days. No results found for requested labs within last [address]: No results found for requested labs within last 1825 days. No results found for requested labs within last 1825 days. Type and Screen: No results found for requested labs within last 1825 days. No results found for requested labs within last 1825 days. Rh: No results found for requested labs within last 1825 days. No results found for requested labs within last 1825 days. Antibody: No results found for requested labs within last 1825 days. No results found for requested labs within last 1825 days. Rubella: No results found for requested labs within last 1825 days. No results found for requested labs within last 1825 days. Varicella: No results found for requested labs within last 1825 days. No results found for requested labs within last 1825 days. Hemoglobin: No results found for requested labs within last 1825 days. No results found for requested labs within last 1825 days. Hematocrit: No results found for requested labs within last 1825 days. No results found for requested labs within last 1825 days. Creatinine: No results found for requested labs within last 1825 days. No results found for requested labs within last 1825 days. AST:17 (Ref range: 9 - 39 U/L) 03/25/2023 ALT:19 (Ref range: 7 - 45 U/L): 03/25/2023 Relationship Status: Single OB Hx OB History 0 Para 0 Term 0 0 AB 0 Living 0 SAB 0 IAB 0 Ectopic 0 Multiple 0 Live Births 0 RN OSTOMY HISTORY Have you ever been diagnosed with a sexually transmitted disease? Have you ever been diagnosed with a sexually transmitted disease?: No Please select all that are applicable: Have you ever had Pelvic Inflammatory Disease? Have you ever had Pelvic Inflammatory Disease?: No Have you had an abnormal PAP smear? Have you had an abnormal PAP smear?: Yes Date & Result of last PAP smear: 03/2023-normal through OBGYN at [place] Have you ever had an abnormal Mammogram? Have you ever had an abnormal mammogram?: Yes Date & result of your last mammogram: Date of last mammogram:: 2021 Non cancerous lesion- has had 2 biopsy. Plan for mammograms at age 41. Do you have pelvic pain? Do you have pelvic pain?: No How many times per week do you have intercourse? If applicable, how many times a week are you having intercourse, trying to get during your fertile window?: 0 Do you have pain with intercourse? Do you have pain with intercourse?: No Do you use lubricants with intercourse? If applicable, what type of lubricant are you using?: None Do you have pain with bowel movements? Do you have pain with bowel movements?: No Do you have pain with a full bladder? Do you have pain with a full bladder?: No MENSTRUAL HISTORY LMP: When was your last menstrual period?: Other Menarche: If applicable, when was your first occurrence of menstruation?: When i was 12 years old Contraception: What (if any) type of control do you currently use?: Just stopped Seasonique, off now Cycle length: just stopped OCP. Just had first period last week. Describe your bleeding: Describe your bleeding:: Average Dysmenorrhea: Are your menstrual periods painful?: No ENDOCRINE/INFERTILITY HISTORY Duration of infertility: If applicable, what is the approximate date you began trying to get ?: Not applicable Coital Activity/week: If applicable, how many times a week are you having intercourse, trying to get during your fertile window?: 0 Nipple Discharge: Do you experience any loss of milk or liquid discharge from the breasts?: No Vision changes: Are you experiencing any vision changes?: No Headaches: Are you experiencing headaches?: No Excess hair growth: Are you experiencing persistent or worsening hair growth on the face, breasts or lower abdomen?: No Excessive hair loss: Are you experiencing loss of hair from your scalp?: No Acne: Are you experiencing acne?: No Oily skin: Oily skin?: No Recent weight change Weight gain: Are you experiencing any increase in weight?: No Weight loss: Are you experiencing any decrease in weight?: No Exercise more than 3 times a week: Exercise more than 3 times a week?: No PMH Past Medical History: Diagnosis Date Other specified health status No known health problems Multiple sclerosis Asthma Hx of lymedisease MEDICATIONS Current Outpatient Medications on File Prior to Visit Medication Sig Dispense Refill cetirizine (ZyrTEC) 5 mg chewable tablet Chew 1 tablet (5 mg) once daily. famotidine (Pepcid) 10 mg tablet Take 1 tablet (10 mg) by mouth once daily at bedtime. montelukast (Singulair) 10 mg tablet Take 1 tablet (10 mg) by mouth once daily at bedtime. omeprazole (PriLOSEC) [address] capsule Take 1 capsule (20 mg) by mouth. Do not crush or chew. Vumerity 231 mg capsule,delayed release(DR/EC) TAKE 2 CAPSULES BY MOUTH 2 TIMES A DAY. 120 capsule 5 No current facility-administered medications on file prior to visit. PSH Past Surgical History: Procedure Laterality Date COLONOSCOPY MR HEAD ANGIO WO IV CONTRAST 03/12/2017 MR HEAD ANGIO WO IV CONTRAST 03/12/2017 BED ANCILLARY LEGACY OTHER SURGICAL HISTORY 05/06/2017 Oral Surgery UPPER GASTROINTESTINAL ENDOSCOPY PSYCH HISTORY Have you ever been diagnosed with a mental health Issue?: No Have you ever been hospitalized for a mental health disorder?: No SOCIAL HISTORY Social History Tobacco Use Smoking status: Former Types: Cigarettes Passive exposure: Past Smokeless tobacco: Never Substance Use Topics Alcohol use: Yes Comment: once a month Drug use: Yes Types: Marijuana Medical marijuana prn- has not used in a fewmonths Occupation: Your occupation:: adjuster Have you ever been incarcerated? Have you ever been incarcerated?: No Do you have a history of domestic violence? Do you have a history of domestic violence?: No Do you feel safe at home? Do you feel safe at home?: Yes Do you have a history of any negative sexual experience such as incest or rape? Do you have a history of any negative sexual experience such as incest or rape?: No PARTNER HISTORY Partner Name: Partner name:: None currently : Occupation: Prior fertility history: PMH: PSH: Smoking: Alcohol Use: Drug Use: Medications: Injuries: STD: Have you ever been diagnosed with a sexually transmitted disease?: No Please select all that are applicable: SA: SA Results: FAMILY HISTORY Family History Problem Relation Name Age of Onset Kidney cancer Mother Pancreatic cancer Father Colon cancer Maternal Grandmother Colon cancer Paternal Grandmother Other (non hodgkins) Paternal Grandfather CANCER HISTORY Breast: Breast Cancer: Please answer Yes, No or Unsure. If Yes, please, identify which family member.: Yes. Maternal grandmother Ovarian: Ovarian Cancer: Please answer Yes, No or Unsure. If Yes, please, identify which family member.: No Colon: Colon Cancer: Please answer Yes, No or Unsure. If Yes, please, identify which family member.: Yes maternal and paternal grandmathers Endometrial: Endometrial Cancer: Please answer Yes, No or Unsure. If Yes, please, identify which family member.: No FAMILY VTE HISTORY Family History of Blood Clots: Blood Clots: Please answer Yes, No or Unsure. If Yes, please, identify which family member.: No GENETIC HISTORY Ethnic Background Patient: Partner: Genetic Disease in Family Patient: Patient: Defects and genetic syndromes? Please answer Yes, No or Unsure: No Sisters daughter did have cancer- sarcoma Partner: Defects in Family Patient: Patient: defects? 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 Planning to use an anonymous sperm donor. Partner SA: NA COUNSELING We discussed causes of infertility including hormonal, egg quality issues, structural problems such as endometriosis, adhesions, or tubal problems, uterine factors such as polyps or fibroids, and sperm issues. Reviewed evaluation of such as well. We discussed various methods for achieving in some detail including, ovulation induction, insemination, superovulation and IVF. INSTRUCTIONS FOR INFERTILITY TESTING Hysterosalpingogram (HSG or x-ray dye test) An HSG is a test used to make sure your fallopian tubes are not blocked. This test can only be done between cycle days 5-11, so it is important for you to call as soon as your period starts to schedule an appointment. You should take ibuprofen 30 minutes before your appointment as this test can cause transient cramping. If you are allergic to iodine or shellfish, please inform the construction scheduler. Please call [phone] to schedule this appointment. PELVIC ULTRASOUNDS Please call [phone] to schedule this appointment. Continue to take a vitamin daily (800mcg or 0.8mg folic acid) Please reach out to the office for a plan once all the testing is complete- I am not notified when everything on this list is complete, so please call the office directly to check in. The office number is [phone]. If you are interested in integrative medicine to support your care, please contact [facility] at [phone]. Services available include acupuncture, integrative medicine consultations, massage, meditation and stress management. For acupuncture specifically, please ask for Rayne Lugo (east side) or Maribeth East (west side). We also offer a virtual support group every Saturday from 6pm-7pm. For more info please email: For more information and to RSVP, email [email or web address] If you have any questions and wish to review with a member of our team, please do CALL THE OFFICE during business hours. The office number is [phone]. We discussed the options for donor sperm, including using a directed vs. unidentified donor; we discussed the pros and cons of each option. We discussed that for unidentified donors that offspring may be able to identify the donor and/or other offspring from the same donor in the future. We discussed the costs and logistics of obtaining the sperm and the use of a sperm bank. We discussed options for conceiving including natural cycle IUI, medicated IUI, and IVF. We discussed natural fecundity and the need for fertility testing. We discussed the Fertility Center policy to obtain donor clearance prior to ordering and shipping sperm. Donor sperm must be on site prior to treatment cycle start. Reviewed statistics of using donor sperm for IUI and IVF. Reviewed basics of cost and recommendation for ultrasound monitoring and trigger. Routine Testing Fertility Center STDs Within 1 year Genetic carrier Waiver/Completed T&S Within 1 year AMH Within 1 year TSH Within 1 year Rubella/Varicella Within 5 years BMI Testing [facility] CBC Within 1 year CMP Within 1 year HgbA1c Within 1 year Mag, Phos, Vit D <18 Within 1 year MFM > 40 REQ Wt loss consult > 40 OPT PLAN Orders Placed This Encounter Procedures Hysterosalpingogram (HSG) US pelvis transvaginal [place] hysterosalpingogram Cytomegalovirus Antibody, IgM Cytomegalovirus Antibody, Igg Antimullerian Hormone (Amh) TSH with reflex to Free T4 if abnormal Type And Screen Rubella Antibody, Igg Varicella Zoster Antibody, Igg Hepatitis B surface antigen Hepatitis C Antibody HIV 1/2 Antigen/Antibody Screen with Reflex to Confirmation Syphilis Screen with Reflex C. Trachomatis / N. Gonorrhoeae, Amplified Detection Myriad Foresight Carrier Screen POCT , urine manually resulted GENETIC SCREENING PATIENT Reiewed and will decide - ordered today PARTNER NA NA FOLLOW UP Consults: Psych consult: indication donor sperm -[phone] Chart to primary nurse for care coordination and patient check list/education Enroll in Engaged MD Take vitamins, vitamin D 2000 IUs daily Discussed that PAP and mammogram must be updated if appropriate based on age and clinical history and results received before treatment can begin- send results Discussed that treatment cannot proceed until checklist items are complete 6 week follow up with ILIANA Additional testing for BMI < 18 or > 40: No Letter from neurologist on plan for meds during . Will confirm with MD about seeing MFM due to MS. MD Completion: Ectopic Risk: No Medically Complex: Yes- MS Fertility Plan Update: natural cycle/monitoring/trigger/donor IUI/prometrium 100mg PV BID starting 3 days after IUI. Lashawn Drummond 06/04/2023 2:08 PM documented in this encounter [facility] Work Phone: 02-07-2023 History of Present illness Narrative Patient name: Diagnosis if known: RRMS Date of onset: 2016 Date of diagnosis: disease course at onset: RR disease course now: RR Current DMT: Vumerity Previous DMTs: Tecfidera Last MRI brain: 12/2021- stable. Last MRI cervical: 05/2017 Last MRI thoracic: none Last OCT: CSF: JCV: VZV: HEP panel: NMO: MOG: Subjective Amy Bess is a 37 y.o. female here for a follow up of her MS, she takes Vumeity and tolerating well. She reports no new MS symptoms. Last MRI of the brain was 12/2021 and was stable. Objective Neurological Exam Mental Status Awake, alert and oriented to person, place and time. Oriented to person, place, time and situation. Recent and remote memory are intact. Speech is normal. Language is fluent with no aphasia. Attention and concentration are normal. Cranial Nerves CN II: Tested with correction. Visual acuity is normal. CN III, IV, : Extraocular movements intact bilaterally. Normal lids and orbits bilaterally. CN V: Facial sensation is normal. CN VII: Full and symmetric facial movement. CN VIII: Hearing is normal. CN IX, X: Palate elevates symmetrically CN XI: Shoulder shrug strength is normal. CN XII: Tongue midline without atrophy or fasciculations. Motor Normal muscle bulk throughout. Normal muscle tone. Strength is 5/5 throughout all four extremities. Sensory Light touch is normal in upper and lower extremities. Reflexes Right Left Brachioradialis 2+ 2+ Biceps 2+ 2+ Triceps 2+ 2+ Patellar 2+ 2+ Right palmar grasp absent. Left palmar grasp absent. Coordination [id number], rapid alternating movements and [id number] normal bilaterally without dysmetria. 9 hole peg test: Right hand 20.2 sec. Left hand 18.7 sec.. Gait Normal casual, toe, heel and tandem gait. Timed get up and go test: 6 seconds. Physical Exam Eyes: General: Lids are normal. Extraocular Movements: Extraocular movements intact. Neurological: Motor: Motor strength is normal. Coordination: Coordination is intact. Deep Tendon Reflexes: Reflex Scores: Tricep reflexes are 2+ on the right side and 2+ on the left side. Bicep reflexes are 2+ on the right side and 2+ on the left side. Brachioradialis reflexes are 2+ on the right side and 2+ on the left side. Patellar reflexes are 2+ on the right side and 2+ on the left side. Psychiatric: Speech: Speech normal. Provider Impression Amy Bess is a 37 y.o. female here for a follow up of her MS, she takes Vumeity and tolerating well. She reports no new MS symptoms. Last MRI of the brain was 12/2021 and was stable. Her neurological exam is stable and overall her MS is stable. We discussed the importance of living healthy life style with diet and exercise and the importance of V-D in patient's with MS. The total face to face appointment was 35 minutes and more than 50% of the visit was spent counseling and coordination of care. I personally reviewed laboratory, radiographic, and medical studies which were pertinent for today's visit. Plan -Continue Vumeity. - Labs today. - MRI now. - Follow up 6 mo. documented in this encounter [facility] Work Phone: 05-26-2021 History of Present illness Narrative [facility] F/U EVALUATIONPRINCIPAL NEUROLOGIC DIAGNOSIS: RRMSDISEASE SUMMARY/DIAGNOSTICS:Onset: ? summer 2016Diagnosis of MS: 05/26Diseas course at onset: RRCurrent disease course: RRPrevious disease therapies: noneCurrent disease therapies: TecfideraMost recent MRI brain: 11/24/20 stableMost recent MRI cervical spine: 05/26Most recent MRI thoracic spine: noneCSF: noneNMO, HIV, HTLV, ARABELLA negLyme positiveHPI:35 yo LH female here for a follow up of her MS, she started Vumerity 2020, and tolerating well. Last MRI of the brain 11/24/20 and was stable. She reports no new MS symptoms. [facility] [address] Work Phone: 05-26-2021 History of Present illness Narrative [facility] F/U EVALUATIONPRINCIPAL NEUROLOGIC DIAGNOSIS: RRMSDISEASE SUMMARY/DIAGNOSTICS:Onset: ? summer 2016Diagnosis of MS: 05/26Disease course at onset: RRCurrent disease course: RRPrevious disease therapies: noneCurrent disease therapies: TecfideraMost recent MRI brain: 11/24/20 stableMost recent MRI cervical spine: 05/26Most recent MRI thoracic spine: noneCSF: noneNMO, HIV, HTLV, ARABELLA negLyme positiveHPI:36 yo LH female here for a follow up of her MS, she started Vumerity 2020, and tolerating well. Last MRI of the brain 11/24/20 and was stable. She reports no new MS symptoms. [facility] [address] Work Phone: 05-26-2020 History of Present illness [facility] F/U EVALUATIONPRINCIPAL NEUROLOGIC DIAGNOSIS: RRMSDISEASE SUMMARY/DIAGNOSTICS:Onset: ? summer 2016Diagnosis of MS: 05/26Disease course at onset: RRCurrent disease course: RRPrevious disease therapies: noneCurrent disease therapies: TecfideraMost recent MRI brain: 06/04/18 stableMost recent MRI cervical spine: 05/26Most recent MRI thoracic spine: noneCSF: noneNMO, HIV, HTLV, ARABELLA negLyme posHPI:34 yo LH female agreed to a virtual visit for a follow up of her MS, she stopped taking her Tecfidera d/t severe nausea and stomach pains. She save GI and they did a endoscopy, colonoscopy, and US and found no reason for the stomach pain. Patient reports having the stomach pain after taking the medication for over a year and tried to deal with it but last month she just could not do it anymore.and tolerating well. Last MRI of the brain 06/04/18 and was stable. She reports no new MS symptoms. We discussed a few options for a new DMT's, she would like to stay with an oral medication. Since she had stable MRI's with Tecfidera she could possibly try Vumerity which is a similar drug but less GI side effects. [facility] [address] Work Phone: 05-26-2020 History of Present illness Narrative [facility] F/U EVALUATIONPRINCIPAL NEUROLOGIC DIAGNOSIS: RRMSDISEASE SUMMARY/DIAGNOSTICS:Onset: ? summer 2016Diagnosis of MS: 05/26Disease course at onset: RRCurrent disease course: RRPrevious disease therapies: noneCurrent disease therapies: TecfideraMost recent MRI brain: 06/04/18 stableMost recent MRI cervical spine: 05/26Most recent MRI thoracic spine: noneCSF: noneNMO, HIV, HTLV, ARABELLA negLyme posHPI:34 yo LH female agreed to a virtual visit for a follow up of her MS, she started Vumerity 2020. and tolerating well. Last MRI of the brain 06/04/18 and was stable. She reports no new MS symptoms. MRI due now for monitoring for new DMT Vumerity. [facility] [address] Work Phone: Evaluation note Diagnosis Annual physical exam Routine general medical examination at a health care facility Vitamin D deficiency Unspecified vitamin D deficiency Gastroesophageal reflux disease without esophagitis Esophageal reflux documented in this encounter [facility] Work Phone: evaluation note* Diagnosis Multiple sclerosis (CMS/HCC)- Primary Multiple sclerosis documented in this encounter [facility] Work Phone: Evaluation note* Diagnosis Multiple sclerosis (CMS/HCC) Multiple sclerosis documented in this encounter [facility] Work Phone: Evaluation note* Diagnosis Encounter for screening for other viral diseases- Primary Screening for thyroid disorder Fertility testing Encounter for Rh blood typing Encounter for blood typing Screening for STDs (sexually transmitted diseases) Screening examination for venereal disease Encounter for preprocedural laboratory examination Screening for genetic disease carrier status documented in this encounter [facility] Work Phone: Evaluation note* Diagnosis Infertility counseling- Primary documented in this encounter [facility] Work Phone: Evaluation note* Diagnosis Fertility testing- Primary Encounter for preprocedural laboratory examination documented in this encounter [facility] Work Phone: Evaluation note* Diagnosis Fertility testing documented in this encounter [facility] Work Phone: Evaluation note* Diagnosis Encounter for fertility planning- Primary documented in this encounter [facility] Work Phone: [phone] note* Diagnosis Multiple sclerosis (Multi)- Primary Multiple sclerosis documented in this encounter [facility] Work Phone: [phone] note* Diagnosis Female infertility Female infertility of unspecified origin documented in this encounter [facility] Work Phone: [phone] note* Diagnosis Female infertility Female infertility of unspecified origin documented in this encounter [facility] Work Phone: [phone] note* Diagnosis Encounter for artificial insemination Artificial insemination documented in this encounter [facility] Work Phone: [phone] note* Diagnosis Female infertility Female infertility of unspecified origin documented in this encounter [facility] Work Phone: [phone] note* Diagnosis Female infertility Female infertility of unspecified origin documented in this encounter [facility] Work Phone: [phone] note* Diagnosis Female infertility Female infertility of unspecified origin documented in this encounter [facility] Work Phone: [phone] note* Diagnosis Encounter for artificial insemination- Primary Artificial insemination documented in this encounter [facility] Work Phone: [phone] note* Diagnosis Screening for thyroid disorder- Primary Fertility testing Encounter for Rh blood typing Encounter for blood typing Screening for STDs (sexually transmitted diseases) Screening examination for venereal disease Encounter for screening for other viral diseases Encounter for preprocedural laboratory examination Female infertility [N97.9] Female infertility of unspecified origin documented in this encounter [facility] Work Phone: [phone] note* Diagnosis Moderate persistent asthma, unspecified whether complicated Screening for hyperlipidemia Screening for lipoid disorders Encounter for screening examination for impaired glucose regulation and diabetes mellitus Gastroesophageal reflux disease without esophagitis Esophageal reflux Multiple sclerosis (HCC) Multiple sclerosis Screening for deficiency anemia Screening for other and unspecified deficiency anemia documented in this encounter [facility] N[facility] F/U EVALUATION * PRINCIPAL NEUROLOGIC DIAGNOSIS: RRMS * DISEASE SUMMARY/DIAGNOSTICS: * Onset: ? summer 2016 * Diagnosis of MS: 05/26 * Disease course at onset: RR * Current disease course: RR * Previous disease therapies: none * Current disease therapies: Tecfidera * Most recent MRI brain: 11/24/20 stable * Most recent MRI cervical spine: 05/26 * Most recent MRI thoracic spine: none * CSF: none * NMO, HIV, HTLV, ARABELLA neg * Lyme positive * HPI: * 35 yo LH female here for a follow up of her MS, she started Vumerity 2020, and tolerating well. Last MRI of the brain 11/24/20 and was stable. She reports no new MS symptoms. [facility] [address] Work Phone: History of Present illness Narrative* [facility]/ EVALUATION * PRINCIPAL NEUROLOGIC DIAGNOSIS: RRMS * DISEASE SUMMARY/DIAGNOSTICS: * Onset: ? summer 2016 * Diagnosis of MS: 05/26 * Disease course at onset: RR * Current disease course: RR * Previous disease therapies: none * Current disease therapies: Tecfidera * Most recent MRI brain: 11/24/20 stable * Most recent MRI cervical spine: 05/26 * Most recent MRI thoracic spine: none * CSF: none * NMO, HIV, HTLV, ARABELLA neg * Lyme positive * HPI: * 36 yo LH female here for a follow up of her MS, she started Vumerity 2020, and tolerating well. Last MRI of the brain 11/24/20 and was stable. She reports no new MS symptoms. [facility] [address] Work Phone: History of Present illness Narrative* [facility]/U EVALUATION * PRINCIPAL NEUROLOGIC DIAGNOSIS: RRMS * DISEASE SUMMARY/DIAGNOSTICS: * Onset: ? summer 2016 * Diagnosis of MS: 05/26 * Disease course at onset: RR * Current disease course: RR * Previous disease therapies: none * Current disease therapies: Vumerity * Most recent MRI brain: 01/02/23 stable * Most recent MRI cervical spine: 05/26 * Most recent MRI thoracic spine: none * CSF: none * NMO, HIV, HTLV, ARABELLA neg * Lyme positive * The patient was informed about the telehealth clinical encounter including benefits to avoiding travel, limitations of the assessment, and billing for the service. In office care may be recommended if needed. Telehealth sessions are not being recorded and personal health information is protected. All questions were answered and verbal consent from the patient was obtained. * HPI: * 36 yo LH female agreed to a virtual visit for a follow up of her MS, she started Vumerity 2020, and tolerating well. Last MRI of the brain 01/02/22 and was stable. She reports no new MS symptoms. [facility] Work Phone: Reason for visit Narrative* Procedure (Routine) - Denied Specialty Diagnoses / Procedures Referred By Branden garcia Referred To Contact Reproductive Endocrinology and Infertility Diagnoses Encounter for artificial insemination Procedures Intrauterine Insemination (IUI) SD EMBRYO TRANSFER INTRAUTERINE CHG ULTRASONIC GUIDANCE INTRAOPERATIVE CHG SPRM ISOL CPLX PREP INSEMINATION/DX SEMEN BENI CHG SPRM ISOL SMPL PREP INSEMINATION/DX SEMEN BENI CHG THAWING CRYOPRESERVED SPERM/SEMEN EACH ALIQUOT Lashawn Drummond, ANNABELLE-MARCELLUS [address] [facility], Simran Mason, [facility] [[email or web address]] [address] [place] [address] Referral ID Status Reason Start Date Expiration Date Visits Re quested Visits Authorized [id number] Denied 08/13/2023 08/12/2024 1 0 [facility] Work Phone: Reason for visit Narrative* Procedure (Routine) - Denied Specialty Diagnoses / Procedures Referred By Branden garcia Referred To Contact Reproductive Endocrinology and Infertility Diagnoses Encounter for artificial insemination Procedures Intrauterine Insemination (IUI) SD EMBRYO TRANSFER INTRAUTERINE CHG ULTRASONIC GUIDANCE INTRAOPERATIVE CHG SPRM ISOL CPLX PREP INSEMINATION/DX SEMEN BENI CHG SPRM ISOL SMPL PREP INSEMINATION/DX SEMEN BENI CHG THAWING CRYOPRESERVED SPERM/SEMEN EACH ALIQUOT Mariza Morales MD [address] [place] [address] Referral ID Status Reason Start Date Expiration Date Visits Re quested Visits Authorized [id number] Denied 11/06/2023 11/05/2024 1 0 [facility] Work Phone: Summary Purpose Family History Grandmother Name Dates Details Family history of congestive heart failure(V17.49, Z82.49) Status:Active Family history of myocardial infarction(V17.3, Z82.49) Status:Active aunt Name Dates Details Family history of cerebrovas cular accident (CVA)(V17.1, Z82.3) Status:Active Family history of Alzheimer' s disease(V17.2, Z82.0) Status:Active Grandmother Name Dates Details Family history of diabetes m ellitus(V18.0, Z83.3) Status:Active Family history of malignant neoplasm(V16.9, Z80.9) Status:Active Mother Name Dates Details Family history of Calcium ki dney stone(592.0, N20.0) Status:Active No family history of migrain e headaches(V49.89, Z78.9) Status:Active Family history of No history of seizures Status:Active Father Name Dates Details Family history of Status:Active Family history of pancreatic cancer(V16.0, Z80.0) Status:Active Family history of malignant neoplasm(V16.9, Z80.9) Status:Active Grandmother Name Dates Details Family history of congestive heart failure(V17.49, Z82.49) Status:Active Family history of myocardial infarction(V17.3, Z82.49) Status:Active aunt Name Dates Details Family history of cerebrovas cular accident (CVA)(V17.1, Z82.3) Status:Active Family history of Alzheimer' s disease(V17.2, Z82.0) Status:Active Grandmother Name Dates Details Family history of diabetes m ellitus(V18.0, Z83.3) Status:Active Family history of malignant neoplasm(V16.9, Z80.9) Status:Active Mother Name Dates Details Family history of Calcium ki dney stone(592.0, N20.0) Status:Active No family history of migrain e headaches(V49.89, Z78.9) Status:Active Family history of No history of seizures Status:Active Father Name Dates Details Family history of malignant neoplasm(V16.9, Z80.9) Status:Active Family history of Status:Active Family history of pancreatic cancer(V16.0, Z80.0) Status:Active Grandmother Name Dates Details Family history of congestive heart failure(V17.49, Z82.49) Status:Active Family history of myocardial infarction(V17.3, Z82.49) Status:Active aunt Name Dates Details Family history of cerebrovas cular accident (CVA)(V17.1, Z82.3) Status:Active Family history of Alzheimer' s disease(V17.2, Z82.0) Status:Active Grandmother Name Dates Details Family history of diabetes m ellitus(V18.0, Z83.3) Status:Active Family history of malignant neoplasm(V16.9, Z80.9) Status:Active Mother Name Dates Details Family history of Calcium ki dney stone(592.0, N20.0) Status:Active No family history of migrain e headaches(V49.89, Z78.9) Status:Active Family history of No history of seizures Status:Active Father Name Dates Details Family history of Status:Active Family history of pancreatic cancer(V16.0, Z80.0) Status:Active Family history of malignant neoplasm(V16.9, Z80.9) Status:Active Unknown Family Member Name Dates Details Calcium kidney stone: Mother Status:Active : Father Status:Active Family history of pancreatic cancer: Father(V16.0, Z80.0) Status:Active Denies Family history of cer ebral aneurysm: Mother(V17.1, Z82.49) Status: No family history of migrain e headaches: Mother(V49.89, Z78.9) Status:Active Family history of cerebrovas cular accident (CVA): Maternal Aunt(V17.1, Z82.3) Comments:Maternal great aunt .; Status:Active No history of seizures: Moth er Status:Active Family history of congestive heart failure: Maternal Grandmother(V17.49, Z82.49) Status:Active Family history of myocardial infarction: Maternal Grandmother(V17.3, Z82.49) Status:Active Family history of Alzheimer' s disease: Maternal Aunt(V17.2, Z82.0) Comments:Maternal great aunt ; Status:Active Family history of diabetes m ellitus: Grandmother(V18.0, Z83.3) Status:Active Family history of malignant neoplasm: Father, Grandmother(V16.9, Z80.9) Status:Active Unknown Family Member Name Dates Details Calcium kidney stone: Mother Status:Active : Father Status:Active Family history of pancreatic cancer: Father(V16.0, Z80.0) Status:Active Denies Family history of cer ebral aneurysm: Mother(V17.1, Z82.49) Status: No family history of migrain e headaches: Mother(V49.89, Z78.9) Status:Active Family history of cerebrovas cular accident (CVA): Maternal Aunt(V17.1, Z82.3) Comments:Maternal great aunt .; Status:Active No history of seizures: Moth er Status:Active Family history of congestive heart failure: Maternal Grandmother(V17.49, Z82.49) Status:Active Family history of myocardial infarction: Maternal Grandmother(V17.3, Z82.49) Status:Active Family history of Alzheimer' s disease: Maternal Aunt(V17.2, Z82.0) Comments:Maternal great aunt ; Status:Active Family history of diabetes m ellitus: Grandmother(V18.0, Z83.3) Status:Active Family history of malignant neoplasm: Father, Grandmother(V16.9, Z80.9) Status:Active Unknown Family Member Name Dates Details Calcium kidney stone: Mother Status:Active : Father Status:Active Family history of pancreatic cancer: Father(V16.0, Z80.0) Status:Active Denies Family history of cer ebral aneurysm: Mother(V17.1, Z82.49) Status: No family history of migrain e headaches: Mother(V49.89, Z78.9) Status:Active Family history of cerebrovas cular accident (CVA): Maternal Aunt(V17.1, Z82.3) Comments:Maternal great aunt .; Status:Active No history of seizures: Moth er Status:Active Family history of congestive heart failure: Maternal Grandmother(V17.49, Z82.49) Status:Active Family history of myocardial infarction: Maternal Grandmother(V17.3, Z82.49) Status:Active Family history of Alzheimer' s disease: Maternal Aunt(V17.2, Z82.0) Comments:Maternal great aunt ; Status:Active Family history of diabetes m ellitus: Grandmother(V18.0, Z83.3) Status:Active Family history of malignant neoplasm: Father, Grandmother(V16.9, Z80.9) Status:Active Unknown Family Member Name Dates Details Calcium kidney stone: Mother Status:Active : Father Status:Active Family history of pancreatic cancer: Father(V16.0, Z80.0) Status:Active Denies Family history of cer ebral aneurysm: Mother(V17.1, Z82.49) Status: No family history of migrain e headaches: Mother(V49.89, Z78.9) Status:Active Family history of cerebrovas cular accident (CVA): Maternal Aunt(V17.1, Z82.3) Comments:Maternal great aunt .; Status:Active No history of seizures: Moth er Status:Active Family history of congestive heart failure: Maternal Grandmother(V17.49, Z82.49) Status:Active Family history of myocardial infarction: Maternal Grandmother(V17.3, Z82.49) Status:Active Family history of Alzheimer' s disease: Maternal Aunt(V17.2, Z82.0) Comments:Maternal great aunt ; Status:Active Family history of diabetes m ellitus: Grandmother(V18.0, Z83.3) Status:Active Family history of malignant neoplasm: Father, Grandmother(V16.9, Z80.9) Status:Active Unknown Family Member Name Dates Details Calcium kidney stone: Mother Status:Active : Father Status:Active Family history of pancreatic cancer: Father(V16.0, Z80.0) Status:Active Denies Family history of cer ebral aneurysm: Mother(V17.1, Z82.49) Status: No family history of migrain e headaches: Mother(V49.89, Z78.9) Status:Active Family history of cerebrovas cular accident (CVA): Maternal Aunt(V17.1, Z82.3) Comments:Maternal great aunt .; Status:Active No history of seizures: Moth er Status:Active Family history of congestive heart failure: Maternal Grandmother(V17.49, Z82.49) Status:Active Family history of myocardial infarction: Maternal Grandmother(V17.3, Z82.49) Status:Active Family history of Alzheimer' s disease: Maternal Aunt(V17.2, Z82.0) Comments:Maternal great aunt ; Status:Active Family history of diabetes m ellitus: Grandmother(V18.0, Z83.3) Status:Active Family history of malignant neoplasm: Father, Grandmother(V16.9, Z80.9) Status:Active Unknown Family Member Name Dates Details Calcium kidney stone: Mother Status:Active : Father Status:Active Family history of pancreatic cancer: Father(V16.0, Z80.0) Status:Active Denies Family history of cer ebral aneurysm: Mother(V17.1, Z82.49) Status: No family history of migrain e headaches: Mother(V49.89, Z78.9) Status:Active Family history of cerebrovas cular accident (CVA): Maternal Aunt(V17.1, Z82.3) Comments:Maternal great aunt .; Status:Active No history of seizures: Moth er Status:Active Family history of congestive heart failure: Maternal Grandmother(V17.49, Z82.49) Status:Active Family history of myocardial infarction: Maternal Grandmother(V17.3, Z82.49) Status:Active Family history of Alzheimer' s disease: Maternal Aunt(V17.2, Z82.0) Comments:Maternal great aunt ; Status:Active Family history of diabetes m ellitus: Grandmother(V18.0, Z83.3) Status:Active Family history of malignant neoplasm: Father, Grandmother(V16.9, Z80.9) Status:Active Unknown Family Member Name Dates Details Calcium kidney stone: Mother Status:Active : Father Status:Active Family history of pancreatic cancer: Father(V16.0, Z80.0) Status:Active Denies Family history of cer ebral aneurysm: Mother(V17.1, Z82.49) Status: No family history of migrain e headaches: Mother(V49.89, Z78.9) Status:Active Family history of cerebrovas cular accident (CVA): Maternal Aunt(V17.1, Z82.3) Comments:Maternal great aunt .; Status:Active No history of seizures: Moth er Status:Active Family history of congestive heart failure: Maternal Grandmother(V17.49, Z82.49) Status:Active Family history of myocardial infarction: Maternal Grandmother(V17.3, Z82.49) Status:Active Family history of Alzheimer' s disease: Maternal Aunt(V17.2, Z82.0) Comments:Maternal great aunt ; Status:Active Family history of diabetes m ellitus: Grandmother(V18.0, Z83.3) Status:Active Family history of malignant neoplasm: Father, Grandmother(V16.9, Z80.9) Status:Active Unknown Family Member Name Dates Details Calcium kidney stone: Mother Status:Active : Father Status:Active Family history of pancreatic cancer: Father(V16.0, Z80.0) Status:Active Denies Family history of cer ebral aneurysm: Mother(V17.1, Z82.49) Status: No family history of migrain e headaches: Mother(V49.89, Z78.9) Status:Active Family history of cerebrovas cular accident (CVA): Maternal Aunt(V17.1, Z82.3) Comments:Maternal great aunt .; Status:Active No history of seizures: Moth er Status:Active Family history of congestive heart failure: Maternal Grandmother(V17.49, Z82.49) Status:Active Family history of myocardial infarction: Maternal Grandmother(V17.3, Z82.49) Status:Active Family history of Alzheimer' s disease: Maternal Aunt(V17.2, Z82.0) Comments:Maternal great aunt ; Status:Active Family history of diabetes m ellitus: Grandmother(V18.0, Z83.3) Status:Active Family history of malignant neoplasm: Father, Grandmother(V16.9, Z80.9) Status:Active Unknown Family Member Name Dates Details Calcium kidney stone: Mother Status:Active : Father Status:Active Family history of pancreatic cancer: Father(V16.0, Z80.0) Status:Active Denies Family history of cer ebral aneurysm: Mother(V17.1, Z82.49) Status: No family history of migrain e headaches: Mother(V49.89, Z78.9) Status:Active Family history of cerebrovas cular accident (CVA): Maternal Aunt(V17.1, Z82.3) Comments:Maternal great aunt .; Status:Active No history of seizures: Moth er Status:Active Family history of congestive heart failure: Maternal Grandmother(V17.49, Z82.49) Status:Active Family history of myocardial infarction: Maternal Grandmother(V17.3, Z82.49) Status:Active Family history of Alzheimer' s disease: Maternal Aunt(V17.2, Z82.0) Comments:Maternal great aunt ; Status:Active Family history of diabetes m ellitus: Grandmother(V18.0, Z83.3) Status:Active Family history of malignant neoplasm: Father, Grandmother(V16.9, Z80.9) Status:Active Unknown Family Member Name Dates Details Calcium kidney stone: Mother Status:Active : Father Status:Active Family history of pancreatic cancer: Father(V16.0, Z80.0) Status:Active Denies Family history of cer ebral aneurysm: Mother(V17.1, Z82.49) Status: No family history of migrain e headaches: Mother(V49.89, Z78.9) Status:Active Family history of cerebrovas cular accident (CVA): Maternal Aunt(V17.1, Z82.3) Comments:Maternal great aunt .; Status:Active No history of seizures: Moth er Status:Active Family history of congestive heart failure: Maternal Grandmother(V17.49, Z82.49) Status:Active Family history of myocardial infarction: Maternal Grandmother(V17.3, Z82.49) Status:Active Family history of Alzheimer' s disease: Maternal Aunt(V17.2, Z82.0) Comments:Maternal great aunt ; Status:Active Family history of diabetes m ellitus: Grandmother(V18.0, Z83.3) Status:Active Family history of malignant neoplasm: Father, Grandmother(V16.9, Z80.9) Status:Active Unknown Family Member Name Dates Details Calcium kidney stone: Mother Status:Active : Father Status:Active Family history of pancreatic cancer: Father(V16.0, Z80.0) Status:Active Denies Family history of cer ebral aneurysm: Mother(V17.1, Z82.49) Status: No family history of migrain e headaches: Mother(V49.89, Z78.9) Status:Active Family history of cerebrovas cular accident (CVA): Maternal Aunt(V17.1, Z82.3) Comments:Maternal great aunt .; Status:Active No history of seizures: Moth er Status:Active Family history of congestive heart failure: Maternal Grandmother(V17.49, Z82.49) Status:Active Family history of myocardial infarction: Maternal Grandmother(V17.3, Z82.49) Status:Active Family history of Alzheimer' s disease: Maternal Aunt(V17.2, Z82.0) Comments:Maternal great aunt ; Status:Active Family history of diabetes m ellitus: Grandmother(V18.0, Z83.3) Status:Active Family history of malignant neoplasm: Father, Grandmother(V16.9, Z80.9) Status:Active Unknown Family Member Name Dates Details Calcium kidney stone: Mother Status:Active : Father Status:Active Family history of pancreatic cancer: Father(V16.0, Z80.0) Status:Active Denies Family history of cer ebral aneurysm: Mother(V17.1, Z82.49) Status: No family history of migrain e headaches: Mother(V49.89, Z78.9) Status:Active Family history of cerebrovas cular accident (CVA): Maternal Aunt(V17.1, Z82.3) Comments:Maternal great aunt .; Status:Active No history of seizures: Moth er Status:Active Family history of congestive heart failure: Maternal Grandmother(V17.49, Z82.49) Status:Active Family history of myocardial infarction: Maternal Grandmother(V17.3, Z82.49) Status:Active Family history of Alzheimer' s disease: Maternal Aunt(V17.2, Z82.0) Comments:Maternal great aunt ; Status:Active Family history of diabetes m ellitus: Grandmother(V18.0, Z83.3) Status:Active Family history of malignant neoplasm: Father, Grandmother(V16.9, Z80.9) Status:Active Unknown Family Member Name Dates Details Calcium kidney stone: Mother Status:Active : Father Status:Active Family history of pancreatic cancer: Father(V16.0, Z80.0) Status:Active Denies Family history of cer ebral aneurysm: Mother(V17.1, Z82.49) Status: No family history of migrain e headaches: Mother(V49.89, Z78.9) Status:Active Family history of cerebrovas cular accident (CVA): Maternal Aunt(V17.1, Z82.3) Comments:Maternal great aunt .; Status:Active No history of seizures: Moth er Status:Active Family history of congestive heart failure: Maternal Grandmother(V17.49, Z82.49) Status:Active Family history of myocardial infarction: Maternal Grandmother(V17.3, Z82.49) Status:Active Family history of Alzheimer' s disease: Maternal Aunt(V17.2, Z82.0) Comments:Maternal great aunt ; Status:Active Family history of diabetes m ellitus: Grandmother(V18.0, Z83.3) Status:Active Family history of malignant neoplasm: Father, Grandmother(V16.9, Z80.9) Status:Active Unknown Family Member Name Dates Details Calcium kidney stone: Mother Status:Active : Father Status:Active Family history of pancreatic cancer: Father(V16.0, Z80.0) Status:Active Denies Family history of cer ebral aneurysm: Mother(V17.1, Z82.49) Status: No family history of migrain e headaches: Mother(V49.89, Z78.9) Status:Active Family history of cerebrovas cular accident (CVA): Maternal Aunt(V17.1, Z82.3) Comments:Maternal great aunt .; Status:Active No history of seizures: Moth er Status:Active Family history of congestive heart failure: Maternal Grandmother(V17.49, Z82.49) Status:Active Family history of myocardial infarction: Maternal Grandmother(V17.3, Z82.49) Status:Active Family history of Alzheimer' s disease: Maternal Aunt(V17.2, Z82.0) Comments:Maternal great aunt ; Status:Active Family history of diabetes m ellitus: Grandmother(V18.0, Z83.3) Status:Active Family history of malignant neoplasm: Father, Grandmother(V16.9, Z80.9) Status:Active Unknown Family Member Name Dates Details Calcium kidney stone: Mother Status:Active : Father Status:Active Family history of pancreatic cancer: Father(V16.0, Z80.0) Status:Active Denies Family history of cer ebral aneurysm: Mother(V17.1, Z82.49) Status: No family history of migrain e headaches: Mother(V49.89, Z78.9) Status:Active Family history of cerebrovas cular accident (CVA): Maternal Aunt(V17.1, Z82.3) Comments:Maternal great aunt .; Status:Active No history of seizures: Moth er Status:Active Family history of congestive heart failure: Maternal Grandmother(V17.49, Z82.49) Status:Active Family history of myocardial infarction: Maternal Grandmother(V17.3, Z82.49) Status:Active Family history of Alzheimer' s disease: Maternal Aunt(V17.2, Z82.0) Comments:Maternal great aunt ; Status:Active Family history of diabetes m ellitus: Grandmother(V18.0, Z83.3) Status:Active Family history of malignant neoplasm: Father, Grandmother(V16.9, Z80.9) Status:Active Unknown Family Member Name Dates Details Calcium kidney stone: Mother Status:Active : Father Status:Active Family history of pancreatic cancer: Father(V16.0, Z80.0) Status:Active Denies Family history of cer ebral aneurysm: Mother(V17.1, Z82.49) Status: No family history of migrain e headaches: Mother(V49.89, Z78.9) Status:Active Family history of cerebrovas cular accident (CVA): Maternal Aunt(V17.1, Z82.3) Comments:Maternal great aunt .; Status:Active No history of seizures: Moth er Status:Active Family history of congestive heart failure: Maternal Grandmother(V17.49, Z82.49) Status:Active Family history of myocardial infarction: Maternal Grandmother(V17.3, Z82.49) Status:Active Family history of Alzheimer' s disease: Maternal Aunt(V17.2, Z82.0) Comments:Maternal great aunt ; Status:Active Family history of diabetes m ellitus: Grandmother(V18.0, Z83.3) Status:Active Family history of malignant neoplasm: Father, Grandmother(V16.9, Z80.9) Status:Active Unknown Family Member Name Dates Details Calcium kidney stone: Mother Status:Active : Father Status:Active Family history of pancreatic cancer: Father(V16.0, Z80.0) Status:Active Denies Family history of cer ebral aneurysm: Mother(V17.1, Z82.49) Status: No family history of migrain e headaches: Mother(V49.89, Z78.9) Status:Active Family history of cerebrovas cular accident (CVA): Maternal Aunt(V17.1, Z82.3) Comments:Maternal great aunt .; Status:Active No history of seizures: Moth er Status:Active Family history of congestive heart failure: Maternal Grandmother(V17.49, Z82.49) Status:Active Family history of myocardial infarction: Maternal Grandmother(V17.3, Z82.49) Status:Active Family history of Alzheimer' s disease: Maternal Aunt(V17.2, Z82.0) Comments:Maternal great aunt ; Status:Active Family history of diabetes m ellitus: Grandmother(V18.0, Z83.3) Status:Active Family history of malignant neoplasm: Father, Grandmother(V16.9, Z80.9) Status:Active Unknown Family Member Name Dates Details Calcium kidney stone: Mother Status:Active : Father Status:Active Family history of pancreatic cancer: Father(V16.0, Z80.0) Status:Active Denies Family history of cer ebral aneurysm: Mother(V17.1, Z82.49) Status: No family history of migrain e headaches: Mother(V49.89, Z78.9) Status:Active Family history of cerebrovas cular accident (CVA): Maternal Aunt(V17.1, Z82.3) Comments:Maternal great aunt .; Status:Active No history of seizures: Moth er Status:Active Family history of congestive heart failure: Maternal Grandmother(V17.49, Z82.49) Status:Active Family history of myocardial infarction: Maternal Grandmother(V17.3, Z82.49) Status:Active Family history of Alzheimer' s disease: Maternal Aunt(V17.2, Z82.0) Comments:Maternal great aunt ; Status:Active Family history of diabetes m ellitus: Grandmother(V18.0, Z83.3) Status:Active Family history of malignant neoplasm: Father, Grandmother(V16.9, Z80.9) Status:Active Unknown Family Member Name Dates Details Calcium kidney stone: Mother Status:Active : Father Status:Active Family history of pancreatic cancer: Father(V16.0, Z80.0) Status:Active Denies Family history of cer ebral aneurysm: Mother(V17.1, Z82.49) Status: No family history of migrain e headaches: Mother(V49.89, Z78.9) Status:Active Family history of cerebrovas cular accident (CVA): Maternal Aunt(V17.1, Z82.3) Comments:Maternal great aunt .; Status:Active No history of seizures: Moth er Status:Active Family history of congestive heart failure: Maternal Grandmother(V17.49, Z82.49) Status:Active Family history of myocardial infarction: Maternal Grandmother(V17.3, Z82.49) Status:Active Family history of Alzheimer' s disease: Maternal Aunt(V17.2, Z82.0) Comments:Maternal great aunt ; Status:Active Family history of diabetes m ellitus: Grandmother(V18.0, Z83.3) Status:Active Family history of malignant neoplasm: Father, Grandmother(V16.9, Z80.9) Status:Active Advance Directives Documents on File Type Date Recorded Patient Co Founder And Chairman Expl anation Advance Directives and Living Will Power of Clinical Molecular Geneticist Documents on File Type Date Recorded Patient Co Founder And Chairman Expl anation Advance Directives and Living Will Power of Clinical Molecular Geneticist Assessments Diagnosis Dysphagia, unspecified type Diagnosis Pharyngitis, unspecified etiology Reason for Referral Status Reason Specialty Diagnoses / Procedures Referre d By Contact Referred To Contact Open Radiology Diagnoses Dysphagia, unspecified type Procedures FL MODIFIED BARIUM SWALLOW W VIDEO HC DYSPHAGIA/SWALLOWING STUDY Sita Singh, SOD FARMER - CONSTRUCTION SUPERINTENDENT [address] [place] [address] Specialty Diagnoses / Procedures Referred By Contac t Referred To Contact Radiology Diagnoses Multiple sclerosis ([facility]) Procedures MR brain w and wo IV contrast Michael Chaney, SOD FARMER-CONSTRUCTION SUPERINTENDENT [address] [place] [address] Referral ID Status Reason Start Date Expiration Date Visits Requested Visits Authorized [id number] Pending Review Perform Procedure 3 02/07/2024 1 1 Referral ID Status Reason Start Date Expiration Date Visits Requested Visits Authorized [id number] Authorized Perform Procedure 3 02/07/2024 1 1 Specialty Diagnoses / Procedures Referred By Contac t Referred To Contact Radiology Diagnoses Fertility testing Procedures FL hysterosalpingogram Lashawn Drummond, SOD FARMER-CONSTRUCTION SUPERINTENDENT [address] [facility], [place] [address] Referral ID Status Reason Start Date Expiration Date V isits Requested Visits Authorized [id number] Denied Perform Procedure 06/04/2023 06/03/2024 1 0 Specialty Diagnoses / Procedures Referred By Contac t Referred To Contact Diagnoses Fertility testing Procedures Hysterosalpingogram (HSG) Lashawn Drummond, SOD FARMER-CONSTRUCTION SUPERINTENDENT [address] [facility], [place] [address] Referral ID Status Reason Start Date Expiration Date V isits Requested Visits Authorized [id number] Pending Review 06/04/2023 06/03/2024 1 1 Specialty Diagnoses / Procedures Referred By Contac t Referred To Contact Radiology Diagnoses Fertility testing Procedures US pelvis transvaginal Lashawn Drummond, SOD FARMER-CONSTRUCTION SUPERINTENDENT [address] [facility], [place] [address] Referral ID Status Reason Start Date Expiration Date Visits Requested Visits Authorized [id number] Authorized Perform Procedure 06/04/2023 06/03/2024 1 1 Specialty Diagnoses / Procedures Referred By Contac t Referred To Contact Diagnoses Fertility testing Procedures HSG Hilary Zendejas, SOD FARMER-CONSTRUCTION SUPERINTENDENT [address] [place] [address] Referral ID Status Reason Start Date Expiration Date V isits Requested Visits Authorized [id number] Pending Review 08/06/2023 08/05/2024 1 1 Referral ID Status Reason Start Date Expiration Date Visits Requested Visits Authorized [id number] Pending Review Perform Procedure 06/04/2023 06/03/2024 1 0 Additional Source Comments INFORMATION SOURCE (unrecogn ized section and content) DATE CREATED AUTHOR 08/30/2017 [facility] DATE CREATED AUTHOR AUTHOR'S ORGANIZ ATION 07/04/2018 [facility] DATE CREATED AUTHOR AUTHOR'S ORGANIZ ATION 02/07/2020 [facility] DATE CREATED AUTHOR AUTHOR'S ORGANIZ ATION 01/06/2022 [facility] DATE CREATED AUTHOR AUTHOR'S ORGANIZ ATION 01/06/[address] [facility] DATE CREATED AUTHOR AUTHOR'S ORGANIZ ATION 03/09/2022 [facility] DATE CREATED AUTHOR AUTHOR'S ORGANIZ ATION 04/13/2022 [facility] DATE CREATED AUTHOR AUTHOR'S ORGANIZ ATION 04/14/2022 [employer] DATE CREATED AUTHOR AUTHOR'S ORGANIZ ATION 03/19/2023 [facility] DATE CREATED AUTHOR AUTHOR'S ORGANIZ ATION 09/26/2023 [facility] DATE CREATED AUTHOR AUTHOR'S ORGANIZ ATION 10/24/2023 [facility] DATE CREATED AUTHOR AUTHOR'S ORGANIZ ATION 11/25/2023 [facility] DATE CREATED AUTHOR AUTHOR'S ORGANIZ ATION 03/27/2024 [facility] Reason for Visit (unrecogniz ed section and content) Status Reason Specialty Diagnoses / Procedures Referre d By Contact Referred To Contact Open Radiology Diagnoses Dysphagia, unspecified type Procedures FL MODIFIED BARIUM SWALLOW W VIDEO HC DYSPHAGIA/SWALLOWING STUDY Sita Singh, SOD FARMER - CONSTRUCTION SUPERINTENDENT [address] [place] [address] Specialty Diagnoses / Procedures Referred By Branden t Referred To Contact Radiology Diagnoses Multiple sclerosis ([facility]) Procedures MR brain w and wo IV contrast Michael Chaney, SOD FARMER-CONSTRUCTION SUPERINTENDENT [address] [address] Department of Neurology [place] [phone] Referral ID Status Reason Start Date Expiration Date Visits Requested Visits Authorized [id number] Authorized Perform Procedure 3 02/07/2024 1 1 Reason Comments Infertility Patient presents wan ting to do donor sperm Specialty Diagnoses / Procedures Referred By Branden garcia Referred To Contact Radiology Diagnoses Fertility testing Procedures [place] hysterosalpingogram Lashawn Drummond APRN-CONSTRUCTION SUPERINTENDENT [address] [facility], [address] [place], [email or web address] [address] [place] [phone] Referral ID Status Reason Start Date Expiration Date Visits Requested Visits Authorized [id number] Pending Review Perform Procedure 06/04/2023 06/03/2024 1 0 Reason Comments Follow-up Reason Comments Multiple Sclerosis Specialty Diagnoses / Procedures Referred By Branden garcia Referred To Contact Radiology Diagnoses Female infertility Procedures PAUL US Pelvis Limited Follicles - Follicle Studies Performed Lashawn Drummond APRN-CONSTRUCTION SUPERINTENDENT [address] [facility], [place]ran [place], [facility] [[email or web address] [address] [place] [address] Referral ID Status Reason Start Date Expiration Date Visits Requested Visits Authorized [id number] Authorized Perform Procedure 08/13/2023 08/12/2024 8 8 Reason Comments Follow-up Care Teams (unrecognized sec tion and content) Assistant Sales Director Relationship Specialty Start Date End Date Sita Singh APRN - CONSTRUCTION SUPERINTENDENT [address] [place] [address] PCP - General Family Nurse Practitioner 07/04/18 Assistant Sales Director Relationship Specialty Start Date End Date Sita Singh APRN-CONSTRUCTION SUPERINTENDENT [address] [place] [address] PCP - General 03/11/18 Michael Chaney, SOD FARMER-CONSTRUCTION SUPERINTENDENT [address] [facility] [place] [address] PCP - [place] ACO PCP 04/11/22 Assistant Sales Director Relationship Specialty Start Date End Date Sita Singh APRN-CONSTRUCTION SUPERINTENDENT [address] [place] [address] PCP - General 03/11/18 Michael Chaney SOD FARMER-CONSTRUCTION SUPERINTENDENT [address] [facility] [place] [address] PCP - Jd ACO PCP 04/11/22 Assistant Sales Director Relationship Specialty Start Date End Date Sita Singh APRN-CONSTRUCTION SUPERINTENDENT [address] [place] [phone] PCP - General 03/11/18 Michael Chaney, [facility] [address] [facility] [place] [address] PCP - Jd ACO PCP 04/11/22 Christen Garner, RN Registered Nurse Reproductive Endocrinology and Infertility 06/04/23 Assistant Sales Director Relationship Specialty Start Date End Date Sita Singh APRN-CONSTRUCTION SUPERINTENDENT [address] [place] [address] PCP - General 03/11/18 Michael Chaney, SOD FARMER-CONSTRUCTION SUPERINTENDENT [address] [facility] [place] [address] PCP - [place] ACO PCP 04/11/22 Christen Garner, RN Registered Nurse Reproductive Endocrinology and Infertility 06/04/23 Assistant Sales Director Relationship Specialty Start Date End Date Sita Singh APRN-CNP [address] [place], [place] [phone] PCP - General 03/11/18 Michael Chaney APRN-CNP [address] [facility] [place] [address] PCP - Jd ACO PCP 04/11/22 Christen Garner, RN Registered Nurse Reproductive Endocrinology and Infertility 06/04/23 Assistant Sales Director Relationship Specialty Start Date End Date Sita Singh APRN-CNP [address] [place], [place] [phone] PCP - General 03/11/18 Michael Chaney APRN-MARCELLUS [address] [facility] Department of Neurology [place] [phone] PCP - Jd ACO PCP 04/11/22 Christen Garner, RN Registered Nurse Reproductive Endocrinology and Infertility 06/04/23 Assistant Sales Director Relationship Specialty Start Date End Date Sita Singh APRN-CNP [address] [place], [place] [phone] PCP - General 03/11/18 Michael Chaney APRN-MARCELLUS [address] [facility] [place] [address] PCP - Jd ACO PCP 04/11/22 Christen Garner, RN Registered Nurse Reproductive Endocrinology and Infertility 06/04/23 Assistant Sales Director Relationship Specialty Start Date End Date Sita Singh APRN-CONSTRUCTION SUPERINTENDENT [address] [place], [place] [phone] PCP - General 03/11/18 Michael Chaney APRN-CNP [address] [facility] [place] [address] PCP - Jd ACO PCP 04/11/22 Christen Garner, RN Registered Nurse Reproductive Endocrinology and Infertility 06/04/23 Assistant Sales Director Relationship Specialty Start Date End Date Sita Singh APRN-CONSTRUCTION SUPERINTENDENT [address] [place], [place] [phone] PCP - General 03/11/18 Michael Chaney APRN-CONSTRUCTION SUPERINTENDENT [address] [facility] [place] [address] PCP - Jd ACO PCP 04/11/22 Christen Garner, RN Registered Nurse Reproductive Endocrinology and Infertility 06/04/23 Assistant Sales Director Relationship Specialty Start Date End Date Sita Singh APRN-CONSTRUCTION SUPERINTENDENT [address] [place], [place] [phone] PCP - General 03/11/18 Michael Chaney APRN-CONSTRUCTION SUPERINTENDENT [address] [facility] [place] [address] PCP - Jd ACO PCP 04/11/22 Christen Garner, RN Registered Nurse Reproductive Endocrinology and Infertility 06/04/23 Assistant Sales Director Relationship Specialty Start Date End Date Sita Singh APRN-CONSTRUCTION SUPERINTENDENT [address] [place] [phone] PCP - General 03/11/18 Michael Chaney, ANNABELLE-MARCELLUS [address] [facility] [place] [address] PCP - Jd JOHNSONO PCP 04/11/22 Christen Garner, RN Registered Nurse Reproductive Endocrinology and Infertility 06/04/23 Assistant Sales Director Relationship Specialty Start Date End Date Sita Singh APRN-MARCELLUS [address] [place] [phone] PCP - General 03/11/18 Michael Chaney APRN-CONSTRUCTION SUPERINTENDENT [address] [facility] [place] [address] PCP - Jd BERG PCP 04/11/22 Christen Garner, RN Registered Nurse Reproductive Endocrinology and Infertility 06/04/23 Assistant Sales Director Relationship Specialty Start Date End Date Sita Singh DNP [address] [place] [phone] PCP - General Family Nurse Practitioner 07/04/18 FOR RECORDS PERTAINING TO PATIENTS WHO ARE OR HAVE BEEN ENROLLED IN A CHEMICAL DEPENDENCY/SUBSTANCEABUSE PROGRAM, SOME INFORMATION MAY BE OMITTED. This clinical summary was aggregated from multiple sources. Caution should be exercised in using it in the provision of clinical care. This summary normalizes information from multiple sources, and as a consequence, information in this document may materially change the coding, format and clinical context of patient data. In addition, data may be omitted in some cases. CLINICAL DECISIONS SHOULD BE BASED ON THE PRIMARY CLINICAL RECORDS. [facility]. provides no warranty or guarantee of the accuracy or completeness of information in this document.
[2024-09-28 23:09] LABS: Age Gdln ACOG Testing Note (.); HPV Genotype 18,45 Negative (Negative); IGP, Aptima HPV, rfx 16/18,45 Note (.)
== END 2024-09-22 19:38 | disposition home or self-care (01) ==
LOC: LAB 19:37
PROVIDERS: Visit Provider Obstetrics & Gynecology
DX: Z01.419 Encounter for gynecological examination (general) (routine) without abnormal findings (principal)
CPT/HCPCS: 88175